=== PATIENT | male | born 1950 | race Caucasian/White ===

== ENCOUNTER 2017-08-21 00:31 | Inpatient (IN) | payer MEDICAID, SELFPAY ==
[2017-08-21] VITALS (53 sets, daily range): BP systolic 68–112; BP diastolic 44–76; PULSE 62–94; RESP 14–26; TEMP 36.6–37.5; O2SAT 93–100; BMI 31.8; BMI 29.5
--- NOTE | 2017-08-21 00:58 | EKG12_ITS ---
Test Reason : Blood Pressure : / mmHG Vent. Rate : 091 BPM Atrial Rate : 091 BPM P-R Int : 162 ms QRS Dur : 100 ms QT Int : 362 ms P-R-T Axes : 046 024 045 degrees QTc Int : 445 ms Normal sinus rhythm Normal ECG Confirmed by TRACIE LOGAN MD ([id number]), state editor GUERLINE CHAPARRO ([id number] on 08/22/2017 3:04:34 PM Referred By: MACK Confirmed By:TRACIE LOGAN MD
--- NOTE | 2017-08-21 00:58 | RAD_ITS ---
STUDY: X-RAY CHEST REASON FOR EXAM: Male, 67 years old. Chest pain TECHNIQUE: Single AP portable view of the chest. COMPARISON: None. FINDINGS: The lungs are clear and expanded. There is no demonstrated pleural abnormality. Normal size heart. Normal mediastinum and yvonne. Normal visualized pulmonary arteries. There is atherosclerotic calcification of the aortic arch with tortuosity. Normal visualized thoracic spine. There is degenerative osteoarthritis of the bilateral shoulders. There is no demonstrated abnormality of the visualized soft tissue structures of the upper abdomen. RAD/Chest 1 View (Portable) IMPRESSION: Degenerative changes, as described above. No demonstrated acute cardiopulmonary process. Electronically Signed: Marleny Schaffer MD at 2:10 EDT Tel , Service support ,
--- NOTE | 2017-08-21 00:59 | CT_ITS ---
STUDY: CT BRAIN WITHOUT CONTRAST REASON FOR EXAM: Male, 67 years old. CONFUSION RADIATION DOSAGE (If Supplied By Facility): CTDIvol = ( 44.99 ) mGy, DLP = ( 914.22 ) mGycm TECHNIQUE: Transaxial CT imaging of the brain was performed without administration of intravenous contrast material. Individualized dose optimization techniques were used for this CT. COMPARISON: None. FINDINGS: Normal soft tissue structures. Normal calvarium. There is moderate cerebral atrophy with widening of the extra-axial spaces and ventricular dilatation. There are areas of decreased attenuation within the white matter tracts of the supratentorial brain, consistent with microvascular disease changes. 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 Normal basal ganglia and thalami. Normal brainstem. Normal cerebellum. There is no intracranial hemorrhage. There are no findings of an acute ischemic infarction. Normal visualized paranasal sinuses. CT/Brain/Head without Contrast IMPRESSION: Chronic involutional changes of the brain. 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 Electronically Signed: Marleny Schaffer MD at 2:19 EDT Tel , Service support ,
[2017-08-21] MEDS: 0.9% Normal Saline 1,000 ML 1000 ML IV (01:09)
[2017-08-21 01:11] LABS: Mucous, Urine 0 SEEN /hpf (<or=2+)
[2017-08-21 01:16] LABS: Absolute Lymphocyte Count 1.64 X10^3/ul (0.83-4.51); Absolute Neutrophil Count 10.3 X10^3/uL (2.0-7.7); Basophil# 0.03 X10^3/uL; Basophil% 0.2 % (0-1); Eosinophil# 0.46 X10^3/uL; Eosinophils% 3.4 % (0-5); Hemoglobin 11.3 g/dl (13.0-16.5); Lymphocyte # 1.64 X10^3/ul (4.0); Lymphocyte % 12.2 % (19-41); Mean Corp Hgb Conc 34.2 g/gl (32-36); Mean Corpuscular Volume 90.4 fL (80-94); Mean Platelet Vol. 9.2 fl (6.2-12.0); Monocyte% 7.4 % (0-10); Neutrophil % 76.5 % (47-70); Platelet Count 305 K/mm3 (150-450); RBC Distribution Width CV 13.1 % (11.6-14.6); RBC Distribution Width SD 43.5 fl (35.1-43.9); Red Blood Count 3.65 M/mm3 (4.6-6.2); White Blood Count 13.5 K/mm3 (4.4-11.0)
[2017-08-21 01:17] LABS: Differential Indicated SCAN CRITERIA MET; International Normalized Ratio 1.3; POSITIVE COUNT NO; POSITIVE DIFFERENTIAL NO; POSITIVE MORPHOLOGY YES; Prothrombin Time (Protime)PT. 16.6 SECONDS (11.7-14.9)
[2017-08-21 01:20] LABS: Lactic Acid 0.8 mmol/L (0.4-2.0)
[2017-08-21 01:21] LABS: Color, Urine Amber (Yellow); Glucose, Dipstick Normal (Normal); Ketone-Dipstick 5 mg/dl (Negative); Leukocyte Esterase-Dipstick 500 /ul (Negative); Nitrite-Dipstick Negative (Negative); Occult Blood-Urine 250 /ul (Negative); Protein-Dipstick 100 mg/dl (Negative); Specific Gravity, Urine 1.015 (1.002-1.030); Urine Bilirubin Dipstick Negative (Negative); Urine Clarity Turbid (Clear); Urine Urobilinogen Normal (Normal)
[2017-08-21 01:24] LABS: Anion Gap 20 (5-15); BUN 175 mg/dL (7-18); BUN/Creat Ratio 16.4 RATIO (10-20); Calcium,Total 8.3 mg/dL (8.5-10.1); Chloride 88 mmol/L (98-107); EST Glomerular Filtration Rate 5 mL/min (>60); Est Glom Filt Rate - Afr Amer 6 mL/min (>60); Estimated Creatinine Clearance 7.35 ml/min; Glucose 88 mg/dL (74-106); Potassium 4.8 mmol/L (3.5-5.1); Sodium Level 127 mmol/L (136-145)
--- NOTE | 2017-08-21 01:24 | ED.RN ---
AWARE OF [id number].
[2017-08-21 01:36] LABS: Amorphous Sediment 1+ PHOS; Bacteria RARE /hpf (None Seen); Red Blood Cells-Urine > 100 SEEN /hpf (0-5); Squamous Epithelial Cells - UA 5-10 SEEN /hpf (0-5); White Blood Cells >100 SEEN /hpf (0-5)
[2017-08-21 01:47] LABS: Anisocytosis RARE; Macrocytosis RARE; Platelet Estimate ADEQUATE (ADEQ)
[2017-08-21] MEDS: 0.9% Normal Saline 1,000 ML 999 ML IV ×2 (01:58→02:26)
[2017-08-21] MEDS: Ceftriaxone 1 GM/50 ML BAG IV (03:01)
[2017-08-21] MEDS: Acetaminophen 500 MG Tablet 1000 MG PO (03:08)
--- NOTE | 2017-08-21 04:13 | ED.VISSUMM ---
- ER Visit Summary Date of Service: 08/21/17 Chief Complaint: Hypotension History of Present Illness: The patient is a 67 M presenting with hypotension per retirement. Per retirement staff, he is more confused than usual. He is typically alert and oriented ?1 according to notes. His blood pressure was noted to be 76/52, pulse ox 86% on room air. He was given IV fluids and oxygen in route to the hospital. Patient complains of pain over his bladder. No fever. Patient has a history of schizoaffective disorder, hypertension, hypercholesterolemia. Physical Examination: Blood pressure 83/54, temperature 99.5, heart rate 89, respiratory rate 18, pulse ox 94% on room air. Alert no acute distress. HEENT exam is unremarkable. Dry mucous membranes Neck is supple. Lungs are clear and equal bilaterally. Heart is regular rate and rhythm. Abdomen is soft nontender nondistended. No guarding or rebound Extremities are unremarkable. Skin is warm and dry. No focal neurologic deficit. Alert and oriented to person only Remainder of exam is unremarkable. Emergency Department Course and Treatment: Patient was given IV fluids. Chest x-ray shows no acute process. EKG is sinus rate of 91. CT head was obtained and shows chronic changes, old infarct. CBC shows a white count of 13.5, hemoglobin 11.3. Chemistries show sodium 127, BUN 175, creatinine 10.7. INR is 1.3. Urinalysis shows over 100 white blood cells, over 100 red blood cells. Alex catheter was placed. Troponin is negative. Lactic acid is normal. Blood and urine cultures were sent. He was given Rocephin IV. He was given 30 cc/kg bolus of IV fluids. He was responsive to this with repeat blood pressure 97/60. Discussed with Dr. Harrison for admission. Disposition: Admission Impression: Severe sepsis, UTI, acute kidney injury This note was generated with [employer] dictation software. It may contain incorrect words, spelling, and punctuation that were not noted in review of the chart prior to signing ED Disposition - Plan for ED Patient: Disposition: Acute Care [facility] Chief Complaint: Hypotension
--- NOTE | 2017-08-21 04:18 | ED.DCSUM_ITS ---
- ER Visit Summary Date of Service: 08/21/17 Chief Complaint: Hypotension History of Present Illness: The patient is a 67 M presenting with hypotension per senior living. Per senior living staff, he is more confused than usual. He is typically alert and oriented ?1 according to notes. His blood pressure was noted to be 76/52, pulse ox 86% on room air. He was given IV fluids and oxygen in route to the hospital. Patient complains of pain over his bladder. No fever. Patient has a history of schizoaffective disorder, hypertension, hypercholesterolemia. Physical Examination: Blood pressure 83/54, temperature 99.5, heart rate 89, respiratory rate 18, pulse ox 94% on room air. Alert no acute distress. HEENT exam is unremarkable. Dry mucous membranes Neck is supple. Lungs are clear and equal bilaterally. Heart is regular rate and rhythm. Abdomen is soft nontender nondistended. No guarding or rebound Extremities are unremarkable. Skin is warm and dry. No focal neurologic deficit. Alert and oriented to person only Remainder of exam is unremarkable. Emergency Department Course and Treatment: Patient was given IV fluids. Chest x -ray shows no acute process. EKG is sinus rate of 91. CT head was obtained and shows chronic changes, old infarct. CBC shows a white count of 13.5, hemoglobin 11.3. Chemistries show sodium 127, BUN 175, creatinine 10.7. INR is 1.3. Urinalysis shows over 100 white blood cells, over 100 red blood cells. Alex catheter was placed. Troponin is negative. Lactic acid is normal. Blood and urine cultures were sent. He was given Rocephin IV. He was given 30 cc/kg bolus of IV fluids. He was responsive to this with repeat blood pressure 97/60. Discussed with Dr. Harrison for admission. Disposition: Admission Impression: Severe sepsis, UTI, acute kidney injury This note was generated with [employer] dictation software. It may contain incorrect words, spelling, and punctuation that were not noted in review of the chart prior to signing ED Disposition - Plan for ED Patient: Disposition: Acute Care [facility] Chief Complaint: Hypotension
--- NOTE | 2017-08-21 04:53 | NURSING ---
Called [facility] inquiring if pt. has any family or a lithography contact worker. Spoke with MILI Duncan and she stated that the pt. has no family and is his own POA.
[2017-08-21] MEDS: 0.9% Normal Saline 1,000 ML 150 ML IV (05:53)
--- NOTE | 2017-08-21 05:55 | US_ITS ---
STUDY: RENAL ULTRASOUND - COMPLETE REASON FOR EXAM: Male, 67 years old. Acute renal failure. TECHNIQUE: Ultrasound evaluation of the kidneys was performed with real-time and static lomas-scale imaging. COMPARISON: None. FINDINGS: RIGHT KIDNEY: Normal location of the right kidney, which is normal in size. The right kidney measures 12.7 cm x 6.1 cm x 5.0 cm. There is a normal cortex of the right kidney. The renal cortex measures 1.3 cm. There is no right renal mass or cyst. There are no right renal calculi. There is an extra-renal pelvis of the right kidney. There is no distention of the renal calyces. DISTAL RIGHT URETER: There is non-visualization of the distal right ureter. There is no demonstrated right ureterovesical junction calculus. There is no demonstrated right ureteral jet. LEFT KIDNEY: Normal location of the left kidney, which is normal in size. The left kidney measures 10.1 cm x 5.6 cm x 6.0 cm. There is a normal cortex of the left kidney. The renal cortex measures 1.2 cm. There is no left renal mass or cyst. There are no left renal calculi. There is no left hydronephrosis. DISTAL LEFT URETER: There is non-visualization of the distal left ureter. There is no demonstrated left ureterovesical junction calculus. There is no demonstrated left ureteral jet. BLADDER: A Alex catheter is seen within the urinary bladder. The bladder is empty. US/Kidney and Bladder IMPRESSION: Normal ultrasound of the kidneys. A right-sided extrarenal pelvis is seen. Electronically Signed: Elbert Kaur MD at 13:02 EDT Tel [phone], Service support ,
--- NOTE | 2017-08-21 06:13 | PCM.HP.STD ---
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 Pt unable to provide useful history. He was sent from the [place] [facility]. He was also been confused today when he is usually orientated x 1. His blood pressure was 70s and saturating in the 80s. He was given fluid and oxygen en route to the hospital. Past Medical History Past Medical History (Chronic Problems): Chronic Problems Speech abnormality (Chronic) Benign essential hypertension (Chronic) History of hyperlipidemia (Chronic) Schizoaffective disorder (Chronic) Tobacco user (Chronic) GERD (gastroesophageal reflux disease) (Chronic) Allergies No Known Allergies Allergy (Verified 08/21/17 00:41) Home Medications: Ambulatory Orders Medication Instructions Recorded Cyanocobalamin (Vitamin B-12) 1,000 mcg PO DAILY 12/08/16 [B-12] Ergocalciferol [Vitamin D] 50,000 unit PO TH 12/08/16 Meloxicam [Mobic] 7.5 mg PO DAILY 12/08/16 Aspirin E.C. [Ecotrin] 81 mg PO DAILY@0800 tablet 12/10/16 Losartan Potassium [Cozaar] 100 mg PO DAILY tablet 12/10/16 Metoprolol Tartrate [Lopressor 12.5 mg PO BID tablet 12/10/16 (beta gayatri)] Oxycodone [Oxyir] 5 mg PO Q4H PRN PRN #10 tablet 12/10/16 Atorvastatin Calcium [Lipitor] 80 mg PO QHS 12/11/16 Furosemide [Lasix] 20 mg PO DAILY 08/21/17 Lactobacillus Rhamnosus GG 1 each PO DAILY 08/21/17 [Culturelle] Lasix 40 mg PO BREAKFAST 08/21/17 Loratadine 10 mg PO BREAKFAST 08/21/17 Omeprazole [Prilosec] 20 mg PO DAILY 08/21/17 Tamsulosin HCl [Flomax] 0.8 mg PO DAILY 08/21/17 Surgical History: no surgical history Smoking Status: Current every day smoker - *Family History Sibling History Items: Heart Disease Maternal History Items: Heart Disease Review of Systems Constitutional: Denies: Chills, Fever, Weight Change HEENT: Denies: Head Aches, Sinus Congestion, Sinus Drainage Cardiovascular: Denies: Chest Pain, Palpitations Respiratory: Denies: Cough, Shortness of breath at rest, Sputum production Gastrointestinal: Denies: Abdominal Pain, Nausea, Vomiting Genitourinary: Reports: - - Abdominal pain Musculoskeletal: Denies: Joint Pain, Joint Tenderness Skin: Denies: Rash, Wounds Neurological: Denies: Numbness, Tingling, Focal weakness Psychiatric: Denies: Anxiety, Depression, Homicidal Ideations, Suicidal Ideations Hematologic/ Lymphatic: Denies: Easy Bruising, Easy Bleeding VTE Information - Inpt Only VTE Present on Admission: No VTE Mechan Device Prophylaxis: SCD's VTE Pharm Prophylaxis ordered?: Yes Patient Problems: Active and Suspected Problems Septic shock (Acute) UTI (urinary tract infection) (Acute) - Physical Exam General: Alert, Oriented x3, Cooperative HEENT: Atraumatic, PERRLA, EOMI, Normocephalic Neck: Supple, No JVD, Negative Carotid Bruits Lungs: Clear to auscultation, Normal air movement Cardiovascular: Regular rate, No murmurs Abdomen: Bowel Sounds Present, Soft, Non Tender Extremities: No edema, Capillary Refill Less than 3 Seconds Skin: No rashes, No breakdown Musculoskeletal: No Tenderness to Palpation of Joints or Extremities Neurological: Cranial nerves II-XII grossly intact Psych/Mental Status: Normal Affect, Appropriate Vital Signs Temp Pulse Resp BP Pulse Ox 98.4 F 78 26 H 80/61 L 95 08/21/17 04:25 08/21/17 06:00 08/21/17 06:00 08/21/17 06:00 08/21/17 06:00 Oxygen Flow Rate (L/min) 3 Oxygen Delivery Method Nasal Cannula Weight: 104.1 kg Body Mass Index (BMI) 29.5 Intake and Output for Last 24 Hours 08/19/17 08/20/17 08/21/17 23:59 23:59 23:59 Intake Total 629 / 629 Output Total 225 / 225 Balance 404 / 404 Laboratory Tests Past 24 Hrs 08/21/17 04:30 MRSA (PCR) Pending Assessment/Plan All Active Problems Septic shock (Acute) UTI (urinary tract infection) (Acute) Atypical chest pain (Acute) Hypertensive urgency (Acute) 67 year old male w/ 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 1) Septic shock: secondary to UTI. Will start pressors per critical care. Will place central line when pt is a little more sedated as pt cannot follow directions and would not cooperate with line placement. Ordered haldol. Cultures pending. 2) ARF: Most likely secondary to perfusion mediated. Hydration. C/w zosyn and vancomycin. Pharmacy to dose vancomycin. 3) UTI: C/w zosyn given septic shock. Awaiting cultures. 4) Prophylaxis: SCD / Heparin.
--- NOTE | 2017-08-21 06:15 | CON.PCM_ITS ---
Reason for Consult Date of Consultation: 08/21/17 Reason for Consultation: Septic shock/acute kidney injury History of Present Illness: The patient is a 67-year-old male, with a history as outlined below, who presented to the emergency department on August 21 from a correction facility with increased confusion, hypotension and hypoxia. Per documentation provided by [facility], the patient has a history of schizoaffective disorder, GERD, chronic urinary retention, and BPH. The patient has a chronic indwelling Alex catheter. It is not known when it was last changed. It does appear that the patient is also on losartan and Lasix at the [facility]. The chronicity of the use of those medications is unknown. On presentation to the emergency department, the patient was noted to be febrile with a temperature of 99.5?F, hypotensive and hypoxic requiring 4 L/min of supplemental oxygen. Laboratory evaluation revealed a mildly elevated white blood cell count to 13,000. INR was within normal limits. Chemistry profile revealed a sodium of 127, chloride of 88, serum bicarbonate of 19, anion gap of 20 and a BUN and creatinine of 175 and 10.7, respectively. The patient was previously noted to have a normal creatinine in November 2016, per our records. Serum lactate was within normal limits. Troponin was negative. Plain film chest x-ray revealed no acute cardiopulmonary process. 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 The patient initially received IV ceftriaxone along with adequate volume resuscitation. He was subsequently transferred to the medical intensive care unit for ongoing management. On arrival to the ICU, the patient was noted to have ongoing hypotension, despite adequate volume expansion. Levophed was subsequently initiated to restore hemodynamic stability. Past Medical History Past Medical History (Chronic Problems): Chronic Problems Speech abnormality (Chronic) Benign essential hypertension (Chronic) History of hyperlipidemia (Chronic) Schizoaffective disorder (Chronic) Tobacco user (Chronic) GERD (gastroesophageal reflux disease) (Chronic) Allergies No Known Allergies Allergy (Verified 08/21/17 00:41) Home Medications: Ambulatory Orders Medication Instructions Recorded Cyanocobalamin (Vitamin B-12) 1,000 mcg PO DAILY 12/08/16 [B-12] Ergocalciferol [Vitamin D] 50,000 unit PO TH 12/08/16 Meloxicam [Mobic] 7.5 mg PO DAILY 12/08/16 Aspirin E.C. [Ecotrin] 81 mg PO DAILY@0800 tablet 12/10/16 Losartan Potassium [Cozaar] 100 mg PO DAILY tablet 12/10/16 Metoprolol Tartrate [Lopressor 12.5 mg PO BID tablet 12/10/16 (beta gayatri)] Oxycodone [Oxyir] 5 mg PO Q4H PRN PRN #10 tablet 12/10/16 Atorvastatin Calcium [Lipitor] 80 mg PO QHS 12/11/16 Furosemide [Lasix] 20 mg PO DAILY 08/21/17 Lactobacillus Rhamnosus GG 1 each PO DAILY 08/21/17 [Culturelle] Lasix 40 mg PO BREAKFAST 08/21/17 Loratadine 10 mg PO BREAKFAST 08/21/17 Omeprazole [Prilosec] 20 mg PO DAILY 08/21/17 Tamsulosin HCl [Flomax] 0.8 mg PO DAILY 08/21/17 Surgical History: no surgical history Smoking Status: Current every day smoker - *Family History Sibling History Items: Heart Disease Maternal History Items: Heart Disease Review of Systems Constitutional: Denies: Chills, Fever Eyes: Denies: Blurred vision, Double vision HEENT: Denies: Head Aches, Sinus Congestion, Sinus Drainage Cardiovascular: Denies: Chest Pain, Palpitations Respiratory: Denies: Cough, Shortness of breath at rest, Sputum production Gastrointestinal: Denies: Abdominal Pain, Nausea, Vomiting Genitourinary: Reports: - - Chronic indwelling Alex catheter Musculoskeletal: Reports: Back Pain Skin: Denies: Rash, Wounds Neurological: Denies: Numbness, Tingling, Focal weakness Psychiatric: Reports: - - Baseline schizoaffective disorder Hematologic/ Lymphatic: Reports: Anemia Patient Problems: Active and Suspected Problems Septic shock (Acute) UTI (urinary tract infection) (Acute) Objective: The patient's most recent lab work, culture data and imaging studies have all been personally reviewed. Blood and urine cultures are currently pending. - Physical Exam General: Alert, Cooperative, No apparent distress, Confused HEENT: Atraumatic, PERRLA, Normocephalic Oral: Dry Mucosa, - - Poor dentition Neck: Supple, No Nodes, Trachea Midline Lungs: No rhonchi, No wheeze, No rales, Diminished, - - Poor patient dependent inspiratory effort. Cardiovascular: Regular rate, Regular Rhythm, Normal S1, Normal S2, No murmurs Abdomen: Bowel Sounds Present, Soft, Non Tender Extremities: No clubbing, No cyanosis, Edema Skin: No breakdown Musculoskeletal: No Muscle Wasting Lymphatic: No Cervical, Supraclavicular, or Inguinal Adenopathy Neurological: Cranial nerves II-XII grossly intact, - - No focal neurological deficits. Psych/Mental Status: Flat Affect Vital Signs Temp Pulse Resp BP Pulse Ox 98.4 F 78 26 H 80/61 L 95 08/21/17 04:25 08/21/17 06:00 08/21/17 06:00 08/21/17 06:00 08/21/17 06:00 Oxygen Flow Rate (L/min) 3 Oxygen Delivery Method Nasal Cannula Weight: 229 lb 8.019 oz Body Mass Index (BMI) 29.5 Intake and Output for Last 24 Hours 08/19/17 08/20/17 08/21/17 23:59 23:59 23:59 Intake Total 629 / 629 Output Total 225 / 225 Balance 404 / 404 Laboratory Tests Past 24 Hrs 08/21/17 04:30 MRSA (PCR) Pending Labs (Last 48 Hours) 08/21/17 08/21/17 08/21/17 00:37 00:37 00:37 WBC 13.5 H RBC 3.65 L Hgb 11.3 L Hct 33.0 L MCV 90.4 MCH 31.0 MCHC 34.2 RDW 13.1 RDW Differential 43.5 Plt Count 305 MPV 9.2 Immature Gran % (Auto) 0.300 Neut % (Auto) 76.5 H Lymph % (Auto) 12.2 L [place] % (Auto) 7.4 Eos % (Auto) 3.4 Baso % (Auto) 0.2 Absolute Neuts (auto) 10.3 H Absolute Lymphs (auto) 1.64 Total Counted Not Reportable Platelet Estimate ADEQUATE Anisocytosis RARE Macrocytosis RARE PT 16.6 H INR 1.3 Sodium 127 L Potassium 4.8 Chloride 88 L Carbon Dioxide 19.0 L Anion Gap 20 H BUN 175 H* Creatinine 10.70 H* Estim Creat Clear Calc 7.35 Est GFR (MDRD) Af Amer 6 L Est GFR (MDRD) Non-Af 5 L BUN/Creatinine Ratio 16.4 Glucose 88 Lactic Acid Calcium 8.3 L Troponin I < 0.015 Urine Color Urine Clarity Urine pH Ur Specific [place] Urine Protein Urine Glucose (UA) Urine Ketones Urine Occult Blood Urine Nitrite Urine Bilirubin Urine Urobilinogen Ur Leukocyte Esterase Urine RBC Urine WBC Ur Squamous Epith Cells Amorphous Sediment Urine Bacteria Urine Mucus MRSA (PCR) 08/21/17 08/21/17 08/21/17 00:37 00:53 04:30 WBC RBC Hgb Hct MCV MCH MCHC RDW RDW Differential Plt Count MPV Immature Gran % (Auto) Neut % (Auto) Lymph % (Auto) [place] % (Auto) Eos % (Auto) Baso % (Auto) Absolute Neuts (auto) Absolute Lymphs (auto) Total Counted Platelet Estimate Anisocytosis Macrocytosis PT INR Sodium Potassium Chloride Carbon Dioxide Anion Gap BUN Creatinine Estim Creat Clear Calc Est GFR (MDRD) Af Amer Est GFR (MDRD) Non-Af BUN/Creatinine Ratio Glucose Lactic Acid 0.8 Calcium Troponin I Urine Color [place] Urine Clarity Turbid Urine pH 8.0 Ur Specific [place] 1.015 Urine Protein 100 H Urine Glucose (UA) Normal Urine Ketones 5 H Urine Occult Blood 250 H Urine Nitrite Negative Urine Bilirubin Negative Urine Urobilinogen Normal Ur Leukocyte Esterase 500 H Urine RBC > 100 SEEN Urine WBC >100 SEEN Ur Squamous Epith Cells 5-10 SEEN Amorphous Sediment 1+ PHOS Urine Bacteria RARE Urine Mucus 0 SEEN MRSA (PCR) Negative 08/21/17 08/21/17 06:55 06:55 WBC 13.4 H RBC 3.28 L Hgb 10.1 L Hct 29.8 L MCV 90.9 MCH 30.8 MCHC 33.9 RDW 13.3 RDW Differential 44.1 H Plt Count 273 MPV 8.9 Immature Gran % (Auto) 0.300 Neut % (Auto) 79.0 H Lymph % (Auto) 10.5 L [place] % (Auto) 7.6 Eos % (Auto) 2.4 Baso % (Auto) 0.2 Absolute Neuts (auto) 10.6 H Absolute Lymphs (auto) 1.40 Total Counted Pending Platelet Estimate Anisocytosis Macrocytosis PT INR Sodium Pending Potassium Pending Chloride Pending Carbon Dioxide Pending Anion Gap Pending BUN Pending Creatinine Pending Estim Creat Clear Calc Est GFR (MDRD) Af Amer Pending Est GFR (MDRD) Non-Af Pending BUN/Creatinine Ratio Pending Glucose Pending Lactic Acid Calcium Pending Troponin I Urine Color Urine Clarity Urine pH Ur Specific [place] Urine Protein Urine Glucose (UA) Urine Ketones Urine Occult Blood Urine Nitrite Urine Bilirubin Urine Urobilinogen Ur Leukocyte Esterase Urine RBC Urine WBC Ur Squamous Epith Cells Amorphous Sediment Urine Bacteria Urine Mucus MRSA (PCR) Clinical Impression(s) from Imaging Studies Chest X-Ray 08/21/17 00:58 IMPRESSION: Degenerative changes, as described above. No demonstrated acute cardiopulmonary process. Electronically Signed: Marleny Schaffer MD at 2:10 EDT Tel , Service support , Brain CT 08/21/17 00:59 IMPRESSION: Chronic involutional changes of the brain. 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 Electronically Signed: Marleny Schaffer MD at 2:19 EDT Tel , Service support , Assessment/Plan Active and Suspected Problems Septic shock (Acute) UTI (urinary tract infection) (Acute) RECOMMENDATIONS: 1. Continue Levophed to maintain a mean arterial pressure at or above 65 mmHg. No additional supplemental IV fluid hydration is required at this time. 2. Plan to replace Alex catheter 3. Continue broad-spectrum antibiotics, pending infectious workup. 4. Await nephrology consultation 5. Continue subcutaneous heparin and baseline PPI therapy for prophylaxis. 6. Encourage incentive spirometer use. Physical therapy evaluation, once medically stabilized. IMPRESSIONS: 1. Septic shock of presumptive urinary source The patient presented with hemodynamic instability, despite adequate volume resuscitation. He has a history of a chronic indwelling Alex catheter, which upon arrival to the ICU, was malpositioned and not effectively draining his bladder. He additionally had significant urine sediment noted. The patient was started on levophed to maintain a mean arterial pressure at or above 65 mmHg. No additional continuous supplemental IV fluid hydration is required. We will plan to continue broad-spectrum antibiotics, pending finalized infectious workup. Alex catheter to be replaced by ICU staff. 2. Acute kidney injury Likely a combination of prerenal azotemia and obstructive uropathy, given the patient's malpositioned Alex catheter noted on arrival. In addition, the patient was also noted to be on Lasix in his correction facility. The patient has been adequately volume resuscitated at this time and will be continued on vasopressor support to maintain hemodynamic stability. Nephrology consultation is currently pending. Alex catheter will be replaced by ICU staff. 3. Anion gap metabolic acidosis/hyponatremia/hypochloremia Likely secondary to numbers 1 and 2. Anticipate improvement with volume expansion and stabilization of hemodynamics. 4. Baseline schizoaffective disorder/chronic back pain/hypertension/ hyperlipidemia/GERD Complicates care, management, recovery and prognosis. Continue to hold losartan and Lasix. Continue baseline PPI therapy. The patient will require physical therapy evaluation once medically stabilized. TIME: 50 minutes of critical care time, independent of procedures, was spent addressing the patient's septic shock, acute kidney injury, anion gap metabolic acidosis, review of all data and collaboration with the care team. ([id number]) Code Visit 9xxxx: [id number] Critical care first hour
[2017-08-21 06:23] LABS: M R Staph aureus DNA By PCR Negative (Negative); Probe Check PASS; Specimen Processing Control PASS
[2017-08-21 07:12] LABS: Absolute Neutrophil Count 10.6 X10^3/uL (2.0-7.7); Basophil# 0.03 X10^3/uL; Basophil% 0.2 % (0-1); Eosinophil# 0.32 X10^3/uL; Eosinophils% 2.4 % (0-5); Hematocrit 29.8 % (40-54); Hemoglobin 10.1 g/dl (13.0-16.5); Lymphocyte % 10.5 % (19-41); Mean Corp Hgb Conc 33.9 g/gl (32-36); Mean Corpuscular Hgb 30.8 pg (27.0-32.0); Mean Corpuscular Volume 90.9 fL (80-94); Mean Platelet Vol. 8.9 fl (6.2-12.0); Monocyte# 1.02 X10^3/uL; Monocyte% 7.6 % (0-10); Neutrophil # 10.55 X10^3/uL (2.7-7.7); Platelet Count 273 K/mm3 (150-450); RBC Distribution Width CV 13.3 % (11.6-14.6); RBC Distribution Width SD 44.1 fl (35.1-43.9); Red Blood Count 3.28 M/mm3 (4.6-6.2); White Blood Count 13.4 K/mm3 (4.4-11.0)
[2017-08-21 07:15] LABS: Differential Indicated SCAN CRITERIA MET; POSITIVE COUNT NO; POSITIVE DIFFERENTIAL NO; POSITIVE MORPHOLOGY YES
[2017-08-21] MEDS: Heparin Injection (Vial) 5,000 UNIT/ML VIAL 5000 UNIT SC ×3 (07:15→22:29)
[2017-08-21] MEDS: Piperacil/Tazobactam 3.375 GM/50 ML ML IV ×2 (07:16→22:29)
[2017-08-21 07:32] LABS: Anion Gap 18 (5-15); BUN 165 mg/dL (7-18); BUN/Creat Ratio 17.1 RATIO (10-20); Calcium,Total 7.4 mg/dL (8.5-10.1); Chloride 96 mmol/L (98-107); Creatinine, Serum 9.67 mg/dL (0.70-1.30); EST Glomerular Filtration Rate 6 mL/min (>60); Est Glom Filt Rate - Afr Amer 7 mL/min (>60); Estimated Creatinine Clearance 8.62 ml/min; Glucose 101 mg/dL (74-106); Potassium 4.8 mmol/L (3.5-5.1); Sodium Level 130 mmol/L (136-145)
[2017-08-21] MEDS: fentaNYL 100 MCG/2 ML Ampul 25 MCG IV ×2 (08:15→22:04)
[2017-08-21 09:10] LABS: Osmolality, Serum 333 mOsm/KG (280-301)
[2017-08-21] MEDS: Aspirin E.C. 81 MG Tablet PO (10:05)
[2017-08-21] MEDS: Tamsulosin HCl 0.4 MG Capsule 0.8 MG PO (10:06)
[2017-08-21] MEDS: Pantoprazole Sodium 20 MG Tablet PO (10:06)
[2017-08-21] MEDS: Cyanocobalamin 500 MCG Tablet 1000 MCG PO (10:07)
--- NOTE | 2017-08-21 10:10 | CM.UR ---
Participated in interdisciplinary rounds. Patient is alert by only oriented to self. Is a resident at [facility]. Has tank terminal gauger indwelling love. + urosepsis. Plan is for picc placement for IVAB. Patient currently on oxygen however no normally on o2 at home. Will consult for return to [facility] at skilled level of care. Isaak Arthur RN, [facility].
[2017-08-21 10:39] LABS: M R Staph aureus DNA By PCR Negative (Negative); Probe Check PASS; Specimen Processing Control PASS
--- NOTE | 2017-08-21 13:59 | PCM.PN.BLA ---
Progress Note Patient is a 67 year old gentleman admitted with septic shock secondary to urinary tract infection. Patient was also found to be in acute kidney injury. Patient has been admitted to the intensive care unit where patient is currently being managed per protocol. Consultation was also placed to drafter Dr. Carbajal his notes and recommendations reviewed Patient is being seen and examined. His initial assessment including history and physical, diagnostic database administrator orders reviewed will follow Active Medications Aspirin (Ecotrin) 81 mg PO DAILY@0800 [facility] Last Admin: 08/21/17 10:05 Dose: 81 mg Atorvastatin Calcium (Lipitor) 80 mg PO QHS [facility] Cyanocobalamin (Vitamin B12) 1,000 mcg PO DAILY [facility] Last Admin: 08/21/17 10:07 Dose: 1,000 mcg Heparin Sodium (Porcine) (Heparin Na) 5,000 unit SC Q8 [facility] Last Admin: 08/21/17 12:50 Dose: 5,000 u Norepinephrine Bitartrate 8 mg (/ Dextrose) 258 mls @ 9.67 mls/hr IV .[id number] [facility] PRN Reason: 5 MCG/MIN Last Admin: 08/21/17 05:35 Dose: 9.67 mls/hr Sodium Chloride () 250 mls @ 15 mls/hr IV .[id number] PRN PRN Reason: SALINE FLUSH Piperacillin Sod/Tazobactam Sod (Zosyn) 3.375 gm in 50 mls @ 12.5 mls/hr IV Q12 [facility] Last Admin: 08/21/17 07:16 Dose: 12.5 mls/hr Vancomycin HCl 2,000 mg/ (Sodium Chloride) 540 mls @ 260 mls/hr IV X1 ONE Stop: 08/21/17 14:04 Last Admin: 08/21/17 12:10 Dose: 260 mls/hr Vancomycin IV Pharmacy to Dose (1 ea/ Sodium Chloride) 500 mls @ 250 mls/hr IV X1 PRN PRN Reason: Protocol Lactobacillus Acidophilus (Acidophilus) 1 tablet PO DAILY [facility] Last Admin: 08/21/17 10:07 Dose: 1 tablet Pantoprazole Sodium (Protonix) 20 mg PO DAILY [facility] Last Admin: 08/21/17 10:06 Dose: 20 mg Sodium Chloride () 5 - 30 ml IV UD PRN PRN Reason: SALINE FLUSH Tamsulosin HCl (Flomax) 0.8 mg PO DAILY [facility] Last Admin: 08/21/17 10:06 Dose: 0.8 mg Impressions Chest X-Ray 08/21/17 00:58 IMPRESSION: Degenerative changes, as described above. No demonstrated acute cardiopulmonary process. Electronically Signed: Marleny Schaffer MD at 2:10 EDT Tel , Service support , Brain CT 08/21/17 00:59 IMPRESSION: Chronic involutional changes of the brain. 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 Electronically Signed: Marleny Schaffer MD at 2:19 EDT Tel , Service support , 08/21/17 00:58 Chest 1 View (Portable) [RAD] Stat 08/21/17 00:59 CT Head [Brain/Head without Contrast] [CT] Stat 08/21/17 05:55 Kidney and Bladder [US] AM (NON MEDS)
--- NOTE | 2017-08-21 14:00 | PN_ITS ---
Progress Note Patient is a 67 year old gentleman admitted with septic shock secondary to urinary tract infection. Patient was also found to be in acute kidney injury. Patient has been admitted to the intensive care unit where patient is currently being managed per protocol. Consultation was also placed to hard rock miner blasting Dr. Carbajal his notes and recommendations reviewed Patient is being seen and examined. His initial assessment including history and physical, diagnostic data management specialist orders reviewed will follow Active Medications Aspirin (Ecotrin) 81 mg PO DAILY@0800 [facility] Last Admin: 08/21/17 10:05 Dose: 81 mg Atorvastatin Calcium (Lipitor) 80 mg PO QHS [facility] Cyanocobalamin (Vitamin B12) 1,000 mcg PO DAILY [facility] Last Admin: 08/21/17 10:07 Dose: 1,000 mcg Heparin Sodium (Porcine) (Heparin Na) 5,000 unit SC Q8 [facility] Last Admin: 08/21/17 12:50 Dose: 5,000 u Norepinephrine Bitartrate 8 mg (/ Dextrose) 258 mls @ 9.67 mls/hr IV .[id number] [facility] PRN Reason: 5 MCG/MIN Last Admin: 08/21/17 05:35 Dose: 9.67 mls/hr Sodium Chloride () 250 mls @ 15 mls/hr IV .[id number] PRN PRN Reason: SALINE FLUSH Piperacillin Sod/Tazobactam Sod (Zosyn) 3.375 gm in 50 mls @ 12.5 mls/hr IV Q12 [facility] Last Admin: 08/21/17 07:16 Dose: 12.5 mls/hr Vancomycin HCl 2,000 mg/ (Sodium Chloride) 540 mls @ 260 mls/hr IV X1 ONE Stop: 08/21/17 14:04 Last Admin: 08/21/17 12:10 Dose: 260 mls/hr Vancomycin IV Pharmacy to Dose (1 ea/ Sodium Chloride) 500 mls @ 250 mls/hr IV X1 PRN PRN Reason: Protocol Lactobacillus Acidophilus (Acidophilus) 1 tablet PO DAILY [facility] Last Admin: 08/21/17 10:07 Dose: 1 tablet Pantoprazole Sodium (Protonix) 20 mg PO DAILY [facility] Last Admin: 08/21/17 10:06 Dose: 20 mg Sodium Chloride () 5 - 30 ml IV UD PRN PRN Reason: SALINE FLUSH Tamsulosin HCl (Flomax) 0.8 mg PO DAILY [facility] Last Admin: 08/21/17 10:06 Dose: 0.8 mg Impressions Chest X-Ray 08/21/17 00:58 IMPRESSION: Degenerative changes, as described above. No demonstrated acute cardiopulmonary process. Electronically Signed: Marleny Schaffer MD at 2:10 EDT Tel , Service support , Brain CT 08/21/17 00:59 IMPRESSION: Chronic involutional changes of the brain. 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 Electronically Signed: Marleny Schaffer MD at 2:19 EDT Tel , Service support , 08/21/17 00:58 Chest 1 View (Portable) [RAD] Stat 08/21/17 00:59 CT Head [Brain/Head without Contrast] [CT] Stat 08/21/17 05:55 Kidney and Bladder [US] AM (NON MEDS)
--- NOTE | 2017-08-21 15:05 | PCM.RX.CS ---
Consult Pharmacy has been consulted to manage selected antiobiotic: Vancomycin Type of Consult: Follow-up Suspected Infection: Sepsis Prior Doses of Antibiotics Received/Current Regimen: VANCOMYCIN 2000MG IV X1 08/21 @1250 Labs: Sodium 130 mmol/L (136-145) L 08/21/17 06:55 Potassium 4.8 mmol/L (3.5-5.1) 08/21/17 06:55 Chloride 96 mmol/L (98-107) L 08/21/17 06:55 Carbon Dioxide 16.0 mmol/L (21.0-32.0) L 08/21/17 06:55 Anion Gap 18 (5-15) H 08/21/17 06:55 BUN 165 mg/dL (7-18) H* 08/21/17 06:55 Creatinine 9.67 mg/dL (0.70-1.30) H* 08/21/17 06:55 Est GFR (MDRD) Af Amer 7 mL/min (>60) L 08/21/17 06:55 Est GFR (MDRD) Non-Af 6 mL/min (>60) L 08/21/17 06:55 BUN/Creatinine Ratio 17.1 RATIO (10-20) 08/21/17 06:55 Glucose 101 mg/dL (74-106) 08/21/17 06:55 Weight used for dosin kg Goal Trough: 15-20 mcg/mL Pharmacy Plan for Drug Dosing: Pharmacy to manage vancomycin per consult for the treatment of suspected sepsis per press brake operator consult. The patient did receive a 1x dose of vancomycin, as stated above. Upon admission to the hospital, the patient had significant renal impairment, with a SCr of 10.7. At that time, pharmacy ordered a 1x dose. Repeat labs today show a slightly improved SCr of 9.67, and an est CrCl ~8mL/min. Upon notes from today, the patient is not on dialysis at this time. Since the patient has unstable renal function, will order a random vancomycin level ~24hrs from last dose administered and will re-dose vancomycin based off of that value. PLAN/RECOMMENDATIONS 1. Random trough scheduled for 08/22/17 @1300 2. No vancomycin scheduled at this time 3. Pharmacy Service will continue to monitor and adjust dosing as required.
--- NOTE | 2017-08-21 15:10 | PHA.PHARE_ITS ---
Consult Pharmacy has been consulted to manage selected antiobiotic: Vancomycin Type of Consult: Follow-up Suspected Infection: Sepsis Prior Doses of Antibiotics Received/Current Regimen: VANCOMYCIN 2000MG IV X1 08/21 @1250 Labs: Sodium 130 mmol/L (136-145) L 08/21/17 06:55 Potassium 4.8 mmol/L (3.5-5.1) 08/21/17 06:55 Chloride 96 mmol/L (98-107) L 08/21/17 06:55 Carbon Dioxide 16.0 mmol/L (21.0-32.0) L 08/21/17 06:55 Anion Gap 18 (5-15) H 08/21/17 06:55 BUN 165 mg/dL (7-18) H* 08/21/17 06:55 Creatinine 9.67 mg/dL (0.70-1.30) H* 08/21/17 06:55 Est GFR (MDRD) Af Amer 7 mL/min (>60) L 08/21/17 06:55 Est GFR (MDRD) Non-Af 6 mL/min (>60) L 08/21/17 06:55 BUN/Creatinine Ratio 17.1 RATIO (10-20) 08/21/17 06:55 Glucose 101 mg/dL (74-106) 08/21/17 06:55 Weight used for dosin kg Goal Trough: 15-20 mcg/mL Pharmacy Plan for Drug Dosing: Pharmacy to manage vancomycin per consult for the treatment of suspected sepsis per vegetable worker consult. The patient did receive a 1x dose of vancomycin, as stated above. Upon admission to the hospital, the patient had significant renal impairment, with a SCr of 10.7. At that time, pharmacy ordered a 1x dose. Repeat labs today show a slightly improved SCr of 9.67, and an est CrCl ~8mL/ min. Upon notes from today, the patient is not on dialysis at this time. Since the patient has unstable renal function, will order a random vancomycin level ~ 24hrs from last dose administered and will re-dose vancomycin based off of that value. PLAN/RECOMMENDATIONS 1. Random trough scheduled for 08/22/17 @1300 2. No vancomycin scheduled at this time 3. Pharmacy Service will continue to monitor and adjust dosing as required.
--- NOTE | 2017-08-21 17:21 | PCM.CONS.R ---
Consultation - Renal 08/21/17 PCP/ Referring MD: Requesting physician: [] Primary care physician: Nicho Sanderson Reason for Consultation:: ELO - History of Present Illness History of Present Illness: The patient is a 67-year-old male, lives in SNF with PMHX ( reviewed via chart) schizoaffective disorder, GERD, chronic urinary retention, and BPH. The patient has a chronic indwelling Alex catheter. admitted with confusion delirium ?UTI ELO Risk on losartan and Lasix at the correction facility. Low BP LUTS BPH Chemistry profile revealed a sodium of 127, chloride of 88, serum bicarbonate of 19, anion gap of 20 and a BUN and creatinine of 175 and 10.7, respectively. The patient was previously noted to have a normal creatinine ~0.9 in November 2016, per our records. The patient initially received IV ceftriaxone along with adequate volume resuscitation we were consulted ELO - Allergies Allergies: Allergies No Known Allergies Allergy (Verified 08/21/17 00:41) - Current Medications Current Medications: Current Medications Aspirin (Ecotrin) 81 mg PO DAILY@0800 [facility] Last Admin: 08/21/17 10:05 Dose: 81 mg Atorvastatin Calcium (Lipitor) 80 mg PO QHS [facility] Cyanocobalamin (Vitamin B12) 1,000 mcg PO DAILY [facility] Last Admin: 08/21/17 10:07 Dose: 1,000 mcg Heparin Sodium (Porcine) (Heparin Na) 5,000 unit SC Q8 [facility] Last Admin: 08/21/17 12:50 Dose: 5,000 u Norepinephrine Bitartrate 8 mg (/ Dextrose) 258 mls @ 9.67 mls/hr IV .[id number] [facility] PRN Reason: 5 MCG/MIN Last Admin: 08/21/17 05:35 Dose: 9.67 mls/hr Sodium Chloride () 250 mls @ 15 mls/hr IV .[id number] PRN PRN Reason: SALINE FLUSH Piperacillin Sod/Tazobactam Sod (Zosyn) 3.375 gm in 50 mls @ 12.5 mls/hr IV Q12 [facility] Last Admin: 08/21/17 07:16 Dose: 12.5 mls/hr Vancomycin IV Pharmacy to Dose (1 ea/ Sodium Chloride) 500 mls @ 250 mls/hr IV X1 PRN PRN Reason: Protocol Lactobacillus Acidophilus (Acidophilus) 1 tablet PO DAILY [facility] Last Admin: 08/21/17 10:07 Dose: 1 tablet Pantoprazole Sodium (Protonix) 20 mg PO DAILY [facility] Last Admin: 08/21/17 10:06 Dose: 20 mg Sodium Chloride () 5 - 30 ml IV UD PRN PRN Reason: SALINE FLUSH Tamsulosin HCl (Flomax) 0.8 mg PO DAILY [facility] Last Admin: 08/21/17 10:06 Dose: 0.8 mg - Past Medical History Past Medical History (Chronic Problems): Chronic Problems Speech abnormality (Chronic) Benign essential hypertension (Chronic) History of hyperlipidemia (Chronic) Schizoaffective disorder (Chronic) Tobacco user (Chronic) GERD (gastroesophageal reflux disease) (Chronic) - Past Surgical History Surgical History: no surgical history - Social History Smoking Status: Current every day smoker - Family History Sibling History Items: Heart Disease Maternal History Items: Heart Disease Review of Systems Constitutional: Reports: Fever, Malaise, Weakness Eyes: Reports: Pain HEENT: Reports: Difficulty Hearing Cardiovascular: Reports: Chest Pain Respiratory: Reports: Shortness of Breath Gastrointestinal: Reports: Abdominal Pain Genitourinary: Reports: Dysuria, Frequency, Hematuria, Hesitancy Musculoskeletal: Denies: Joint Pain, Joint Tenderness Skin: Reports: Dryness Neurological: Denies: Numbness, Tingling, Focal weakness Psychiatric: Reports: Anxiety Hematologic/ Lymphatic: Reports: Adenopathy Patient Problems: Active and Suspected Problems Septic shock (Acute) UTI (urinary tract infection) (Acute) - Physical Exam General: Alert, Oriented x3, Cooperative HEENT: Atraumatic, PERRLA, EOMI, Normocephalic Neck: Supple, No JVD, Negative Carotid Bruits Lungs: Clear to auscultation, Normal air movement Cardiovascular: Regular rate, No murmurs Abdomen: Bowel Sounds Present, Soft, Non Tender Extremities: No edema, Capillary Refill Less than 3 Seconds Skin: No rashes, No breakdown Musculoskeletal: No Tenderness to Palpation of Joints or Extremities Neurological: Cranial nerves II-XII grossly intact Psych/Mental Status: Normal Affect, Appropriate Vital Signs Temp Pulse Resp BP Pulse Ox 98 F 78 16 86/65 L 97 08/21/17 12:00 08/21/17 16:00 08/21/17 16:00 08/21/17 16:00 08/21/17 16:00 Oxygen Flow Rate (L/min) 3 Oxygen Delivery Method Nasal Cannula Weight: 104.1 kg Body Mass Index (BMI) 29.5 Intake and Output for Last 24 Hours 08/19/17 08/20/17 08/21/17 23:59 23:59 23:59 Intake Total 1229 / 1229 Output Total 1725 / 1725 Balance -496 / -496 Laboratory Tests Past 24 Hrs 08/21/17 08/21/17 08/21/17 04:30 06:55 06:55 WBC 13.4 H RBC 3.28 L Hgb 10.1 L Hct 29.8 L MCV 90.9 MCH 30.8 MCHC 33.9 RDW 13.3 RDW Differential 44.1 H Plt Count 273 MPV 8.9 Immature Gran % (Auto) 0.300 Neut % (Auto) 79.0 H Lymph % (Auto) 10.5 L [place] % (Auto) 7.6 Eos % (Auto) 2.4 Baso % (Auto) 0.2 Absolute Neuts (auto) 10.6 H Absolute Lymphs (auto) 1.40 Total Counted Not Reportable Sodium 130 L Potassium 4.8 Chloride 96 L Carbon Dioxide 16.0 L Anion Gap 18 H BUN 165 H* Creatinine 9.67 H* Estim Creat Clear Calc 8.62 Est GFR (MDRD) Af Amer 7 L Est GFR (MDRD) Non-Af 6 L BUN/Creatinine Ratio 17.1 Glucose 101 Serum Osmolality Calcium 7.4 L Urine Osmolality MRSA (PCR) Negative 08/21/17 08/21/17 08/21/17 08:30 08:35 08:35 WBC RBC Hgb Hct MCV MCH MCHC RDW RDW Differential Plt Count MPV Immature Gran % (Auto) Neut % (Auto) Lymph % (Auto) [place] % (Auto) Eos % (Auto) Baso % (Auto) Absolute Neuts (auto) Absolute Lymphs (auto) Total Counted Sodium Potassium Chloride Carbon Dioxide Anion Gap BUN Creatinine Estim Creat Clear Calc Est GFR (MDRD) Af Amer Est GFR (MDRD) Non-Af BUN/Creatinine Ratio Glucose Serum Osmolality 333 H Calcium Urine Osmolality Pending MRSA (PCR) Negative Assessment/Plan All Active Problems Septic shock (Acute) UTI (urinary tract infection) (Acute) Atypical chest pain (Acute) Hypertensive urgency (Acute) ELO ATN - ichamic ATN with low SBP (BSCR 0.8 now in ~9) with LUTS and Obstructive uropathy- chronic indwelling catheter changes- 1500 blooddy urine drained- tx for UTI- CD via floey IVF resuscitation Dalton creatinine will improve no need of SOCIALLY RESPONSIBLE INVESTMENT ADVISER HOld Losartan Lasix 40 mg IV BID
--- NOTE | 2017-08-21 17:27 | CON.PCM_ITS ---
Consultation - Renal 08/21/17 PCP/ Referring MD: Requesting physician: [] Primary care physician: Nicho Sanderson Reason for Consultation:: ELO - History of Present Illness History of Present Illness: The patient is a 67-year-old male, lives in SNF with PMHX ( reviewed via chart ) schizoaffective disorder, GERD, chronic urinary retention, and BPH. The patient has a chronic indwelling Alex catheter. admitted with confusion delirium ?UTI ELO Risk on losartan and Lasix at the long-term facility. Low BP LUTS BPH Chemistry profile revealed a sodium of 127, chloride of 88, serum bicarbonate of 19, anion gap of 20 and a BUN and creatinine of 175 and 10.7, respectively. The patient was previously noted to have a normal creatinine ~0.9 in November 2016, per our records. The patient initially received IV ceftriaxone along with adequate volume resuscitation we were consulted ELO - Allergies Allergies: Allergies No Known Allergies Allergy (Verified 08/21/17 00:41) - Current Medications Current Medications: Current Medications Aspirin (Ecotrin) 81 mg PO DAILY@0800 [facility] Last Admin: 08/21/17 10:05 Dose: 81 mg Atorvastatin Calcium (Lipitor) 80 mg PO QHS [facility] Cyanocobalamin (Vitamin B12) 1,000 mcg PO DAILY [facility] Last Admin: 08/21/17 10:07 Dose: 1,000 mcg Heparin Sodium (Porcine) (Heparin Na) 5,000 unit SC Q8 [facility] Last Admin: 08/21/17 12:50 Dose: 5,000 u Norepinephrine Bitartrate 8 mg (/ Dextrose) 258 mls @ 9.67 mls/hr IV .[id number] [facility] PRN Reason: 5 MCG/MIN Last Admin: 08/21/17 05:35 Dose: 9.67 mls/hr Sodium Chloride () 250 mls @ 15 mls/hr IV .[id number] PRN PRN Reason: SALINE FLUSH Piperacillin Sod/Tazobactam Sod (Zosyn) 3.375 gm in 50 mls @ 12.5 mls/hr IV Q12 [facility] Last Admin: 08/21/17 07:16 Dose: 12.5 mls/hr Vancomycin IV Pharmacy to Dose (1 ea/ Sodium Chloride) 500 mls @ 250 mls/hr IV X1 PRN PRN Reason: Protocol Lactobacillus Acidophilus (Acidophilus) 1 tablet PO DAILY [facility] Last Admin: 08/21/17 10:07 Dose: 1 tablet Pantoprazole Sodium (Protonix) 20 mg PO DAILY [facility] Last Admin: 08/21/17 10:06 Dose: 20 mg Sodium Chloride () 5 - 30 ml IV UD PRN PRN Reason: SALINE FLUSH Tamsulosin HCl (Flomax) 0.8 mg PO DAILY [facility] Last Admin: 08/21/17 10:06 Dose: 0.8 mg - Past Medical History Past Medical History (Chronic Problems): Chronic Problems Speech abnormality (Chronic) Benign essential hypertension (Chronic) History of hyperlipidemia (Chronic) Schizoaffective disorder (Chronic) Tobacco user (Chronic) GERD (gastroesophageal reflux disease) (Chronic) - Past Surgical History Surgical History: no surgical history - Social History Smoking Status: Current every day smoker - Family History Sibling History Items: Heart Disease Maternal History Items: Heart Disease Review of Systems Constitutional: Reports: Fever, Malaise, Weakness Eyes: Reports: Pain HEENT: Reports: Difficulty Hearing Cardiovascular: Reports: Chest Pain Respiratory: Reports: Shortness of Breath Gastrointestinal: Reports: Abdominal Pain Genitourinary: Reports: Dysuria, Frequency, Hematuria, Hesitancy Musculoskeletal: Denies: Joint Pain, Joint Tenderness Skin: Reports: Dryness Neurological: Denies: Numbness, Tingling, Focal weakness Psychiatric: Reports: Anxiety Hematologic/ Lymphatic: Reports: Adenopathy Patient Problems: Active and Suspected Problems Septic shock (Acute) UTI (urinary tract infection) (Acute) - Physical Exam General: Alert, Oriented x3, Cooperative HEENT: Atraumatic, PERRLA, EOMI, Normocephalic Neck: Supple, No JVD, Negative Carotid Bruits Lungs: Clear to auscultation, Normal air movement Cardiovascular: Regular rate, No murmurs Abdomen: Bowel Sounds Present, Soft, Non Tender Extremities: No edema, Capillary Refill Less than 3 Seconds Skin: No rashes, No breakdown Musculoskeletal: No Tenderness to Palpation of Joints or Extremities Neurological: Cranial nerves II-XII grossly intact Psych/Mental Status: Normal Affect, Appropriate Vital Signs Temp Pulse Resp BP Pulse Ox 98 F 78 16 86/65 L 97 08/21/17 12:00 08/21/17 16:00 08/21/17 16:00 08/21/17 16:00 08/21/17 16:00 Oxygen Flow Rate (L/min) 3 Oxygen Delivery Method Nasal Cannula Weight: 104.1 kg Body Mass Index (BMI) 29.5 Intake and Output for Last 24 Hours 08/19/17 08/20/17 08/21/17 23:59 23:59 23:59 Intake Total 1229 / 1229 Output Total 1725 / 1725 Balance -496 / -496 Laboratory Tests Past 24 Hrs 08/21/17 08/21/17 08/21/17 04:30 06:55 06:55 WBC 13.4 H RBC 3.28 L Hgb 10.1 L Hct 29.8 L MCV 90.9 MCH 30.8 MCHC 33.9 RDW 13.3 RDW Differential 44.1 H Plt Count 273 MPV 8.9 Immature Gran % (Auto) 0.300 Neut % (Auto) 79.0 H Lymph % (Auto) 10.5 L [place] % (Auto) 7.6 Eos % (Auto) 2.4 Baso % (Auto) 0.2 Absolute Neuts (auto) 10.6 H Absolute Lymphs (auto) 1.40 Total Counted Not Reportable Sodium 130 L Potassium 4.8 Chloride 96 L Carbon Dioxide 16.0 L Anion Gap 18 H BUN 165 H* Creatinine 9.67 H* Estim Creat Clear Calc 8.62 Est GFR (MDRD) Af Amer 7 L Est GFR (MDRD) Non-Af 6 L BUN/Creatinine Ratio 17.1 Glucose 101 Serum Osmolality Calcium 7.4 L Urine Osmolality MRSA (PCR) Negative 08/21/17 08/21/17 08/21/17 08:30 08:35 08:35 WBC RBC Hgb Hct MCV MCH MCHC RDW RDW Differential Plt Count MPV Immature Gran % (Auto) Neut % (Auto) Lymph % (Auto) [place] % (Auto) Eos % (Auto) Baso % (Auto) Absolute Neuts (auto) Absolute Lymphs (auto) Total Counted Sodium Potassium Chloride Carbon Dioxide Anion Gap BUN Creatinine Estim Creat Clear Calc Est GFR (MDRD) Af Amer Est GFR (MDRD) Non-Af BUN/Creatinine Ratio Glucose Serum Osmolality 333 H Calcium Urine Osmolality Pending MRSA (PCR) Negative Assessment/Plan All Active Problems Septic shock (Acute) UTI (urinary tract infection) (Acute) Atypical chest pain (Acute) Hypertensive urgency (Acute) ELO ATN - ichamic ATN with low SBP (BSCR 0.8 now in ~9) with LUTS and Obstructive uropathy- chronic indwelling catheter changes- 1500 blooddy urine drained- tx for UTI- CD via floey IVF resuscitation Dalton creatinine will improve no need of LEAD SYSTEMS ENGINEER HOld Losartan Lasix 40 mg IV BID
[2017-08-21] MEDS: 0.9% NaCl Peripheral Flush Adult/Peds IV (22:04)
[2017-08-21] MEDS: Atorvastatin Calcium 80 MG Tablet PO (22:29)
[2017-08-22] VITALS (46 sets, daily range): BP systolic 69–117; BP diastolic 45–77; PULSE 57–97; RESP 16–26; TEMP 36.3–37.1; O2SAT 89–100
[2017-08-22 05:22] LABS: Absolute Lymphocyte Count 1.29 X10^3/ul (0.83-4.51); Absolute Neutrophil Count 6.1 X10^3/uL (2.0-7.7); Basophil# 0.02 X10^3/uL; Basophil% 0.2 % (0-1); Eosinophil# 0.49 X10^3/uL; Eosinophils% 5.3 % (0-5); Hematocrit 30.2 % (40-54); Hemoglobin 10.2 g/dl (13.0-16.5); Lymphocyte # 1.29 X10^3/ul (4.0); Lymphocyte % 13.9 % (19-41); Mean Corp Hgb Conc 33.8 g/gl (32-36); Mean Corpuscular Hgb 30.6 pg (27.0-32.0); Mean Corpuscular Volume 90.7 fL (80-94); Mean Platelet Vol. 8.7 fl (6.2-12.0); Monocyte# 1.35 X10^3/uL; Monocyte% 14.6 % (0-10); Neutrophil # 6.05 X10^3/uL (2.7-7.7); Neutrophil % 65.5 % (47-70); Platelet Count 285 K/mm3 (150-450); RBC Distribution Width CV 13.3 % (11.6-14.6); RBC Distribution Width SD 43.9 fl (35.1-43.9); Red Blood Count 3.33 M/mm3 (4.6-6.2); White Blood Count 9.3 K/mm3 (4.4-11.0)
[2017-08-22] MEDS: Heparin Injection (Vial) 5,000 UNIT/ML VIAL 5000 UNIT SC ×3 (05:49→22:38)
[2017-08-22] MEDS: CHLORHEXIDINE GLUC 2% CLOTH 1 EACH TOWELETTE TOPICAL (05:49)
[2017-08-22 05:50] LABS: Anion Gap 15 (5-15); BUN 139 mg/dL (7-18); BUN/Creat Ratio 23.8 RATIO (10-20); Calcium,Total 8.3 mg/dL (8.5-10.1); Chloride 103 mmol/L (98-107); Creatinine, Serum 5.85 mg/dL (0.70-1.30); EST Glomerular Filtration Rate 10 mL/min (>60); Est Glom Filt Rate - Afr Amer 13 mL/min (>60); Estimated Creatinine Clearance 14.25 ml/min; Glucose 165 mg/dL (74-106); Potassium 4.2 mmol/L (3.5-5.1); Sodium Level 138 mmol/L (136-145)
[2017-08-22 06:33] LABS: POSITIVE COUNT NO; POSITIVE DIFFERENTIAL NO; POSITIVE MORPHOLOGY NO
--- NOTE | 2017-08-22 09:50 | CASEMGMT ---
Social Work: Participated in ICU rounds. Patient is from [facility] and will return there when medically ready. PLAN: Patient to be discharged back to [facility] when medically ready. TRACY Carter
--- NOTE | 2017-08-22 10:16 | PN.RENAL_ITS ---
Patient Problems: Active and Suspected Problems Septic shock (Acute) UTI (urinary tract infection) (Acute) Subjective: Patient is doing okay. Patient is asking for ice Remains in low dose of levophed. NAD - Physical Exam General: Alert, Cooperative HEENT: Atraumatic Oral: Moist Mucosa Neck: Supple Lungs: Clear to auscultation, No rhonchi, No wheeze, No rales Cardiovascular: Normal S1, Normal S2, No murmurs Abdomen: Bowel Sounds Present, Soft, Non Tender Extremities: No cyanosis, Edema - trace edema Skin: No rashes Musculoskeletal: No Tenderness to Palpation of Joints or Extremities Lymphatic: No Cervical, Supraclavicular, or Inguinal Adenopathy Psych/Mental Status: Appropriate Comment: love cath in place draining bloody urine Vital Signs Temp Pulse Resp BP Pulse Ox 98.8 F 95 20 H 105/70 95 08/22/17 06:00 08/22/17 09:00 08/22/17 09:00 08/22/17 09:00 08/22/17 09:00 Oxygen Flow Rate (L/min) 3 Oxygen Delivery Method Room Air Weight: 99 kg Body Mass Index (BMI) 29.5 Intake and Output for Last 24 Hours 08/20/17 08/21/17 08/22/17 23:59 23:59 23:59 Intake Total 2317 / 2317 642 / 642 Output Total 2925 / 2925 3300 / 3300 Balance -608 / -608 -2658 / -2658 Laboratory Tests Past 24 Hrs 08/21/17 08/22/17 08/22/17 08:30 05:05 05:05 WBC 9.3 RBC 3.33 L Hgb 10.2 L Hct 30.2 L MCV 90.7 MCH 30.6 MCHC 33.8 RDW 13.3 RDW Differential 43.9 Plt Count 285 MPV 8.7 Immature Gran % (Auto) 0.500 Neut % (Auto) 65.5 Lymph % (Auto) 13.9 L [place] % (Auto) 14.6 H Eos % (Auto) 5.3 H Baso % (Auto) 0.2 Absolute Neuts (auto) 6.1 Absolute Lymphs (auto) 1.29 Total Counted Not Reportable Sodium 138 Potassium 4.2 Chloride 103 Carbon Dioxide 20.0 L Anion Gap 15 BUN 139 H* Creatinine 5.85 H Estim Creat Clear Calc 14.25 Est GFR (MDRD) Af Amer 13 L Est GFR (MDRD) Non-Af 10 L BUN/Creatinine Ratio 23.8 H Glucose 165 H Calcium 8.3 L MRSA (PCR) Negative Medical Necessity - Tobacco Use Smoking Status: Current every day smoker Assessment/Plan All Active Problems Septic shock (Acute) UTI (urinary tract infection) (Acute) Atypical chest pain (Acute) Hypertensive urgency (Acute) 1- ELO from most probably bladder outlet obstruction due to love cath malposition. Another contributing etiology would be prerenal from septic shock Cr peaked at 10. and BUN at 175. Both Cr and BUN are trending down after changing the love cath. UOP > 3l. Electrolytes are okay No need of SALES TRAINING REPRESENTATIVE Please keep MAP > 65. continue UTI treatment. Avoid IV contrast 2- UTI . on Zosyn as per ID service 3- Septic shock due to # 2. remains on low dose of levophed to keep MAP > 65 4- Hematuria. most probably traumatic from love cath. it is improving. Renal team will continue to follow Kimani Disla MD [phone]
--- NOTE | 2017-08-22 10:25 | PN_ITS ---
Subjective: Patient did okay overnight. No acute issues were reported. Patient does remain on Levophed therapy, but requirements are improving. Patient denies any pain for me at this time. Patient continues to be dysarthric, but this is his reported baseline. General: Alert, Cooperative, No apparent distress, - - Appears older than stated age. HEENT: Atraumatic, PERRLA, EOMI, Normocephalic, - - No scleral icterus or injection noted. Oral: Moist Mucosa, No Gingival or Mucosal Lesions/ Ulcerations Neck: Supple, No JVD, No Nodes, Trachea Midline Lungs: No rhonchi, No wheeze, No rales, Diminished, - - Symmetric expansion. No dullness to percussion. Cardiovascular: Regular rate, Regular Rhythm, Normal S1, Normal S2, Murmur - Grade 3 out of 6 systolic ejection murmur at the left lower sternal border, No rub noted, No Gallop Abdomen: Bowel Sounds Present, Soft, Non Tender, Distended - Slightly, Obese Extremities: No cyanosis, Capillary Refill Less than 3 Seconds, Edema Skin: No rashes, No breakdown Musculoskeletal: No Tenderness to Palpation of Joints or Extremities Lymphatic: No Cervical, Supraclavicular, or Inguinal Adenopathy Neurological: - - Slightly increased tone noted. Patient does have dysarthria. No focal motor neuro deficits Psych/Mental Status: Normal Affect, Appropriate Vital Signs Temp Pulse Resp BP Pulse Ox 37.1 C 95 20 H 105/70 95 08/22/17 06:00 08/22/17 09:00 08/22/17 09:00 08/22/17 09:00 08/22/17 09:00 Oxygen Flow Rate (L/min) 3 Oxygen Delivery Method Room Air Weight: 99 kg Body Mass Index (BMI) 29.5 Intake and Output for Last 24 Hours 08/20/17 08/21/17 08/22/17 23:59 23:59 23:59 Intake Total 2317 / 2317 642 / 642 Output Total 2925 / 2925 3300 / 3300 Balance -608 / -608 -2658 / -2658 Labs (Last 48 Hours) 08/21/17 08/21/17 08/21/17 04:30 06:55 06:55 WBC 13.4 H RBC 3.28 L Hgb 10.1 L Hct 29.8 L MCV 90.9 MCH 30.8 MCHC 33.9 RDW 13.3 RDW Differential 44.1 H Plt Count 273 MPV 8.9 Immature Gran % (Auto) 0.300 Neut % (Auto) 79.0 H Lymph % (Auto) 10.5 L [place] % (Auto) 7.6 Eos % (Auto) 2.4 Baso % (Auto) 0.2 Absolute Neuts (auto) 10.6 H Absolute Lymphs (auto) 1.40 Total Counted Not Reportable Sodium 130 L Potassium 4.8 Chloride 96 L Carbon Dioxide 16.0 L Anion Gap 18 H BUN 165 H* Creatinine 9.67 H* Estim Creat Clear Calc 8.62 Est GFR (MDRD) Af Amer 7 L Est GFR (MDRD) Non-Af 6 L BUN/Creatinine Ratio 17.1 Glucose 101 Serum Osmolality Calcium 7.4 L Urine Osmolality MRSA (PCR) Negative 08/21/17 08/21/17 08/21/17 08:30 08:35 08:35 WBC RBC Hgb Hct MCV MCH MCHC RDW RDW Differential Plt Count MPV Immature Gran % (Auto) Neut % (Auto) Lymph % (Auto) [place] % (Auto) Eos % (Auto) Baso % (Auto) Absolute Neuts (auto) Absolute Lymphs (auto) Total Counted Sodium Potassium Chloride Carbon Dioxide Anion Gap BUN Creatinine Estim Creat Clear Calc Est GFR (MDRD) Af Amer Est GFR (MDRD) Non-Af BUN/Creatinine Ratio Glucose Serum Osmolality 333 H Calcium Urine Osmolality Pending MRSA (PCR) Negative 08/22/17 08/22/17 05:05 05:05 WBC 9.3 RBC 3.33 L Hgb 10.2 L Hct 30.2 L MCV 90.7 MCH 30.6 MCHC 33.8 RDW 13.3 RDW Differential 43.9 Plt Count 285 MPV 8.7 Immature Gran % (Auto) 0.500 Neut % (Auto) 65.5 Lymph % (Auto) 13.9 L [place] % (Auto) 14.6 H Eos % (Auto) 5.3 H Baso % (Auto) 0.2 Absolute Neuts (auto) 6.1 Absolute Lymphs (auto) 1.29 Total Counted Not Reportable Sodium 138 Potassium 4.2 Chloride 103 Carbon Dioxide 20.0 L Anion Gap 15 BUN 139 H* Creatinine 5.85 H Estim Creat Clear Calc 14.25 Est GFR (MDRD) Af Amer 13 L Est GFR (MDRD) Non-Af 10 L BUN/Creatinine Ratio 23.8 H Glucose 165 H Serum Osmolality Calcium 8.3 L Urine Osmolality MRSA (PCR) Medical Necessity - Tobacco Use Smoking Status: Current every day smoker Assessment/Plan All Active Problems Septic shock (Acute) UTI (urinary tract infection) (Acute) Atypical chest pain (Acute) Hypertensive urgency (Acute) RECOMMENDATIONS: 1. Continue Levophed to maintain a mean arterial pressure at or above 65 mmHg. No additional supplemental IV fluid hydration is required at this time. 2. Continue Alex catheter 3. Continue broad-spectrum antibiotics, pending infectious workup. 4. No CONSTRUCTION SUPERINTENDENT planned 5. Continue subcutaneous heparin and baseline PPI therapy for prophylaxis. 6. Encourage incentive spirometer use. Physical therapy evaluation, once medically stabilized. IMPRESSIONS: 1. Septic shock of presumptive urinary source Patient appears to be doing well on current therapy. Patient does have a chronic indwelling Alex that was found to be in poor position. Patient is now growing a gram-negative abimael from the urine. This likely represents the source of his septic shock. Levophed requirements are improving. Continue with broad- spectrum antibiotics until further information is available. Okay to discontinue vancomycin. 2. Acute kidney injury Likely a combination of prerenal azotemia and obstructive uropathy, given the patient's malpositioned Alex catheter noted on arrival. Patient is having significant improvement in overall condition after replacement of the Alex catheter. Patient is not showing any complications of uremia at this time. 3. Anion gap metabolic acidosis/hyponatremia/hypochloremia Likely secondary to numbers 1 and 2. Anticipate improvement with volume expansion and stabilization of hemodynamics. 4. Baseline schizoaffective disorder/chronic back pain/hypertension/ hyperlipidemia/GERD Complicates care, management, recovery and prognosis. Continue to hold losartan and Lasix. Continue baseline PPI therapy. The patient will require physical therapy evaluation once medically stabilized. TIME: 40 minutes of critical care time, independent of procedures, was spent addressing the patient's septic shock, acute kidney injury, anion gap metabolic acidosis, review of all data and collaboration with the care team. (5 AM to 8 AM ) Code Visit 9xxxx: [id number] Critical care first hour
[2017-08-22] MEDS: Aspirin E.C. 81 MG Tablet PO (11:04)
[2017-08-22] MEDS: Pantoprazole Sodium 20 MG Tablet PO (11:04)
[2017-08-22] MEDS: Piperacil/Tazobactam 3.375 GM/50 ML ML IV ×2 (11:06→22:37)
[2017-08-22] MEDS: Cyanocobalamin 500 MCG Tablet 1000 MCG PO (11:06)
[2017-08-22] MEDS: Tamsulosin HCl 0.4 MG Capsule 0.8 MG PO (11:08)
--- NOTE | 2017-08-22 11:24 | PCM.PN.HOSP ---
Patient Problems: Active and Suspected Problems Septic shock (Acute) UTI (urinary tract infection) (Acute) ELO (acute kidney injury) (Acute) Subjective: Denies any complaints. Vitals/I&O's: Vital Signs Temp Pulse Resp BP Pulse Ox 37.1 C 80 19 H 92/58 L 100 08/22/17 10:00 08/22/17 10:00 08/22/17 10:00 08/22/17 10:00 08/22/17 10:00 Oxygen Flow Rate (L/min) 3 Oxygen Delivery Method Room Air Weight: 99 kg Body Mass Index (BMI) 29.5 Intake and Output for Last 24 Hours 08/20/17 08/21/17 08/22/17 23:59 23:59 23:59 Intake Total 2317 / 2317 642 / 642 Output Total 2925 / 2925 3300 / 3300 Balance -608 / -608 -2658 / -2658 General: Alert, No apparent distress, - - dysarthria. afebrile . HEENT: Atraumatic, Normocephalic Oral: Moist Mucosa, No Gingival or Mucosal Lesions/ Ulcerations Neck: No Nodes, Thyroid Normal Size and Texture Lungs: Clear to auscultation, Normal air movement, No rhonchi, No wheeze Cardiovascular: Regular rate, Regular Rhythm, Normal S1, Normal S2, No murmurs Abdomen: Bowel Sounds Present, Soft, Non Tender, Non-Distended, No Hepato-splenomegaly Extremities: No edema, No Calf Tenderness Skin: No rashes, No breakdown Musculoskeletal: No Tenderness to Palpation of Joints or Extremities, No Muscle Wasting Neurological: Sensory exam intact to light touch and pain, - - no clonus. Psych/Mental Status: Normal Affect, Appropriate Laboratory Results 08/22/17 05:05: Sodium 138, Potassium 4.2, Chloride 103, Carbon Dioxide 20.0 L, Anion Gap 15, BUN 139 H*, Creatinine 5.85 H, Estim Creat Clear Calc 14.25, Est GFR (MDRD) Af Amer 13 L, Est GFR (MDRD) Non-Af 10 L, BUN/Creatinine Ratio 23.8 H, Glucose 165 H, Calcium 8.3 L 08/22/17 05:05: WBC 9.3, RBC 3.33 L, Hgb 10.2 L, Hct 30.2 L, MCV 90.7, MCH 30.6, MCHC 33.8, RDW 13.3, RDW Differential 43.9, Plt Count 285, MPV 8.7, Immature Gran % (Auto) 0.500, Neut % (Auto) 65.5, Lymph % (Auto) 13.9 L, [place] % (Auto) 14.6 H, Eos % (Auto) 5.3 H, Baso % (Auto) 0.2, Absolute Neuts (auto) 6.1, Absolute Lymphs (auto) 1.29, Total Counted Not Reportable Current Medications Aspirin (Ecotrin) 81 mg PO DAILY@0800 [facility] Last Admin: 08/22/17 11:04 Dose: 81 mg Atorvastatin Calcium (Lipitor) 80 mg PO QHS [facility] Last Admin: 08/21/17 22:29 Dose: 80 mg Chlorhexidine Gluconate () 1 each TOPICAL DAILY [facility] Last Admin: 08/22/17 05:49 Dose: 1 each Cyanocobalamin (Vitamin B12) 1,000 mcg PO DAILY [facility] Last Admin: 08/22/17 11:06 Dose: 1,000 mcg Heparin Sodium (Porcine) (Heparin Na) 5,000 unit SC Q8 [facility] Last Admin: 08/22/17 05:49 Dose: 5,000 u Norepinephrine Bitartrate 8 mg (/ Dextrose) 258 mls @ 9.67 mls/hr IV .[id number] [facility] PRN Reason: 5 MCG/MIN Last Admin: 08/22/17 11:08 Dose: 9.67 mls/hr Sodium Chloride () 250 mls @ 15 mls/hr IV .[id number] PRN PRN Reason: SALINE FLUSH Piperacillin Sod/Tazobactam Sod (Zosyn) 3.375 gm in 50 mls @ 12.5 mls/hr IV Q12 [facility] Last Admin: 08/22/17 11:06 Dose: 12.5 mls/hr Lactobacillus Acidophilus (Acidophilus) 1 tablet PO DAILY [facility] Last Admin: 08/22/17 11:04 Dose: 1 tablet Pantoprazole Sodium (Protonix) 20 mg PO DAILY [facility] Last Admin: 08/22/17 11:04 Dose: 20 mg Sodium Chloride () 5 - 30 ml IV UD PRN PRN Reason: SALINE FLUSH Last Admin: 08/21/17 22:04 Dose: 10 ml Tamsulosin HCl (Flomax) 0.8 mg PO DAILY [facility] Last Admin: 08/22/17 11:08 Dose: 0.8 mg Medical Necessity - Tobacco Use Smoking Status: Current every day smoker Assessment/Plan All Active Problems Septic shock (Acute) UTI (urinary tract infection) (Acute) ELO (acute kidney injury) (Acute) Atypical chest pain (Acute) Hypertensive urgency (Acute) 1. Septic shock on Levophed secondary to UTI 2. ELO greatly improved likely post-renal nephrology following, no need for CASE REPAIRER continue to monitor love changed in ICU 3. UTI +GNR on zosyn follow up culture results. BCx negative. 4. DVT proph: SQ heparin. Code Visit Inpatient E&M: 16572 Subs Hosp L3
--- NOTE | 2017-08-22 11:29 | PN_ITS ---
Patient Problems: Active and Suspected Problems Septic shock (Acute) UTI (urinary tract infection) (Acute) ELO (acute kidney injury) (Acute) Subjective: Denies any complaints. Vitals/I&O's: Vital Signs Temp Pulse Resp BP Pulse Ox 37.1 C 80 19 H 92/58 L 100 08/22/17 10:00 08/22/17 10:00 08/22/17 10:00 08/22/17 10:00 08/22/17 10:00 Oxygen Flow Rate (L/min) 3 Oxygen Delivery Method Room Air Weight: 99 kg Body Mass Index (BMI) 29.5 Intake and Output for Last 24 Hours 08/20/17 08/21/17 08/22/17 23:59 23:59 23:59 Intake Total 2317 / 2317 642 / 642 Output Total 2925 / 2925 3300 / 3300 Balance -608 / -608 -2658 / -2658 General: Alert, No apparent distress, - - dysarthria. afebrile . HEENT: Atraumatic, Normocephalic Oral: Moist Mucosa, No Gingival or Mucosal Lesions/ Ulcerations Neck: No Nodes, Thyroid Normal Size and Texture Lungs: Clear to auscultation, Normal air movement, No rhonchi, No wheeze Cardiovascular: Regular rate, Regular Rhythm, Normal S1, Normal S2, No murmurs Abdomen: Bowel Sounds Present, Soft, Non Tender, Non-Distended, No Hepato- splenomegaly Extremities: No edema, No Calf Tenderness Skin: No rashes, No breakdown Musculoskeletal: No Tenderness to Palpation of Joints or Extremities, No Muscle Wasting Neurological: Sensory exam intact to light touch and pain, - - no clonus. Psych/Mental Status: Normal Affect, Appropriate Laboratory Results 08/22/17 05:05: Sodium 138, Potassium 4.2, Chloride 103, Carbon Dioxide 20.0 L, Anion Gap 15, BUN 139 H*, Creatinine 5.85 H, Estim Creat Clear Calc 14.25, Est GFR (MDRD) Af Amer 13 L, Est GFR (MDRD) Non-Af 10 L, BUN/Creatinine Ratio 23.8 H , Glucose 165 H, Calcium 8.3 L 08/22/17 05:05: WBC 9.3, RBC 3.33 L, Hgb 10.2 L, Hct 30.2 L, MCV 90.7, MCH 30.6 , MCHC 33.8, RDW 13.3, RDW Differential 43.9, Plt Count 285, MPV 8.7, Immature Gran % (Auto) 0.500, Neut % (Auto) 65.5, Lymph % (Auto) 13.9 L, [place] % (Auto) 14.6 H, Eos % (Auto) 5.3 H, Baso % (Auto) 0.2, Absolute Neuts (auto) 6.1, Absolute Lymphs (auto) 1.29, Total Counted Not Reportable Current Medications Aspirin (Ecotrin) 81 mg PO DAILY@0800 [facility] Last Admin: 08/22/17 11:04 Dose: 81 mg Atorvastatin Calcium (Lipitor) 80 mg PO QHS [facility] Last Admin: 08/21/17 22:29 Dose: 80 mg Chlorhexidine Gluconate () 1 each TOPICAL DAILY [facility] Last Admin: 08/22/17 05:49 Dose: 1 each Cyanocobalamin (Vitamin B12) 1,000 mcg PO DAILY [facility] Last Admin: 08/22/17 11:06 Dose: 1,000 mcg Heparin Sodium (Porcine) (Heparin Na) 5,000 unit SC Q8 [facility] Last Admin: 08/22/17 05:49 Dose: 5,000 u Norepinephrine Bitartrate 8 mg (/ Dextrose) 258 mls @ 9.67 mls/hr IV .[id number] [facility] PRN Reason: 5 MCG/MIN Last Admin: 08/22/17 11:08 Dose: 9.67 mls/hr Sodium Chloride () 250 mls @ 15 mls/hr IV .[id number] PRN PRN Reason: SALINE FLUSH Piperacillin Sod/Tazobactam Sod (Zosyn) 3.375 gm in 50 mls @ 12.5 mls/hr IV Q12 [facility] Last Admin: 08/22/17 11:06 Dose: 12.5 mls/hr Lactobacillus Acidophilus (Acidophilus) 1 tablet PO DAILY [facility] Last Admin: 08/22/17 11:04 Dose: 1 tablet Pantoprazole Sodium (Protonix) 20 mg PO DAILY [facility] Last Admin: 08/22/17 11:04 Dose: 20 mg Sodium Chloride () 5 - 30 ml IV UD PRN PRN Reason: SALINE FLUSH Last Admin: 08/21/17 22:04 Dose: 10 ml Tamsulosin HCl (Flomax) 0.8 mg PO DAILY [facility] Last Admin: 08/22/17 11:08 Dose: 0.8 mg Medical Necessity - Tobacco Use Smoking Status: Current every day smoker Assessment/Plan All Active Problems Septic shock (Acute) UTI (urinary tract infection) (Acute) ELO (acute kidney injury) (Acute) Atypical chest pain (Acute) Hypertensive urgency (Acute) 1. Septic shock * on Levophed * secondary to UTI 2. ELO * greatly improved * likely post-renal * nephrology following, no need for NUCLEAR DESIGN ENGINEER * continue to monitor * love changed in ICU 3. UTI * +GNR * on zosyn * follow up culture results. * BCx negative. 4. DVT proph: SQ heparin. Code Visit Inpatient E&M: 82177 Subs Hosp L3
--- NOTE | 2017-08-22 11:32 | CASEMGMT ---
Social Work: [facility]. Spoke with Deidra. Deidra aware that patient is still in ICU. Will update [facility] as needed. TRACY Carter
[2017-08-22] MEDS: 0.9% NaCl Peripheral Flush Adult/Peds IV ×2 (17:10→22:38)
--- NOTE | 2017-08-22 18:38 | NURSING ---
reviewed D aubrey RN charting and agree with assessment findings
[2017-08-22] MEDS: fentaNYL 100 MCG/2 ML Ampul 50 MCG IV (22:37)
[2017-08-22] MEDS: Atorvastatin Calcium 80 MG Tablet PO (22:38)
[2017-08-22] MEDS: 0.9% NaCl IVPB Med Flush (250 mL) 15 ML IV (22:41)
[2017-08-23] VITALS (28 sets, daily range): BP systolic 84–131; BP diastolic 54–82; PULSE 59–94; RESP 16–23; TEMP 36.5–37.2; O2SAT 93–99
[2017-08-23 04:44] LABS: Absolute Lymphocyte Count 1.42 X10^3/ul (0.83-4.51); Absolute Neutrophil Count 5.1 X10^3/uL (2.0-7.7); Basophil# 0.03 X10^3/uL; Basophil% 0.4 % (0-1); Eosinophil# 0.49 X10^3/uL; Hematocrit 29.8 % (40-54); Hemoglobin 9.9 g/dl (13.0-16.5); Lymphocyte # 1.42 X10^3/ul (4.0); Lymphocyte % 17.3 % (19-41); Mean Corp Hgb Conc 33.2 g/gl (32-36); Mean Corpuscular Hgb 30.6 pg (27.0-32.0); Mean Platelet Vol. 8.5 fl (6.2-12.0); Monocyte# 1.14 X10^3/uL; Monocyte% 13.9 % (0-10); Neutrophil # 5.11 X10^3/uL (2.7-7.7); Neutrophil % 61.9 % (47-70); Platelet Count 285 K/mm3 (150-450); RBC Distribution Width CV 13.3 % (11.6-14.6); Red Blood Count 3.24 M/mm3 (4.6-6.2); White Blood Count 8.2 K/mm3 (4.4-11.0)
[2017-08-23 04:45] LABS: POSITIVE COUNT NO; POSITIVE DIFFERENTIAL NO; POSITIVE MORPHOLOGY NO
[2017-08-23 05:08] LABS: Anion Gap 10 (5-15); BUN 84 mg/dL (7-18); BUN/Creat Ratio 31.5 RATIO (10-20); Calcium,Total 8.4 mg/dL (8.5-10.1); Chloride 108 mmol/L (98-107); Creatinine, Serum 2.67 mg/dL (0.70-1.30); EST Glomerular Filtration Rate 26 mL/min (>60); Est Glom Filt Rate - Afr Amer 31 mL/min (>60); Estimated Creatinine Clearance 31.21 ml/min; Glucose 121 mg/dL (74-106); Potassium 4.3 mmol/L (3.5-5.1); Sodium Level 143 mmol/L (136-145)
[2017-08-23] MEDS: Heparin Injection (Vial) 5,000 UNIT/ML VIAL 5000 UNIT SC ×3 (05:58→21:07)
--- NOTE | 2017-08-23 07:24 | PN_ITS ---
Subjective: Patient did well overnight. No acute issues were reported. Patient has been off of Levophed since approximately 3:30 AM, but blood pressures remained tenuous. Patient is on room air and tolerating well. Patient has continued to have hematuria overnight, but no obstruction has been reported. Patient is not currently on bladder irrigations. No significant malignant ectopy was noted on telemetry. General: Alert, Cooperative, No apparent distress, - - Appears older than stated age. Still with dysarthria. HEENT: Atraumatic, PERRLA, EOMI, - - No scleral icterus or injection noted. Oral: Moist Mucosa, No Gingival or Mucosal Lesions/ Ulcerations Neck: Supple, No JVD, No Nodes, Trachea Midline Lungs: No rhonchi, No wheeze, No rales, Diminished, - - Symmetric expansion. No dullness to percussion Cardiovascular: Regular rate, Regular Rhythm, Normal S1, Normal S2, Murmur, No rub noted, No Gallop Abdomen: Bowel Sounds Present, Soft, Non Tender, Non-Distended, Obese Extremities: No cyanosis, Capillary Refill Less than 3 Seconds, Edema Skin: No rashes, No breakdown Musculoskeletal: No Tenderness to Palpation of Joints or Extremities Lymphatic: No Cervical, Supraclavicular, or Inguinal Adenopathy Neurological: - - Grossly unchanged compared to yesterday's exam Psych/Mental Status: Appropriate, Flat Affect Vital Signs Temp Pulse Resp BP Pulse Ox 36.6 C 69 18 84/75 L 94 08/23/17 06:00 08/23/17 07:00 08/23/17 07:00 08/23/17 07:00 08/23/17 07:06 Oxygen Flow Rate (L/min) 3 Oxygen Delivery Method Room Air Weight: 101.1 kg Body Mass Index (BMI) 29.5 Intake and Output for Last 24 Hours 08/21/17 08/22/17 08/23/17 23:59 23:59 23:59 Intake Total 2317 / 2317 1883 / 1883 533 / 533 Output Total 2925 / 2925 5025 / 5025 3150 / 3150 Balance -608 / -608 -3142 / -3142 -2617 / -2617 Labs (Last 48 Hours) 08/21/17 08/21/17 08/21/17 06:55 06:55 08:30 WBC RBC Hgb Hct MCV MCH MCHC RDW RDW Differential Plt Count MPV Immature Gran % (Auto) Neut % (Auto) Lymph % (Auto) [place] % (Auto) Eos % (Auto) Baso % (Auto) Absolute Neuts (auto) Absolute Lymphs (auto) Total Counted Not Reportable Sodium 130 L Potassium 4.8 Chloride 96 L Carbon Dioxide 16.0 L Anion Gap 18 H BUN 165 H* Creatinine 9.67 H* Estim Creat Clear Calc 8.62 Est GFR (MDRD) Af Amer 7 L Est GFR (MDRD) Non-Af 6 L BUN/Creatinine Ratio 17.1 Glucose 101 Serum Osmolality Calcium 7.4 L Urine Osmolality MRSA (PCR) Negative 08/21/17 08/21/17 08/22/17 08:35 08:35 05:05 WBC RBC Hgb Hct MCV MCH MCHC RDW RDW Differential Plt Count MPV Immature Gran % (Auto) Neut % (Auto) Lymph % (Auto) [place] % (Auto) Eos % (Auto) Baso % (Auto) Absolute Neuts (auto) Absolute Lymphs (auto) Total Counted Sodium 138 Potassium 4.2 Chloride 103 Carbon Dioxide 20.0 L Anion Gap 15 BUN 139 H* Creatinine 5.85 H Estim Creat Clear Calc 14.25 Est GFR (MDRD) Af Amer 13 L Est GFR (MDRD) Non-Af 10 L BUN/Creatinine Ratio 23.8 H Glucose 165 H Serum Osmolality 333 H Calcium 8.3 L Urine Osmolality Pending MRSA (PCR) 08/22/17 08/23/17 08/23/17 05:05 04:30 04:30 WBC 9.3 8.2 RBC 3.33 L 3.24 L Hgb 10.2 L 9.9 L Hct 30.2 L 29.8 L MCV 90.7 92.0 MCH 30.6 30.6 MCHC 33.8 33.2 RDW 13.3 13.3 RDW Differential 43.9 45.0 H Plt Count 285 285 MPV 8.7 8.5 Immature Gran % (Auto) 0.500 0.500 Neut % (Auto) 65.5 61.9 Lymph % (Auto) 13.9 L 17.3 L [place] % (Auto) 14.6 H 13.9 H Eos % (Auto) 5.3 H 6.0 H Baso % (Auto) 0.2 0.4 Absolute Neuts (auto) 6.1 5.1 Absolute Lymphs (auto) 1.29 1.42 Total Counted Not Reportable Not Reportable Sodium 143 Potassium 4.3 Chloride 108 H Carbon Dioxide 25.0 Anion Gap 10 BUN 84 H Creatinine 2.67 H Estim Creat Clear Calc 31.21 Est GFR (MDRD) Af Amer 31 L Est GFR (MDRD) Non-Af 26 L BUN/Creatinine Ratio 31.5 H Glucose 121 H Serum Osmolality Calcium 8.4 L Urine Osmolality MRSA (PCR) Clinical Impression(s) from Imaging Studies Renal Ultrasound 08/21/17 05:55 IMPRESSION: Normal ultrasound of the kidneys. A right-sided extrarenal pelvis is seen. Electronically Signed: Elbert Kaur MD at 13:02 EDT Tel [phone], Service support , Medical Necessity - Tobacco Use Smoking Status: Current every day smoker Assessment/Plan All Active Problems ELO (acute kidney injury) (Acute) Septic shock (Acute) UTI (urinary tract infection) (Acute) Atypical chest pain (Acute) Hypertensive urgency (Acute) RECOMMENDATIONS: 1. Monitor in the intensive care through the morning 2. Continue Alex catheter, initiate bladder irrigation if obstruction 3. Continue broad-spectrum antibiotics, pending species and sensitivities. 4. No INVESTOR RELATIONS ANALYST planned 5. Continue subcutaneous heparin and baseline PPI therapy for prophylaxis. 6. Encourage incentive spirometer use. Physical therapy evaluation, once medically stabilized. IMPRESSIONS: 1. Septic shock of presumptive urinary source Patient appears to be doing well on current therapy. Patient does have a chronic indwelling Alex that was found to be in poor position on presentation. Patient is now growing a gram-negative abimael from the urine. This likely represents the source of his septic shock. Levophed requirements are resolved, but patient remains relatively marginal. Continue with broad-spectrum antibiotics until further information is available. 2. Acute kidney injury Likely a combination of prerenal azotemia and obstructive uropathy, given the patient's malpositioned Alex catheter noted on arrival. Patient is having significant improvement in overall condition after replacement of the Alex catheter. Patient is not showing any complications of uremia at this time. Hematuria would be expected. Would not recommend bladder irrigation and less obstruction results. 3. Anion gap metabolic acidosis/hyponatremia/hypochloremia Likely secondary to numbers 1 and 2. Anticipate improvement with volume expansion and stabilization of hemodynamics. 4. Baseline schizoaffective disorder/chronic back pain/hypertension/ hyperlipidemia/GERD Complicates care, management, recovery and prognosis. Continue to hold losartan and Lasix. Continue baseline PPI therapy. The patient will require physical therapy evaluation once medically stabilized. Code Visit Inpatient E&M: 23673 Subs Hosp L3
[2017-08-23] MEDS: Aspirin E.C. 81 MG Tablet PO (07:46)
[2017-08-23] MEDS: 0.9% NaCl Peripheral Flush Adult/Peds IV (07:46)
[2017-08-23] MEDS: fentaNYL 100 MCG/2 ML Ampul 50 MCG IV (07:46)
--- NOTE | 2017-08-23 08:49 | PCM.PN.HOSP ---
Patient Problems: Active and Suspected Problems ELO (acute kidney injury) (Acute) Septic shock (Acute) UTI (urinary tract infection) (Acute) Subjective: Denies any complaints. Inquires when he might be discharged. Vitals/I&O's: Vital Signs Temp Pulse Resp BP Pulse Ox 36.6 C 69 18 84/75 L 94 08/23/17 06:00 08/23/17 07:00 08/23/17 07:00 08/23/17 07:00 08/23/17 07:06 Oxygen Flow Rate (L/min) 3 Oxygen Delivery Method Room Air Weight: 101.1 kg Body Mass Index (BMI) 29.5 Intake and Output for Last 24 Hours 08/21/17 08/22/17 08/23/17 23:59 23:59 23:59 Intake Total 2317 / 2317 1883 / 1883 533 / 533 Output Total 2925 / 2925 5025 / 5025 3150 / 3150 Balance -608 / -608 -3142 / -3142 -2617 / -2617 General: Alert, No apparent distress, - - dysarthric HEENT: Atraumatic, Normocephalic Oral: Moist Mucosa, No Gingival or Mucosal Lesions/ Ulcerations Neck: No Nodes, Thyroid Normal Size and Texture Lungs: Clear to auscultation, Normal air movement, No rhonchi, No wheeze Cardiovascular: Regular rate, Regular Rhythm, Normal S1, Normal S2 Abdomen: Bowel Sounds Present, Soft, Non Tender, Non-Distended, No Hepato-splenomegaly, - - blood in love tubing. Extremities: No edema, No Calf Tenderness Skin: No rashes, No breakdown Psych/Mental Status: Normal Affect, Appropriate Laboratory Results 08/23/17 04:30: WBC 8.2, RBC 3.24 L, Hgb 9.9 L, Hct 29.8 L, MCV 92.0, MCH 30.6, MCHC 33.2, RDW 13.3, RDW Differential 45.0 H, Plt Count 285, MPV 8.5, Immature Gran % (Auto) 0.500, Neut % (Auto) 61.9, Lymph % (Auto) 17.3 L, [place] % (Auto) 13.9 H, Eos % (Auto) 6.0 H, Baso % (Auto) 0.4, Absolute Neuts (auto) 5.1, Absolute Lymphs (auto) 1.42, Total Counted Not Reportable 08/23/17 04:30: Sodium 143, Potassium 4.3, Chloride 108 H, Carbon Dioxide 25.0, Anion Gap 10, BUN 84 H, Creatinine 2.67 H, Estim Creat Clear Calc 31.21, Est GFR (MDRD) Af Amer 31 L, Est GFR (MDRD) Non-Af 26 L, BUN/Creatinine Ratio 31.5 H, Glucose 121 H, Calcium 8.4 L Current Medications Aspirin (Ecotrin) 81 mg PO DAILY@0800 [facility] Last Admin: 08/23/17 07:46 Dose: 81 mg Atorvastatin Calcium (Lipitor) 80 mg PO QHS [facility] Last Admin: 08/22/17 22:38 Dose: 80 mg Chlorhexidine Gluconate () 1 each TOPICAL DAILY [facility] Last Admin: 08/22/17 05:49 Dose: 1 each Cyanocobalamin (Vitamin B12) 1,000 mcg PO DAILY [facility] Last Admin: 08/22/17 11:06 Dose: 1,000 mcg Fentanyl Citrate (Sublimaze (100mcg Ampule)) 50 mcg IV Q2H PRN PRN PRN Reason: PAIN Last Admin: 08/23/17 07:46 Dose: 50 mcg Heparin Sodium (Porcine) (Heparin Na) 5,000 unit SC Q8 [facility] Last Admin: 08/23/17 05:58 Dose: 5,000 u Norepinephrine Bitartrate 8 mg (/ Dextrose) 258 mls @ 9.67 mls/hr IV .[id number] [facility] PRN Reason: 5 MCG/MIN Last Admin: 08/22/17 11:08 Dose: 9.67 mls/hr Sodium Chloride () 250 mls @ 15 mls/hr IV .[id number] PRN PRN Reason: SALINE FLUSH Last Admin: 08/22/17 22:41 Dose: 15 mls/hr Piperacillin Sod/Tazobactam Sod (Zosyn) 3.375 gm in 50 mls @ 12.5 mls/hr IV Q12 [facility] Last Admin: 08/22/17 22:37 Dose: 12.5 mls/hr Lactobacillus Acidophilus (Acidophilus) 1 tablet PO DAILY [facility] Last Admin: 08/22/17 11:04 Dose: 1 tablet Pantoprazole Sodium (Protonix) 20 mg PO DAILY [facility] Last Admin: 08/22/17 11:04 Dose: 20 mg Sodium Chloride () 5 - 30 ml IV UD PRN PRN Reason: SALINE FLUSH Last Admin: 08/23/17 07:46 Dose: 10 ml Tamsulosin HCl (Flomax) 0.8 mg PO DAILY [facility] Last Admin: 08/22/17 11:08 Dose: 0.8 mg Medical Necessity - Tobacco Use Smoking Status: Current every day smoker Assessment/Plan All Active Problems ELO (acute kidney injury) (Acute) Septic shock (Acute) UTI (urinary tract infection) (Acute) Atypical chest pain (Acute) Hypertensive urgency (Acute) 1. Septic shock Levophed off since 0330 BPs marginal at this time. secondary to UTI 2. ELO greatly improved likely post-renal nephrology following, no need for COPIER AND PRINTER FIELD TECHNICIAN continue to monitor love changed in ICU 3. UTI +GNR on zosyn follow up culture results. BCx negative. 4. DVT proph: SQ heparin. 5. Chronic pain DC Fentanyl resume oxycodone as he takes at home. Code Visit Inpatient E&M: 15365 Subs Hosp L2
--- NOTE | 2017-08-23 08:55 | PN_ITS ---
Patient Problems: Active and Suspected Problems ELO (acute kidney injury) (Acute) Septic shock (Acute) UTI (urinary tract infection) (Acute) Subjective: Denies any complaints. Inquires when he might be discharged. Vitals/I&O's: Vital Signs Temp Pulse Resp BP Pulse Ox 36.6 C 69 18 84/75 L 94 08/23/17 06:00 08/23/17 07:00 08/23/17 07:00 08/23/17 07:00 08/23/17 07:06 Oxygen Flow Rate (L/min) 3 Oxygen Delivery Method Room Air Weight: 101.1 kg Body Mass Index (BMI) 29.5 Intake and Output for Last 24 Hours 08/21/17 08/22/17 08/23/17 23:59 23:59 23:59 Intake Total 2317 / 2317 1883 / 1883 533 / 533 Output Total 2925 / 2925 5025 / 5025 3150 / 3150 Balance -608 / -608 -3142 / -3142 -2617 / -2617 General: Alert, No apparent distress, - - dysarthric HEENT: Atraumatic, Normocephalic Oral: Moist Mucosa, No Gingival or Mucosal Lesions/ Ulcerations Neck: No Nodes, Thyroid Normal Size and Texture Lungs: Clear to auscultation, Normal air movement, No rhonchi, No wheeze Cardiovascular: Regular rate, Regular Rhythm, Normal S1, Normal S2 Abdomen: Bowel Sounds Present, Soft, Non Tender, Non-Distended, No Hepato- splenomegaly, - - blood in love tubing. Extremities: No edema, No Calf Tenderness Skin: No rashes, No breakdown Psych/Mental Status: Normal Affect, Appropriate Laboratory Results 08/23/17 04:30: WBC 8.2, RBC 3.24 L, Hgb 9.9 L, Hct 29.8 L, MCV 92.0, MCH 30.6, MCHC 33.2, RDW 13.3, RDW Differential 45.0 H, Plt Count 285, MPV 8.5, Immature Gran % (Auto) 0.500, Neut % (Auto) 61.9, Lymph % (Auto) 17.3 L, [place] % (Auto) 13.9 H, Eos % (Auto) 6.0 H, Baso % (Auto) 0.4, Absolute Neuts (auto) 5.1, Absolute Lymphs (auto) 1.42, Total Counted Not Reportable 08/23/17 04:30: Sodium 143, Potassium 4.3, Chloride 108 H, Carbon Dioxide 25.0, Anion Gap 10, BUN 84 H, Creatinine 2.67 H, Estim Creat Clear Calc 31.21, Est GFR (MDRD) Af Amer 31 L, Est GFR (MDRD) Non-Af 26 L, BUN/Creatinine Ratio 31.5 H , Glucose 121 H, Calcium 8.4 L Current Medications Aspirin (Ecotrin) 81 mg PO DAILY@0800 [facility] Last Admin: 08/23/17 07:46 Dose: 81 mg Atorvastatin Calcium (Lipitor) 80 mg PO QHS [facility] Last Admin: 08/22/17 22:38 Dose: 80 mg Chlorhexidine Gluconate () 1 each TOPICAL DAILY [facility] Last Admin: 08/22/17 05:49 Dose: 1 each Cyanocobalamin (Vitamin B12) 1,000 mcg PO DAILY [facility] Last Admin: 08/22/17 11:06 Dose: 1,000 mcg Fentanyl Citrate (Sublimaze (100mcg Ampule)) 50 mcg IV Q2H PRN PRN PRN Reason: PAIN Last Admin: 08/23/17 07:46 Dose: 50 mcg Heparin Sodium (Porcine) (Heparin Na) 5,000 unit SC Q8 [facility] Last Admin: 08/23/17 05:58 Dose: 5,000 u Norepinephrine Bitartrate 8 mg (/ Dextrose) 258 mls @ 9.67 mls/hr IV .[id number] [facility] PRN Reason: 5 MCG/MIN Last Admin: 08/22/17 11:08 Dose: 9.67 mls/hr Sodium Chloride () 250 mls @ 15 mls/hr IV .[id number] PRN PRN Reason: SALINE FLUSH Last Admin: 08/22/17 22:41 Dose: 15 mls/hr Piperacillin Sod/Tazobactam Sod (Zosyn) 3.375 gm in 50 mls @ 12.5 mls/hr IV Q12 [facility] Last Admin: 08/22/17 22:37 Dose: 12.5 mls/hr Lactobacillus Acidophilus (Acidophilus) 1 tablet PO DAILY [facility] Last Admin: 08/22/17 11:04 Dose: 1 tablet Pantoprazole Sodium (Protonix) 20 mg PO DAILY [facility] Last Admin: 08/22/17 11:04 Dose: 20 mg Sodium Chloride () 5 - 30 ml IV UD PRN PRN Reason: SALINE FLUSH Last Admin: 08/23/17 07:46 Dose: 10 ml Tamsulosin HCl (Flomax) 0.8 mg PO DAILY [facility] Last Admin: 08/22/17 11:08 Dose: 0.8 mg Medical Necessity - Tobacco Use Smoking Status: Current every day smoker Assessment/Plan All Active Problems ELO (acute kidney injury) (Acute) Septic shock (Acute) UTI (urinary tract infection) (Acute) Atypical chest pain (Acute) Hypertensive urgency (Acute) 1. Septic shock * Levophed off since 329 * BPs marginal at this time. * secondary to UTI 2. ELO * greatly improved * likely post-renal * nephrology following, no need for HOOKER MACHINE TENDER * continue to monitor * love changed in ICU 3. UTI * +GNR * on zosyn * follow up culture results. * BCx negative. 4. DVT proph: SQ heparin. 5. Chronic pain * DC Fentanyl * resume oxycodone as he takes at home. Code Visit Inpatient E&M: 65227 Subs Hosp L2
[2017-08-23] MEDS: Senna/Docusate Sodium 1 Tablet 2 TABLET PO ×2 (09:51→21:10)
[2017-08-23] MEDS: Tamsulosin HCl 0.4 MG Capsule 0.8 MG PO (09:51)
[2017-08-23] MEDS: Pantoprazole Sodium 20 MG Tablet PO (09:51)
[2017-08-23] MEDS: Piperacil/Tazobactam 3.375 GM/50 ML ML IV ×3 (09:51→22:55)
[2017-08-23] MEDS: Loratadine 10 MG Tablet PO (09:51)
[2017-08-23] MEDS: Metoprolol Tartrate 25 MG Tablet 12.5 MG PO ×2 (09:52→21:08)
[2017-08-23] MEDS: Cyanocobalamin 500 MCG Tablet 1000 MCG PO (09:52)
--- NOTE | 2017-08-23 11:36 | PCM.PN.REN ---
Patient Problems: Active and Suspected Problems ELO (acute kidney injury) (Acute) Septic shock (Acute) UTI (urinary tract infection) (Acute) Subjective: No acute complaints. No nausea No vomiting - Physical Exam General: Alert, Oriented x3 HEENT: Atraumatic Oral: Moist Mucosa Neck: Supple, No JVD Lungs: Clear to auscultation, Normal air movement, No rhonchi, No wheeze Cardiovascular: Regular rate, Regular Rhythm, Normal S1, Normal S2 Abdomen: Bowel Sounds Present, Soft, Non Tender Extremities: No clubbing, No cyanosis, No edema Skin: No rashes Musculoskeletal: No Tenderness to Palpation of Joints or Extremities Lymphatic: No Cervical, Supraclavicular, or Inguinal Adenopathy Psych/Mental Status: Appropriate Vital Signs Temp Pulse Resp BP Pulse Ox 98.1 F 76 19 H 117/82 H 94 08/23/17 10:00 08/23/17 11:04 08/23/17 11:00 08/23/17 11:00 08/23/17 11:00 Oxygen Flow Rate (L/min) 3 Oxygen Delivery Method Room Air Weight: 101.1 kg Body Mass Index (BMI) 29.5 Intake and Output for Last 24 Hours 08/21/17 08/22/17 08/23/17 23:59 23:59 23:59 Intake Total 2317 / 2317 1883 / 1883 533 / 533 Output Total 2925 / 2925 5025 / 5025 3150 / 3150 Balance -608 / -608 -3142 / -3142 -2617 / -2617 Laboratory Tests Past 24 Hrs 08/23/17 08/23/17 04:30 04:30 WBC 8.2 RBC 3.24 L Hgb 9.9 L Hct 29.8 L MCV 92.0 MCH 30.6 MCHC 33.2 RDW 13.3 RDW Differential 45.0 H Plt Count 285 MPV 8.5 Immature Gran % (Auto) 0.500 Neut % (Auto) 61.9 Lymph % (Auto) 17.3 L [place] % (Auto) 13.9 H Eos % (Auto) 6.0 H Baso % (Auto) 0.4 Absolute Neuts (auto) 5.1 Absolute Lymphs (auto) 1.42 Total Counted Not Reportable Sodium 143 Potassium 4.3 Chloride 108 H Carbon Dioxide 25.0 Anion Gap 10 BUN 84 H Creatinine 2.67 H Estim Creat Clear Calc 31.21 Est GFR (MDRD) Af Amer 31 L Est GFR (MDRD) Non-Af 26 L BUN/Creatinine Ratio 31.5 H Glucose 121 H Calcium 8.4 L Medical Necessity - Tobacco Use Smoking Status: Current every day smoker Assessment/Plan All Active Problems ELO (acute kidney injury) (Acute) Septic shock (Acute) UTI (urinary tract infection) (Acute) Atypical chest pain (Acute) Hypertensive urgency (Acute) 1- ELO from most probably bladder outlet obstruction due to love cath malposition. Another contributing etiology would be prerenal from septic shock Cr peaked at 10. and BUN at 175. Both Cr and BUN are trending down after changing the love cath. Cr today 2.6 and GFR 89.UOP > 3l. Electrolytes are okay No need of [employer] Please keep MAP > 65. continue UTI treatment. Avoid IV contrast 2- UTI . on Zosyn as per ID service 3- Septic shock due to # 2. remains on low dose of levophed to keep MAP > 65 4- Hematuria. most probably traumatic from love cath. it is improving. Renal team will continue to follow Kimani Disla MD [phone]
[2017-08-23] MEDS: CHLORHEXIDINE GLUC 2% CLOTH 1 EACH TOWELETTE TOPICAL (11:37)
[2017-08-23] MEDS: oxyCODONE 5 MG Tablet PO ×2 (11:38→21:06)
--- NOTE | 2017-08-23 11:42 | NURSING ---
noted only 150ml urine out of love in 6 hrs. Irrigated love with 30cc sodium chloride. immediate return of 850ml dark red drainage
[2017-08-23 15:00] LABS: Osmolality, Urine 468 mOsm/KG
[2017-08-23] MEDS: Atorvastatin Calcium 80 MG Tablet PO (21:10)
[2017-08-24] VITALS (7 sets, daily range): BP systolic 102–112; BP diastolic 60–66; PULSE 63–86; RESP 18–20; TEMP 36.8–37; O2SAT 94–96
[2017-08-24] MEDS: oxyCODONE 5 MG Tablet PO (02:54)
[2017-08-24] MEDS: 0.9% NaCl Peripheral Flush Adult/Peds IV (05:01)
[2017-08-24 05:31] LABS: Anion Gap 8 (5-15); BUN 51 mg/dL (7-18); BUN/Creat Ratio 33.1 RATIO (10-20); Calcium,Total 8.6 mg/dL (8.5-10.1); Chloride 106 mmol/L (98-107); Creatinine, Serum 1.54 mg/dL (0.70-1.30); EST Glomerular Filtration Rate 48 mL/min (>60); Est Glom Filt Rate - Afr Amer 58 mL/min (>60); Estimated Creatinine Clearance 54.12 ml/min; Glucose 105 mg/dL (74-106); Potassium 4.2 mmol/L (3.5-5.1); Sodium Level 142 mmol/L (136-145)
[2017-08-24] MEDS: Piperacil/Tazobactam 3.375 GM/50 ML ML IV (06:15)
--- NOTE | 2017-08-24 09:48 | PCM.PN.REN ---
Patient Problems: Active and Suspected Problems Septic shock (Acute) UTI (urinary tract infection) (Acute) Subjective: Patient is doing okay. Has had no acute events no nausea No vomiting Hematuria has resolved - Physical Exam General: Alert, Oriented x3 HEENT: Atraumatic Oral: Moist Mucosa Neck: Supple, No JVD Lungs: Clear to auscultation, Normal air movement, No rhonchi, No wheeze Cardiovascular: Regular rate, Regular Rhythm, Normal S1, Normal S2 Abdomen: Bowel Sounds Present, Soft, Non Tender Extremities: No clubbing, No cyanosis, No edema Skin: No rashes Musculoskeletal: No Tenderness to Palpation of Joints or Extremities Lymphatic: No Cervical, Supraclavicular, or Inguinal Adenopathy Psych/Mental Status: Normal Affect Vital Signs Temp Pulse Resp BP Pulse Ox 98.2 F 63 20 H 112/65 94 08/24/17 06:00 08/24/17 07:13 08/24/17 06:00 08/24/17 06:00 08/24/17 06:00 Oxygen Flow Rate (L/min) 3 Oxygen Delivery Method Room Air Weight: 102.3 kg Body Mass Index (BMI) 29.5 Intake and Output for Last 24 Hours 08/22/17 08/23/17 08/24/17 23:59 23:59 23:59 Intake Total 1883 / 1883 1408.7 / 1408.7 223 / 223 Output Total 5025 / 5025 4500 / 4500 1300 / 1300 Balance -3142 / -3142 -3091.3 / -3091.3 -1077 / -1077 Laboratory Tests Past 24 Hrs 08/23/17 08/24/17 14:25 05:05 Sodium 142 Potassium 4.2 Chloride 106 Carbon Dioxide 28.0 Anion Gap 8 BUN 51 H Creatinine 1.54 H Estim Creat Clear Calc 54.12 Est GFR (MDRD) Af Amer 58 L Est GFR (MDRD) Non-Af 48 L BUN/Creatinine Ratio 33.1 H Glucose 105 Calcium 8.6 Urine Osmolality 468 Medical Necessity - Tobacco Use Smoking Status: Current every day smoker Assessment/Plan All Active Problems ELO (acute kidney injury) (Acute) Septic shock (Acute) UTI (urinary tract infection) (Acute) Atypical chest pain (Acute) Hypertensive urgency (Acute) 1- ELO from most probably bladder outlet obstruction due to love cath malposition. Another contributing etiology would be prerenal from septic shock Cr peaked at 10. and BUN at 175. Both Cr and BUN are trending down after changing the love cath. Last Cr trend 2.6.1.5 mg/dL. UOP > 4L. Electrolytes are okay . No hypernatremia with polyuria. Please keep MAP > 65. continue UTI treatment. Avoid IV contrast 2- UTI . on Zosyn as per ID service 3- Septic shock due to # 2. resolved. Off pressors 4- Hematuria. most probably traumatic from love cath. resolved Renal team will continue to follow Kimani Disla MD [phone]
[2017-08-24] MEDS: Tamsulosin HCl 0.4 MG Capsule 0.8 MG PO (10:56)
[2017-08-24] MEDS: Loratadine 10 MG Tablet PO (10:56)
[2017-08-24] MEDS: Cyanocobalamin 500 MCG Tablet 1000 MCG PO (10:56)
[2017-08-24] MEDS: Metoprolol Tartrate 25 MG Tablet 12.5 MG PO (10:56)
[2017-08-24] MEDS: Aspirin E.C. 81 MG Tablet PO (10:56)
[2017-08-24] MEDS: Pantoprazole Sodium 20 MG Tablet PO (10:56)
--- NOTE | 2017-08-24 11:32 | PCM.EXTCARCO ---
<Татьяна Gibson - Last Filed: 08/24/17 11:50> - Diet 08/21/17 09:50 Diet: Cardiac/Low Cholesterol Is pt able to select menu?: Yes - Routine Orders/Code Status Enema Type: Fleetz Enema Frequency: Daily PRN Suppository Type: Dulcolax 10mg Suppository Frequency: Daily PRN Routine Lab Work: CBC, BMP, - - CBC, BMP Daily X3 days then Weekly. Code Status: Full Code - Wound(s) left foot Wound Type: scabbed area - Suggestions for Active Care Change Position every (hours): 2 Times a day to sit in chair: 3 - Therapies Physical Therapy: Eval and Treat Occupational Therapy: Eval and Treat - Problem/Diagnosis (1) ELO (acute kidney injury) Status: Acute Current Visit: Yes (2) Septic shock Status: Acute Current Visit: Yes (3) UTI (urinary tract infection) Status: Acute Current Visit: Yes (4) Speech abnormality Status: Chronic Current Visit: No (5) Benign essential hypertension Status: Chronic Current Visit: No (6) History of hyperlipidemia Status: Chronic Current Visit: No (7) Schizoaffective disorder Status: Chronic Current Visit: No (8) Tobacco user Status: Chronic Current Visit: No (9) GERD (gastroesophageal reflux disease) Status: Chronic Current Visit: No - Allergies/Procedures Done in Hospital Allergies/Adverse Reactions: Allergies No Known Allergies Allergy (Verified 08/21/17 00:41) Procedures: None - Type of Care/Length of Stay Estimated LOS: More Than 30 Days Type of Care Needed: Skilled Rehab Potential: Fair Prognosis: Fair - Additional Orders/Day of Discharge Additional Orders: Patient will need to follow up with urology and have catheter routinely changed. Repeat BMP and CBC daily X3 days. If creatinine and blood pressure remains stable during that time, can resume home lasix and losartan regimen. H&P will serve as current which was dated: 08/21/17 Day of Discharge: 08/24/17 - Dietary and Speech Recommendations Dietitian Recommendations/Changes: Continue cardiac/low cholesterol diet. If intake continues to be poor at meals, rec Ensure Enlive 120 mL 4x/day w/ medpass. - Follow Up Care Primary Care Physician: Nicho Sanderson MD [Primary Care Provider] - Please follow up with your Primary Care Physician in: 1 Week Please Follow Up With: Primary Urologist When: 1 Week <Anuj Moyer - Last Filed: 08/24/17 12:16> - Diet 08/21/17 09:50 Diet: Cardiac/Low Cholesterol Is pt able to select menu?: Yes - Routine Orders/Code Status Enema Type: Fleetz Enema Frequency: Daily PRN Suppository Type: Dulcolax 10mg Suppository Frequency: Daily PRN Routine Lab Work: CBC, BMP, - - Wound(s) left foot Wound Type: scabbed area - Therapies Physical Therapy: Eval and Treat Occupational Therapy: Eval and Treat - Allergies/Procedures Done in Hospital Procedures: None - Type of Care/Length of Stay Estimated LOS: More Than 30 Days Type of Care Needed: Skilled Rehab Potential: Fair Prognosis: Fair
--- NOTE | 2017-08-24 11:51 | PCM.PN.INT ---
Subjective: Patient transferred from the intensive care unit yesterday. Patient appears to be tolerating well with no complaints this morning. Blood pressure has remained stable and patient is on room air. Patient continues to have intermittent hematuria. General: Alert, Cooperative, No apparent distress, - - Still with dysarthria, but readily interactive HEENT: Atraumatic, PERRLA, EOMI, Normocephalic, - - No scleral icterus or injection noted. Oral: Moist Mucosa, No Gingival or Mucosal Lesions/ Ulcerations Neck: Supple, No JVD, No Nodes, Trachea Midline Lungs: No rhonchi, No wheeze, No rales, Diminished Cardiovascular: Regular rate, Regular Rhythm, Normal S1, Normal S2, No rub noted, No Gallop Abdomen: Bowel Sounds Present, Soft, Non Tender, Non-Distended Extremities: No cyanosis, Capillary Refill Less than 3 Seconds, Edema Skin: - - No significant change compared to previous Musculoskeletal: No Tenderness to Palpation of Joints or Extremities Lymphatic: No Cervical, Supraclavicular, or Inguinal Adenopathy Neurological: - - No significant change compared to previous Psych/Mental Status: Normal Affect, Appropriate Vital Signs Temp Pulse Resp BP Pulse Ox 36.9 C 74 20 H 102/66 94 08/24/17 10:53 08/24/17 11:00 08/24/17 10:53 08/24/17 10:53 08/24/17 10:53 Oxygen Flow Rate (L/min) 3 Oxygen Delivery Method Room Air Weight: 102.3 kg Body Mass Index (BMI) 29.5 Intake and Output for Last 24 Hours 08/22/17 08/23/17 08/24/17 23:59 23:59 23:59 Intake Total 1883 / 1883 1408.7 / 1408.7 223 / 223 Output Total 5025 / 5025 4500 / 4500 1300 / 1300 Balance -3142 / -3142 -3091.3 / -3091.3 -1077 / -1077 Labs (Last 48 Hours) 08/23/17 08/23/17 08/23/17 04:30 04:30 14:25 WBC 8.2 RBC 3.24 L Hgb 9.9 L Hct 29.8 L MCV 92.0 MCH 30.6 MCHC 33.2 RDW 13.3 RDW Differential 45.0 H Plt Count 285 MPV 8.5 Immature Gran % (Auto) 0.500 Neut % (Auto) 61.9 Lymph % (Auto) 17.3 L [place] % (Auto) 13.9 H Eos % (Auto) 6.0 H Baso % (Auto) 0.4 Absolute Neuts (auto) 5.1 Absolute Lymphs (auto) 1.42 Total Counted Not Reportable Sodium 143 Potassium 4.3 Chloride 108 H Carbon Dioxide 25.0 Anion Gap 10 BUN 84 H Creatinine 2.67 H Estim Creat Clear Calc 31.21 Est GFR (MDRD) Af Amer 31 L Est GFR (MDRD) Non-Af 26 L BUN/Creatinine Ratio 31.5 H Glucose 121 H Calcium 8.4 L Urine Osmolality 468 08/24/17 05:05 WBC RBC Hgb Hct MCV MCH MCHC RDW RDW Differential Plt Count MPV Immature Gran % (Auto) Neut % (Auto) Lymph % (Auto) [place] % (Auto) Eos % (Auto) Baso % (Auto) Absolute Neuts (auto) Absolute Lymphs (auto) Total Counted Sodium 142 Potassium 4.2 Chloride 106 Carbon Dioxide 28.0 Anion Gap 8 BUN 51 H Creatinine 1.54 H Estim Creat Clear Calc 54.12 Est GFR (MDRD) Af Amer 58 L Est GFR (MDRD) Non-Af 48 L BUN/Creatinine Ratio 33.1 H Glucose 105 Calcium 8.6 Urine Osmolality Medical Necessity - Tobacco Use Smoking Status: Current every day smoker Assessment/Plan All Active Problems ELO (acute kidney injury) (Acute) Septic shock (Acute) UTI (urinary tract infection) (Acute) RECOMMENDATIONS: 1. Initiate bladder irrigation if obstructed by clots 2. Transition antibiotics to cefepime 3. No CUFF TURNER planned 4. Okay to transfer from my perspective IMPRESSIONS: 1. Septic shock of presumptive urinary source Patient appears to be doing well on current therapy. Patient does have a chronic indwelling Alex that was found to be in poor position on presentation. Using sensitivities, patient has been transitioned to cefepime therapy. This will likely need to be continued for a total of 12 days of antibiotic therapy. This likely represents the source of his septic shock. Blood pressure appears to be back to baseline. 2. Acute kidney injury Likely a combination of prerenal azotemia and obstructive uropathy, given the patient's malpositioned Alex catheter noted on arrival. Patient is having significant improvement in overall condition after replacement of the Alex catheter. Patient is not showing any complications of uremia at this time. Hematuria would be expected. Would not recommend bladder irrigation unless obstruction results. 3. Anion gap metabolic acidosis/hyponatremia/hypochloremia Likely secondary to numbers 1 and 2. Anticipate improvement with volume expansion and stabilization of hemodynamics. 4. Baseline schizoaffective disorder/chronic back pain/hypertension/hyperlipidemia/GERD Complicates care, management, recovery and prognosis. Likely okay to reinitiate losartan and Lasix therapy once renal function is made at back to baseline. Continue baseline PPI therapy. The patient will require physical therapy evaluation once medically stabilized. Code Visit Inpatient E&M: 29057 Subs Hosp L2
--- NOTE | 2017-08-24 11:52 | PCM.DC.SUM ---
<Татьяна Gibson - Last Filed: 08/24/17 12:11> Discharge Date and Diagnosis Date of Admission: 08/21/17 Date of Discharge: 08/24/17 - Primary Discharge Diagnosis Active and Suspected Problems 1. Septic shock secondary to multi-organism gram-positive UTI (Providencia rettgeri, Proteus mirabilis, Kocuria kristinae) 2. Acute kidney injury secondary to bladder outlet obstruction due to Alex catheter malposition 3. Hematuria secondary to Alex catheter malposition 4. Hypotension-secondary to #1. - Secondary Discharge Diagnosis Chronic Problems Speech abnormality (Chronic) Benign essential hypertension (Chronic) History of hyperlipidemia (Chronic) Schizoaffective disorder (Chronic) Tobacco user (Chronic) GERD (gastroesophageal reflux disease) (Chronic) Hospital Course and Treatment Imaging Results: Diagnostic Data Chest X-Ray 08/21/17 00:58 IMPRESSION: Degenerative changes, as described above. No demonstrated acute cardiopulmonary process. Electronically Signed: Marleny Schaffer MD at 2:10 EDT Tel , Service support , Brain CT 08/21/17 00:59 IMPRESSION: Chronic involutional changes of the brain. 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 Electronically Signed: Marleny Schaffer MD at 2:19 EDT Tel , Service support , Renal Ultrasound 08/21/17 05:55 IMPRESSION: Normal ultrasound of the kidneys. A right-sided extrarenal pelvis is seen. Electronically Signed: Elbert Kaur MD at 13:02 EDT Tel [phone], Service support , Dr. Disla- Nephrology Dr. Choi/Dr. Carbajal-info analyst Operations: None Procedures: None Summary of Care Provided: Patient is a 67-year-old male admitted 08/21/2017 due to septic shock secondary to multi-organism gram-positive UTI (Providencia rettgeri, Proteus mirabilis, Kocuria kristinae), acute kidney injury secondary to bladder outlet obstruction due to Alex catheter malposition, hematuria secondary to Alex catheter malposition and hypotension secondary to septic shock. Patient was initially admitted to ICU on levophed. Nephrology consulted. Creatinine admission 10.7. Improved to 1.5 at discharge. Hematuria greatly improved. Patient has chronic Alex which was changed in ICU. Patient found to be malpositioned on admission resulting in bladder outlet obstruction. Patient was treated with IV Zosyn. Discharge on Bactrim twice daily for 5 days. Patient will need follow-up with urology at discharge with routine catheter replacement. Repeat BMP and CBC daily for 3 days. Hold home Lasix and losartan regimen at discharge. If blood pressure and creatinine remains stable, resume home Lasix and losartan. Follow-up with primary care physician in 1 week. Patient has a past medical history of schizoaffective disorder, hypertension, GERD, tobacco dependence, history of CVA with residual speech deficit, hyperlipidemia. Chronic medical conditions stable at this time. Patient is stable for discharge, return to SNF. General: Alert, oriented, no apparent distress HEENT: Atraumatic, Normocephalic Oral: Moist Mucosa, No Gingival or Mucosal Lesions/ Ulcerations Neck: No Nodes, Thyroid Normal Size and Texture Lungs: Clear to auscultation, Normal air movement Cardiovascular: Regular rate, Regular Rhythm, Normal S1, Normal S2 Abdomen: Bowel Sounds Present, Soft, Non Tender, Non-Distended, No Hepato-splenomegaly, Alex in place, draining. Small amount of blood noted, significantly improved. Extremities: No edema, No Calf Tenderness Neurological: Neuro grossly intact. Chronic dysarthria. Skin: No rashes, No breakdown Psych/Mental Status: Normal Affect, Appropriate Patient seen exam prior to discharge. Physical assessment as noted above. Patient stable for discharge to SNF with the follow-up recommendations as noted above. This patient was seen by JENNIFER Gutiérrez under the supervision of Dr. Moyer. Home Medications: Medications to take at Discharge Cyanocobalamin (Vitamin B-12) [B-12] 1,000 mcg PO DAILY 12/08/16 Ergocalciferol [Vitamin D] 50,000 unit PO TH 12/08/16 Meloxicam [Mobic] 7.5 mg PO DAILY 12/08/16 Aspirin E.C. [Ecotrin] 81 mg PO DAILY@0800 tablet 12/10/16 Losartan Potassium [Cozaar] 100 mg PO DAILY tablet 12/10/16 Metoprolol Tartrate [Lopressor (beta gayatri)] 12.5 mg PO BID tablet 12/10/16 Oxycodone [Oxyir] 5 mg PO Q4H PRN PRN #10 tablet 12/10/16 Atorvastatin Calcium [Lipitor] 80 mg PO QHS 12/11/16 Furosemide [Lasix] 20 mg PO DAILY 08/21/17 Lactobacillus Rhamnosus GG [Culturelle] 1 each PO DAILY 08/21/17 Lasix 40 mg PO BREAKFAST 08/21/17 Loratadine 10 mg PO BREAKFAST 08/21/17 Omeprazole [Prilosec] 20 mg PO DAILY 08/21/17 Tamsulosin HCl [Flomax] 0.8 mg PO DAILY 08/21/17 Smz/Tmp Ds [Bactrim Ds] 1 tablet PO BID 5 Days #10 tablet 08/24/17 Following Prescrptions Were Given to Patient: Smz/Tmp Ds [Bactrim Ds] 1 tablet PO BID 5 Days #10 tablet Primary Care Physician: Nicho Sanderson MD [Primary Care Provider] - Please follow up with your Primary Care Physician in: 1 Week Please Follow Up With: Primary Urologist When: 1 Week Disposition: Long Term facility Minutes spent on discharge:: 35 Patient Condition:: Stable Medical Necessity - Tobacco Use Smoking Status: Current every day smoker Meaningful Use Info Meaningful Use Diagnoses (Choose all that apply): None applicable <Anuj Moyer - Last Filed: 08/24/17 12:52> Discharge Date and Diagnosis - Secondary Discharge Diagnosis Chronic Problems Speech abnormality (Chronic) Benign essential hypertension (Chronic) History of hyperlipidemia (Chronic) Schizoaffective disorder (Chronic) Tobacco user (Chronic) GERD (gastroesophageal reflux disease) (Chronic) Hospital Course and Treatment Operations: None Procedures: None Summary of Care Provided: Patient seen and examined independently. Data reviewed. I agree with the above note by the nurse practitioner. The patient is a 67 year old M presents with picture of septic shock, acute kidney injury and urinary tract infection. Apparently patient has had a chronic catheter and was in urethra. Patient presented with a creatinine of over 10 as well as hypertension and urinary tract infection. Patient is did not require any renal replacement therapy but was seen in consultation by nephrology. Creatinine today is down to 1.5. Septic shock did require pressor agents with levo fed. That has been discontinued and blood pressure has remained stable. Urine culture grew out several organisms, including procidentia, and Proteus. It also did show an organism called Kocuria. Sensitivities were noted for permanency and Proteus both are sensitive to ciprofloxacin and Bactrim. Patient will be discharged with Bactrim for 5 more days. Patient's Alex catheter was replaced in the emergency room and has been working properly. Patient will follow up with urology on his regular scheduled basis. [] Discharge Diet: No Restrictions Disposition: Long Term facility Minutes spent on discharge:: 35 Patient Condition:: Stable Meaningful Use Info Meaningful Use Diagnoses (Choose all that apply): None applicable Code Visit Inpatient E&M: 82746 Disch Hosp
--- NOTE | 2017-08-24 11:54 | PN_ITS ---
Subjective: Patient transferred from the intensive care unit yesterday. Patient appears to be tolerating well with no complaints this morning. Blood pressure has remained stable and patient is on room air. Patient continues to have intermittent hematuria. General: Alert, Cooperative, No apparent distress, - - Still with dysarthria, but readily interactive HEENT: Atraumatic, PERRLA, EOMI, Normocephalic, - - No scleral icterus or injection noted. Oral: Moist Mucosa, No Gingival or Mucosal Lesions/ Ulcerations Neck: Supple, No JVD, No Nodes, Trachea Midline Lungs: No rhonchi, No wheeze, No rales, Diminished Cardiovascular: Regular rate, Regular Rhythm, Normal S1, Normal S2, No rub noted , No Gallop Abdomen: Bowel Sounds Present, Soft, Non Tender, Non-Distended Extremities: No cyanosis, Capillary Refill Less than 3 Seconds, Edema Skin: - - No significant change compared to previous Musculoskeletal: No Tenderness to Palpation of Joints or Extremities Lymphatic: No Cervical, Supraclavicular, or Inguinal Adenopathy Neurological: - - No significant change compared to previous Psych/Mental Status: Normal Affect, Appropriate Vital Signs Temp Pulse Resp BP Pulse Ox 36.9 C 74 20 H 102/66 94 08/24/17 10:53 08/24/17 11:00 08/24/17 10:53 08/24/17 10:53 08/24/17 10:53 Oxygen Flow Rate (L/min) 3 Oxygen Delivery Method Room Air Weight: 102.3 kg Body Mass Index (BMI) 29.5 Intake and Output for Last 24 Hours 08/22/17 08/23/17 08/24/17 23:59 23:59 23:59 Intake Total 1883 / 1883 1408.7 / 1408.7 223 / 223 Output Total 5025 / 5025 4500 / 4500 1300 / 1300 Balance -3142 / -3142 -3091.3 / -3091.3 -1077 / -1077 Labs (Last 48 Hours) 08/23/17 08/23/17 08/23/17 04:30 04:30 14:25 WBC 8.2 RBC 3.24 L Hgb 9.9 L Hct 29.8 L MCV 92.0 MCH 30.6 MCHC 33.2 RDW 13.3 RDW Differential 45.0 H Plt Count 285 MPV 8.5 Immature Gran % (Auto) 0.500 Neut % (Auto) 61.9 Lymph % (Auto) 17.3 L Pierce % (Auto) 13.9 H Eos % (Auto) 6.0 H Baso % (Auto) 0.4 Absolute Neuts (auto) 5.1 Absolute Lymphs (auto) 1.42 Total Counted Not Reportable Sodium 143 Potassium 4.3 Chloride 108 H Carbon Dioxide 25.0 Anion Gap 10 BUN 84 H Creatinine 2.67 H Estim Creat Clear Calc 31.21 Est GFR (MDRD) Af Amer 31 L Est GFR (MDRD) Non-Af 26 L BUN/Creatinine Ratio 31.5 H Glucose 121 H Calcium 8.4 L Urine Osmolality 468 08/24/17 05:05 WBC RBC Hgb Hct MCV MCH MCHC RDW RDW Differential Plt Count MPV Immature Gran % (Auto) Neut % (Auto) Lymph % (Auto) Pierce % (Auto) Eos % (Auto) Baso % (Auto) Absolute Neuts (auto) Absolute Lymphs (auto) Total Counted Sodium 142 Potassium 4.2 Chloride 106 Carbon Dioxide 28.0 Anion Gap 8 BUN 51 H Creatinine 1.54 H Estim Creat Clear Calc 54.12 Est GFR (MDRD) Af Amer 58 L Est GFR (MDRD) Non-Af 48 L BUN/Creatinine Ratio 33.1 H Glucose 105 Calcium 8.6 Urine Osmolality Medical Necessity - Tobacco Use Smoking Status: Current every day smoker Assessment/Plan All Active Problems ELO (acute kidney injury) (Acute) Septic shock (Acute) UTI (urinary tract infection) (Acute) RECOMMENDATIONS: 1. Initiate bladder irrigation if obstructed by clots 2. Transition antibiotics to cefepime 3. No PRECISION JIG GRINDER planned 4. Okay to transfer from my perspective IMPRESSIONS: 1. Septic shock of presumptive urinary source Patient appears to be doing well on current therapy. Patient does have a chronic indwelling Alex that was found to be in poor position on presentation. Using sensitivities, patient has been transitioned to cefepime therapy. This will likely need to be continued for a total of 12 days of antibiotic therapy. This likely represents the source of his septic shock. Blood pressure appears to be back to baseline. 2. Acute kidney injury Likely a combination of prerenal azotemia and obstructive uropathy, given the patient's malpositioned Alex catheter noted on arrival. Patient is having significant improvement in overall condition after replacement of the Alex catheter. Patient is not showing any complications of uremia at this time. Hematuria would be expected. Would not recommend bladder irrigation unless obstruction results. 3. Anion gap metabolic acidosis/hyponatremia/hypochloremia Likely secondary to numbers 1 and 2. Anticipate improvement with volume expansion and stabilization of hemodynamics. 4. Baseline schizoaffective disorder/chronic back pain/hypertension/ hyperlipidemia/GERD Complicates care, management, recovery and prognosis. Likely okay to reinitiate losartan and Lasix therapy once renal function is made at back to baseline. Continue baseline PPI therapy. The patient will require physical therapy evaluation once medically stabilized. Code Visit Inpatient E&M: 74722 Subs Hosp L2
--- NOTE | 2017-08-24 12:11 | DS.PCM_ITS ---
<Татьяна Gibson - Last Filed: 08/24/17 12:11> Discharge Date and Diagnosis Date of Admission: 08/21/17 Date of Discharge: 08/24/17 - Primary Discharge Diagnosis Active and Suspected Problems 1. Septic shock secondary to multi-organism gram-positive UTI (Providencia rettgeri, Proteus mirabilis, Kocuria kristinae) 2. Acute kidney injury secondary to bladder outlet obstruction due to Alex catheter malposition 3. Hematuria secondary to Alex catheter malposition 4. Hypotension-secondary to #1. - Secondary Discharge Diagnosis Chronic Problems Speech abnormality (Chronic) Benign essential hypertension (Chronic) History of hyperlipidemia (Chronic) Schizoaffective disorder (Chronic) Tobacco user (Chronic) GERD (gastroesophageal reflux disease) (Chronic) Hospital Course and Treatment Imaging Results: Diagnostic Data Chest X-Ray 08/21/17 00:58 IMPRESSION: Degenerative changes, as described above. No demonstrated acute cardiopulmonary process. Electronically Signed: Marleny Schaffer MD at 2:10 EDT Tel , Service support , Brain CT 08/21/17 00:59 IMPRESSION: Chronic involutional changes of the brain. 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 Electronically Signed: Marleny Schaffer MD at 2:19 EDT Tel , Service support , Renal Ultrasound 08/21/17 05:55 IMPRESSION: Normal ultrasound of the kidneys. A right-sided extrarenal pelvis is seen. Electronically Signed: Elbert Kaur MD at 13:02 EDT Tel [phone], Service support , Dr. Disla- Nephrology Dr. Choi/Dr. Carbajal-city designer Operations: None Procedures: None Summary of Care Provided: Patient is a 67-year-old male admitted 08/21/2017 due to septic shock secondary to multi-organism gram-positive UTI (Providencia rettgeri, Proteus mirabilis, Kocuria kristinae), acute kidney injury secondary to bladder outlet obstruction due to Alex catheter malposition, hematuria secondary to Alex catheter malposition and hypotension secondary to septic shock. Patient was initially admitted to ICU on levophed. Nephrology consulted. Creatinine admission 10.7. Improved to 1.5 at discharge. Hematuria greatly improved. Patient has chronic Alex which was changed in ICU. Patient found to be malpositioned on admission resulting in bladder outlet obstruction. Patient was treated with IV Zosyn. Discharge on Bactrim twice daily for 5 days. Patient will need follow- up with urology at discharge with routine catheter replacement. Repeat BMP and CBC daily for 3 days. Hold home Lasix and losartan regimen at discharge. If blood pressure and creatinine remains stable, resume home Lasix and losartan. Follow-up with primary care physician in 1 week. Patient has a past medical history of schizoaffective disorder, hypertension, GERD, tobacco dependence, history of CVA with residual speech deficit, hyperlipidemia. Chronic medical conditions stable at this time. Patient is stable for discharge, return to SNF. General: Alert, oriented, no apparent distress HEENT: Atraumatic, Normocephalic Oral: Moist Mucosa, No Gingival or Mucosal Lesions/ Ulcerations Neck: No Nodes, Thyroid Normal Size and Texture Lungs: Clear to auscultation, Normal air movement Cardiovascular: Regular rate, Regular Rhythm, Normal S1, Normal S2 Abdomen: Bowel Sounds Present, Soft, Non Tender, Non-Distended, No Hepato- splenomegaly, Alex in place, draining. Small amount of blood noted, significantly improved. Extremities: No edema, No Calf Tenderness Neurological: Neuro grossly intact. Chronic dysarthria. Skin: No rashes, No breakdown Psych/Mental Status: Normal Affect, Appropriate Patient seen exam prior to discharge. Physical assessment as noted above. Patient stable for discharge to SNF with the follow-up recommendations as noted above. This patient was seen by JENNIFER Gutiérrez under the supervision of Dr. Moyer. Home Medications: Medications to take at Discharge Cyanocobalamin (Vitamin B-12) [B-12] 1,000 mcg PO DAILY 12/08/16 Ergocalciferol [Vitamin D] 50,000 unit PO TH 12/08/16 Meloxicam [Mobic] 7.5 mg PO DAILY 12/08/16 Aspirin E.C. [Ecotrin] 81 mg PO DAILY@0800 tablet 12/10/16 Losartan Potassium [Cozaar] 100 mg PO DAILY tablet 12/10/16 Metoprolol Tartrate [Lopressor (beta gayatri)] 12.5 mg PO BID tablet 12/10/16 Oxycodone [Oxyir] 5 mg PO Q4H PRN PRN #10 tablet 12/10/16 Atorvastatin Calcium [Lipitor] 80 mg PO QHS 12/11/16 Furosemide [Lasix] 20 mg PO DAILY 08/21/17 Lactobacillus Rhamnosus GG [Culturelle] 1 each PO DAILY 08/21/17 Lasix 40 mg PO BREAKFAST 08/21/17 Loratadine 10 mg PO BREAKFAST 08/21/17 Omeprazole [Prilosec] 20 mg PO DAILY 08/21/17 Tamsulosin HCl [Flomax] 0.8 mg PO DAILY 08/21/17 Smz/Tmp Ds [Bactrim Ds] 1 tablet PO BID 5 Days #10 tablet 08/24/17 Following Prescrptions Were Given to Patient: Smz/Tmp Ds [Bactrim Ds] 1 tablet PO BID 5 Days #10 tablet Primary Care Physician: Nicho Sanderson MD [Primary Care Provider] - Please follow up with your Primary Care Physician in: 1 Week Please Follow Up With: Primary Urologist When: 1 Week Disposition: Halfway facility Minutes spent on discharge:: 35 Patient Condition:: Stable Medical Necessity - Tobacco Use Smoking Status: Current every day smoker Meaningful Use Info Meaningful Use Diagnoses (Choose all that apply): None applicable <Anuj Moyer - Last Filed: 08/24/17 12:52> Discharge Date and Diagnosis - Secondary Discharge Diagnosis Chronic Problems Speech abnormality (Chronic) Benign essential hypertension (Chronic) History of hyperlipidemia (Chronic) Schizoaffective disorder (Chronic) Tobacco user (Chronic) GERD (gastroesophageal reflux disease) (Chronic) Hospital Course and Treatment Operations: None Procedures: None Summary of Care Provided: Patient seen and examined independently. Data reviewed. I agree with the above note by the nurse practitioner. The patient is a 67 year old M presents with picture of septic shock, acute kidney injury and urinary tract infection. Apparently patient has had a chronic catheter and was in urethra. Patient presented with a creatinine of over 10 as well as hypertension and urinary tract infection. Patient is did not require any renal replacement therapy but was seen in consultation by nephrology. Creatinine today is down to 1.5. Septic shock did require pressor agents with levo fed. That has been discontinued and blood pressure has remained stable. Urine culture grew out several organisms, including procidentia, and Proteus. It also did show an organism called Kocuria. Sensitivities were noted for permanency and Proteus both are sensitive to ciprofloxacin and Bactrim. Patient will be discharged with Bactrim for 5 more days. Patient's Alex catheter was replaced in the emergency room and has been working properly. Patient will follow up with urology on his regular scheduled basis. [] Discharge Diet: No Restrictions Disposition: Halfway facility Minutes spent on discharge:: 35 Patient Condition:: Stable Meaningful Use Info Meaningful Use Diagnoses (Choose all that apply): None applicable Code Visit Inpatient E&M: 98464 Disch Hosp
--- NOTE | 2017-08-24 12:41 | NURSING ---
Called report to Gifty MALLORY at [facility]
--- NOTE | 2017-08-24 12:43 | CASEMGMT ---
Patient is ready for d/c back to [facility]. DUY faxed orders to [facility]. Called [facility] and arranged for patient to get picked up at via cot. DUY notified RN and Linnette at [facility]. Plan: d/c back to [facility] under intermediate level of care. [facility] transported him via cot. Shani ALONZO MSW
== END 2017-08-24 14:25 | disposition intermediate care facility (04) | DRG 416 ==
LOC: ED 00:57 → ICU 03:35 → PCU 08-25 07:30
PROVIDERS: Internal Medicine Critical Care Medicine; Admitting Provider Internal Medicine; Emergency Provider Emergency Medicine; Family Provider Family Medicine; PCP Family Medicine
DX: A41.9 Sepsis, unspecified organism (principal); R65.21 Severe sepsis with septic shock; N39.0 Urinary tract infection, site not specified; N17.9 Acute kidney failure, unspecified; F25.9 Schizoaffective disorder, unspecified; N32.0 Bladder-neck obstruction; R31.0 Gross hematuria; E87.1 Hypo-osmolality and hyponatremia; I10 Essential (primary) hypertension; F17.200 Nicotine dependence, unspecified, uncomplicated; B96.4 Proteus (mirabilis) (morganii) as the cause of diseases classified elsewhere; I69.322 Dysarthria following cerebral infarction; B96.89 Other specified bacterial agents as the cause of diseases classified elsewhere; K21.9 Gastro-esophageal reflux disease without esophagitis; T83.021A Displacement of indwelling urethral catheter, initial encounter; E78.5 Hyperlipidemia, unspecified
CPT/HCPCS: 36569; 70450; 71045; 76770; 80048; 81001; 83605; 83930; 83935; 84484; 85025; 85610; 87040; 87077; 87086; 87088; 87186; 87641; 93005; 97162; 97165; 97530; 99285; 99406; J7030; J7040; J7050; A4216

== ENCOUNTER 2018-02-21 12:51 | Inpatient (IN) | payer MEDICAID, SELFPAY ==
[2018-02-21] VITALS (12 sets, daily range): BP systolic 86–152; BP diastolic 38–103; PULSE 96–120; RESP 20–27; TEMP 36.5–37.9; O2SAT 93–97; BMI 31.6; BMI 30.7
--- NOTE | 2018-02-21 13:16 | CT_ITS ---
STUDY: CT ABDOMEN AND PELVIS WITH CONTRAST REASON FOR EXAM: Male, 67 years old. Lower abdominal pain. Hematuria. RADIATION DOSAGE (If Supplied By Facility): CTDIvol = ( 15.41 ) mGy, DLP = ( 1350.42 ) mGycm TECHNIQUE: Transaxial images were obtained from the dome of the diaphragm to the symphysis pubis without oral contrast. 100 ml of Isovue 300 contrast was administered. Sagittal and coronal images were reconstructed. Individualized dose optimization techniques were used for this CT. COMPARISON: None. FINDINGS: The visualized lung bases are unremarkable. Coronary artery calcification. Normal liver. The patient is status post cholecystectomy. Normal spleen. Normal pancreas. Normal bilateral adrenal glands. Mild degree of right hydronephrosis and right hydroureter. This most likely is related to the distended urinary bladder. No obstructive uropathy is seen. There is a 1.5 cm cyst in the posterior aspect of the left kidney. Normal visualized stomach. Normal small intestine. Normal colon. The appendix is visualized and appears normal. There is diffuse atherosclerotic calcification of the abdominal aorta and its major visceral branches. There is evidence of a fusiform infrarenal abdominal aortic aneurysm with a transverse dimension of 4.2 cm. Mural thrombus is seen. Normal inferior vena cava. Normal retroperitoneum. There is a distended urinary bladder. Mild degree of diffuse bladder wall thickening. There is evidence of a 5.6 cm x 4.1 cm prostate with indentation at the bladder base. Normal abdominal wall. Disc space narrowing and disc degeneration at the L5-S1 level. Approximately 30% loss of height of the superior endplate of the L2 vertebrae. CT/Abdomen/Pelvis W IV Cont ONLY IMPRESSION: Distended urinary bladder. Prostatic enlargement with indentation at the bladder base. Electronically Signed: Elbert Kaur MD at 15:00 EST Tel [phone], Service support ,
--- NOTE | 2018-02-21 13:16 | EKG12_ITS ---
Test Reason : GEN ILLNESS Blood Pressure : / mmHG Vent. Rate : 102 BPM Atrial Rate : 102 BPM P-R Int : 146 ms QRS Dur : 094 ms QT Int : 340 ms P-R-T Axes : 045 010 046 degrees QTc Int : 443 ms Sinus tachycardia Possible Inferior infarct , age undetermined Anterolateral infarct , age undetermined Abnormal ECG Confirmed by DESMOND NORTH, TRACIE ([id number]), business editor GUERLINE CHAPARRO ([id number]) on 02/27/2018 9:47:57 AM Referred By: NIKKI Confirmed By:TRACIE LOGAN MD
--- NOTE | 2018-02-21 13:25 | ED.DCSUM_ITS ---
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 Patient was hospitalized around November 2017 for sepsis. States the last 3 days he had lower abdominal pain that is somewhat relieved by bowel movements but then returns. He has had decreased oral intake and is just going downhill over the last several days per the ECF. Patient states he has had nausea and constipation. He has a chronic indwelling Alex catheter. He denies any fever. Physical Examination: Older male. Vital signs are stable. Currently afebrile. Clinically looks dehydrated. HEENT exam dry mucous membranes. Audible but difficult speech due to his ALS. Neck nontender. Lungs clear to auscultation bilaterally. Heart tachycardic rate about 100-105 no murmur. Chest wall nontender. Abdomen soft. Nondistended normal bowel sounds. Tender in both lower quadrants. No obvious hernia or masses. No obvious obstruction. Extremities moves all 4 generally weak from his ALS. No deformities. Neurologically is awake and alert. Has generalized weakness. Patient is able to answer questions and follow commands. Test Results: EKG sinus rhythm rate of 102 no acute signs of ischemia. CBC shows a white count of 15,300. Hemoglobin 13. Electrolytes unremarkable gap of 8. Creatinine 1.3. Liver enzymes normal. Lipase 88. UA is pending. CT abdomen pelvis with IV contrast shows increased stool in the rectum consistent with constipation. I distended bladder consistent with urinary retention AAA with thrombus and a large prostate. Nursing staff wanted to change the Alex catheter due to the amount of sediment and a little bit of urine that was in it when they pulled it after the balloon was taken down there was a large amount of gross blood. I suspect this is either from his prostate or blood is accumulated in his bladder that may be obstructing the catheter or move the catheter was never fully in his his urinary bladder. The nurse tried a coud? and has been unable to replace the Alex catheter. I spoke to Dr. Restrepo and he will be down to evaluate the patient for Alex catheter placement. I think at this time most likely patient does have a urinary tract infection will wait for urinalysis. And will need to be admitted for IV antibiotics. I will speak to the hospitalist about this. He will be started on IV Rocephin in the ER. Emergency Department Course and Treatment: Older male with lower abdominal pain. Undergo a CT and labs. Treatment Plan: IV Rocephin. Morphine for pain. Liter normal saline. Alex to be placed by urologist. Admission by the hospitalist Disposition: Admission Impression: Acute bilateral lower quadrant abdominal pain #2 acute urinary retention #3 gross pyuria secondary to UTI #4 unable to replace Alex catheter to be done by urologist # 5 acute constipation This note was generated with [facility] dictation software. It may contain incorrect words, spelling, and punctuation that were not noted in review of the chart prior to signing ED Disposition - Plan for ED Patient: Chief Complaint: General Illness Referrals: Nicho Sanderson MD [Primary Care Provider] -
[2018-02-21] MEDS: 0.9% Normal Saline 1,000 ML 1000 ML IV (13:45)
[2018-02-21] MEDS: Ondansetron 4 MG/2 ML Vial IV (13:45)
[2018-02-21] MEDS: Morphine 4 MG/ML Syringe IV (13:45)
[2018-02-21 13:59] LABS: Hematocrit 40.3 % (40-54); Hemoglobin 13.3 g/dl (13.0-16.5); Mean Corpuscular Volume 93.3 fL (80-94); Red Blood Count 4.32 M/mm3 (4.6-6.2); White Blood Count 15.3 K/mm3 (4.4-11.0)
[2018-02-21 14:00] LABS: Lymphocyte % 9.8 % (19-41); Mean Corpuscular Hgb 30.8 pg (27.0-32.0); Mean Platelet Vol. 9.2 fl (6.2-12.0); Neutrophil % 79.8 % (47-70); Platelet Count 212 K/mm3 (150-450); RBC Distribution Width CV 13.4 % (11.6-14.6)
[2018-02-21 14:01] LABS: Absolute Neutrophil Count 12.2 X10^3/uL (2.0-7.7); Basophil# 0.02 X10^3/uL; Basophil% 0.1 % (0-1); Eosinophil# 0.28 X10^3/uL; Eosinophils% 1.8 % (0-5); Monocyte# 1.28 X10^3/uL; Monocyte% 8.3 % (0-10); Neutrophil # 12.23 X10^3/uL (2.7-7.7); POSITIVE COUNT NO; POSITIVE DIFFERENTIAL NO; POSITIVE MORPHOLOGY NO
[2018-02-21 14:02] LABS: AST(SGOT) 12 U/L (15-37); Alanine Aminotransfer ALT/SGPT 17 U/L (16-61); Albumin, Serum 3.5 g/dL (3.2-5.0); Alkaline Phosphatase 86 U/L (45-117); Anion Gap 8 (5-15); BUN 22 mg/dL (7-18); BUN/Creat Ratio 16.9 RATIO (10-20); Bilirubin, Direct 0.29 mg/dL (0.00-0.30); Calcium,Total 8.9 mg/dL (8.5-10.1); Chloride 100 mmol/L (98-107); EST Glomerular Filtration Rate 58 mL/min (>60); Est Glom Filt Rate - Afr Amer 71 mL/min (>60); Estimated Creatinine Clearance 62.32 ml/min; Globulin 4.7 g/dL (2.2-4.2); Glucose 111 mg/dL (74-106); Lipase 88 U/L (73-393); Potassium 4.1 mmol/L (3.5-5.1); Protein, Total 8.2 g/dL (6.4-8.2); Sodium Level 134 mmol/L (136-145)
[2018-02-21] MEDS: morphine 8 MG/ML Syringe 6 MG IV (15:46)
--- NOTE | 2018-02-21 16:16 | PCM.CONS.U ---
Reason for Consult Date of Consultation: 02/21/18 Reason for Consultation: Urethral stricture Alex trauma History of Present Illness: The patient is a 67 year old male who is in a snf he has a ALS progressively getting worse bladder is managed with a chronic Alex catheter was placed to be changed every so often came into the ER had a lot of sediment catheter was removed new catheter was attempted but was not able to be placed in the bladder CAT scan was done looks that the catheter was never in the bladder on original CAT scan has a lot of debris or pus in the bladder. Came in and placed a wire through the urethra attempted Alex catheter he had a stricture in the mid urethra. I dilated the stricture and placed the catheter and got fairly lenny urine from his bladder bladder was irrigated and now is draining. Past Medical History Past Medical History (Chronic Problems): Chronic Problems Speech abnormality (Chronic) Benign essential hypertension (Chronic) History of hyperlipidemia (Chronic) Schizoaffective disorder (Chronic) Tobacco user (Chronic) GERD (gastroesophageal reflux disease) (Chronic) Allergies No Known Allergies Allergy (Verified 02/21/18 12:58) Home Medications: Ambulatory Orders Medication Instructions Recorded Cyanocobalamin (Vitamin B-12) 1,000 mcg PO DAILY 12/08/16 [B-12] Ergocalciferol [Vitamin D] 50,000 unit PO TH 12/08/16 Meloxicam [Mobic] 7.5 mg PO DAILY 12/08/16 Aspirin E.C. [Ecotrin] 81 mg PO DAILY@0800 tablet 12/10/16 Metoprolol Tartrate [Lopressor 12.5 mg PO BID tablet 12/10/16 (beta gayatri)] Atorvastatin Calcium [Lipitor] 80 mg PO QHS 12/11/16 Loratadine 10 mg PO BREAKFAST 08/21/17 Omeprazole [Prilosec] 20 mg PO DAILY 08/21/17 Tamsulosin HCl [Flomax] 0.8 mg PO DAILY 08/21/17 Acetaminophen 650 mg PO Q4H PRN PRN 02/21/18 Acetaminophen [Tylenol] 650 mg RECTAL Q4H PRN PRN 02/21/18 Amitriptyline HCl 10 mg PO DAILY 02/21/18 Amitriptyline HCl 25 mg PO QHS 02/21/18 Bisacodyl 10 mg RC DAILY PRN PRN 02/21/18 Guaifenesin [Robitussin] 10 ml PO Q4H PRN PRN 02/21/18 Lactobacillus Rhamnosus GG 1 each PO DAILY 02/21/18 [Culturelle] Mag Hydrox/Aluminum Hyd/Simeth 30 ml PO Q4H PRN PRN 02/21/18 [Antacid Liquid] Magnesium Hydroxide [Milk Of 30 ml PO DAILY PRN PRN 02/21/18 Magnesia] Melatonin 3 mg PO QHS 02/21/18 Na Phos,M-B/Na Phos,Di-Ba [Fleet 1 bottle RECTAL PRN PRN 02/21/18 Enema] Oxycodone [Oxyir] 5 mg PO TID PRN PRN 02/21/18 Polyethylene Glycol 3350 [Miralax] 17 gm PO DAILY 02/21/18 Riluzole 50 mg PO BID 02/21/18 Selenium Sulfide/Aloe Vera [Selsun 1 applic TP TID 02/21/18 Blue Moist 1% Shampoo] Surgical History: no surgical history Psychiatric History: No pertinent psych hx Lives: Alone Smoking Status: Former smoker Tobacco Use: Non-smoker Alcohol: None Drugs: None - *Family History Sibling History Items: Heart Disease Maternal History Items: Heart Disease Review of Systems Constitutional: Denies: Chills, Fever, Weight Change HEENT: Denies: Head Aches, Sinus Congestion, Sinus Drainage Cardiovascular: Denies: Chest Pain, Palpitations Respiratory: Denies: Cough, Shortness of breath at rest, Sputum production Gastrointestinal: Denies: Abdominal Pain, Nausea, Vomiting Genitourinary: Denies: Dysuria Musculoskeletal: Denies: Joint Pain, Joint Tenderness Skin: Denies: Rash, Wounds Neurological: Denies: Numbness, Tingling, Focal weakness Psychiatric: Denies: Anxiety, Depression, Homicidal Ideations, Suicidal Ideations Hematologic/ Lymphatic: Denies: Easy Bruising, Easy Bleeding Physical Exam - Physical Exam Vital Signs Temp 99.1 F 02/21/18 15:48 Pulse 108 H 02/21/18 15:48 Resp 27 H 02/21/18 15:48 BP 152/103 H 02/21/18 15:48 Pulse Ox 97 02/21/18 15:48 Intake & Output 02/19/18 02/20/18 02/21/18 23:59 23:59 23:59 Weight: 108.953 kg General: Alert, Oriented x3 HEENT: Atraumatic Oral: Moist Mucosa Neck: Supple Lungs: Normal air movement Abdomen: Soft Laboratory Tests Past 24 Hrs 02/21/18 02/21/18 13:37 13:37 WBC 15.3 H RBC 4.32 L Hgb 13.3 Hct 40.3 MCV 93.3 MCH 30.8 MCHC 33.0 RDW 13.4 RDW Differential 46.0 H Plt Count 212 MPV 9.2 Immature Gran % (Auto) 0.200 Neut % (Auto) 79.8 H Lymph % (Auto) 9.8 L [place] % (Auto) 8.3 Eos % (Auto) 1.8 Baso % (Auto) 0.1 Absolute Neuts (auto) 12.2 H Absolute Lymphs (auto) 1.50 Total Counted Not Reportable Sodium 134 L Potassium 4.1 Chloride 100 Carbon Dioxide 26.0 Anion Gap 8 BUN 22 H Creatinine 1.30 Estim Creat Clear Calc 62.32 Est GFR (MDRD) Af Amer 71 Est GFR (MDRD) Non-Af 58 L BUN/Creatinine Ratio 16.9 Glucose 111 H Calcium 8.9 Total Bilirubin 0.80 Direct Bilirubin 0.29 AST 12 L ALT 17 Alkaline Phosphatase 86 Total Protein 8.2 Albumin 3.5 Globulin 4.7 H Lipase 88 Assessment/Plan All Active Problems ELO (acute kidney injury) (Acute) Septic shock (Acute) UTI (urinary tract infection) (Acute) 67-year-old male status post dilation of urethral stricture placed on Alex catheter will need to leave the catheter in place he is can be admitted because of his urinary tract infection of the medical problems.
[2018-02-21 16:21] LABS: Bacteria 0 SEEN /hpf (None Seen); Mucous, Urine 0 SEEN /hpf (<or=2+); Red Blood Cells-Urine 0 SEEN /hpf (0-5); Squamous Epithelial Cells - UA 0 SEEN /hpf (0-5)
[2018-02-21 16:23] LABS: Color, Urine Yellow (Yellow); Glucose, Dipstick Normal (Normal); Ketone-Dipstick Negative (Negative); Leukocyte Esterase-Dipstick 500 /ul (Negative); Nitrite-Dipstick Negative (Negative); Occult Blood-Urine 150 /ul (Negative); Protein-Dipstick 100 mg/dl (Negative); Specific Gravity, Urine 1.015 (1.002-1.030); Urine Bilirubin Dipstick Negative (Negative); Urine Clarity Turbid (Clear); Urine Urobilinogen Normal (Normal)
[2018-02-21 16:36] LABS: White Blood Cells >100 SEEN /hpf (0-5)
--- NOTE | 2018-02-21 16:43 | ED.RN ---
WHEN PT RETURNED FROM CT SHAWNEE CYR REMOVED CATHETER FROM SKILLED NURSING. BALLOON WITH 5ML OF FLUID PER LABEL WAS DEFLATED. IMMEDIATELY LARGE AMOUNTS OF BRIGHT RED BLOOD CAME OUT OF PENIS. SHAWNEE CYR ATTEMPTED TO INSERT A 16F BALTAZAR, UNSUCCESSFULLY. THEN SHAWNEE CYR ATTEMPTED INSERTING A 16F COUDE CATHETER WHICH WAS ALSO UNSUCCESSFUL. DR. CHAPMAN WAS MADE AWARE AND DR. CASEY WAS PAGED.
[2018-02-21] MEDS: Ceftriaxone 1 GM/50 ML BAG IV (16:46)
[2018-02-21 16:49] LABS: Lactic Acid 1.2 mmol/L (0.4-2.0)
--- NOTE | 2018-02-21 17:00 | PCM.HP.STD ---
Problem List (1) Sepsis Status: Acute (2) UTI (urinary tract infection) Status: Acute History of Present Illness Date of Admission: 02/21/18 Chief Complaint: Abdominal pain The patient is a 67 year old M presents with abdominal pain. Patient was found to have a urinary tract infection and catheter was removed. Unable to be placed so urology was consulted and was placed by Dr. Restrepo. Apparently was lenny pus or debris when the catheter was replaced. Patient has garbled speech so it is very hard to get adequate history from him so much of the history is actually obtained through the documentation as well as discussing with the emergency room physician. In the emergency room, patient received 1 g of Rocephin 10 mg of morphine and IV fluids. [] Past Medical History Past Medical History (Chronic Problems): Chronic Problems Speech abnormality (Chronic) Benign essential hypertension (Chronic) History of hyperlipidemia (Chronic) Schizoaffective disorder (Chronic) Tobacco user (Chronic) GERD (gastroesophageal reflux disease) (Chronic) Medical History: Medical History (Last Updated 02/21/18 @ 17:03 by Anuj Moyer DO) ALS (amyotrophic lateral sclerosis) G12.21 Schizoaffective disorder F25.9 Allergies No Known Allergies Allergy (Verified 02/21/18 12:58) Home Medications: Ambulatory Orders Medication Instructions Recorded Cyanocobalamin (Vitamin B-12) 1,000 mcg PO DAILY 12/08/16 [B-12] Ergocalciferol [Vitamin D] 50,000 unit PO TH 12/08/16 Meloxicam [Mobic] 7.5 mg PO DAILY 12/08/16 Aspirin E.C. [Ecotrin] 81 mg PO DAILY@0800 tablet 12/10/16 Metoprolol Tartrate [Lopressor 12.5 mg PO BID tablet 12/10/16 (beta gayatri)] Atorvastatin Calcium [Lipitor] 80 mg PO QHS 12/11/16 Loratadine 10 mg PO BREAKFAST 08/21/17 Omeprazole [Prilosec] 20 mg PO DAILY 08/21/17 Tamsulosin HCl [Flomax] 0.8 mg PO DAILY 08/21/17 Acetaminophen 650 mg PO Q4H PRN PRN 02/21/18 Acetaminophen [Tylenol] 650 mg RECTAL Q4H PRN PRN 02/21/18 Amitriptyline HCl 10 mg PO DAILY 02/21/18 Amitriptyline HCl 25 mg PO QHS 02/21/18 Bisacodyl 10 mg RC DAILY PRN PRN 02/21/18 Guaifenesin [Robitussin] 10 ml PO Q4H PRN PRN 02/21/18 Lactobacillus Rhamnosus GG 1 each PO DAILY 02/21/18 [Culturelle] Mag Hydrox/Aluminum Hyd/Simeth 30 ml PO Q4H PRN PRN 02/21/18 [Antacid Liquid] Magnesium Hydroxide [Milk Of 30 ml PO DAILY PRN PRN 02/21/18 Magnesia] Melatonin 3 mg PO QHS 02/21/18 Na Phos,M-B/Na Phos,Di-Ba [Fleet 1 bottle RECTAL PRN PRN 02/21/18 Enema] Oxycodone [Oxyir] 5 mg PO TID PRN PRN 02/21/18 Polyethylene Glycol 3350 [Miralax] 17 gm PO DAILY 02/21/18 Riluzole 50 mg PO BID 02/21/18 Selenium Sulfide/Aloe Vera [Selsun 1 applic TP TID 02/21/18 Blue Moist 1% Shampoo] Surgical History: no surgical history Psychiatric History: No pertinent psych hx Lives: Alone Smoking Status: Former smoker Tobacco Use: Non-smoker Alcohol: None Drugs: None - *Family History Sibling History Items: Heart Disease Maternal History Items: Heart Disease Review of Systems Constitutional: Denies: Anorexia, Chills, Fever Eyes: Reports: Double vision. Denies: Blurred vision HEENT: Denies: Head Aches, Sinus Congestion, Sinus Drainage Cardiovascular: Denies: Chest Pain, Palpitations Respiratory: Reports: Cough. Denies: Shortness of Breath Gastrointestinal: Reports: Abdominal Pain. Denies: Nausea, Vomiting Genitourinary: Reports: - - catheter Musculoskeletal: Denies: Joint Pain, Joint Tenderness Skin: Denies: Rash, Wounds Neurological: Denies: Numbness, Tingling, Focal weakness Psychiatric: Denies: Anxiety, Depression Hematologic/ Lymphatic: Denies: Easy Bruising, Easy Bleeding, Hx of blood clot Comment: A 10 point review of systems were negative except as mentioned in the history of present illness and the other review of systems. VTE Information - Inpt Only VTE Present on Admission: No VTE Mechan Device Prophylaxis: None VTE Pharm Prophylaxis ordered?: Yes Patient Problems: Active and Suspected Problems Sepsis (Acute) - Physical Exam General: Alert, Oriented x3, Cooperative, - - When patient speaks beyond this yes/no questions, his speech is very garbled and difficult to understand. HEENT: Atraumatic, PERRLA, EOMI, Normocephalic Oral: Moist Mucosa, No Gingival or Mucosal Lesions/ Ulcerations Neck: No Nodes, Thyroid Normal Size and Texture Lungs: Clear to auscultation, Normal air movement, No rhonchi, No wheeze Cardiovascular: Regular rate, Regular Rhythm, Normal S1, Normal S2, No murmurs Abdomen: Bowel Sounds Present, Soft, Non Tender, Non-Distended Extremities: No edema, No Calf Tenderness Skin: No rashes, No breakdown Musculoskeletal: No Tenderness to Palpation of Joints or Extremities, No Muscle Wasting Neurological: Cranial nerves II-XII grossly intact, Motor Exam 5/5 strength throughout, Slurred Speech, - - hyperreflexia patellar bilaterally. Psych/Mental Status: Normal Affect, Appropriate Vital Signs Temp Pulse Resp BP Pulse Ox 36.5 C L 114 H 21 H 86/38 L 94 02/21/18 16:39 02/21/18 16:39 02/21/18 16:39 02/21/18 16:39 02/21/18 16:39 Oxygen Flow Rate (L/min) 15 Oxygen Delivery Method Non-Rebreather Weight: 108.953 kg Body Mass Index (BMI) 31.6 Laboratory Tests Past 24 Hrs 02/21/18 02/21/18 02/21/18 13:37 13:37 13:37 WBC 15.3 H RBC 4.32 L Hgb 13.3 Hct 40.3 MCV 93.3 MCH 30.8 MCHC 33.0 RDW 13.4 RDW Differential 46.0 H Plt Count 212 MPV 9.2 Immature Gran % (Auto) 0.200 Neut % (Auto) 79.8 H Lymph % (Auto) 9.8 L [place] % (Auto) 8.3 Eos % (Auto) 1.8 Baso % (Auto) 0.1 Absolute Neuts (auto) 12.2 H Absolute Lymphs (auto) 1.50 Total Counted Not Reportable Sodium 134 L Potassium 4.1 Chloride 100 Carbon Dioxide 26.0 Anion Gap 8 BUN 22 H Creatinine 1.30 Estim Creat Clear Calc 62.32 Est GFR (MDRD) Af Amer 71 Est GFR (MDRD) Non-Af 58 L BUN/Creatinine Ratio 16.9 Glucose 111 H Lactic Acid 1.2 Calcium 8.9 Total Bilirubin 0.80 Direct Bilirubin 0.29 AST 12 L ALT 17 Alkaline Phosphatase 86 Total Protein 8.2 Albumin 3.5 Globulin 4.7 H Lipase 88 Urine Color Urine Clarity Urine pH Ur Specific [place] Urine Protein Urine Glucose (UA) Urine Ketones Urine Occult Blood Urine Nitrite Urine Bilirubin Urine Urobilinogen Ur Leukocyte Esterase Urine RBC Urine WBC Ur Squamous Epith Cells Urine Bacteria Urine Mucus 02/21/18 16:20 WBC RBC Hgb Hct MCV MCH MCHC RDW RDW Differential Plt Count MPV Immature Gran % (Auto) Neut % (Auto) Lymph % (Auto) [place] % (Auto) Eos % (Auto) Baso % (Auto) Absolute Neuts (auto) Absolute Lymphs (auto) Total Counted Sodium Potassium Chloride Carbon Dioxide Anion Gap BUN Creatinine Estim Creat Clear Calc Est GFR (MDRD) Af Amer Est GFR (MDRD) Non-Af BUN/Creatinine Ratio Glucose Lactic Acid Calcium Total Bilirubin Direct Bilirubin AST ALT Alkaline Phosphatase Total Protein Albumin Globulin Lipase Urine Color Yellow Urine Clarity Turbid Urine pH 7.0 Ur Specific [place] 1.015 Urine Protein 100 H Urine Glucose (UA) Normal Urine Ketones Negative Urine Occult Blood 150 H Urine Nitrite Negative Urine Bilirubin Negative Urine Urobilinogen Normal Ur Leukocyte Esterase 500 H Urine RBC 0 SEEN Urine WBC >100 SEEN Ur Squamous Epith Cells 0 SEEN Urine Bacteria 0 SEEN Urine Mucus 0 SEEN Clinical Impression(s) from Imaging Studies Abdomen/Pelvis CT 02/21/18 13:16 IMPRESSION: Distended urinary bladder. Prostatic enlargement with indentation at the bladder base. Electronically Signed: Elbert Kaur MD at 15:00 EST Tel [phone], Service support , EKG reviewed and showed sinus tachycardia without any acute changes. Assessment/Plan All Active Problems Sepsis (Acute) ELO (acute kidney injury) (Acute) Septic shock (Acute) UTI (urinary tract infection) (Acute) 1. Sepsis Present on admission Secondary to UTI Patient is hypotensive but I do not feel this is septic shock as his lactic acid was normal but the fact that patient received 10 mg of IV morphine. Patient will receive IV fluids and be monitored. Check blood cultures, unfortunately, there were being ordered after he had received Rocephin 2. Catheter associated UTI Catheter has been changed over. Patient does have a history of Peach and Proteus UTI. Both of which were sensitive to ceftriaxone in the past Would continue with ceftriaxone for now, however, if patient does not show any clinical response, would have a low threshold to change more to more broad-spectrum antibiotic given the potential risk for drug resistant organisms Patient was seen by Dr. Restrepo who changed over the catheter. 3. ALS per history follows with Dr. Gerardo Continue with Riluzole If he indeed does have ALS, prognosis is terminal without eventual chronic respiratory, enteral support. further goals of care need be addressed with PCP and neurologist PT, OT, ST 4. DVT proph: LMWH 5. ACP: patient wishes to be full code. He would want intubated in the event of respiratory arrest and a PEG if he has dysphagia.
[2018-02-21] MEDS: 0.9% Normal Saline 1,000 ML 150 ML IV (20:22)
[2018-02-22] VITALS (16 sets, daily range): BP systolic 103–139; BP diastolic 63–86; PULSE 75–100; RESP 16–20; TEMP 36.8–37.5; O2SAT 93–99
[2018-02-22] MEDS: 0.9% Normal Saline 1,000 ML 150 ML IV (02:17)
[2018-02-22] MEDS: Nystatin Powder 15gm Bottle 1 APPLIC TOPICAL ×2 (09:17→22:21)
[2018-02-22] MEDS: Cyanocobalamin 500 MCG Tablet 1000 MCG PO (09:18)
[2018-02-22] MEDS: Enoxaparin 40 MG/0.4 ML Syringe SC (09:18)
[2018-02-22] MEDS: Aspirin E.C. 81 MG Tablet PO (09:18)
[2018-02-22] MEDS: Ceftriaxone 1 GM/50 ML BAG IV (09:18)
[2018-02-22] MEDS: Pantoprazole Sodium 20 MG Tablet PO (09:18)
[2018-02-22] MEDS: Metoprolol Tartrate 25 MG Tablet 12.5 MG PO ×2 (09:21→22:21)
[2018-02-22] MEDS: 0.9% Saline Lock 10 ML Syringe IV ×2 (09:29→14:22)
--- NOTE | 2018-02-22 09:53 | CASEMGMT ---
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 SW will follow for his return to [facility]. Shani ALONZO MSW
--- NOTE | 2018-02-22 11:00 | SP.MBSS_ITS ---
PRIMARY / SECONDARY DIAGNOSIS: dysphagia (R13.12) REFERRING PHYSICIAN: Dr. Anuj Moyer MD CURRENT DIET: regular textures, thin liquids DENTITION: natural; suboptimal MENTAL STATUS: sufficient for participation RESPIRATORY STATUS: O2 via room air PREVIOUS MODIFIED BARIUM SWALLOW STUDY: none REASON FOR REFERRAL: Patient is a 67year old male referred for a modified barium swallow (MBS) study to objectively assess the Patients oropharyngeal swallow function under fluoroscopy secondary to concerns for aspiration risks associated with the diagnosis of amyotrophic lateral sclerosis. MEDICAL HISTORY: Amyotrophic lateral sclerosis with severe dysarthria, gastroesophageal reflux disease, schizoaffective disorder, benign essential hypertension, hyperlipidemia, tobacco user. STUDY FINDINGS: Patient participated in a Modified Barium Swallow (MBS) study on 02/22/2018. Dr. Kaur was the radiologist present for this evaluation. This study was recorded in the lateral view and images were sent to PACs for storage. The following consistencies were presented to this patient for analysis of oropharyngeal swallow function: thin liquids, pudding, and a regular textured, Lida Doone cookie. Results of the MBS are as follows: PENETRATION / ASPIRATION SCALE (LEWIS): 1 = does not enter airway 2 = enters airway/above vocal folds/ejected 3 = enters airway/above vocal folds/not ejected 4 = enters airway/contacts vocal folds/ejected 5 = enters airway/contacts vocal folds/not ejected 6 = enters airway/below vocal folds/ejected 7 = enters airway/below vocal folds/not ejected despite effort 8 = enters airway/below vocal folds/no effort PENETRATION / ASPIRATION SCALE (SCORE) WITH VIDEOFLOROSCOPIC SCALE SCORE: Thin liquid - 5 mL tsp.: 1 Thin liquids via cup (single sip): 1 Thin liquids via cup (single sip): 2 Thin liquids via cup (single sip): 1 Thin liquids via straw (single sip): 2 Thin liquids via straw (single sip): 2 Pudding via spoon: 1 Regular textured cookie: 1 Thin liquids via straw (chin tuck): 1 Thin liquids via straw (chin tuck): 1 Thin liquids via straw (chin tuck): 1 IMPRESSION: DIAGNOSIS: mild to moderate oral dysphagia (R13.11) ORAL PHASE CHARACTERIZED BY: LABIAL SEAL: escape progressing to mid-chin (chin tuck; observed outside fluoroscopy range) TONGUE CONTROL DURING BOLUS MANIPULATION: posterior escape of less than half of bolus BOLUS PREPARATION / MASTICATION: slow prolonged chewing/mashing with complete recollection BOLUS TRANSPORT / LINGUAL MOTION: disorganized tongue motion ORAL RESIDUE: residue collection on oral structures PHARYNGEAL PHASE CHARACTERIZED BY: INITIATION OF PHARYNGEAL SWALLOW: bolus head in valleculae at first hyoid excursion SOFT PALATE ELEVATION: trace column of contrast/air between soft palate and pharyngeal wall LARYNGEAL ELEVATION: complete superior movement of thyroid cartilage with complete approximation of arytenoids cartilage to epiglottic petiole ANTERIOR HYOID EXCURSION: complete anterior movement EPIGLOTTIC MOVEMENT: complete epiglottic inversion LARYNGEAL VESTIBULE CLOSURE AT HEIGHT OF SWALLOW: complete laryngeal vestibule closure with no air/contrast in laryngeal vestibule PHARYNGEAL STRIPPING WAVE: pharyngeal stripping wave present / complete PHARYNGOESOPHAGEAL SEGMENT OPENING: complete distension and complete duration with no obstruction of flow TONGUE BASE RETRACTION: trace column of contrast between tongue base and posterior pharyngeal wall PHARYNGEAL RESIDUE: trace residue within or on pharyngeal structures ESOPHAGEAL PHASE CHARACTERIZED BY: ESOPHAGEAL BOLUS CLEARANCE IN THE UPRIGHT POSITION: complete clearance; esophageal coating EFFECTS OF TREATMENT STRATEGIES ATTEMPTED: Chin tuck posture = effective Reduced bolus size = effective DIET TEXTURE RECOMMENDATIONS: Will recommend a regular-soft textured, thin liquid diet. COMPENSATORY STRATEGIES RECOMMENDED: Supervision during PO intake, chin tuck with thin liquids (straws ok with chin tuck), reduced intake volume / rate, seated upright at 90 degrees during PO intake, remain upright at 90 degrees for 30-60 min post intake. INTERPRETATION OF RESULTS: Patient presents with mild to moderate oral dysphagia (R13.11) secondary to the diagnosis of amyotrophic lateral sclerosis. Oral preparatory phase marked by prolonged albeit sufficient mastication effort; anterior bolus loss of thin liquids with chin tuck on one occasion. Oral transportation phase marked by generalized slowing of motion with slight disorganized movements during ingestion of thin liquids with chin tuck posture (no effect on airway protection); scattered debris more prominent with regular textures (cleared with liquid wash); premature posterior bolus loss during trials of thin liquids directly associated with penetration events during ingestion of thin liquids (ameliorated with chin tuck posture). Pharyngeal phase overall unremarkable, with penetration during trials of thin liquids associated with premature posterior bolus loss. No aspiration appreciated throughout trials, unable to definitively rule out silent aspiration. RECOMMENDATIONS: Given the etiology of cause, would consider annual assessments of the oropharyngeal swallow function under fluoroscopy, as the swallow function is highly anticipated to continually degrade to eventually include rather significant deterioration of the pharyngeal phase functioning. Patient requires intensive skilled speech-language intervention targeting continued diet texture management; training / implementation of recommended compensatory strategies; and Patient / caregiver education regarding dysphagia associated with amyotrophic lateral sclerosis. ADDITIONAL COMMENTS/RECOMMENDATIONS: Results and recommendations were discussed with the Patient immediately following MBS completion, with the Patient verbalizing understanding and agreement with all recommendations and education provided. IMAGE COUNT: [id number] Danie Jose M.A., CCC-FINANCIAL COORDINATOR [facility] Speech-Language Pathology Department [email or web address]
--- NOTE | 2018-02-22 11:01 | RAD_ITS ---
STUDY: SWALLOWING STUDY REASON FOR EXAM: Male, 67 years old. Dysphagia. ALS. TECHNIQUE: The examination was performed with Speech Pathology in attendance. Under fluoroscopic observation, the patient ingested thin barium, thick barium, barium pudding, and barium coated cracker. FLUOROSCOPY TIME: 3:06 minutes/seconds. [id number] spot images were obtained. RADIOLOGIST INVOLVEMENT: Radiologist was present and providing direct supervision. COMPARISON: None. FINDINGS: The following was observed during swallowing of the various mixtures of barium: Thin Barium: Transient penetration with ingestion of thin liquids. This does not improve with the chin tuck maneuver. Thick Barium: There was no evidence of aspiration or laryngeal penetration. Barium Pudding: There was no evidence of aspiration or laryngeal penetration. Barium Coated Cracker: There was no evidence of aspiration or laryngeal penetration. RAD/Swallowing Function w/Video IMPRESSION: Transient penetration with ingestion of thin liquids. This does not improve with the chin tuck maneuver. The swallow study findings were discussed with the patient by the speech pathologist at the conclusion of the examination. Please see speech pathology report for more information and recommendations. Electronically Signed: Elbert Kaur MD at 13:22 EST Tel [phone], Service support ,
--- NOTE | 2018-02-22 13:41 | PN_ITS ---
<Татьяна Gibson - Last Filed: 02/22/18 14:15> Patient Problems: Active and Suspected Problems (Last Updated 02/21/18 @ 17:03 by Anuj Moyer DO) Sepsis (Acute) Subjective: Patient seen and examined. Complains of not being able to sleep overnight. Denies fever, chills. Denies other current complaints. - Physical Exam General: Alert, Oriented x3, Cooperative HEENT: Atraumatic, PERRLA, EOMI, Normocephalic Oral: Dry Mucosa Neck: Supple, No JVD, Negative Carotid Bruits Lungs: Clear to auscultation, Diminished Cardiovascular: Regular rate, Regular Rhythm, Normal S1, Normal S2, No murmurs Abdomen: Bowel Sounds Present, Soft, Non Tender, Non-Distended, - - Alex in place, small amount of blood noted. Extremities: No clubbing, No cyanosis, No edema, Capillary Refill Less than 3 Seconds Skin: No rashes, No breakdown Musculoskeletal: No Tenderness to Palpation of Joints or Extremities Neurological: Cranial nerves II-XII grossly intact, - - Chronic generalized weakness and dysarthria. Psych/Mental Status: Normal Affect, Appropriate Vital Signs Temp Pulse Resp BP Pulse Ox 98.2 F 75 18 111/68 93 02/22/18 11:30 02/22/18 11:30 02/22/18 11:30 02/22/18 11:30 02/22/18 11:30 Oxygen Flow Rate (L/min) 2 Oxygen Delivery Method Room Air Weight: 233 lb 0.458 oz Body Mass Index (BMI) 30.7 Intake and Output for Last 24 Hours 02/20/18 02/21/18 02/22/18 23:59 23:59 23:59 Intake Total 757 / 757 1814 / 1814 Output Total 950 / 950 500 / 500 Balance -193 / -193 1314 / 1314 Microbiology Past 72 Hours 02/21/18 16:20 Urine Culture - Preliminary Urine Catheter - Catheter GNR lactose support group manager Gram negative abimael 02/21/18 13:37 Blood Culture - Preliminary Blood Culture (Wb) - Venous Laboratory Tests Past 24 Hrs 02/21/18 02/21/18 02/21/18 13:37 13:37 16:20 WBC 15.3 H RBC 4.32 L Hgb 13.3 Hct 40.3 MCV 93.3 MCH 30.8 MCHC 33.0 RDW 13.4 RDW Differential 46.0 H Plt Count 212 MPV 9.2 Immature Gran % (Auto) 0.200 Neut % (Auto) 79.8 H Lymph % (Auto) 9.8 L Stewart % (Auto) 8.3 Eos % (Auto) 1.8 Baso % (Auto) 0.1 Absolute Neuts (auto) 12.2 H Absolute Lymphs (auto) 1.50 Total Counted Not Reportable Sodium 134 L Potassium 4.1 Chloride 100 Carbon Dioxide 26.0 Anion Gap 8 BUN 22 H Creatinine 1.30 Estim Creat Clear Calc 62.32 Est GFR (MDRD) Af Amer 71 Est GFR (MDRD) Non-Af 58 L BUN/Creatinine Ratio 16.9 Glucose 111 H Lactic Acid Calcium 8.9 Total Bilirubin 0.80 Direct Bilirubin 0.29 AST 12 L ALT 17 Alkaline Phosphatase 86 Total Protein 8.2 Albumin 3.5 Globulin 4.7 H Lipase 88 Urine Color Yellow Urine Clarity Turbid Urine pH 7.0 Ur Specific [place] 1.015 Urine Protein 100 H Urine Glucose (UA) Normal Urine Ketones Negative Urine Occult Blood 150 H Urine Nitrite Negative Urine Bilirubin Negative Urine Urobilinogen Normal Ur Leukocyte Esterase 500 H Urine RBC 0 SEEN Urine WBC >100 SEEN Ur Squamous Epith Cells 0 SEEN Urine Bacteria 0 SEEN Urine Mucus 0 SEEN 02/21/18 16:25 WBC RBC Hgb Hct MCV MCH MCHC RDW RDW Differential Plt Count MPV Immature Gran % (Auto) Neut % (Auto) Lymph % (Auto) Stewart % (Auto) Eos % (Auto) Baso % (Auto) Absolute Neuts (auto) Absolute Lymphs (auto) Total Counted Sodium Potassium Chloride Carbon Dioxide Anion Gap BUN Creatinine Estim Creat Clear Calc Est GFR (MDRD) Af Amer Est GFR (MDRD) Non-Af BUN/Creatinine Ratio Glucose Lactic Acid 1.2 Calcium Total Bilirubin Direct Bilirubin AST ALT Alkaline Phosphatase Total Protein Albumin Globulin Lipase Urine Color Urine Clarity Urine pH Ur Specific [place] Urine Protein Urine Glucose (UA) Urine Ketones Urine Occult Blood Urine Nitrite Urine Bilirubin Urine Urobilinogen Ur Leukocyte Esterase Urine RBC Urine WBC Ur Squamous Epith Cells Urine Bacteria Urine Mucus Medical Necessity - Tobacco Use Smoking Status: Former smoker Tobacco Use: Non-smoker Assessment/Plan All Active Problems (Last Updated 02/21/18 @ 17:03 by DAVID Piedra Septic shock (Acute) UTI (urinary tract infection) (Acute) ELO (acute kidney injury) (Acute) Sepsis (Acute) 1. Sepsis, present on admission secondary to catheter associated UTI-UA positive. Urine culture pending. Previous cultures with Providencia rettgeri, Proteus mirabilis, Kocuria kristinae. Catheter changed in ER by urology. CT of abdomen showed distended urinary bladder, prostate enlargement with indentation of the bladder base. Continue IV Rocephin. Follow cultures. Continue IV fluids. 2. Urinary retention due to stricture in the mid urethra, chronic BPH-status post dilation of stricture. Associated hematuria. Stable. Alex intact. Continue Flomax. 3. Dysphagia- ST eval. patient underwent swallow study which showed transient penetration with ingestion of thin liquids. Continue diet per speech therapy recommendations. Soft diet. 4. ALS- follows with Dr. Gerardo. Continue Riluzole. PT/OT. Resides at [facility]. 5. Hypertension-stable, continue metoprolol. 6. Hyperlipidemia-continue statin. 7. GERD-continue PPI. DVT prophylaxis-Lovenox subcu. This patient was seen by JENNIFER Gutiérrez under the supervision of Dr. Patrick. <Lino Patrick E - Last Filed: 02/22/18 14:36> - Physical Exam Vital Signs Temp Pulse Resp BP Pulse Ox 98.2 F 75 18 111/68 93 02/22/18 11:30 02/22/18 11:30 02/22/18 11:30 02/22/18 11:30 02/22/18 11:30 Oxygen Flow Rate (L/min) 2 Oxygen Delivery Method Room Air Weight: 233 lb 0.458 oz Body Mass Index (BMI) 30.7 Intake and Output for Last 24 Hours 02/20/18 02/21/18 02/22/18 23:59 23:59 23:59 Intake Total 757 / 757 1814 / 1814 Output Total 950 / 950 500 / 500 Balance -193 / -193 1314 / 1314 Microbiology Past 72 Hours 02/21/18 16:20 Urine Culture - Preliminary Urine Catheter - Catheter GNR lactose support group manager Gram negative abimael 02/21/18 13:37 Blood Culture - Preliminary Blood Culture (Wb) - Venous Laboratory Tests Past 24 Hrs 02/21/18 02/21/18 16:20 16:25 Lactic Acid 1.2 Urine Color Yellow Urine Clarity Turbid Urine pH 7.0 Ur Specific [place] 1.015 Urine Protein 100 H Urine Glucose (UA) Normal Urine Ketones Negative Urine Occult Blood 150 H Urine Nitrite Negative Urine Bilirubin Negative Urine Urobilinogen Normal Ur Leukocyte Esterase 500 H Urine RBC 0 SEEN Urine WBC >100 SEEN Ur Squamous Epith Cells 0 SEEN Urine Bacteria 0 SEEN Urine Mucus 0 SEEN Assessment/Plan Hospitalist note: I am seeing this patient in conjunction with Татьяна Gibson. I independently seen and examined the patient. Progress note above, laboratory data and imaging studies reviewed and I concur with the above treatment plan. Patient seen and examined. He denied abdominal pain, nausea vomiting. No fever chills. He complains of insomnia. His vital signs are stable. - Physical Exam General: Alert, Oriented x3, Cooperative, No apparent distress. HEENT: Atraumatic, PERRLA, EOMI. Neck: Supple, No JVD, Negative Carotid Bruits, Trachea Midline, Thyroid Normal. Lungs: Clear to auscultation, Normal air movement, No rhonchi, No wheeze, No rales. Cardiovascular: Regular rate, Regular Rhythm, Normal S1, Normal S2, PMI Normal. Abdomen: Bowel Sounds Present, Soft, Non Tender, Non-Distended, No Hepato- splenomegaly. Extremities: No clubbing, No cyanosis, No edema Skin: No rashes, No breakdown Neurological: Cranial nerves are intact, moving all limbs. Vital Signs are stable. Assessment and plan: #1 acute complicated cystitis/probable pyelonephritis/sepsis: He is on IV Rocephin. He has a Alex catheter put in the ER, urine has some blood in it. CT scan abdomen and pelvis revealed distended urinary bladder with thick bladder wall, prostatic enlargement as well as mild degree of right hydronephrosis and right hydroureter without evidence of obstructing stone. Urine culture revealed gram-negative rods, final is pending. Plan to change Rocephin to 2 g every 24 hours, continue same treatment, repeat CBC and BMP tomorrow morning. #2 urinary retention: Secondary to stricture, history of BPH status post dilatation for stricture. Alex catheter in place. He is on Flomax. #3 dysphagia: Evaluated by speech therapy, recommended swallowing study which was done today. #4 other chronic medical problems: Continue current medications as above. This note was generated with [employer] software. It may contain incorrect words, spelling, and punctuation that were not noted in checking the note before signing. Code Visit Inpatient E&M: 19754 Subs Hosp L2
[2018-02-22] MEDS: 0.9% Normal Saline 1,000 ML 100 ML IV ×2 (14:22→23:58)
[2018-02-22] MEDS: Tamsulosin HCl 0.4 MG Capsule 0.8 MG PO (16:35)
[2018-02-22] MEDS: Atorvastatin Calcium 80 MG Tablet PO (22:21)
[2018-02-23] VITALS (12 sets, daily range): BP systolic 119–132; BP diastolic 66–73; PULSE 63–92; RESP 18–20; TEMP 36.9–37.3; O2SAT 93–96
[2018-02-23 06:09] LABS: Hematocrit 32.6 % (40-54); Hemoglobin 10.5 g/dl (13.0-16.5); Mean Corp Hgb Conc 32.2 g/gl (32-36); Mean Corpuscular Hgb 30.4 pg (27.0-32.0); Mean Corpuscular Volume 94.5 fL (80-94); Mean Platelet Vol. 9.4 fl (6.2-12.0); Platelet Count 196 K/mm3 (150-450); RBC Distribution Width CV 13.5 % (11.6-14.6); RBC Distribution Width SD 46.7 fl (35.1-43.9); Red Blood Count 3.45 M/mm3 (4.6-6.2); White Blood Count 8.3 K/mm3 (4.4-11.0)
[2018-02-23 06:10] LABS: Scan Indicated on CBC? Y/N NO
[2018-02-23 06:12] LABS: Anion Gap 9 (5-15); BUN 17 mg/dL (7-18); BUN/Creat Ratio 16.5 RATIO (10-20); Calcium,Total 8.2 mg/dL (8.5-10.1); Chloride 106 mmol/L (98-107); Creatinine, Serum 1.03 mg/dL (0.70-1.30); EST Glomerular Filtration Rate 76 mL/min (>60); Est Glom Filt Rate - Afr Amer 92 mL/min (>60); Estimated Creatinine Clearance 78.65 ml/min; Glucose 105 mg/dL (74-106); Potassium 3.6 mmol/L (3.5-5.1); Sodium Level 141 mmol/L (136-145)
[2018-02-23] MEDS: Cyanocobalamin 500 MCG Tablet 1000 MCG PO (09:14)
[2018-02-23] MEDS: 0.9% Normal Saline 1,000 ML 100 ML IV ×2 (09:14→18:58)
[2018-02-23] MEDS: Pantoprazole Sodium 20 MG Tablet PO (09:14)
[2018-02-23] MEDS: Enoxaparin 40 MG/0.4 ML Syringe SC (09:14)
[2018-02-23] MEDS: Metoprolol Tartrate 25 MG Tablet 12.5 MG PO ×2 (09:15→21:32)
[2018-02-23] MEDS: Nystatin Powder 15gm Bottle 1 APPLIC TOPICAL ×2 (09:15→21:40)
[2018-02-23] MEDS: Aspirin E.C. 81 MG Tablet PO (09:15)
--- NOTE | 2018-02-23 11:15 | PCM.PROGNOTE ---
<Twin Munoz - Last Filed: 02/23/18 11:15> Patient Problems: Active and Suspected Problems (Last Updated 02/21/18 @ 17:03 by Anuj Moyer DO) Sepsis (Acute) Subjective: Complaints of lower abdominal pain and severe constipation. States miralax is ineffective. No pain with catheter. Has chronic catheter as he has ALS. Lives at [facility]. No fever or chills. No SOB or cough. - Physical Exam General: Alert, Oriented x3, Cooperative HEENT: Atraumatic, PERRLA, EOMI, Normocephalic Neck: Supple, No JVD, Negative Carotid Bruits Lungs: Clear to auscultation, Normal air movement Cardiovascular: Regular rate, No murmurs Abdomen: Bowel Sounds Present, Soft, Tender - mild BL lower quadrant tenderness Extremities: No edema, Capillary Refill Less than 3 Seconds Skin: No rashes, No breakdown Musculoskeletal: No Tenderness to Palpation of Joints or Extremities Neurological: Cranial nerves II-XII grossly intact Psych/Mental Status: Normal Affect, Appropriate Vital Signs Temp Pulse Resp BP Pulse Ox 98.6 F 63 18 119/68 94 02/23/18 09:12 02/23/18 10:49 02/23/18 09:12 02/23/18 09:15 02/23/18 09:12 Oxygen Flow Rate (L/min) 2 Oxygen Delivery Method Room Air Weight: 233 lb 0.458 oz Body Mass Index (BMI) 30.7 Intake and Output for Last 24 Hours 02/21/18 02/22/18 02/23/18 23:59 23:59 23:59 Intake Total 757 / 757 2252 / 2252 1641 / 1641 Output Total 950 / 950 650 / 650 875 / 875 Balance -193 / -193 1602 / 1602 766 / 766 Microbiology Past 72 Hours 02/21/18 16:20 Urine Culture - Preliminary Urine Catheter - Catheter GNR lactose supervisor cemetery workers Gram negative abimael 02/21/18 13:37 Blood Culture - Preliminary Blood Culture (Wb) - Venous GPC Poss Enterococcus sp Laboratory Tests Past 24 Hrs 02/23/18 02/23/18 05:25 05:25 WBC 8.3 RBC 3.45 L Hgb 10.5 L Hct 32.6 L MCV 94.5 H MCH 30.4 MCHC 32.2 RDW 13.5 RDW Differential 46.7 H Plt Count 196 MPV 9.4 Sodium 141 Potassium 3.6 Chloride 106 Carbon Dioxide 26.0 Anion Gap 9 BUN 17 Creatinine 1.03 Estim Creat Clear Calc 78.65 Est GFR (MDRD) Af Amer 92 Est GFR (MDRD) Non-Af 76 BUN/Creatinine Ratio 16.5 Glucose 105 Calcium 8.2 L Medical Necessity - Tobacco Use Smoking Status: Former smoker Tobacco Use: Non-smoker Assessment/Plan All Active Problems (Last Updated 02/21/18 @ 17:03 by Anuj Moyer DO) Septic shock (Acute) UTI (urinary tract infection) (Acute) ELO (acute kidney injury) (Acute) Sepsis (Acute) 1. Acute sepsis / bacteremia 2/2 UTI, 2/2 chronic indwelling catheter - Blood culture with ?enterococcus, UrCx with GNR/lactose supervisor cemetery workers, repeat blood cx x 2 today. sensitivity pending. Continue rocephin. WBC improved. Afebrile. Cath changed at admission per ashley (stricture) 2.Urinary retention- as above. 2/2 ALS 3. Dysphagia - ST. soft diet. 4. ALS with associated debility - pt of Dr. Gerardo. PTOT 5. HTN - stable 6. HLD - statin 7. GERD - ppi. DVT ppx: lovenox DC planning: return to [facility] when appropriate This patient was seen by Twin Munoz PA-C under the supervision of Dr. Patrick. <Lino Patrick - Last Filed: 02/23/18 12:05> - Physical Exam Vital Signs Temp Pulse Resp BP Pulse Ox 98.6 F 63 18 119/68 94 02/23/18 09:12 02/23/18 10:49 02/23/18 09:12 02/23/18 09:15 02/23/18 09:12 Oxygen Flow Rate (L/min) 2 Oxygen Delivery Method Room Air Weight: 233 lb 0.458 oz Body Mass Index (BMI) 30.7 Intake and Output for Last 24 Hours 02/21/18 02/22/18 02/23/18 23:59 23:59 23:59 Intake Total 757 / 757 2252 / 2252 1641 / 1641 Output Total 950 / 950 650 / 650 875 / 875 Balance -193 / -193 1602 / 1602 766 / 766 Microbiology Past 72 Hours 02/21/18 16:20 Urine Culture - Preliminary Urine Catheter - Catheter GNR lactose supervisor cemetery workers Gram negative abimael 02/21/18 13:37 Blood Culture - Preliminary Blood Culture (Wb) - Venous GPC Poss Enterococcus sp Laboratory Tests Past 24 Hrs 02/23/18 02/23/18 05:25 05:25 WBC 8.3 RBC 3.45 L Hgb 10.5 L Hct 32.6 L MCV 94.5 H MCH 30.4 MCHC 32.2 RDW 13.5 RDW Differential 46.7 H Plt Count 196 MPV 9.4 Sodium 141 Potassium 3.6 Chloride 106 Carbon Dioxide 26.0 Anion Gap 9 BUN 17 Creatinine 1.03 Estim Creat Clear Calc 78.65 Est GFR (MDRD) Af Amer 92 Est GFR (MDRD) Non-Af 76 BUN/Creatinine Ratio 16.5 Glucose 105 Calcium 8.2 L Assessment/Plan Hospitalist note: I am seeing this patient in conjunction with Twin Munoz. I independently seen and examined the patient. Progress note above, laboratory data and imaging studies reviewed and I concur with the above treatment plan. Patient denies any complaints today. His vital signs are stable, afebrile. - Physical Exam General: Alert, Oriented x3, Cooperative, No apparent distress. HEENT: Atraumatic, PERRLA, EOMI. Neck: Supple, No JVD, Negative Carotid Bruits, Trachea Midline, Thyroid Normal. Lungs: Clear to auscultation, Normal air movement, No rhonchi, No wheeze, No rales. Cardiovascular: Regular rate, Regular Rhythm, Normal S1, Normal S2, PMI Normal. Abdomen: Bowel Sounds Present, Soft, Non Tender, Non-Distended, No Hepato-splenomegaly. Extremities: No clubbing, No cyanosis, No edema Skin: No rashes, No breakdown Neurological: Cranial nerves are intact, moving all limbs. Vital Signs are stable. Assessment and plan: #1 acute complicated cystitis/probable pyelonephritis/sepsis: He is on IV Rocephin. He has chronic indwelling Alex catheter. He has been afebrile, leukocytosis resolved. Urine culture revealed gram-negative rods, final is pending. Blood culture revealed gram-positive cocci, final is pending. CT scan abdomen and pelvis revealed distended urinary bladder with thick bladder wall, prostatic enlargement as well as mild degree of right hydronephrosis and right hydroureter without evidence of obstructing stone. Plan: Continue same treatment. #2 Gram-positive bacteremia: Probable source is the cystitis and pyelonephritis. Urine cultures revealing different organism which has come to the rods. Patient is on IV Rocephin as above, afebrile, leukocytosis resolved. Plan to repeat blood culture today. #3 urinary retention: Secondary to stricture, history of BPH status post dilatation for stricture. Alex catheter in place. He is on Flomax. #3 dysphagia: Evaluated by speech therapy, recommended swallowing study which was done today. #4 other chronic medical problems: Continue current medications as above. This note was generated with [employer] dictation software. It may contain incorrect words, spelling, and punctuation that were not noted in checking the note before signing. Code Visit Inpatient E&M: 53496 Subs Hosp L2
--- NOTE | 2018-02-23 11:20 | PN_ITS ---
<Twin Munoz - Last Filed: 02/23/18 11:15> Patient Problems: Active and Suspected Problems (Last Updated 02/21/18 @ 17:03 by Anuj Moyer DO) Sepsis (Acute) Subjective: Complaints of lower abdominal pain and severe constipation. States miralax is ineffective. No pain with catheter. Has chronic catheter as he has ALS. Lives at [facility]. No fever or chills. No SOB or cough. - Physical Exam General: Alert, Oriented x3, Cooperative HEENT: Atraumatic, PERRLA, EOMI, Normocephalic Neck: Supple, No JVD, Negative Carotid Bruits Lungs: Clear to auscultation, Normal air movement Cardiovascular: Regular rate, No murmurs Abdomen: Bowel Sounds Present, Soft, Tender - mild BL lower quadrant tenderness Extremities: No edema, Capillary Refill Less than 3 Seconds Skin: No rashes, No breakdown Musculoskeletal: No Tenderness to Palpation of Joints or Extremities Neurological: Cranial nerves II-XII grossly intact Psych/Mental Status: Normal Affect, Appropriate Vital Signs Temp Pulse Resp BP Pulse Ox 98.6 F 63 18 119/68 94 02/23/18 09:12 02/23/18 10:49 02/23/18 09:12 02/23/18 09:15 02/23/18 09:12 Oxygen Flow Rate (L/min) 2 Oxygen Delivery Method Room Air Weight: 233 lb 0.458 oz Body Mass Index (BMI) 30.7 Intake and Output for Last 24 Hours 02/21/18 02/22/18 02/23/18 23:59 23:59 23:59 Intake Total 757 / 757 2252 / 2252 1641 / 1641 Output Total 950 / 950 650 / 650 875 / 875 Balance -193 / -193 1602 / 1602 766 / 766 Microbiology Past 72 Hours 02/21/18 16:20 Urine Culture - Preliminary Urine Catheter - Catheter GNR lactose gold leaf printer Gram negative abimael 02/21/18 13:37 Blood Culture - Preliminary Blood Culture (Wb) - Venous GPC Poss Enterococcus sp Laboratory Tests Past 24 Hrs 02/23/18 02/23/18 05:25 05:25 WBC 8.3 RBC 3.45 L Hgb 10.5 L Hct 32.6 L MCV 94.5 H MCH 30.4 MCHC 32.2 RDW 13.5 RDW Differential 46.7 H Plt Count 196 MPV 9.4 Sodium 141 Potassium 3.6 Chloride 106 Carbon Dioxide 26.0 Anion Gap 9 BUN 17 Creatinine 1.03 Estim Creat Clear Calc 78.65 Est GFR (MDRD) Af Amer 92 Est GFR (MDRD) Non-Af 76 BUN/Creatinine Ratio 16.5 Glucose 105 Calcium 8.2 L Medical Necessity - Tobacco Use Smoking Status: Former smoker Tobacco Use: Non-smoker Assessment/Plan All Active Problems (Last Updated 02/21/18 @ 17:03 by Anuj Moyer DO) Septic shock (Acute) UTI (urinary tract infection) (Acute) ELO (acute kidney injury) (Acute) Sepsis (Acute) 1. Acute sepsis / bacteremia 2/2 UTI, 2/2 chronic indwelling catheter - Blood culture with ?enterococcus, UrCx with GNR/lactose gold leaf printer, repeat blood cx x 2 today. sensitivity pending. Continue rocephin. WBC improved. Afebrile. Cath changed at admission per ashley (stricture) 2.Urinary retention- as above. 2/2 ALS 3. Dysphagia - ST. soft diet. 4. ALS with associated debility - pt of Dr. Gerardo. PTOT 5. HTN - stable 6. HLD - statin 7. GERD - ppi. DVT ppx: lovenox DC planning: return to [facility] when appropriate This patient was seen by Twin Munoz PA-C under the supervision of Dr. Patrick. <Lino Patrick - Last Filed: 02/23/18 12:05> - Physical Exam Vital Signs Temp Pulse Resp BP Pulse Ox 98.6 F 63 18 119/68 94 02/23/18 09:12 02/23/18 10:49 02/23/18 09:12 02/23/18 09:15 02/23/18 09:12 Oxygen Flow Rate (L/min) 2 Oxygen Delivery Method Room Air Weight: 233 lb 0.458 oz Body Mass Index (BMI) 30.7 Intake and Output for Last 24 Hours 02/21/18 02/22/18 02/23/18 23:59 23:59 23:59 Intake Total 757 / 757 2252 / 2252 1641 / 1641 Output Total 950 / 950 650 / 650 875 / 875 Balance -193 / -193 1602 / 1602 766 / 766 Microbiology Past 72 Hours 02/21/18 16:20 Urine Culture - Preliminary Urine Catheter - Catheter GNR lactose gold leaf printer Gram negative abimael 02/21/18 13:37 Blood Culture - Preliminary Blood Culture (Wb) - Venous GPC Poss Enterococcus sp Laboratory Tests Past 24 Hrs 02/23/18 02/23/18 05:25 05:25 WBC 8.3 RBC 3.45 L Hgb 10.5 L Hct 32.6 L MCV 94.5 H MCH 30.4 MCHC 32.2 RDW 13.5 RDW Differential 46.7 H Plt Count 196 MPV 9.4 Sodium 141 Potassium 3.6 Chloride 106 Carbon Dioxide 26.0 Anion Gap 9 BUN 17 Creatinine 1.03 Estim Creat Clear Calc 78.65 Est GFR (MDRD) Af Amer 92 Est GFR (MDRD) Non-Af 76 BUN/Creatinine Ratio 16.5 Glucose 105 Calcium 8.2 L Assessment/Plan Hospitalist note: I am seeing this patient in conjunction with Twin Munoz. I independently seen and examined the patient. Progress note above, laboratory data and imaging studies reviewed and I concur with the above treatment plan. Patient denies any complaints today. His vital signs are stable, afebrile. - Physical Exam General: Alert, Oriented x3, Cooperative, No apparent distress. HEENT: Atraumatic, PERRLA, EOMI. Neck: Supple, No JVD, Negative Carotid Bruits, Trachea Midline, Thyroid Normal. Lungs: Clear to auscultation, Normal air movement, No rhonchi, No wheeze, No rales. Cardiovascular: Regular rate, Regular Rhythm, Normal S1, Normal S2, PMI Normal. Abdomen: Bowel Sounds Present, Soft, Non Tender, Non-Distended, No Hepato- splenomegaly. Extremities: No clubbing, No cyanosis, No edema Skin: No rashes, No breakdown Neurological: Cranial nerves are intact, moving all limbs. Vital Signs are stable. Assessment and plan: #1 acute complicated cystitis/probable pyelonephritis/sepsis: He is on IV Rocephin. He has chronic indwelling Alex catheter. He has been afebrile, leukocytosis resolved. Urine culture revealed gram-negative rods, final is pending. Blood culture revealed gram-positive cocci, final is pending. CT scan abdomen and pelvis revealed distended urinary bladder with thick bladder wall, prostatic enlargement as well as mild degree of right hydronephrosis and right hydroureter without evidence of obstructing stone. Plan: Continue same treatment. #2 Gram-positive bacteremia: Probable source is the cystitis and pyelonephritis. Urine cultures revealing different organism which has come to the rods. Patient is on IV Rocephin as above, afebrile, leukocytosis resolved. Plan to repeat blood culture today. #3 urinary retention: Secondary to stricture, history of BPH status post dilatation for stricture. Alex catheter in place. He is on Flomax. #3 dysphagia: Evaluated by speech therapy, recommended swallowing study which was done today. #4 other chronic medical problems: Continue current medications as above. This note was generated with [employer] dictation software. It may contain incorrect words, spelling, and punctuation that were not noted in checking the note before signing. Code Visit Inpatient E&M: 50307 Subs Hosp L2
[2018-02-23] MEDS: Magnesium Hydroxide 30 ML UDC PO ×2 (12:46→21:32)
[2018-02-23] MEDS: guaiFENesin 10 ML UDC (200MG/10ML) PO ×2 (14:35→21:32)
[2018-02-23] MEDS: Tamsulosin HCl 0.4 MG Capsule 0.8 MG PO (16:32)
[2018-02-23] MEDS: Atorvastatin Calcium 80 MG Tablet PO (21:32)
[2018-02-23] MEDS: RILUZOLE 50 MG TABLET PO (21:35)
[2018-02-24] VITALS (12 sets, daily range): BP systolic 127–156; BP diastolic 77–91; PULSE 56–83; RESP 18–20; TEMP 36.8–37.4; O2SAT 93–96
[2018-02-24] MEDS: 0.9% Normal Saline 1,000 ML 100 ML IV ×2 (04:32→17:14)
[2018-02-24 06:40] LABS: Hematocrit 31.9 % (40-54); Hemoglobin 10.4 g/dl (13.0-16.5)
[2018-02-24] MEDS: Metoprolol Tartrate 25 MG Tablet 12.5 MG PO ×2 (08:57→21:57)
[2018-02-24] MEDS: Magnesium Hydroxide 30 ML UDC PO ×2 (08:58→21:56)
[2018-02-24] MEDS: Enoxaparin 40 MG/0.4 ML Syringe SC (08:58)
[2018-02-24] MEDS: Nystatin Powder 15gm Bottle 1 APPLIC TOPICAL ×2 (08:59→21:57)
[2018-02-24] MEDS: Aspirin E.C. 81 MG Tablet PO (08:59)
[2018-02-24] MEDS: Cyanocobalamin 500 MCG Tablet 1000 MCG PO (09:00)
[2018-02-24] MEDS: RILUZOLE 50 MG TABLET PO (09:00)
[2018-02-24] MEDS: Pantoprazole Sodium 20 MG Tablet PO (09:05)
--- NOTE | 2018-02-24 10:27 | ECHOCS_ITS ---
Reason For Study: DYSPNEA/SOB Procedure This was a 2D Doppler, Color Flow transthoracic echocardiogram. The study was technically difficult. PT unable to assist with exam. Contrast injection was performed. Exam performed portable in patient room. Left Ventricle Based upon the 2D echocardiographic and contrast enhanced images obtained there appears to be grossly normal left ventricular size, wall motion, and systolic function. The estimated ejection fraction is 55 %. No evidence for diastolic dysfunction. Right Ventricle Normal RV size. Normal systolic function. Atria Normal left atrium. Normal right atrium. No doppler evidence for ASD. Mitral Valve There is no mitral annular calcification. Normal mitral valve. Tricuspid Valve Normal tricuspid valve. Trivial tricuspid valve insufficiency. Right ventricular systolic pressure estimated to be 26 mmHg. Aortic Valve The aortic valve is not well visualized. Pulmonic Valve The pulmonic valve is not well visualized. Great Vessels The aortic root is not well visualized. Pericardium/Pleural No pericardial effusion. MMode/2D Measurements & Calculations LVIDd: 4.6 cm IVSd: 0.97 cm LAV(MOD-bp): 39.8 ml LVIDs: 3.0 cm LVPWd: 0.91 cm LAV(MOD-bp) Indexed: 17.3 ml/m2 RVDd: 3.7 cm FS: 33.6 % LAV(MOD-sp2): 43.4 ml LAV(MOD-sp4): 32.3 ml LA A4 area: 12.8 cm2 RA A4 area: 9.1 cm2 Doppler Measurements & Calculations MV E max elvis: 96.7 cm/sec Lat Peak E' Elvis: 11.3 cm/sec Med Peak E' Elvis: 8.2 cm/sec MV A max elvis: 72.9 cm/sec E/E' lat: 8.6 E/E' med: 11.8 MV E/A: 1.3 Ao V2 max: 131.9 cm/sec LV V1 max: 105.1 cm/sec TR max elvis: 238.7 cm/sec Ao max P.0 mmHg LV V1 max P.4 mmHg TR max P.8 mmHg Interpretation Summary The study was technically difficult. Contrast injection was performed. Based upon the 2D echocardiographic and contrast enhanced images obtained there appears to be grossly normal left ventricular size, wall motion, and systolic function. The estimated ejection fraction is 55 %. Trivial tricuspid valve insufficiency. Right ventricular systolic pressure estimated to be 26 mmHg. No evidence for diastolic dysfunction. Ordering Physician: Jason Patterson Referring Physician: Nicho Sanderson Performed By: Jeannie Calvert RDCS, RVT
--- NOTE | 2018-02-24 10:53 | CASEMGMT ---
DUY faxed updates to [facility]. DUY also called Linnette and let her know patient may be here through the weekend and he may need IV antibiotics. DUY told her SW will let her know once DUY talks with Infectious Disease Plan: D/c back to [facility] under intermediate level of care. Staff to arrange transport. Shani ALONZO MSW
[2018-02-24] MEDS: Acetaminophen 325 MG Tablet 650 MG PO ×2 (10:59→21:58)
--- NOTE | 2018-02-24 11:22 | PCM.HP.ID ---
Problem List (1) Sepsis Status: Acute Reason for Consult: mrsa bcx Consulted by: Dr. Patrick History of Present Illness: The patient is a 67 year old M with ALS who presented 02/21 with 2-3 days of progressive abd pain, difficulty urinating, and not feeling well. Came to ED, started on ceftriaxone, seen by urology for urethral stricture, and love was able to be placed. Bcx identified as MRSA, so vanc added this AM, but overall feeling much better. No recent cellulitis. No prior h/o MRSA or skin abscess/boils. No new joint pain. Full ROS performed and neg except as noted above. - Medical History Past Medical History (Chronic Problems): Chronic Problems (Last Updated 02/21/18 @ 17:03 by Anju Moyer DO) Benign essential hypertension (Chronic) History of hyperlipidemia (Chronic) Schizoaffective disorder (Chronic) Tobacco user (Chronic) GERD (gastroesophageal reflux disease) (Chronic) Speech abnormality (Chronic) Allergies/Adverse Reactions: Allergies No Known Allergies Allergy (Verified 02/21/18 12:58) Home Medications: Ambulatory Orders Medication Instructions Recorded Cyanocobalamin (Vitamin B-12) 1,000 mcg PO DAILY 12/08/16 [B-12] Ergocalciferol [Vitamin D] 50,000 unit PO TH 12/08/16 Meloxicam [Mobic] 7.5 mg PO DAILY 12/08/16 Aspirin E.C. [Ecotrin] 81 mg PO DAILY@0800 tablet 12/10/16 Metoprolol Tartrate [Lopressor 12.5 mg PO BID tablet 12/10/16 (beta gayatri)] Atorvastatin Calcium [Lipitor] 80 mg PO QHS 12/11/16 Loratadine 10 mg PO BREAKFAST 08/21/17 Omeprazole [Prilosec] 20 mg PO DAILY 08/21/17 Tamsulosin HCl [Flomax] 0.8 mg PO DAILY 08/21/17 Acetaminophen 650 mg PO Q4H PRN PRN 02/21/18 Acetaminophen [Tylenol] 650 mg RECTAL Q4H PRN PRN 02/21/18 Amitriptyline HCl 10 mg PO DAILY 02/21/18 Amitriptyline HCl 25 mg PO QHS 02/21/18 Bisacodyl 10 mg RC DAILY PRN PRN 02/21/18 Guaifenesin [Robitussin] 10 ml PO Q4H PRN PRN 02/21/18 Lactobacillus Rhamnosus GG 1 each PO DAILY 02/21/18 [Culturelle] Mag Hydrox/Aluminum Hyd/Simeth 30 ml PO Q4H PRN PRN 02/21/18 [Antacid Liquid] Magnesium Hydroxide [Milk Of 30 ml PO DAILY PRN PRN 02/21/18 Magnesia] Melatonin 3 mg PO QHS 02/21/18 Na Phos,M-B/Na Phos,Di-Ba [Fleet 1 bottle RECTAL PRN PRN 02/21/18 Enema] Oxycodone [Oxyir] 5 mg PO TID PRN PRN 02/21/18 Polyethylene Glycol 3350 [Miralax] 17 gm PO DAILY 02/21/18 Riluzole 50 mg PO BID 02/21/18 Selenium Sulfide/Aloe Vera [Selsun 1 applic TP TID 02/21/18 Blue Moist 1% Shampoo] - Social History SMOKING STATUS:: Former smoker Vital Signs Temp Pulse Resp BP Pulse Ox 98.2 F 77 20 H 127/87 H 93 02/24/18 08:01 02/24/18 08:57 02/24/18 08:01 02/24/18 08:57 02/24/18 08:01 Oxygen Flow Rate (L/min) 2 Oxygen Delivery Method Room Air Weight: 105.7 kg Body Mass Index (BMI) 30.7 Microbiology Past 72 Hours 02/21/18 16:20 Urine Culture - Final Urine Catheter - Catheter Escherichia coli Proteus mirabilis 02/21/18 13:37 Blood Culture - Preliminary Blood Culture (Wb) - Venous Meth. resistant Staph. aureus Laboratory Tests Past 24 Hrs 02/24/18 06:25 Hgb 10.4 L Hct 31.9 L - Other Studies Radiology: [] reviewed Other Studies: [] Route of nutrition/ use of supplements: [] Nutritional Intake: [] IV Site: [] Love Catheter: [] - Physical Exam General: Alert, Oriented x3, Cooperative HEENT: Atraumatic, PERRLA, EOMI Neck: Supple, No Nodes Lungs: Clear to auscultation, Normal air movement Cardiovascular: Regular rate, Regular Rhythm, No murmurs Abdomen: Soft, Non Tender, Non-Distended Extremities: Edema - mild BLE Skin: Excoriated - on arms and legs, no sign of cellulitis or drainage, - - no janeway/osler/splinter hemorrhages on hands or feet IV Site: Peripheral, without redness Musculoskeletal: No Tenderness to Palpation of Joints or Extremities Neurological: - - some muscle weakness with ALS - Assessment/Plan Antibiotics: [] Assessment/Plan: [] Active and Suspected Problems (Last Updated 02/21/18 @ 17:03 by Anuj Moyer DO) Sepsis (Acute) Due to ecoli and proteus pyelonephritis - improved s/p urethral dilation by Dr. Restrepo. Continue ceftriaxone. Plan on discharge will be for po keflex 500mg tid for total 10 days, stop date 03/06/18. No fever, wbc now normal. MRSA bacteremia - check echo, repeat bcx pending, does not appear clinically ill due to this (+) bcx given that vanc was not started until this AM. If echo and repeat bcx are ok, plan on d/c home on po linezolid 600mg bid, stop date 03/10/18. Will follow, thank you. D/w primary team.
--- NOTE | 2018-02-24 12:55 | CASEMGMT ---
DUY faxed ID 's note to [facility] and made not of possible recommendations for antibiotics. Shani ALONZO [employer]CT [employer]KER
--- NOTE | 2018-02-24 13:29 | PCM.PROGNOTE ---
<Twin Munoz - Last Filed: 02/24/18 13:29> Patient Problems: Active and Suspected Problems (Last Updated 02/21/18 @ 17:03 by Anuj Moyer DO) Sepsis (Acute) Subjective: No fevers or chills. No cough/SOB. No love discomfort, no abdominal pain. No nausea/vomiting. Pt resting comfortably in bed NAD. - Physical Exam General: Alert, Oriented x3, Cooperative HEENT: Atraumatic, PERRLA, EOMI, Normocephalic Neck: Supple, No JVD, Negative Carotid Bruits Lungs: Diminished Cardiovascular: Regular rate, No murmurs Abdomen: Bowel Sounds Present, Soft, Non Tender Extremities: No edema, Capillary Refill Less than 3 Seconds Skin: No rashes, No breakdown, - - scabs on BL UE. Musculoskeletal: No Tenderness to Palpation of Joints or Extremities Neurological: Cranial nerves II-XII grossly intact Psych/Mental Status: Normal Affect, Appropriate, Alert and oriented to time, place, person, mood and affect Vital Signs Temp Pulse Resp BP Pulse Ox 98.2 F 56 L 20 H 127/87 H 93 02/24/18 08:01 02/24/18 12:46 02/24/18 08:01 02/24/18 08:57 02/24/18 08:01 Oxygen Flow Rate (L/min) 2 Oxygen Delivery Method Room Air Weight: 233 lb 0.458 oz Body Mass Index (BMI) 30.7 Intake and Output for Last 24 Hours 02/22/18 02/23/18 02/24/18 23:59 23:59 23:59 Intake Total 2252 / 2252 3972 / 3972 1045 / 1045 Output Total 650 / 650 2125 / 2125 1025 / 1025 Balance 1602 / 1602 1847 / 1847 Microbiology Past 72 Hours 02/21/18 16:20 Urine Culture - Final Urine Catheter - Catheter Escherichia coli Proteus mirabilis 02/21/18 13:37 Blood Culture - Preliminary Blood Culture (Wb) - Venous Meth. resistant Staph. aureus Laboratory Tests Past 24 Hrs 02/24/18 06:25 Hgb 10.4 L Hct 31.9 L Medical Necessity - Tobacco Use Smoking Status: Former smoker Tobacco Use: Non-smoker Assessment/Plan All Active Problems (Last Updated 02/21/18 @ 17:03 by Anuj Moyer DO) Septic shock (Acute) UTI (urinary tract infection) (Acute) ELO (acute kidney injury) (Acute) Sepsis (Acute) 1. Acute sepsis / bacteremia 2/2 UTI, 2/2 chronic indwelling catheter - Blood culture with MRSA. Repeats drawn. Vanc added, ID consulted. 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 Cath changed at admission per ashley (stricture). discussed with ID - if blood cx negative can likely DC back to SNF with 10 more days ancef and 2 weeks total linezolid. 2.Urinary retention- as above. 2/2 stricture / ALS 3. Dysphagia - ST. soft diet. 4. ALS with associated debility - pt of Dr. Gerardo. PTOT 5. HTN - stable 6. HLD - statin 7. GERD - ppi. 8. Normocytic anemia - stable. DVT ppx: lovenox DC planning: return to [facility] when appropriate This patient was seen by Twin Munoz PA-C under the supervision of Dr. Patrick. <Lino Patrick E - Last Filed: 02/24/18 14:12> - Physical Exam Vital Signs Temp Pulse Resp BP Pulse Ox 98.2 F 56 L 20 H 127/87 H 93 02/24/18 08:01 02/24/18 12:46 02/24/18 08:01 02/24/18 08:57 02/24/18 08:01 Oxygen Flow Rate (L/min) 2 Oxygen Delivery Method Room Air Weight: 233 lb 0.458 oz Body Mass Index (BMI) 30.7 Intake and Output for Last 24 Hours 02/22/18 02/23/18 02/24/18 23:59 23:59 23:59 Intake Total 2252 / 2252 3972 / 3972 1045 / 1045 Output Total 650 / 650 2125 / 2125 1025 / 1025 Balance 1602 / 1602 1847 / 1847 Microbiology Past 72 Hours 02/21/18 16:20 Urine Culture - Final Urine Catheter - Catheter Escherichia coli Proteus mirabilis 02/21/18 13:37 Blood Culture - Preliminary Blood Culture (Wb) - Venous Meth. resistant Staph. aureus Laboratory Tests Past 24 Hrs 02/24/18 06:25 Hgb 10.4 L Hct 31.9 L Assessment/Plan Hospitalist note: I am seeing this patient in conjunction with Twin Munzo. I independently seen and examined the patient. Progress note above, laboratory data and imaging studies reviewed and I concur with the above treatment plan. Patient denies any complaints today. His vital signs are stable, afebrile. - Physical Exam General: Alert, Oriented x3, Cooperative, No apparent distress. HEENT: Atraumatic, PERRLA, EOMI. Neck: Supple, No JVD, Negative Carotid Bruits, Trachea Midline, Thyroid Normal. Lungs: Clear to auscultation, Normal air movement, No rhonchi, No wheeze, No rales. Cardiovascular: Regular rate, Regular Rhythm, Normal S1, Normal S2, PMI Normal. Abdomen: Bowel Sounds Present, Soft, Non Tender, Non-Distended, No Hepato-splenomegaly. Extremities: No clubbing, No cyanosis, No edema Skin: No rashes, No breakdown Neurological: Cranial nerves are intact, moving all limbs. Vital Signs are stable. Assessment and plan: #1 acute complicated cystitis/probable pyelonephritis/sepsis: Remained on IV Rocephin. He has chronic indwelling Love catheter. He has been afebrile, leukocytosis resolved. Urine culture revealed E. coli and Proteus mirabilis, both are sensitive to Rocephin. Blood culture MRSA, started on vancomycin. CT scan abdomen and pelvis revealed distended urinary bladder with thick bladder wall, prostatic enlargement as well as mild degree of right hydronephrosis and right hydroureter without evidence of obstructing stone. Plan: Continue same treatment. #2 MRSA bacteremia: Started on IV vancomycin this morning. Repeat cultures are sent today. Infectious disease consulted, recommended 2D echocardiogram. Plan to continue same treatment. #3 urinary retention: Secondary to stricture, history of BPH status post dilatation for stricture. Love catheter in place. He is on Flomax. #3 dysphagia: Evaluated by speech therapy, recommended regular diet with supervision. #4 other chronic medical problems: Continue current medications as above. This note was generated with [employer] software. It may contain incorrect words, spelling, and punctuation that were not noted in checking the note before signing. Code Visit Inpatient E&M: 36339 Subs Hosp L2
--- NOTE | 2018-02-24 13:35 | PN_ITS ---
<Twin Munoz - Last Filed: 02/24/18 13:29> Patient Problems: Active and Suspected Problems (Last Updated 02/21/18 @ 17:03 by Anuj Moyer DO) Sepsis (Acute) Subjective: No fevers or chills. No cough/SOB. No love discomfort, no abdominal pain. No nausea/vomiting. Pt resting comfortably in bed NAD. - Physical Exam General: Alert, Oriented x3, Cooperative HEENT: Atraumatic, PERRLA, EOMI, Normocephalic Neck: Supple, No JVD, Negative Carotid Bruits Lungs: Diminished Cardiovascular: Regular rate, No murmurs Abdomen: Bowel Sounds Present, Soft, Non Tender Extremities: No edema, Capillary Refill Less than 3 Seconds Skin: No rashes, No breakdown, - - scabs on BL UE. Musculoskeletal: No Tenderness to Palpation of Joints or Extremities Neurological: Cranial nerves II-XII grossly intact Psych/Mental Status: Normal Affect, Appropriate, Alert and oriented to time, place, person, mood and affect Vital Signs Temp Pulse Resp BP Pulse Ox 98.2 F 56 L 20 H 127/87 H 93 02/24/18 08:01 02/24/18 12:46 02/24/18 08:01 02/24/18 08:57 02/24/18 08:01 Oxygen Flow Rate (L/min) 2 Oxygen Delivery Method Room Air Weight: 233 lb 0.458 oz Body Mass Index (BMI) 30.7 Intake and Output for Last 24 Hours 02/22/18 02/23/18 02/24/18 23:59 23:59 23:59 Intake Total 2252 / 2252 3972 / 3972 1045 / 1045 Output Total 650 / 650 2125 / 2125 1025 / 1025 Balance 1602 / 1602 1847 / 1847 Microbiology Past 72 Hours 02/21/18 16:20 Urine Culture - Final Urine Catheter - Catheter Escherichia coli Proteus mirabilis 02/21/18 13:37 Blood Culture - Preliminary Blood Culture (Wb) - Venous Meth. resistant Staph. aureus Laboratory Tests Past 24 Hrs 02/24/18 06:25 Hgb 10.4 L Hct 31.9 L Medical Necessity - Tobacco Use Smoking Status: Former smoker Tobacco Use: Non-smoker Assessment/Plan All Active Problems (Last Updated 02/21/18 @ 17:03 by Anuj Moyer DO) Septic shock (Acute) UTI (urinary tract infection) (Acute) ELO (acute kidney injury) (Acute) Sepsis (Acute) 1. Acute sepsis / bacteremia 2/2 UTI, 2/2 chronic indwelling catheter - Blood culture with MRSA. Repeats drawn. Vanc added, ID consulted. 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 Cath changed at admission per ashley (stricture). discussed with ID - if blood cx negative can likely DC back to SNF with 10 more days ancef and 2 weeks total linezolid. 2.Urinary retention- as above. 2/2 stricture / ALS 3. Dysphagia - ST. soft diet. 4. ALS with associated debility - pt of Dr. Gerardo. PTOT 5. HTN - stable 6. HLD - statin 7. GERD - ppi. 8. Normocytic anemia - stable. DVT ppx: lovenox DC planning: return to [facility] when appropriate This patient was seen by Twin Munoz PA-C under the supervision of Dr. Patrick. <Lino Patrick E - Last Filed: 02/24/18 14:12> - Physical Exam Vital Signs Temp Pulse Resp BP Pulse Ox 98.2 F 56 L 20 H 127/87 H 93 02/24/18 08:01 02/24/18 12:46 02/24/18 08:01 02/24/18 08:57 02/24/18 08:01 Oxygen Flow Rate (L/min) 2 Oxygen Delivery Method Room Air Weight: 233 lb 0.458 oz Body Mass Index (BMI) 30.7 Intake and Output for Last 24 Hours 02/22/18 02/23/18 02/24/18 23:59 23:59 23:59 Intake Total 2252 / 2252 3972 / 3972 1045 / 1045 Output Total 650 / 650 2125 / 2125 1025 / 1025 Balance 1602 / 1602 1847 / 1847 Microbiology Past 72 Hours 02/21/18 16:20 Urine Culture - Final Urine Catheter - Catheter Escherichia coli Proteus mirabilis 02/21/18 13:37 Blood Culture - Preliminary Blood Culture (Wb) - Venous Meth. resistant Staph. aureus Laboratory Tests Past 24 Hrs 02/24/18 06:25 Hgb 10.4 L Hct 31.9 L Assessment/Plan Hospitalist note: I am seeing this patient in conjunction with Twin Munoz. I independently seen and examined the patient. Progress note above, laboratory data and imaging studies reviewed and I concur with the above treatment plan. Patient denies any complaints today. His vital signs are stable, afebrile. - Physical Exam General: Alert, Oriented x3, Cooperative, No apparent distress. HEENT: Atraumatic, PERRLA, EOMI. Neck: Supple, No JVD, Negative Carotid Bruits, Trachea Midline, Thyroid Normal. Lungs: Clear to auscultation, Normal air movement, No rhonchi, No wheeze, No rales. Cardiovascular: Regular rate, Regular Rhythm, Normal S1, Normal S2, PMI Normal. Abdomen: Bowel Sounds Present, Soft, Non Tender, Non-Distended, No Hepato- splenomegaly. Extremities: No clubbing, No cyanosis, No edema Skin: No rashes, No breakdown Neurological: Cranial nerves are intact, moving all limbs. Vital Signs are stable. Assessment and plan: #1 acute complicated cystitis/probable pyelonephritis/sepsis: Remained on IV Rocephin. He has chronic indwelling Love catheter. He has been afebrile, leukocytosis resolved. Urine culture revealed E. coli and Proteus mirabilis, both are sensitive to Rocephin. Blood culture MRSA, started on vancomycin. CT scan abdomen and pelvis revealed distended urinary bladder with thick bladder wall, prostatic enlargement as well as mild degree of right hydronephrosis and right hydroureter without evidence of obstructing stone. Plan: Continue same treatment. #2 MRSA bacteremia: Started on IV vancomycin this morning. Repeat cultures are sent today. Infectious disease consulted, recommended 2D echocardiogram. Plan to continue same treatment. #3 urinary retention: Secondary to stricture, history of BPH status post dilatation for stricture. Love catheter in place. He is on Flomax. #3 dysphagia: Evaluated by speech therapy, recommended regular diet with supervision. #4 other chronic medical problems: Continue current medications as above. This note was generated with [employer] software. It may contain incorrect words, spelling, and punctuation that were not noted in checking the note before signing. Code Visit Inpatient E&M: 67236 Subs Hosp L2
[2018-02-24] MEDS: Tamsulosin HCl 0.4 MG Capsule 0.8 MG PO (17:14)
--- NOTE | 2018-02-24 17:14 | PCM.RX.CS ---
Consult Pharmacy has been consulted to manage selected antiobiotic: Vancomycin Type of Consult: New start Suspected Infection: Sepsis Prior Doses of Antibiotics Received/Current Regimen: Vancomycin 2000mg IV x1 loading dose given 02/24/18 at 1052 Labs: Sodium 141 mmol/L (136-145) 02/23/18 05:25 Potassium 3.6 mmol/L (3.5-5.1) 02/23/18 05:25 Chloride 106 mmol/L (98-107) 02/23/18 05:25 Carbon Dioxide 26.0 mmol/L (21.0-32.0) 02/23/18 05:25 Anion Gap 9 (5-15) 02/23/18 05:25 BUN 17 mg/dL (7-18) 02/23/18 05:25 Creatinine 1.03 mg/dL (0.70-1.30) 02/23/18 05:25 Est GFR (MDRD) Af Amer 92 mL/min (>60) 02/23/18 05:25 Est GFR (MDRD) Non-Af 76 mL/min (>60) 02/23/18 05:25 BUN/Creatinine Ratio 16.5 RATIO (10-20) 02/23/18 05:25 Glucose 105 mg/dL (74-106) 02/23/18 05:25 Microbiology: Microbiology 02/21/18 16:20 Urine Catheter - Catheter Urine Culture - Final Escherichia coli Proteus mirabilis 02/21/18 13:37 Blood Culture (Wb) - Venous Blood Culture - Preliminary Meth. resistant Staph. aureus Weight used for dosin kg Estimated Creatinine Clearance: 78ml/min Goal Trough: 15-20 mcg/mL Pharmacy Plan for Drug Dosing: Recommend Vancomycin 1750mg IV q12h starting 12/25/18 at 2230. Trough will be drawn before the 4th dose on 02/25/18 at 2200 Pharmacy Service will continue to monitor and adjust dosing as required. Follow-Up Labs: Trough Vancomycin Labs to be done on [date and time ordered]: trough level 02/25/18 at 2200
[2018-02-24] MEDS: Atorvastatin Calcium 80 MG Tablet PO (21:56)
[2018-02-25] VITALS (12 sets, daily range): BP systolic 117–167; BP diastolic 80–98; PULSE 56–88; RESP 16–23; TEMP 36.1–37; O2SAT 93–97
[2018-02-25] MEDS: 0.9% Normal Saline 1,000 ML 100 ML IV (06:27)
[2018-02-25 07:16] LABS: Absolute Lymphocyte Count 1.33 X10^3/ul (0.83-4.51); Absolute Neutrophil Count 3.6 X10^3/uL (2.0-7.7); Basophil# 0.04 X10^3/uL; Basophil% 0.6 % (0-1); Eosinophil# 0.68 X10^3/uL; Eosinophils% 10.8 % (0-5); Hematocrit 33.4 % (40-54); Hemoglobin 10.9 g/dl (13.0-16.5); Lymphocyte # 1.33 X10^3/ul (4.0); Lymphocyte % 21.1 % (19-41); Mean Corp Hgb Conc 32.6 g/gl (32-36); Mean Corpuscular Hgb 30.4 pg (27.0-32.0); Mean Platelet Vol. 8.9 fl (6.2-12.0); Monocyte# 0.66 X10^3/uL; Monocyte% 10.5 % (0-10); Neutrophil # 3.58 X10^3/uL (2.7-7.7); Platelet Count 234 K/mm3 (150-450); RBC Distribution Width CV 13.1 % (11.6-14.6); RBC Distribution Width SD 44.4 fl (35.1-43.9); Red Blood Count 3.59 M/mm3 (4.6-6.2); White Blood Count 6.3 K/mm3 (4.4-11.0)
[2018-02-25 07:19] LABS: POSITIVE COUNT NO; POSITIVE DIFFERENTIAL NO; POSITIVE MORPHOLOGY NO
[2018-02-25 07:22] LABS: Anion Gap 7 (5-15); BUN 9 mg/dL (7-18); BUN/Creat Ratio 10.3 RATIO (10-20); Calcium,Total 8.5 mg/dL (8.5-10.1); Chloride 106 mmol/L (98-107); Creatinine, Serum 0.88 mg/dL (0.70-1.30); EST Glomerular Filtration Rate 92 mL/min (>60); Est Glom Filt Rate - Afr Amer 112 mL/min (>60); Estimated Creatinine Clearance 92.06 ml/min; Glucose 103 mg/dL (74-106); Potassium 3.6 mmol/L (3.5-5.1); Sodium Level 141 mmol/L (136-145)
--- NOTE | 2018-02-25 08:33 | PCM.PROGNOTE ---
Patient Problems: Active and Suspected Problems (Last Updated 02/21/18 @ 17:03 by Anuj Moyer DO) Sepsis (Acute) Subjective: Chief complaint: Follow-up after admission for acute complicated cystitis/pyelonephritis with sepsis as well as MRSA bacteremia. Patient seen and examined. No acute events overnight. He remained stable, no complaints. His vital signs are stable, afebrile. - Physical Exam General: Alert, Cooperative, No apparent distress HEENT: Atraumatic, PERRLA, EOMI, Normocephalic Oral: Moist Mucosa, No Gingival or Mucosal Lesions/ Ulcerations Neck: Supple, No JVD, Negative Carotid Bruits, Trachea Midline, Thyroid Normal Size and Texture Lungs: Clear to auscultation, No rhonchi, No wheeze, No rales, Diminished Cardiovascular: Regular rate, Regular Rhythm, Normal S1, Normal S2, No murmurs Abdomen: Bowel Sounds Present, Soft, Non Tender, Non-Distended, No Hepato-splenomegaly Extremities: No clubbing, No cyanosis, No edema Skin: No rashes, No breakdown Lymphatic: No Cervical, Supraclavicular, or Inguinal Adenopathy Neurological: Cranial nerves II-XII grossly intact, Neuro grossly intact Psych/Mental Status: Flat Affect Vital Signs Temp Pulse Resp BP Pulse Ox 97 F L 56 L 18 167/98 H 94 02/25/18 05:08 02/25/18 07:33 02/25/18 05:08 02/25/18 05:08 02/25/18 05:08 Oxygen Flow Rate (L/min) 2 Oxygen Delivery Method Room Air Weight: 233 lb 0.458 oz Body Mass Index (BMI) 30.7 Intake and Output for Last 24 Hours 02/23/18 02/24/18 02/25/18 23:59 23:59 23:59 Intake Total 3972 / 3972 3663 / 3663 1182 / 1182 Output Total 2125 / 2125 2875 / 2875 2200 / 2200 Balance 1847 / 1847 788 / 788 -1018 / -1018 Microbiology Past 72 Hours 02/21/18 16:20 Urine Culture - Final Urine Catheter - Catheter Escherichia coli Proteus mirabilis 02/21/18 13:37 Blood Culture - Preliminary Blood Culture (Wb) - Venous Meth. resistant Staph. aureus Laboratory Tests Past 24 Hrs 02/25/18 02/25/18 06:50 06:50 WBC 6.3 RBC 3.59 L Hgb 10.9 L Hct 33.4 L MCV 93.0 MCH 30.4 MCHC 32.6 RDW 13.1 RDW Differential 44.4 H Plt Count 234 MPV 8.9 Immature Gran % (Auto) 0.000 Neut % (Auto) 57.0 Lymph % (Auto) 21.1 [place] % (Auto) 10.5 H Eos % (Auto) 10.8 H Baso % (Auto) 0.6 Absolute Neuts (auto) 3.6 Absolute Lymphs (auto) 1.33 Total Counted Not Reportable Sodium 141 Potassium 3.6 Chloride 106 Carbon Dioxide 28.0 Anion Gap 7 BUN 9 Creatinine 0.88 Estim Creat Clear Calc 92.06 Est GFR (MDRD) Af Amer 112 Est GFR (MDRD) Non-Af 92 BUN/Creatinine Ratio 10.3 Glucose 103 Calcium 8.5 Medical Necessity - Tobacco Use Smoking Status: Former smoker Tobacco Use: Non-smoker Assessment/Plan All Active Problems (Last Updated 02/21/18 @ 17:03 by Anuj Moyer DO) Septic shock (Acute) UTI (urinary tract infection) (Acute) ELO (acute kidney injury) (Acute) Sepsis (Acute) This is a 67 years old male patient presented to the ED because of vague abdominal pain, found to have acute complicated cystitis with pyelonephritis and sepsis and also found to have MRSA bacteremia. #1 E. coli/Proteus mirabilis acute complicated cystitis/probable pyelonephritis/sepsis: Remained on IV Rocephin. He has chronic indwelling Alex catheter. He has been afebrile, leukocytosis resolved. Urine culture revealed E. coli and Proteus mirabilis, both are sensitive to Rocephin. Blood culture MRSA, started on vancomycin. CT scan abdomen and pelvis revealed distended urinary bladder with thick bladder wall, prostatic enlargement as well as mild degree of right hydronephrosis and right hydroureter without evidence of obstructing stone. Appreciate infectious disease input and recommendations. Plan to continue same treatment. #2 MRSA bacteremia: He is on IV vancomycin. Blood culture revealed MRSA. Repeat blood culture that was done yesterday are pending.. Infectious disease consulted, recommended 2D echocardiogram. 2D echocardiogram done, awaiting the report. Plan to continue same treatment as above. #3 urinary retention: Secondary to stricture, history of BPH status post dilatation for stricture. Alex catheter in place. He is on Flomax. #3 dysphagia: Evaluated by speech therapy, recommended regular diet with supervision. #4 Chronic urinary retention: Has chronic indwelling Alex catheter, continue Flomax. #5 amyotrophic lateral sclerosis: With associated debility. Patient has been following up with neurology, Dr. Gerardo. Plan for PT OT evaluation and treatment. #6 hypertension: Blood pressure stable, continue metoprolol. #7 chronic anemia: With stable hemoglobin, no indication for transfusion. #8 GERD: Continue Protonix. #9 hyperlipidemia: Continue statins. #10 DVT prophylaxis: Subcu Lovenox. This note was generated with [employer] dictation software. It may contain incorrect words, spelling, and punctuation that were not noted in checking the note before signing. Code Visit Inpatient E&M: 16645 Subs Hosp L2
[2018-02-25] MEDS: Magnesium Hydroxide 30 ML UDC PO (10:57)
[2018-02-25] MEDS: Pantoprazole Sodium 20 MG Tablet PO (10:58)
[2018-02-25] MEDS: Cyanocobalamin 500 MCG Tablet 1000 MCG PO (10:58)
[2018-02-25] MEDS: Aspirin E.C. 81 MG Tablet PO (10:59)
[2018-02-25] MEDS: Nystatin Powder 15gm Bottle 1 APPLIC TOPICAL ×2 (10:59→21:23)
[2018-02-25] MEDS: Enoxaparin 40 MG/0.4 ML Syringe SC (10:59)
[2018-02-25] MEDS: Metoprolol Tartrate 25 MG Tablet 12.5 MG PO ×2 (10:59→21:22)
[2018-02-25] MEDS: Tamsulosin HCl 0.4 MG Capsule 0.8 MG PO (16:28)
[2018-02-25] MEDS: guaiFENesin 10 ML UDC (200MG/10ML) PO (21:22)
[2018-02-25] MEDS: Atorvastatin Calcium 80 MG Tablet PO (21:22)
[2018-02-25 22:46] LABS: Vancomycin, Trough Level 17.9 ug/mL (5.0-15.0)
--- NOTE | 2018-02-25 23:51 | PCM.RX.CS ---
Consult Pharmacy has been consulted to manage selected antiobiotic: Vancomycin Type of Consult: Follow-up Suspected Infection: Sepsis Prior Doses of Antibiotics Received/Current Regimen: Medications Vancomycin HCl 1,500 mg/ (Sodium Chloride) 530 mls @ 250 mls/hr IV Q12H [facility] Last Admin: 02/25/18 23:02 Dose: 250 mls/hr Labs: Sodium 141 mmol/L (136-145) 02/25/18 06:50 Potassium 3.6 mmol/L (3.5-5.1) 02/25/18 06:50 Chloride 106 mmol/L (98-107) 02/25/18 06:50 Carbon Dioxide 28.0 mmol/L (21.0-32.0) 02/25/18 06:50 Anion Gap 7 (5-15) 02/25/18 06:50 BUN 9 mg/dL (7-18) 02/25/18 06:50 Creatinine 0.88 mg/dL (0.70-1.30) 02/25/18 06:50 Est GFR (MDRD) Af Amer 112 mL/min (>60) 02/25/18 06:50 Est GFR (MDRD) Non-Af 92 mL/min (>60) 02/25/18 06:50 BUN/Creatinine Ratio 10.3 RATIO (10-20) 02/25/18 06:50 Glucose 103 mg/dL (74-106) 02/25/18 06:50 Vancomycin Trough 17.9 ug/mL (5.0-15.0) H 02/25/18 21:50 Microbiology: Microbiology 02/21/18 16:20 Urine Catheter - Catheter Urine Culture - Final Escherichia coli Proteus mirabilis 02/21/18 13:37 Blood Culture (Wb) - Venous Blood Culture - Preliminary Meth. resistant Staph. aureus Weight used for dosin kg Estimated Creatinine Clearance: 92 Goal Trough: 15-20 mcg/mL Pharmacy Plan for Drug Dosing: Trough level of 17.9 received, within the target range of 15-20. Will continue same dose 1500mg q12h and re-draw trough in 4 days. Pharmacy Service will continue to monitor and adjust dosing as required. Follow-Up Labs: Trough Vancomycin Labs to be done on [date and time ordered]: 03/01/18 @1000
[2018-02-26] VITALS (13 sets, daily range): BP systolic 128–157; BP diastolic 74–94; PULSE 54–95; RESP 20–22; TEMP 36.4–37.2; O2SAT 93–97
--- NOTE | 2018-02-26 08:58 | PCM.PROGNOTE ---
Patient Problems: Active and Suspected Problems (Last Updated 02/21/18 @ 17:03 by Anuj Moyer DO) Sepsis (Acute) Subjective: Chief complaint: Follow-up after admission for acute complicated cystitis/pyelonephritis with sepsis as well as MRSA bacteremia. Patient seen and examined. No acute events overnight. He remained asymptomatic, no complaints. His vitals are stable. - Physical Exam General: Alert, Cooperative, No apparent distress HEENT: Atraumatic, PERRLA, EOMI, Normocephalic Oral: Moist Mucosa, No Gingival or Mucosal Lesions/ Ulcerations Neck: Supple, No JVD, Negative Carotid Bruits, Trachea Midline, Thyroid Normal Size and Texture Lungs: Clear to auscultation, No rhonchi, No wheeze, No rales, Diminished Cardiovascular: Regular rate, Regular Rhythm, Normal S1, Normal S2, PMI Normal Abdomen: Bowel Sounds Present, Soft, Non Tender, Non-Distended, No Hepato-splenomegaly Extremities: No clubbing, No cyanosis, No edema Skin: No rashes, No breakdown Lymphatic: No Cervical, Supraclavicular, or Inguinal Adenopathy Neurological: Cranial nerves II-XII grossly intact, Neuro grossly intact Psych/Mental Status: Normal Affect, Appropriate Vital Signs Temp Pulse Resp BP Pulse Ox 98.5 F 64 22 H 128/74 H 94 02/26/18 02:44 02/26/18 03:03 02/26/18 02:44 02/26/18 02:44 02/26/18 02:44 Oxygen Flow Rate (L/min) 2 Oxygen Delivery Method Room Air Weight: 233 lb 0.458 oz Body Mass Index (BMI) 30.7 Intake and Output for Last 24 Hours 02/24/18 02/25/18 02/26/18 23:59 23:59 23:59 Intake Total 3663 / 3663 1936 / 1936 480 / 480 Output Total 2875 / 2875 5300 / 5300 1470 / 1470 Balance 788 / 788 -3364 / -3364 -990 / -990 Microbiology Past 72 Hours 02/21/18 16:20 Urine Culture - Final Urine Catheter - Catheter Escherichia coli Proteus mirabilis 02/21/18 13:37 Blood Culture - Preliminary Blood Culture (Wb) - Venous Meth. resistant Staph. aureus Laboratory Tests Past 24 Hrs 02/25/18 21:50 Vancomycin Trough 17.9 H Medical Necessity - Tobacco Use Smoking Status: Former smoker Tobacco Use: Non-smoker Assessment/Plan All Active Problems (Last Updated 02/21/18 @ 17:03 by Anuj Moyer DO) Septic shock (Acute) UTI (urinary tract infection) (Acute) ELO (acute kidney injury) (Acute) Sepsis (Acute) This is a 67 years old male patient presented to the ED because of vague abdominal pain, found to have acute complicated cystitis with pyelonephritis and sepsis and also found to have MRSA bacteremia. #1 E. coli/Proteus mirabilis acute complicated cystitis/probable pyelonephritis/sepsis: He is on day 4 of IV Rocephin. He has chronic indwelling Alex catheter. He has been afebrile, leukocytosis resolved. Urine culture revealed E. coli and Proteus mirabilis, both are sensitive to Rocephin. Blood culture MRSA, started on vancomycin. CT scan abdomen and pelvis revealed distended urinary bladder with thick bladder wall, prostatic enlargement as well as mild degree of right hydronephrosis and right hydroureter without evidence of obstructing stone. Infectious disease on the case. Plan: Awaiting repeat blood culture, awaiting 2D echocardiogram report, possible discharge tomorrow. #2 MRSA bacteremia: He is on IV vancomycin. Blood culture revealed MRSA. Repeat blood culture is pending. Infectious disease consulted, recommended 2D echocardiogram. 2D echocardiogram done, awaiting the report. Plan to continue same treatment as above. #3 urinary retention: Secondary to stricture, history of BPH status post dilatation for stricture. Alex catheter in place. He is on Flomax. #3 dysphagia: Evaluated by speech therapy, recommended regular diet with supervision. #4 Chronic urinary retention: Has chronic indwelling Alex catheter, continue Flomax. #5 amyotrophic lateral sclerosis: With associated debility. Patient has been following up with neurology, Dr. Gerardo. Plan for PT OT evaluation and treatment. #6 hypertension: Blood pressure stable, continue metoprolol. #7 chronic anemia: With stable hemoglobin, no indication for transfusion. #8 GERD: Continue Protonix. #9 hyperlipidemia: Continue statins. #10 DVT prophylaxis: Subcu Lovenox. This note was generated with Sensdataation software. It may contain incorrect words, spelling, and punctuation that were not noted in checking the note before signing. Code Visit Inpatient E&M: 46577 Subs Hosp L2
--- NOTE | 2018-02-26 09:02 | PN_ITS ---
Patient Problems: Active and Suspected Problems (Last Updated 02/21/18 @ 17:03 by Anuj Moyer DO) Sepsis (Acute) Subjective: Chief complaint: Follow-up after admission for acute complicated cystitis/pyelonephritis with sepsis as well as MRSA bacteremia. Patient seen and examined. No acute events overnight. He remained asympt omatic, no complaints. His vitals are stable. - Physical Exam General: Alert, Cooperative, No apparent distress HEENT: Atraumatic, PERRLA, EOMI, Normocephalic Oral: Moist Mucosa, No Gingival or Mucosal Lesions/ Ulcerations Neck: Supple, No JVD, Negative Carotid Bruits, Trachea Midline, Thyroid Normal Size and Texture Lungs: Clear to auscultation, No rhonchi, No wheeze, No rales, Diminished Cardiovascular: Regular rate, Regular Rhythm, Normal S1, Normal S2, PMI Normal Abdomen: Bowel Sounds Present, Soft, Non Tender, Non-Distended, No Hepato- splenomegaly Extremities: No clubbing, No cyanosis, No edema Skin: No rashes, No breakdown Lymphatic: No Cervical, Supraclavicular, or Inguinal Adenopathy Neurological: Cranial nerves II-XII grossly intact, Neuro grossly intact Psych/Mental Status: Normal Affect, Appropriate Vital Signs Temp Pulse Resp BP Pulse Ox 98.5 F 64 22 H 128/74 H 94 02/26/18 02:44 02/26/18 03:03 02/26/18 02:44 02/26/18 02:44 02/26/18 02:44 Oxygen Flow Rate (L/min) 2 Oxygen Delivery Method Room Air Weight: 233 lb 0.458 oz Body Mass Index (BMI) 30.7 Intake and Output for Last 24 Hours 02/24/18 02/25/18 02/26/18 23:59 23:59 23:59 Intake Total 3663 / 3663 1936 / 1936 480 / 480 Output Total 2875 / 2875 5300 / 5300 1470 / 1470 Balance 788 / 788 -3364 / -3364 -990 / -990 Microbiology Past 72 Hours 02/21/18 16:20 Urine Culture - Final Urine Catheter - Catheter Escherichia coli Proteus mirabilis 02/21/18 13:37 Blood Culture - Preliminary Blood Culture (Wb) - Venous Meth. resistant Staph. aureus Laboratory Tests Past 24 Hrs 02/25/18 21:50 Vancomycin Trough 17.9 H Medical Necessity - Tobacco Use Smoking Status: Former smoker Tobacco Use: Non-smoker Assessment/Plan All Active Problems (Last Updated 02/21/18 @ 17:03 by Anuj Moyer DO) Septic shock (Acute) UTI (urinary tract infection) (Acute) ELO (acute kidney injury) (Acute) Sepsis (Acute) This is a 67 years old male patient presented to the ED because of vague abdominal pain, found to have acute complicated cystitis with pyelonephritis and sepsis and also found to have MRSA bacteremia. #1 E. coli/Proteus mirabilis acute complicated cystitis/probable pyelonephritis/sepsis: He is on day 4 of IV Rocephin. He has chronic indwelling Alex catheter. He has been afebrile, leukocytosis resolved. Urine culture revealed E. coli and Proteus mirabilis, both are sensitive to Rocephin. Blood culture MRSA, started on vancomycin. CT scan abdomen and pelvis revealed distended urinary bladder with thick bladder wall, prostatic enlargement as well as mild degree of right hydronephrosis and right hydroureter without evidence of obstructing stone. Infectious disease on the case. Plan: Awaiting repeat blood culture, awaiting 2D echocardiogram report, possible discharge tomorrow. #2 MRSA bacteremia: He is on IV vancomycin. Blood culture revealed MRSA. Repeat blood culture is pending. Infectious disease consulted, recommended 2D echocardiogram. 2D echocardiogram done, awaiting the report. Plan to continue same treatment as above. #3 urinary retention: Secondary to stricture, history of BPH status post dilatation for stricture. Alex catheter in place. He is on Flomax. #3 dysphagia: Evaluated by speech therapy, recommended regular diet with supervision. #4 Chronic urinary retention: Has chronic indwelling Alex catheter, continue Flomax. #5 amyotrophic lateral sclerosis: With associated debility. Patient has been following up with neurology, Dr. Gerardo. Plan for PT OT evaluation and treatment. #6 hypertension: Blood pressure stable, continue metoprolol. #7 chronic anemia: With stable hemoglobin, no indication for transfusion. #8 GERD: Continue Protonix. #9 hyperlipidemia: Continue statins. #10 DVT prophylaxis: Subcu Lovenox. This note was generated with [employer]Gateation software. It may contain incorrect words, spelling, and punctuation that were not noted in checking the note before signing. Code Visit Inpatient E&M: 10073 Subs Hosp L2
[2018-02-26] MEDS: Metoprolol Tartrate 25 MG Tablet 12.5 MG PO ×2 (09:38→22:42)
[2018-02-26] MEDS: Pantoprazole Sodium 20 MG Tablet PO (09:38)
[2018-02-26] MEDS: Cyanocobalamin 500 MCG Tablet 1000 MCG PO (09:38)
[2018-02-26] MEDS: Aspirin E.C. 81 MG Tablet PO (09:38)
[2018-02-26] MEDS: Acetaminophen 325 MG Tablet 650 MG PO ×2 (09:39→17:53)
[2018-02-26] MEDS: Enoxaparin 40 MG/0.4 ML Syringe SC (09:39)
[2018-02-26] MEDS: guaiFENesin 10 ML UDC (200MG/10ML) PO ×2 (09:39→17:53)
[2018-02-26] MEDS: Nystatin Powder 15gm Bottle 1 APPLIC TOPICAL ×2 (09:55→22:47)
[2018-02-26] MEDS: 0.9% Saline Lock 10 ML Syringe IV (09:56)
[2018-02-26] MEDS: Tamsulosin HCl 0.4 MG Capsule 0.8 MG PO (17:51)
[2018-02-26] MEDS: Atorvastatin Calcium 80 MG Tablet PO (22:42)
[2018-02-27] VITALS (7 sets, daily range): BP systolic 121–141; BP diastolic 78–89; PULSE 66–80; RESP 18–20; TEMP 36.2–36.7; O2SAT 92–94
[2018-02-27] MEDS: Aspirin E.C. 81 MG Tablet PO (09:17)
[2018-02-27] MEDS: Cyanocobalamin 500 MCG Tablet 1000 MCG PO (09:17)
[2018-02-27] MEDS: Pantoprazole Sodium 20 MG Tablet PO (09:17)
[2018-02-27] MEDS: Metoprolol Tartrate 25 MG Tablet 12.5 MG PO (09:18)
[2018-02-27] MEDS: Enoxaparin 40 MG/0.4 ML Syringe SC (09:19)
[2018-02-27] MEDS: Nystatin Powder 15gm Bottle 1 APPLIC TOPICAL (09:20)
--- NOTE | 2018-02-27 11:59 | PCM.TXEXTCAR ---
- Diet 02/22/18 08:31 Diet: Regular Diet Food consistency:: Soft Liquid Consistency:: Regular/Thin Dietary Modifications:: Soft Diet Is pt able to select menu?: Yes Diet Comments: Supervision; seated upright at 90 degrees - Routine Orders/Code Status Suppository Type: Dulcolax 10mg Suppository Frequency: Daily PRN Routine Lab Work: CBC - 5 days Code Status: Full Code - Wound(s) bue Wound Type: scattered scabs bilat legs Wound Type: scabs r buttock fold Wound Type: Skin Tear Right Great Toe Wound Type: Blood blister. Left Toes Wound Type: Abrasion - Therapies Physical Therapy: Eval and Treat Occupational Therapy: Eval and Treat Speech Therapy: Eval and Treat - Problem/Diagnosis (1) Sepsis Status: Acute Current Visit: Yes (2) UTI (urinary tract infection) Status: Acute Current Visit: No (3) Bacteremia Status: Acute Current Visit: Yes (4) ALS (amyotrophic lateral sclerosis) Status: Chronic Current Visit: Yes (5) Dysphagia Status: Chronic Current Visit: Yes (6) Urinary retention Status: Chronic Current Visit: Yes (7) Chronic anemia Status: Chronic Current Visit: Yes (8) Benign essential hypertension Status: Chronic Current Visit: No (9) History of hyperlipidemia Status: Chronic Current Visit: No (10) GERD (gastroesophageal reflux disease) Status: Chronic Current Visit: No (11) Speech abnormality Status: Chronic Current Visit: No - Allergies/Procedures Done in Hospital Allergies/Adverse Reactions: Allergies No Known Allergies Allergy (Verified 02/21/18 12:58) Procedures: 2-D Echocardiogram - Type of Care/Length of Stay Estimated LOS: More Than 30 Days Type of Care Needed: Intermediate Rehab Potential: Poor Prognosis: Poor - Additional Orders/Day of Discharge Day of Discharge: 02/27/18 - Follow Up Care Primary Care Physician: Nicho Sanderson MD [Primary Care Provider] - Please follow up with your Primary Care Physician in: 1-2 weeks Please Follow Up With: Livan Restrepo MD - Urinary retention/stricture When: 1-2 weeks
[2018-02-27] MEDS: guaiFENesin 10 ML UDC (200MG/10ML) PO (12:30)
--- NOTE | 2018-02-27 12:52 | CASEMGMT ---
Patient is ready for discharge back to [facility]. [facility]Y faxed orders. Called [facility] and arranged for patient to get picked up at 2:30 via wc van. DUY notified RN, secretary board of commissioners, and left message for Balbina at [facility]. Plan: d/c back to [facility] under intermediate level of care. [facility] will transport via wc van. Shani FOSTER
--- NOTE | 2018-02-27 13:09 | PCM.PN.ID ---
Patient Problems: Active and Suspected Problems (Last Updated 02/21/18 @ 17:03 by Anuj Moyer DO) Sepsis (Acute) Bacteremia (Acute) Subjective: Feeling well, no fever, no n/v/d. - Physical Exam General: Alert Lungs: Clear to auscultation, Normal air movement Cardiovascular: Regular rate, Regular Rhythm Abdomen: Soft, Non Tender, Non-Distended Skin: No rashes Vital Signs Temp Pulse Resp BP Pulse Ox 97.8 F 74 18 141/89 H 94 02/27/18 12:40 02/27/18 12:40 02/27/18 12:40 02/27/18 12:40 02/27/18 12:40 Oxygen Flow Rate (L/min) 2 Oxygen Delivery Method Room Air Weight: 105.7 kg Body Mass Index (BMI) 30.7 Intake and Output for Last 24 Hours 02/25/18 02/26/18 02/27/18 23:59 23:59 23:59 Intake Total 1935 / [id number] Output Total 5300 / 5300 4170 / 4170 1250 / 1250 Balance -3364 / -3364 -2104 / -2104 764 / 764 Microbiology Past 72 Hours 02/21/18 13:37 Blood Culture - Final Blood Culture (Wb) - Venous Meth. resistant Staph. aureus 02/24/18 09:10 Blood Culture - Preliminary Blood Culture (Wb) - Right Hand No growth in 48 hours. 02/24/18 09:05 Blood Culture - Preliminary Blood Culture (Wb) - Anticubital Left No growth in 48 hours. 02/21/18 16:20 Urine Culture - Final Urine Catheter - Catheter Escherichia coli Proteus mirabilis Medical Necessity - Tobacco Use Smoking Status: Former smoker Tobacco Use: Non-smoker Route of nutrition/ use of supplements: [] Nutritional Intake: [] IV Site: [] Alex Catheter: [] - Assessment/Plan Antibiotics: [] Assessment/Plan: [] Active and Suspected Problems (Last Updated 02/21/18 @ 17:03 by Anuj Moyer DO) Sepsis (Acute) Due to ecoli and proteus pyelonephritis - improved s/p urethral dilation by Dr. Restrepo. On ceftriaxone. Plan on discharge will be for po keflex 500mg tid for total 10 days, stop date 03/06/18. No fever, wbc now normal. MRSA bacteremia - Echo with no veg, repeat bcx were neg. Plan on d/c on po linezolid 600mg bid, stop date 03/10/18. Will follow. D/w primary team.
--- NOTE | 2018-02-27 13:41 | NURSING ---
REPORT CALLED TO [facility] AND REPORT GIVEN TO FLORI MALLORY
--- NOTE | 2018-02-27 14:28 | DS.PCM_ITS ---
Discharge Date and Diagnosis - Problem List Patient Problems: Active and Suspected Problems (Last Updated 02/21/18 @ 17:03 by Anuj Moyer DO) Sepsis (Acute) Bacteremia (Acute) Date of Admission: 02/21/18 Date of Discharge: 02/27/18 - Primary Discharge Diagnosis Active and Suspected Problems (Last Updated 02/21/18 @ 17:03 by Anuj Moyer DO) Sepsis (Acute) 2/2 MRSA and catheter associated UTI (E coli and P mirabilis) Bacteremia (Acute) MRSA unclear source ALS Urinary retention Urinary stricture HTN HLD Normocytic anemia Debility - Secondary Discharge Diagnosis Chronic Problems (Last Updated 02/21/18 @ 17:03 by Anuj Moyer DO) Benign essential hypertension (Chronic) History of hyperlipidemia (Chronic) Schizoaffective disorder (Chronic) Tobacco user (Chronic) GERD (gastroesophageal reflux disease) (Chronic) Speech abnormality (Chronic) ALS (amyotrophic lateral sclerosis) (Chronic) Dysphagia (Chronic) Urinary retention (Chronic) Chronic anemia (Chronic) Hospital Course and Treatment Imaging Results: CT/Abdomen/Pelvis W IV Cont ONLY IMPRESSION: Distended urinary bladder. Prostatic enlargement with indentation at the bladder base. Barium Swallow: INTERPRETATION OF RESULTS: Patient presents with mild to moderate oral dysphagia (R13.11) secondary to the diagnosis of amyotrophic lateral sclerosis. Oral preparatory phase marked by prolonged albeit sufficient mastication effort; anterior bolus loss of thin liquids with chin tuck on one occasion. Oral transportation phase marked by generalized slowing of motion with slight disorganized movements during ingestion of thin liquids with chin tuck posture (no effect on airway protection); scattered debris more prominent with regular textures (cleared with liquid wash); premature posterior bolus loss during trials of thin liquids directly associated with penetration events during ingestion of thin liquids (ameliorated with chin tuck posture). Pharyngeal phase overall unremarkable, with penetration during trials of thin liquids associated with premature posterior bolus loss. No aspiration appreciated throughout trials, unable to definitively rule out silent aspiration. RECOMMENDATIONS: Given the etiology of cause, would consider annual assessments of the oropharyngeal swallow function under fluoroscopy, as the swallow function is highly anticipated to continually degrade to eventually include rather significant deterioration of the pharyngeal phase functioning. Patient requires intensive skilled speech-language intervention targeting continued diet texture management; training / implementation of recommended compensatory strategies; and Patient / caregiver education regarding dysphagia associated with amyotrophic lateral sclerosis. Video swallow: RAD/Swallowing Function w/Video IMPRESSION: Transient penetration with ingestion of thin liquids. This does not improve with the chin tuck maneuver. Echo: TTE Interpretation Summary The study was technically difficult. Contrast injection was performed. Based upon the 2D echocardiographic and contrast enhanced images obtained there appears to be grossly normal left ventricular size, wall motion, and systolic function. The estimated ejection fraction is 55 %. Trivial tricuspid valve insufficiency. Right ventricular systolic pressure estimated to be 26 mmHg. No evidence for diastolic dysfunction. Consults: ID - [facility] - [facility] Operations: None Procedures: 2-D Echocardiogram Summary of Care Provided: Hospital course: The patient is a 67 year old M with a history of ALS, urinary retention with chronic indwelling Alex catheter, hypertension, dysphagia, hyperlipidemia, who presented to the emergency room with abdominal pain. His indwelling catheter wa s removed as CT showed bladder distention, it was replaced by the urologist Dr. harmon as he had a stricture that was unable to be catheterized by nursing. There is lenny pus and debris when the catheter was replaced and he had a positive urinalysis. He appeared to have sepsis with an elevated white count, tachycardia, tachypnea and urinary tract infection. He was admitted to the PCU and placed on Rocephin. Urine culture showed E. coli and Proteus mirabilis. Blood cultures were obtained, one demonstrated MRSA. Infectious disease was consulted. Vancomycin was added as an additional agent to ceftriaxone. Repeat blood cultures were obtained and became negative at 48 hours. Infectious disease recommended treatment with 10 more days of Keflex and 2 weeks of Zyvox. [facility]. He will need follow-up with his PCP, and with urology as an outpatient. This patient was seen by Twin Munoz PA-C under the supervision of Doctor Ida stephenson. [] Patient Problems: Active and Suspected Problems (Last Updated 02/21/18 @ 17:03 by Anuj Moyer DO) Sepsis (Acute) Bacteremia (Acute) - Physical Exam General: Alert, Oriented x3, Cooperative HEENT: Atraumatic, PERRLA, EOMI, Normocephalic Neck: Supple, No JVD, Negative Carotid Bruits Lungs: Clear to auscultation, Normal air movement Cardiovascular: Regular rate, No murmurs Abdomen: Bowel Sounds Present, Soft, Non Tender Extremities: No edema, Capillary Refill Less than 3 Seconds Skin: No rashes, No breakdown Musculoskeletal: No Tenderness to Palpation of Joints or Extremities Neurological: Cranial nerves II-XII grossly intact Psych/Mental Status: Normal Affect, Appropriate, Alert and oriented to time, place, person, mood and affect Vital Signs Temp Pulse Resp BP Pulse Ox 97.8 F 74 18 141/89 H 94 02/27/18 12:40 02/27/18 12:40 02/27/18 12:40 02/27/18 12:40 02/27/18 12:40 Oxygen Flow Rate (L/min) 2 Oxygen Delivery Method Room Air Weight: 233 lb 0.458 oz Body Mass Index (BMI) 30.7 Intake and Output for Last 24 Hours 02/25/18 02/26/18 02/27/18 23:59 23:59 23:59 Intake Total 1935 / 1935 2065 / 2065 Output Total 5300 / 5300 4170 / 4170 1250 / 1250 Balance -3364 / -3364 -2104 / -2104 764 / 764 Microbiology Past 72 Hours 02/21/18 13:37 Blood Culture - Final Blood Culture (Wb) - Venous Meth. resistant Staph. aureus 02/24/18 09:10 Blood Culture - Preliminary Blood Culture (Wb) - Right Hand No growth in 48 hours. 02/24/18 09:05 Blood Culture - Preliminary Blood Culture (Wb) - Anticubital Left No growth in 48 hours. Discharge Diet: Low fat/ Low Cholesterol, 2000 mg Sodium Diet, - - Soft textures and thin liquids. Discharge Activity: Return to Normal Activity Home Medications: Medications to take at Discharge Cyanocobalamin (Vitamin B-12) [B-12] 1,000 mcg PO DAILY 12/08/16 Ergocalciferol [Vitamin D] 50,000 unit PO TH 12/08/16 Meloxicam [Mobic] 7.5 mg PO DAILY 12/08/16 Aspirin E.C. [Ecotrin] 81 mg PO DAILY@0800 tablet 12/10/16 Metoprolol Tartrate [Lopressor (beta gayatri)] 12.5 mg PO BID tablet 12/10/16 Atorvastatin Calcium [Lipitor] 80 mg PO QHS 12/11/16 Loratadine 10 mg PO BREAKFAST 08/21/17 Omeprazole [Prilosec] 20 mg PO DAILY 08/21/17 Tamsulosin HCl [Flomax] 0.8 mg PO DAILY 08/21/17 Acetaminophen 650 mg PO Q4H PRN PRN 02/21/18 Amitriptyline HCl 10 mg PO DAILY 02/21/18 Amitriptyline HCl 25 mg PO QHS 02/21/18 Guaifenesin [Robitussin] 10 ml PO Q4H PRN PRN 02/21/18 Lactobacillus Rhamnosus GG [Culturelle] 1 each PO DAILY 02/21/18 Mag Hydrox/Aluminum Hyd/Simeth [Antacid Liquid] 30 ml PO Q4H PRN PRN 02/21/18 Melatonin 3 mg PO QHS 02/21/18 Na Phos,M-B/Na Phos,Di-Ba [Fleet Enema] 1 bottle RECTAL PRN PRN 02/21/18 Polyethylene Glycol 3350 [Miralax] 17 gm PO DAILY 02/21/18 Riluzole 50 mg PO BID 02/21/18 Selenium Sulfide/Aloe Vera [Selsun Blue Moist 1% Shampoo] 1 applic TP TID 02/21/18 Bisacodyl [Dulcolax] 10 mg RECTAL DAILY suppos. 02/27/18 Cephalexin [Keflex] 500 mg PO TID #21 cap 02/27/18 Linezolid 600 mg PO BID #20 tab 02/27/18 Magnesium Hydroxide [Milk Of Magnesia] 30 ml PO BID udc 02/27/18 Nystatin Powder [Mycostatin Powder] 1 applic TOPICAL BID bottle 02/27/18 Following Prescrptions Were Given to Patient: Cephalexin [Keflex] 500 mg PO TID #21 cap Linezolid 600 mg PO BID #20 tab Primary Care Physician: Nicho Sanderson MD [Primary Care Provider] - Please follow up with your Primary Care Physician in: 1-2 weeks Please Follow Up With: Livan Restrepo MD - Urinary retention/stricture When: 1-2 weeks [facility]position[facility] facility Minutes spent on discharge:: 35 Patient Condition:: Stable Medical Necessity - Tobacco Use Smoking Status: Former smoker Tobacco Use: Non-smoker Meaningful Use Info Meaningful Use Diagnoses (Choose all that apply): None applicable
== END 2018-02-27 14:50 | disposition intermediate care facility (04) | DRG 466 ==
LOC: ED 16:27 → MS3 16:56 → PCU 17:19
PROVIDERS: Internal Medicine Infectious Disease; Nurse Practitioner Family; Physician Assistant; Emergency Provider Emergency Medicine; Family Provider Family Medicine; PCP Family Medicine; Visit Provider Internal Medicine
DX: T83.511A Infection and inflammatory reaction due to indwelling urethral catheter, initial encounter (principal); A41.02 Sepsis due to Methicillin resistant Staphylococcus aureus; N12 Tubulo-interstitial nephritis, not specified as acute or chronic; G12.21 Amyotrophic lateral sclerosis; N30.00 Acute cystitis without hematuria; B96.20 Unspecified Escherichia coli [E. coli] as the cause of diseases classified elsewhere; B96.4 Proteus (mirabilis) (morganii) as the cause of diseases classified elsewhere; N40.1 Benign prostatic hyperplasia with lower urinary tract symptoms; D64.9 Anemia, unspecified; I10 Essential (primary) hypertension; N35.919 Unspecified urethral stricture, male, unspecified site; R33.8 Other retention of urine; F25.9 Schizoaffective disorder, unspecified; K21.9 Gastro-esophageal reflux disease without esophagitis; E78.5 Hyperlipidemia, unspecified; R13.10 Dysphagia, unspecified; R53.81 Other malaise; R47.1 Dysarthria and anarthria; Z87.891 Personal history of nicotine dependence; Z79.899 Other long term (current) drug therapy
CPT/HCPCS: 36415; 51702; 74177; 74230; 80048; 80076; 80202; 81001; 83605; 83690; 85014; 85018; 85025; 85027; 87040; 87077; 87086; 87088; 87186; 92526; 92611; 93005; 93306; 97110; 97162; 97166; 97530; 97535; 97802; 99285; J7030; J7040; Q9957; Q9967; A4216; C8929; J0696; J2405

== ENCOUNTER 2018-04-12 06:24 | Day surgery (SDC) | payer MEDICAID, SELFPAY ==
[2018-03-31 09:11] VITALS: BMI 31.6
--- NOTE | 2018-04-11 11:57 | HP.PCM_ITS ---
History and Physical Date of Admission: 04/12/18 I have a neurogenic bladder. HPI: GERA DONG is a 67 year-old male established patient who is here for a neurogenic bladder. The event occurred 1 year ago. His neurogenic bladder was caused by LG dz. Patient denies MVA, GSW, CVA, Operative Procedure, and Multiple Sclerosis. He does have to strain or bear down to start his urinary stream. He does have an abnormal sensation when needing to urinate. He is having problems with urinary control or incontinence. His neurogenic bladder has been treated with chronic love. plan for SP tube at [facility]. 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 Tobacco Use Assessment Completed: Used Tobacco in last 30 days? Smoking cessation counseling was provided. Does not use smokeless tobacco. Has never drank. Does not use drugs. Does not drink caffeine. Has not had a blood transfusion. REVIEW OF SYSTEMS: Constitutional: Patient denies fever, chills, weight loss, and weight gain. Eyes: Patient denies blurry vision, cataracts, and glaucoma. Ears, Nose, Mouth, Throat: Patient denies hearing loss, sinus infections, and sleep apnea. Cardiovascular: Patient denies chest pains, swollen ankles, irregular heartbeat, and pacemaker/defib. Respiratory: Patient denies shortness of breath, wheezing, oxygen, and cpap machine. Gastrointestinal: Patient denies abdominal pain, diarrhea, constipation, nausea, and vomiting. Genitourinary: Patient reports frequent urination, urinary retention, and le akage of urine. Patient denies get up at night to void, painful urination, blood in the urine, frequent uti's, history of stones, difficulty starting stream, weak stream/scanty, and bedwetting. Musculoskeletal: Patient denies sore muscles, back pain, and gout. Integumentary/Skin: Patient denies rash, skin cancer, and chronic itching. Neurological: Patient reports falling/unsteady and paralysis. Hematologic/Lymphatic: Patient denies abnormal bleeding, blood transfusion, swollen lymph nodes, deep venous thrombosis, and pulmonary embolism. VITAL SIGNS: 03/30/2018 01:34 PM Weight 217 lb / 98.43 kg Height 70 in / 177.8 cm BP 122/70 mmHg BMI 31.1 kg/m? PHYSICAL EXAMINATION: Anus and Perineum: No hemorrhoids. No anal stenosis. No rectal fissure, no anal fissure. No edema, no dimple, no perineal tenderness, no anal tenderness. Scrotum: No lesions. No edema. No cysts. No warts. Epididymides: Right: no spermatocele, no masses, no cysts, no tenderness, no induration, no enlargement. Left: no spermatocele, no masses, no cysts, no tenderness, no induration, no enlargement. Testes: No tenderness, no swelling, no enlargement left testes. No tenderness, no swelling, no enlargement right testes. Normal location left testes. Normal location right testes. No mass, no cyst, no varicocele, no hydrocele left testes. No mass, no cyst, no varicocele, no hydrocele right testes. Urethral Meatus: Normal size. No lesion, no wart, no discharge, no polyp. Normal location. Penis: Penile love catheter present. Circumcised, no foreskin warts, no cracks. No dorsal peyronie's plaques, no left corporal peyronie's plaques, no right corporal peyronie's plaques, no scarring, no shaft warts. No balanitis, no meatal stenosis. Prostate: 40 gram or 2+ size. Left lobe normal consistency, right lobe normal consistency. Symmetrical lobes. No prostate nodule. Left lobe no tenderness, right lobe no tenderness. Seminal Vesicles: Nonpalpable. Sphincter Tone: Normal sphincter. No rectal tenderness. No rectal mass. Notes: slow speaking from LG dz MULTI-SYSTEM PHYSICAL EXAMINATION: Constitutional: Well-nourished. No physical deformities. Normally developed. Good grooming. Neck: Neck symmetrical, not swollen. Normal tracheal position. Respiratory: No labored breathing, no use of accessory muscles. Cardiovascular: Normal temperature, normal extremity pulses, no swelling, no varicosities. Lymphatic: No enlargement of neck, axillae, groin. Skin: No paleness, no jaundice, no cyanosis. No lesion, no ulcer, no rash. Neurologic / Psychiatric: Oriented to time, oriented to place, oriented to person. No depression, no anxiety, no agitation. Gastrointestinal: No mass, no tenderness, no rigidity, non obese abdomen. Eyes: Normal conjunctivae. Normal eyelids. Ears, Nose, Mouth, and Throat: Left ear no scars, no lesions, no masses. Right ear no scars, no lesions, no masses. Nose no scars, no lesions, no masses. Normal hearing. Normal lips. Musculoskeletal: Flaccid left lower extremity. Flaccid right lower extremity. Normal gait and station of head and neck. 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 The possible need for postoperative treatments including further surgical procedures was discussed with the patient. The general risks of the operative procedure and the perioperative period were discussed with the patient at length and in detail including swelling, pain, jose sea, vomiting, fever, chills, infection, wound infection, sepsis, renal failure, internal or external bleeding, intraoperative bowel, organ or vascular injuries, postoperative formation of scar tissue, the need for blood transfusions, deep venous thrombosis or blood clots, pulmonary embolus, pneumonia, respiratory failure, heart attack, stroke, and others. All of the patient's questions were answered and he voiced an understanding of these risks, benefits and possible complications. The patient gave fully informed consent to proceed with the procedure. Notes: plan for placement of SP tube at [facility].
[2018-04-12 07:37] VITALS: BP 140/73; PULSE 87; RESP 16; TEMP 37.2; O2SAT 94; BMI 28.3
[2018-04-12] MEDS: Cefazolin 2 GM in 0.9% Normal Saline 100 ML IV (08:14)
--- NOTE | 2018-04-12 08:39 | DCINST_ITS ---
Discharge Diet: Light diet - advance as tolerated Discharge Activity: Return to Normal Activity Allergies/Adverse Reactions: Allergies No Known Allergies Allergy (Verified 04/12/18 07:22) Medications to take at Discharge Cyanocobalamin (Vitamin B-12) [B-12] 1,000 mcg PO DAILY 12/08/16 Ergocalciferol [Vitamin D] 50,000 unit PO TH 12/08/16 Meloxicam [Mobic] 7.5 mg PO DAILY 12/08/16 Metoprolol Tartrate [Lopressor (beta gayatri)] 12.5 mg PO BID tablet 12/10/16 Atorvastatin Calcium [Lipitor] 80 mg PO QHS 12/11/16 Loratadine 10 mg PO BREAKFAST 08/21/17 Omeprazole [Prilosec] 20 mg PO DAILY 08/21/17 Tamsulosin HCl [Flomax] 0.8 mg PO DAILY 08/21/17 Acetaminophen 650 mg PO Q4H PRN PRN 02/21/18 Amitriptyline HCl 10 mg PO DAILY 02/21/18 Amitriptyline HCl 25 mg PO QHS 02/21/18 Guaifenesin [Robitussin] 10 ml PO Q4H PRN PRN 02/21/18 Lactobacillus Rhamnosus GG [Culturelle] 1 each PO DAILY 02/21/18 Mag Hydrox/Aluminum Hyd/Simeth [Antacid Liquid] 30 ml PO Q4H PRN PRN 02/21/18 Melatonin 3 mg PO QHS 02/21/18 Na Phos,M-B/Na Phos,Di-Ba [Fleet Enema] 1 bottle RECTAL PRN PRN 02/21/18 Polyethylene Glycol 3350 [Miralax] 17 gm PO DAILY 02/21/18 Riluzole 50 mg PO BID 02/21/18 Selenium Sulfide/Aloe Vera [Selsun Blue Moist 1% Shampoo] 1 applic TP TID 02/21/18 Bisacodyl [Dulcolax] 10 mg RECTAL DAILY suppos. 02/27/18 Cephalexin [Keflex] 500 mg PO TID #21 cap 02/27/18 Linezolid 600 mg PO BID #20 tab 02/27/18 Magnesium Hydroxide [Milk Of Magnesia] 30 ml PO BID udc 02/27/18 Nystatin Powder [Mycostatin Powder] 1 applic TOPICAL BID bottle 02/27/18 Primary Care Physician: Nicho Sanderson MD [Primary Care Provider] - Test Results: Test results from this visit will be discussed in further detail at your follow- up appointment, if applicable. Please Follow Up With: Livan Restrepo MD When: please call to make an appointment.
--- NOTE | 2018-04-12 08:39 | PCM.OPRPT ---
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 As an option to drain his bladder. 67-year-old male taken back to the operating room at the smooth induction of MAC local he was placed supine on the table the current catheter was removed the penis and testicles were prepped and draped in usual fashion as well as the lower abdomen for a planned suprapubic catheter went into the bladder with the cystoscope the entire length of the urethra had some multiple scar tissue along the urethra he had a fairly large false passage in the posterior part of the prostate from prior traumatization from the long term. I then flexed up through the prostate into the bladder once again to the bladder had a significant amount of pyuria in the bladder with significant amount of pus in urine this is manually manually drained out culture was sent off because of the significant amount of pyuria decided not to place a suprapubic catheter I lavaged out all the pus and pyuria of the bladder placed a new wire through the scope and then placed a [place] tip catheter over the wire into the bladder with 15 cc in the balloon and then flushed the bladder some more until is clear and then the patient anesthetic was reversed taken back to PACU good condition for now just continue Love catheter management this can be changed by nursing staff every 6 weeks at the long term. Type of Anesthesia:: General Drains: love 18 fr - Admit VTE Documentation VTE Present on Admission: No VTE Mechan Device Prophylaxis: SCD's
--- NOTE | 2018-04-12 08:42 | OP.PCM_ITS ---
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 As an option to drain his bladder. 67-year-old male taken back to the operating room at the smooth induction of MAC local he was placed supine on the table the current catheter was removed the penis and testicles were prepped and draped in usual fashion as well as the lower abdomen for a planned suprapubic catheter went into the bladder with the cystoscope the entire length of the urethra had some multiple scar tissue along the urethra he had a fairly large false passage in the posterior part of the prostate from prior traumatization from the assisted. I then flexed up through the prostate into the bladder once again to the bladder had a significant amount of pyuria in the bladder with significant amount of pus in urine this is manually manually drained out culture was sent off because of the significant amount of pyuria decided not to place a suprapubic catheter I lavaged out all the pus and pyuria of the bladder placed a new wire through the scope and then placed a [place] tip catheter over the wire into the bladder with 15 cc in the balloon and then flushed the bladder some more until is clear and then the patient anesthetic was reversed taken back to PACU good condition for now just continue Love catheter management this can be changed by nursing staff every 6 weeks at the assisted. Type of Anesthesia:: General Drains: love 18 fr - Admit VTE Documentation VTE Present on Admission: No VTE Mechan Device Prophylaxis: SCD's
[2018-04-12 08:50] VITALS: BP 102/78; BP 140/73; PULSE 88; RESP 16; TEMP 36.1; O2SAT 93
[2018-04-12 08:55] VITALS: BP 112/78; BP 140/73; PULSE 90; RESP 16; O2SAT 93
[2018-04-12 09:00] VITALS: BP 108/80; BP 140/73; PULSE 85; RESP 16; O2SAT 93
[2018-04-12 09:05] VITALS: BP 120/84; BP 140/73; PULSE 85; RESP 16; TEMP 36.3; O2SAT 94
[2018-04-12 09:39] VITALS: BP 140/73
--- NOTE | 2018-04-12 09:57 | SUR.PHASEII ---
REPORT WAS CALLED TO [facility] NURSE, FOR RETURN TO [facility].
== END 2018-04-12 10:12 | disposition intermediate care facility (04) ==
LOC: SDC 06:25 → AC 06:27
PROVIDERS: Family Provider Family Medicine; PCP Family Medicine; Referring Provider Urology; Visit Provider Urology
PROC: 0T9B40Z Drainage of Bladder with Drainage Device, Percutaneous Endoscopic Approach (ICD-10-PCS; CPT 52005; principal; 2018-04-12 08:20)
DX: N31.2 Flaccid neuropathic bladder, not elsewhere classified (principal); N39.498 Other specified urinary incontinence; N35.011 Post-traumatic bulbous urethral stricture; N30.90 Cystitis, unspecified without hematuria; N40.1 Benign prostatic hyperplasia with lower urinary tract symptoms; I15.8 Other secondary hypertension; E78.5 Hyperlipidemia, unspecified; F25.9 Schizoaffective disorder, unspecified; K21.9 Gastro-esophageal reflux disease without esophagitis; G12.21 Amyotrophic lateral sclerosis; Z79.899 Other long term (current) drug therapy; Z87.891 Personal history of nicotine dependence
CPT/HCPCS: 00910; 51703; 87077; 87086; 87088; 87186; J7120; C1769; J2405

== ENCOUNTER 2018-05-24 07:24 | Day surgery (SDC) | payer MEDICAID, SELFPAY ==
[2018-05-24] VITALS (8 sets, daily range): BP systolic 86–122; BP diastolic 63–75; PULSE 58–76; RESP 16; TEMP 36.3–37.3; O2SAT 93–97; BMI 31.8
[2018-05-24] MEDS: Cefazolin 2 GM in 0.9% Normal Saline 100 ML IV (11:35)
--- NOTE | 2018-05-24 12:01 | DCINST_ITS ---
Discharge Diet: Light diet - advance as tolerated Discharge Activity: Return to Normal Activity Call your doctor if your incision/area has: Continuous Slow Oozing, Sudden Increased Bleeding, Increased Pain/ Swelling, Increased Redness, Foul Smelling Discharge, Swelling at the incision site Suture Line Care: Avoid Pulling/Pushing, Avoid Pinching/Bending Instructions: Discharge Instructions: Caring for Your Suprapubic Catheter Allergies/Adverse Reactions: Allergies No Known Allergies Allergy (Verified 05/24/18 07:55) Medications to take at Discharge Cyanocobalamin (Vitamin B-12) [B-12] 1,000 mcg PO DAILY 12/08/16 Meloxicam [Mobic] 7.5 mg PO DAILY 12/08/16 Metoprolol Tartrate [Lopressor (beta gayatri)] 12.5 mg PO BID tablet 12/10/16 Atorvastatin Calcium [Lipitor] 80 mg PO QHS 12/11/16 Loratadine 10 mg PO BREAKFAST 08/21/17 Omeprazole [Prilosec] 20 mg PO DAILY 08/21/17 Tamsulosin HCl [Flomax] 0.8 mg PO DAILY 08/21/17 Acetaminophen 650 mg PO Q4H PRN PRN 02/21/18 Amitriptyline HCl 10 mg PO DAILY 02/21/18 Amitriptyline HCl 25 mg PO QHS 02/21/18 Guaifenesin [Robitussin] 10 ml PO Q4H PRN PRN 02/21/18 Lactobacillus Rhamnosus GG [Culturelle] 1 each PO DAILY 02/21/18 Mag Hydrox/Aluminum Hyd/Simeth [Antacid Liquid] 30 ml PO Q4H PRN PRN 02/21/18 Melatonin 3 mg PO QHS 02/21/18 Na Phos,M-B/Na Phos,Di-Ba [Fleet Enema] 1 bottle RECTAL PRN PRN 02/21/18 Polyethylene Glycol 3350 [Miralax] 17 gm PO DAILY 02/21/18 Riluzole 50 mg PO BID 02/21/18 Selenium Sulfide/Aloe Vera [Selsun Blue Moist 1% Shampoo] 1 applic TP UD 02/21/18 Nystatin Powder [Mycostatin Powder] 1 applic TOPICAL BID bottle 02/27/18 Bisacodyl [Dulcolax] 10 mg RECTAL PRN PRN 05/23/18 Cholecalciferol (Vitamin D3) [Vitamin D3] 2,000 unit PO DAILY 05/23/18 Lidocaine [Lidoderm Patch] 1 patch TOPICAL DAILY 05/23/18 Magnesium Hydroxide [Milk Of Magnesia] 30 ml PO DAILY PRN 05/23/18 Oxycodone HCl 5 mg PO Q12H PRN PRN 05/23/18 Amoxicillin 500 mg PO TID #15 tablet 05/24/18 The following prescriptions were given: Amoxicillin 500 mg PO TID #15 tablet Primary Care Physician: Nicho Sanderson MD [Primary Care Provider] - Test Results: Test results from this visit will be discussed in further detail at your follow- up appointment, if applicable. Please Follow Up With: Livan Restrepo MD When: please call to make an appointment.
--- NOTE | 2018-05-24 12:03 | OP.PCM_ITS ---
Report of Operation Date of Procedure: 05/24/18 Pre-Operative Diagnosis: Neurogenic bladder and an atrophic lateral sclerosis Post-Operative Diagnosis: Same Surgery/Procedure Performed:: Cystoscopy and placement of suprapubic catheter Description of Surgical Findings:: 68-year-old male who has an atrophic lateral sclerosis has a chronic Alex catheter is been developing a urethral tear because of the chronic catheter and port catheter care so at this point we will change him to a suprapubic catheter to avoid any more damage to the urethra this also help keep his bladder drained he is also has a history of strictures in the urethra and difficult Alex catheter changes in the past. 60-year-old male taken back to the operating room after smooth induction of MAC local he was placed supine on the table the lower abdomen penis testicles are prepped and draped in usual sterile fashion, the existing catheter was removed, I then did a cystoscopy the entire length the urethra was okay at some mild scar tissue along the crease of the ureter some inflammation past the prostate into the bladder identified the dome of the bladder I then made a small incision suprapubically injected lidocaine along the suprapubic tract and then after incision the skin I used the suprapubic embedded firmware engineer sheath this was taken down into the bladder bladder was distended nicely could see the tip of the stylette and then once a catheter sheath then I pulled out the middle stylette with a 16 [place] catheter through the sheath inflated the balloon with 10 cc pulled back in the sheath and then the catheter was left in place with gravity drainage. The suprapubic catheter was then secured to the skin with a stitch dressings were placed and anesthesia was reversed to take back to PACU good condition we flushed the catheter is draining well. Type of Anesthesia:: Local MAC Drains: stent - Admit VTE Documentation VTE Present on Admission: No VTE Mechan Device Prophylaxis: SCD's
== END 2018-05-24 13:33 | disposition home or self-care (01) ==
LOC: SDC 07:27 → AC 07:28
PROVIDERS: Family Provider Family Medicine; PCP Family Medicine; Referring Provider Urology; Visit Provider Urology
PROC: 0T9B40Z Drainage of Bladder with Drainage Device, Percutaneous Endoscopic Approach (ICD-10-PCS; CPT 52005; principal; 2018-05-24 09:45)
DX: N31.2 Flaccid neuropathic bladder, not elsewhere classified (principal); N35.011 Post-traumatic bulbous urethral stricture; G12.21 Amyotrophic lateral sclerosis; N40.1 Benign prostatic hyperplasia with lower urinary tract symptoms; R35.0 Frequency of micturition; R33.8 Other retention of urine; F25.9 Schizoaffective disorder, unspecified; K21.9 Gastro-esophageal reflux disease without esophagitis; I15.8 Other secondary hypertension; Z79.899 Other long term (current) drug therapy; Z87.891 Personal history of nicotine dependence
CPT/HCPCS: 00800; 51102; J7120; J2405

== ENCOUNTER 2018-08-03 16:30 | Emergency (ER) | payer MEDICAID, SELFPAY ==
[2018-05-24 07:57] VITALS: BMI 31.8
[2018-08-03 16:31] VITALS: BP 155/106; PULSE 104; RESP 18; TEMP 37.3; O2SAT 91; BMI 28.3
--- NOTE | 2018-08-03 16:50 | EKG12_ITS ---
Test Reason : CP Blood Pressure : / mmHG Vent. Rate : 100 BPM Atrial Rate : 100 BPM P-R Int : 144 ms QRS Dur : 092 ms QT Int : 350 ms P-R-T Axes : 051 034 046 degrees QTc Int : 451 ms Normal sinus rhythm Possible Inferior infarct (cited on or before 21-FEB-2018) Anterolateral infarct (cited on or before 21-FEB-2018) Abnormal ECG Confirmed by PIPPA NORTH, DC ([id number]), editor book KIKO ANDINO ([id number]) on 08/07/2018 11:49:39 AM Referred By: PONCE Confirmed By:DANIEL DAS MD
--- NOTE | 2018-08-03 17:00 | RAD_ITS ---
STUDY: X-RAY CHEST REASON FOR EXAM: Male, 68 years old. Chest pain TECHNIQUE: Frontal view of the chest COMPARISON: 08/21/2017 FINDINGS: The lungs are clear. There are no pleural effusions. There is no pneumothorax. The heart is normal in size. The visualized osseous structures are within normal limits. RAD/Chest 1 View (Portable) IMPRESSION: No acute thoracic pathology. Electronically Signed: Hemant Villafuerte, at 17:16 EDT Tel , Service support ,
[2018-08-03] MEDS: 0.9% Normal Saline 1,000 ML 1000 ML IV (17:06)
[2018-08-03] MEDS: oxyCODONE 5 MG Tablet 10 MG PO (17:06)
[2018-08-03 17:30] LABS: D-Dimer Quantitative (DVT/PE) 1.59 FEU/ug/m (0.27-0.49)
--- NOTE | 2018-08-03 17:32 | ED.RN ---
DR PALENCIA NOTIFIED D-DIMER=1.59. NNO VERBALIZED.
[2018-08-03 17:33] LABS: Absolute Lymphocyte Count 1.88 X10^3/ul (0.83-4.51); Absolute Neutrophil Count 9.1 X10^3/uL (2.0-7.7); Basophil# 0.03 X10^3/uL; Basophil% 0.2 % (0-1); Eosinophil# 0.35 X10^3/uL; Eosinophils% 2.8 % (0-5); Hematocrit 39.3 % (40-54); Hemoglobin 13.2 g/dl (13.0-16.5); Lymphocyte # 1.88 X10^3/ul (4.0); Lymphocyte % 14.9 % (19-41); Mean Corp Hgb Conc 33.6 g/gl (32-36); Mean Corpuscular Hgb 30.1 pg (27.0-32.0); Mean Corpuscular Volume 89.5 fL (80-94); Mean Platelet Vol. 9.4 fl (6.2-12.0); Monocyte% 9.5 % (0-10); Neutrophil # 9.12 X10^3/uL (2.7-7.7); Neutrophil % 72.3 % (47-70); Platelet Count 261 K/mm3 (150-450); RBC Distribution Width CV 13.6 % (11.6-14.6); RBC Distribution Width SD 44.9 fl (35.1-43.9); Red Blood Count 4.39 M/mm3 (4.6-6.2); White Blood Count 12.6 K/mm3 (4.4-11.0)
[2018-08-03 17:34] LABS: POSITIVE COUNT NO; POSITIVE DIFFERENTIAL NO; POSITIVE MORPHOLOGY NO
--- NOTE | 2018-08-03 17:36 | ED.VISSUMM ---
- ER Visit Summary Date of Service: 08/03/18 Chief Complaint: Chest pain History of Present Illness: The patient is a [address] Nicho Downs in [place] Restrepo. He reports he has left-sided chest pain that began today. Is intermittent pain last approximate out of time. He describes as tightness. 7 to 10 hours and is pain-free currently. Is worsened by deep breaths or bearing down. Is relieved by having a bowel movement. He reports he has been nauseated, but has not had any vomiting. He has been diaphoretic at times. He denies any shortness of breath. He does report that he has a little bit of abdominal pain. He denies any diarrhea. Physical Examination: Vitals: Stable. Afebrile. General: Well-nourished and well-developed. Head: Normocephalic atraumatic. Neck: Supple, no lymphadenopathy. No JVD. Nontender. Cardiovascular: Regular rate and rhythm. No murmurs. Respiratory: No respiratory distress. Clear to auscultation bilaterally. Abdominal: Soft, nontender, nondistended, normal bowel sounds. No guarding, rebound, or peritoneal signs. Back: Nontender. Extremities: Nontender, no edema. Skin: Normal color, no rash. Neurologic: Alert and oriented ?3. Psych: Normal affect. Test Results: EKG is sinus at [address] changes. Troponin is negative. D-dimer is 1.59. Chem-7 shows a BUN of 21. CBC shows a white count 12.6 with 72 segmented neutrophils and 15 lymphocytes. Hematocrit is 39.3. Chest x-ray shows no acute disease. CTA of the chest shows small sub-segmental PE in the left lower lobe. Emergency Department Course and Treatment: Patient received aspirin in the senior care prior to arrival. This was not repeated. He was given a dose of oxycodone and Eliquis p.o. Treatment Plan: Patient's PE severity index is 78 making him class II. He was discussed with Dr. Nick Romano. He will be started on Eliquis and instructed to follow-up with Dr. Downs in 3 to 5 days for another exam. Return to the emergency department for any worsening symptoms. Disposition: To home in improved and stable condition. Impression: 1. Pulmonary embolism left lower lobe. This note was generated with [employer] software. It may contain incorrect words, spelling, and punctuation that were not noted in review of the chart prior to signing ED Disposition - Plan for ED Patient: Instructions: Pulmonary Embolism Prescriptions: Apixaban [Eliquis] 5 mg PO BID #74 tab Prescription Printed Referrals: Nicho Sanderson MD [Primary Care Provider] - 3-5 Days
[2018-08-03 17:39] LABS: Anion Gap 6 (5-15); BUN 21 mg/dL (7-18); BUN/Creat Ratio 19.1 RATIO (10-20); Calcium,Total 9.3 mg/dL (8.5-10.1); Chloride 100 mmol/L (98-107); EST Glomerular Filtration Rate 71 mL/min (>60); Est Glom Filt Rate - Afr Amer 86 mL/min (>60); Estimated Creatinine Clearance 74.73 ml/min; Glucose 106 mg/dL (74-106); Sodium Level 138 mmol/L (136-145)
[2018-08-03 17:44] VITALS: BP 154/85; PULSE 86; RESP 18; O2SAT 96
--- NOTE | 2018-08-03 17:58 | CT_ITS ---
STUDY: CTA CHEST REASON FOR EXAM: Male, 68 years old. Chest pain RADIATION DOSAGE (If Supplied By Facility): CTDIvol = ( 9.97 ) mGy, DLP = ( 564.14 ) mGycm TECHNIQUE: The examination was performed with the intravenous administration of 100ML IV Isovue 370. Post-processing of the angiographic images was performed, with multiplanar reformation and 3D reconstruction. Individualized dose optimization techniques were used for this CT. COMPARISON: None. FINDINGS: The study is limited by patient motion and by streak artifact due to the patient's arms being at his sides. There are no pulmonary or pleural effusions. There is no pneumothorax. There is a small subsegmental pulmonary embolus in the left lower lobe (image 134 series 2 and image 141 series 601). There are no additional pulmonary emboli. There is no evidence of thoracic aortic aneurysm or dissection. The heart and pericardium are within normal limits. There are coronary artery calcifications noted. There is no thoracic lymphadenopathy. Images through the upper abdomen demonstrate no significant abnormality. There are no destructive osseous lesions. CT/CTA Chest W/WO Contrast IMPRESSION: Small subsegmental pulmonary embolus in the left lower lobe. No additional pulmonary emboli. No evidence of thoracic aortic aneurysm or dissection. Clear lungs. Coronary artery disease. N.B. : The above information has been verbally conveyed by Hemant Villafuerte to Jensen Ryan MD, on 08/03/2018 18:48:44 (ET). Electronically Signed: Hemant Villafuerte, at 18:46 EDT Tel , Service support ,
[2018-08-03 18:03] VITALS: BP 168/98; PULSE 89; RESP 18; O2SAT 96
[2018-08-03 19:11] VITALS: BP 150/97; PULSE 101; RESP 20; O2SAT 95
[2018-08-03 20:09] VITALS: BP 147/103; PULSE 84; RESP 18; O2SAT 97
[2018-08-03] MEDS: APIXABAN 5 MG TABLET 10 MG PO (20:22)
[2018-08-03 20:23] VITALS: BP 126/78; PULSE 84; RESP 18; O2SAT 96
--- NOTE | 2018-08-03 21:17 | ED.RN ---
REPORT CALLED BACK TO [facility] AT [facility].
== END 2018-08-03 21:16 | disposition home or self-care (01) ==
PROVIDERS: Emergency Provider Emergency Medicine; Family Provider Family Medicine; PCP Family Medicine
DX: I26.99 Other pulmonary embolism without acute cor pulmonale (principal); K21.9 Gastro-esophageal reflux disease without esophagitis; I10 Essential (primary) hypertension; E78.00 Pure hypercholesterolemia, unspecified; F25.9 Schizoaffective disorder, unspecified; G12.21 Amyotrophic lateral sclerosis; Z79.82 Long term (current) use of aspirin; Z79.899 Other long term (current) drug therapy
CPT/HCPCS: 71045; 71275; 80048; 84484; 85025; 85379; 93005; 96360; 99285; J7030; Q9967; A4216

== ENCOUNTER 2018-10-01 20:03 | Emergency (ER) | payer MEDICAID, SELFPAY ==
[2018-10-01 20:03] VITALS: BP 127/99; PULSE 137; RESP 20; TEMP 37.4; O2SAT 93; BMI 28.6
--- NOTE | 2018-10-01 20:09 | EKG12_ITS ---
Test Reason : CP Blood Pressure : / mmHG Vent. Rate : 129 BPM Atrial Rate : 129 BPM P-R Int : 150 ms QRS Dur : 086 ms QT Int : 312 ms P-R-T Axes : 052 032 050 degrees QTc Int : 457 ms Sinus tachycardia Lateral infarct (cited on or before 21-FEB-2018), age undetermined Inferior infarct (cited on or before 21-FEB-2018), age undetermined Abnormal ECG Confirmed by DESMOND NORTH, TRACIE ([id number]), metropolitan editor BHAVANA ANDREW ([id number]) on 10/03/2018 1:32:51 PM Referred By: ADELA Confirmed By:TRACIE LOGAN MD
--- NOTE | 2018-10-01 20:14 | RAD_ITS ---
STUDY: X-RAY CHEST REASON FOR EXAM: Male, 68 years old. Chest pain. TECHNIQUE: Portable chest. COMPARISON: 08/03/2018. FINDINGS: The lungs are clear and expanded. There is no demonstrated pleural abnormality. Normal size heart. Normal mediastinum and yvonne. Normal visualized pulmonary arteries. Normal visualized aortic arch and descending thoracic aorta. Normal visualized thoracic spine. Normal visualized ribs, clavicles, and shoulders. There is no demonstrated abnormality of the visualized soft tissue structures of the upper abdomen. RAD/Chest 1 View (Portable) IMPRESSION: Normal x-ray examination of the chest. Electronically Signed: Sherri Barker MD at 21:35 EDT Tel , Service support ,
[2018-10-01 20:31] LABS: Absolute Lymphocyte Count 1.05 X10^3/uL (0.83-4.51); Absolute Neutrophil Count 8.7 X10^3/uL (2.0-7.7); Basophil# 0.07 X10^3/uL; Basophil% 0.6 % (0-1); Eosinophils% 2.7 % (0-5); Hematocrit 40.1 % (40-54); Hemoglobin 13.7 g/dL (13.0-16.5); Lymphocyte # 1.05 X10^3/ul (4.0); Lymphocyte % 9.5 % (19-41); Mean Corp Hgb Conc 34.2 g/dL (32-36); Mean Corpuscular Hgb 31.1 pg (27.0-32.0); Mean Corpuscular Volume 90.9 fL (80-94); Mean Platelet Vol. 9.6 fl (6.2-12.0); Monocyte# 0.85 X10^3/uL; Monocyte% 7.7 % (0-10); NRBC Flagged by Analyzer 0 % (0-5); Neutrophil # 8.69 X10^3/uL (2.7-7.7); Neutrophil % 79.1 % (47-70); Platelet Count 209 K/mm3 (150-450); RBC Distribution Width CV 13.7 % (11.6-14.6); RBC Distribution Width SD 46.2 fl (35.1-43.9); Red Blood Count 4.41 M/mm3 (4.6-6.2)
[2018-10-01 20:35] LABS: International Normalized Ratio 1.3; Prothrombin Time (Protime)PT. 15.9 SECONDS (11.7-14.9)
[2018-10-01 20:44] LABS: Anion Gap 6 (5-15); BUN 15 mg/dL (7-18); BUN/Creat Ratio 14.6 RATIO (10-20); Calcium,Total 9.2 mg/dL (8.5-10.1); Chloride 105 mmol/L (98-107); Creatinine, Serum 1.03 mg/dL (0.70-1.30); EST Glomerular Filtration Rate 76 mL/min (>60); Est Glom Filt Rate - Afr Amer 92 mL/min (>60); Estimated Creatinine Clearance 77.57 ml/min; Glucose 122 mg/dL (74-106); Potassium 3.9 mmol/L (3.5-5.1); Sodium Level 139 mmol/L (136-145)
--- NOTE | 2018-10-01 21:09 | CT_ITS ---
STUDY: CTA CHEST REASON FOR EXAM: Male, 68 years old. Chest pain, PE. RADIATION DOSAGE (If Supplied By Facility): CTDIvol = ( 13.85 ) mGy, DLP = ( 526.30 ) mGycm TECHNIQUE: The examination was performed with the intravenous administration of 100ML IV Isovue 370. Post-processing of the angiographic images was performed, with multiplanar reformation and 3D reconstruction. Individualized dose optimization techniques were used for this CT. COMPARISON: None. FINDINGS: The heart and pericardium are normal. The aorta measures 4 cm in the ascending segment, 3.7 cm at the arch, 3.3 cm in the descending segment. 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 There is mild stenosis immediately distal to the ectatic origin. Carotid and right brachiocephalic origins are intact. There is no mediastinal mass or adenopathy. There is no hilar or axillary adenopathy. There is no evidence of pulmonary embolus. Pulmonary arteries are unremarkable. There is no pleural effusion. There is no pulmonary consolidation. No pulmonary mass or nodule. No interstitial or cystic disease. 1.6 cm low-attenuation lesion arises from the left kidney, partially imaged. This is not characterized on the current study. The abdominal aorta measures 3.3 cm proximally. There is no osseous abnormality. CT/CTA Chest W/WO Contrast IMPRESSION: 1. No pulmonary embolus. 2. A 4 cm thoracic aortic aneurysm and 3.3 cm proximal AAA. 3. 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 Ectatic origin with mild subsequent stenosis. 4. Left renal hypodensity, partially imaged and not characterized. Electronically Signed: Sherri Barker MD at 23:04 EDT Tel , Service support ,
[2018-10-01] MEDS: diazePAM 5 MG Tablet PO (21:17)
[2018-10-01] MEDS: 0.9% Normal Saline 1,000 ML 999 ML IV (21:17)
[2018-10-01 21:48] VITALS: PULSE 127; O2SAT 94
--- NOTE | 2018-10-01 23:34 | ED.VISSUMM ---
- ER Visit Summary Date of Service: 10/01/18 Chief Complaint: Chest discomfort History of Present Illness: The patient is a 68 M history of ALS and prior PE. Patient's currently on Eliquis. He states it is new today he has had some chest discomfort he calls a dull and aching across the anterior chest. Denies any hemoptysis. He denies any pleuritic nature of the pain. He denies any shortness of breath. He states he had a negative nuclear stress test within the last 2 years. He does not believe he is ever had a heart catheterization. Physical Examination: Older male no acute distress. Vital signs are stable he is afebrile. He is tachycardic. H EENT exam poor dentition. Otherwise unremarkable. Neck nontender. No JVD. Lungs clear to auscultation bilaterally. Heart tachycardic no murmur. Chest wall nontender. Abdomen soft and nontender. Normal bowel sounds no peritoneal signs. Extremities he has trace edema both lower extremity. Calves are nontender. Neurologically he has ALS. He is very slow deliberate speech. And is generally weak. But can move his extremities. Test Results: Older male with atypical chest pain. CBC shows white count 11. Hemoglobin 13. Chemistries are normal with a normal creatinine and gap. Troponin is normal. EKG is a sinus tach at 129 with no acute signs of IA or ischemia. Due to his tachycardia and chest discomfort with prior history of PE I did obtain a CTA of his chest which showed no PE. A thoracic aneurysm at 4 cm. But no acute dissection or thoracic rupture. Emergency Department Course and Treatment: Repeat exam patient is doing well at 2330. He is currently not having any pain. He denied discussed admission for further evaluation versus discharge. He did not want to be admitted. He said he had a prior cardiac work-up less than 2 years ago which she states was negative. I did see where he had a nuclear stress test in 2017. Treatment Plan: Follow-up with his primary care physician Dr. Nick Romano. Disposition: Discharge Impression: Chest pain uncertain etiology History of PE on Eliquis Thoracic aneurysm History of ALS This note was generated with [employer] dictation software. It may contain incorrect words, spelling, and punctuation that were not noted in review of the chart prior to signing ED Disposition - Plan for ED Patient: Referrals: Nicho Sanderson MD [Primary Care Provider] -
--- NOTE | 2018-10-01 23:38 | ED.DEP ---
ED Disposition - Plan for ED Patient: Disposition: Home or Assisted Living Instructions: CHEST PAIN, Uncertain Cause Referrals: Nicho Sanderson MD [Primary Care Provider] - As soon as possible Additional Instructions: His work-up showed no signs of a blood clot or heart attack. His labs are unremarkable. Follow-up with medical fee clerk of your facility or his primary care physician. Return if worse.
[2018-10-01 23:59] VITALS: BP 100/76; PULSE 99
[2018-10-02 00:32] VITALS: BP 116/81; PULSE 99
== END 2018-10-02 00:32 | disposition skilled nursing facility (03) ==
PROVIDERS: Emergency Provider Emergency Medicine; Family Provider Family Medicine; PCP Family Medicine
DX: R07.89 Other chest pain (principal); I71.2 Thoracic aortic aneurysm, without rupture; I71.4 Abdominal aortic aneurysm, without rupture; G12.21 Amyotrophic lateral sclerosis; Z86.711 Personal history of pulmonary embolism; Z79.01 Long term (current) use of anticoagulants; Z79.82 Long term (current) use of aspirin; Z79.899 Other long term (current) drug therapy
CPT/HCPCS: 71045; 71275; 80048; 84484; 85025; 85610; 93005; 96360; 96361; 99285; J7030; Q9967; A4216

== ENCOUNTER 2019-09-26 18:59 | Inpatient (IN) | payer MEDICAID, SELFPAY ==
[2018-10-31 14:54] VITALS: BMI 28.6
[2019-09-26 19:00] VITALS: BP 148/108; PULSE 106; RESP 20; TEMP 37.1; O2SAT 96; BMI 30.9
--- NOTE | 2019-09-26 19:30 | EKG12_ITS ---
Test Reason : CP Blood Pressure : / mmHG Vent. Rate : 103 BPM Atrial Rate : 103 BPM P-R Int : 164 ms QRS Dur : 100 ms QT Int : 364 ms P-R-T Axes : 055 016 080 degrees QTc Int : 476 ms Sinus tachycardia Possible Inferior infarct (cited on or before 21-FEB-2018) Anterolateral infarct (cited on or before 21-FEB-2018) Abnormal ECG Confirmed by HOLLIE KAT ([id number]), story editor KIKO ANDINO ([id number]) on 10/01/2019 2:16:09 PM Referred By: Judi Beranl Confirmed By:HOLLIE KAT
--- NOTE | 2019-09-26 19:40 | ED.DCSUM_ITS ---
History of Present Illness Chief Complaint: Chest Pain Informant: Patient Narrative: Patient is a 69-year-old male with a history of ALS and hyperlipidemia who presents to the emergency department for substernal chest pain. He describes as a burning sensation. He believes that this is his acid reflux. He states that burping does relieve the symptoms. He has had this many times before in the past. Last time was on Tuesday that he treats at home with Maalox. Today the Maalox was not helping. He denies any history of heart attacks, strokes or DVT/PE. No shortness of breath associated with this. No cough, cold, congestion. No fevers or chills. No radiation of the pain into his back. He does have some symptoms into his arms bilaterally which is typical for his reflux. He denies any abdominal pain or nausea/vomiting. No change in bowel habits. He does have a chronic indwelling Alex catheter. He does have discoloration of his toes bilaterally as they are purple. He states he is going to follow-up with a vascular surgeon for this on the of this month. He is on Eliquis as well as a baby aspirin daily. Upon reviewing his medical records he does have a documented history of thoracic aortic aneurysm. Past Medical History - Allergies and Home Meds Allergies/Adverse Reactions: Allergies No Known Allergies Allergy (Verified 09/26/19 19:21) Primary Care Physician: Nicho Sanderson MD [Primary Care Provider] - Surgical History: no surgical history Smoking Status: Former smoker Alcohol: None Drugs: None - Family History Sibling Family History: Family History (Last Updated 10/31/18 @ 14:21 by Roula Parrish) Father No problems noted. Family History: Reports: Heart Disease Maternal Family History: Family History (Last Updated 10/31/18 @ 14:21 by Roula Parrish) Father No problems noted. Family History: Reports: Heart Disease Review of Systems All systems negative except as indicated General: Denies: Chills, Fever, Sweats Eyes: Denies: Visual changes - bilaterally, Diplopia ENT: Denies: Rhinorrhea, Sore throat Cardiovascular: Reports: Chest pain. Denies: Palpitations Respiratory: Denies: Dyspnea, Cough, Dyspnea on exertion Gastrointestinal: Denies: Abdominal pain, Nausea, Vomiting, Diarrhea, Melena Genitourinary: Denies: Dysuria, Hematuria, Frequency Musculoskeletal: Denies: Back pain, Extremity Pain Skin: Denies: Rash, Wounds Neurological: Reports: Weakness. Denies: Headache, Numbness Physical Exam Vital Signs/Narrative: Vital Signs Temp Pulse Resp BP Pulse Ox 09/26/19 19:00 98.7 F 106 H 20 H 148/108 H 96 Inital Vital Signs reviewed: Yes General: No Acute Distress, - - Has generalized weakness and difficulty speaking with the ALS history. Currently at baseline. Head: Normocephalic, Atraumatic Eyes: Perrl, EOMI ENT: Moist mucous membranes Neck: Supple Cardiovascular: Regular rate, Regular rhythm, No murmurs Respiratory: No distress, CTA bilaterally, Chest nontender Abdomen: Soft, Nontender, Nondistended Back: Nontender Extremities: Edema - 1+ bilateral pitting edema. Negative for: Calf Tenderness Skin: - - Toes have a purplish discoloration bilaterally. He states that this is chronic for him. Neurological: Alert, Oriented x3 Psychological: Normal affect, Normal Mood Diagnostic/Tx/Re-eval - EKG Initial EKG Interpretation: - - Rate of 103 bpm in sinus tachycardia. Normal intervals. Normal axis. He does have some flattening T waves and mild ST depressions in the anterior leads. No reciprocal changes. No ST elevations. Prior EKG for comparison was performed on October 01, 2018. There were some ST depressions in the anterior leads but the T waves were not flattened at that time. - Medical Decision Making Patient presents emerge department for chest pain. This has been going on for the past week but recently flared up an hour and a half prior to arrival in the ED. He had some elevated blood pressure readings at the detention. He was sent in for evaluation. Upon arrival he states his pain has currently resolved. It is substernal and I do believe that this is his GERD. He does have history of thoracic aortic aneurysm. Is bedbound but on Eliquis. Will check basic lab work. Basic lab work obtained. He does have a very mild elevation in his troponin. Given the fact has been having this chest pain intermittently will bring into the hospital for further evaluation and management. He is given a dose of aspirin. He has been relatively asymptomatic throughout ED stay. Given the thoracic aneurysm we did do a CT scan of the chest. This did show a stable thoracic aortic aneurysm. Patient understands and is agreeable with this plan. Will bring to the hospital this time. ED Disposition - Plan for ED Patient: Disposition: Acute Care Hospital [facility] Diagnosis: Chest pain, Elevated troponin Referrals: Nicho Sanderson MD [Primary Care Provider] -
--- NOTE | 2019-09-26 19:43 | RAD_ITS ---
STUDY: X-RAY CHEST REASON FOR EXAM: Male, 69 years old. CHEST PAIN. HX OF ACID REFLUX TECHNIQUE: 1 view COMPARISON: Prior chest radiograph 10/01/2018 FINDINGS: The lungs are clear and expanded. There is no demonstrated pleural abnormality. Normal size heart. Normal mediastinum and yvonne. Normal visualized pulmonary arteries. There is atherosclerotic calcification of the aortic arch with tortuosity. Normal visualized thoracic spine. Normal visualized ribs, clavicles, and shoulders. There is no demonstrated abnormality of the visualized soft tissue structures of the upper abdomen. RAD/Chest 1 View (Portable) IMPRESSION: No acute cardiopulmonary findings or changes. Negative for new consolidation, focal atelectasis, cardiomegaly or pleural effusion. Atherosclerotic changes of the aorta. Electronically Signed: Fabiana Delgadillo MD at 19:54 EDT , Service support ,
--- NOTE | 2019-09-26 19:44 | CT_ITS ---
STUDY: CTA CHEST REASON FOR EXAM: Male, 69 years old. BURNING CP STARTED 1 HR SHOT LIGHTER. GETS BETTER WHEN HE BURPS. H/O TAA, AAA. H/O ACID REFLUX. RADIATION DOSAGE (If Supplied By Facility): CTDIvol = ( 15.035 ) mGy, DLP = ( 691.13 ) mGycm TECHNIQUE: The examination was performed with the intravenous administration of IV 100mL Isovue-370. Post-processing of the angiographic images was performed, with multiplanar reformation and 3D reconstruction. Individualized dose optimization techniques were used for this CT. COMPARISON: Chest radiograph of 09/26/2019. Prior chest CT exam of 10/01/2018 FINDINGS: Normal enhancement of the main pulmonary artery and right and left pulmonary arteries. Normal enhancement of the bilateral peripheral pulmonary arteries. There is no demonstrated pulmonary embolism. Ectatic thoracic aorta. Ascending diameter 3.9 cm. Mid arch 3.5 cm. Proximal descending aorta 3.6 cm. Aorta at the diaphragm 3.3 cm. These measurements similar to the prior exam. Negative for acute dissection. Ectatic proximal segment of the left subclavian artery with a mild stenosis following the static segment not substantially changed from the prior exam. Normal cardiac size without pericardial effusion. Coronary calcifications. Normal mediastinum. Normal hilar regions. Normal visualized trachea and bronchi. The lungs are well expanded. Negative for consolidation, infiltrates or atelectasis. Normal pleura. There are no pleural effusions. Normal chest wall structures. Mild degenerative changes of the thoracic spine. Negative for hiatal hernia. No acute findings in the uppermost abdomen. Stable cyst upper pole left kidney. CT/CTA Chest W/WO Contrast IMPRESSION: Negative for pulmonary embolus. Atheromatous plaque and elongation of the thoracic aorta with generalized ectasia. Ascending aortic diameter is 3.9 cm, mid arch diameter 3.5 cm and proximal descending aorta 3.6 cm. Aorta at the diaphragm 3.3 cm. These measurements stable from prior exam. Negative for dissection. 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 Normal cardiac size. Moderate left coronary calcifications. No acute pulmonary findings. Negative for consolidation, focal atelectasis or pleural effusion. Negative for hiatal hernia or any discernible abnormality of the esophagus. Negative for acute findings in the upper abdomen. Stable cyst upper pole left kidney from prior exam of 02/21/2018. No further imaging recommendations. Electronically Signed: Fabiana Delgadillo MD at 21:33 EDT , Service support ,
[2019-09-26 19:47] LABS: Absolute Lymphocyte Count 1.85 X10^3/uL (0.83-4.51); Absolute Neutrophil Count 5.4 X10^3/uL (2.0-7.7); Basophil# 0.06 X10^3/uL; Basophil% 0.7 % (0-1); Eosinophil# 0.69 X10^3/uL; Eosinophils% 7.9 % (0-5); Hemoglobin 12.6 g/dL (13.0-16.5); Lymphocyte # 1.85 X10^3/ul (4.0); Lymphocyte % 21.1 % (19-41); Mean Corp Hgb Conc 32.3 g/dL (32-36); Mean Corpuscular Hgb 29.9 pg (27.0-32.0); Mean Corpuscular Volume 92.6 fL (80-94); Monocyte# 0.74 X10^3/uL; Monocyte% 8.4 % (0-10); NRBC Flagged by Analyzer 0 % (0-5); Neutrophil # 5.39 X10^3/uL (2.7-7.7); Neutrophil % 61.4 % (47-70); Platelet Count 251 K/mm3 (150-450); RBC Distribution Width CV 12.6 % (11.6-14.6); RBC Distribution Width SD 42.6 fl (35.1-43.9); Red Blood Count 4.21 M/mm3 (4.6-6.2); White Blood Count 8.8 K/mm3 (4.4-11.0)
[2019-09-26 20:01] LABS: Anion Gap 4 (5-15); BUN 27 mg/dL (7-18); BUN/Creat Ratio 23.1 RATIO (10-20); Calcium,Total 8.9 mg/dL (8.5-10.1); Chloride 102 mmol/L (98-107); Creatinine, Serum 1.17 mg/dL (0.70-1.30); EST Glomerular Filtration Rate 66 mL/min (>60); Est Glom Filt Rate - Afr Amer 79 mL/min (>60); Estimated Creatinine Clearance 69.28 ml/min; Glucose 143 mg/dL (74-106); Magnesium 2.6 mg/dL (1.6-2.6); Potassium 4.3 mmol/L (3.5-5.1); Sodium Level 137 mmol/L (136-145)
[2019-09-26] MEDS: Mag Hydrox/Al Hydrox/Simeth 30 ML UDC PO (20:10)
--- NOTE | 2019-09-26 20:51 | ED.RN ---
Patient requesting his suprapubic catheter be changed. This nurse attempted to flush without success. Dr Lacey notified.
--- NOTE | 2019-09-26 21:51 | HP.PCM_ITS ---
Problem List (1) Chest pain Status: Acute Qualifiers: Chest pain type: unspecified Qualified Code(s): R07.9 - Chest pain, unspecified (2) Abdominal aortic aneurysm (AAA) Status: Chronic Qualifiers: Presence of rupture: without rupture Qualified Code(s): I71.4 - Abdominal aortic aneurysm, without rupture (3) Benign essential hypertension Status: Chronic (4) History of hyperlipidemia Status: Chronic (5) Schizoaffective disorder Status: Chronic Qualifiers: Schizoaffective disorder type: unspecified Qualified Code(s): F25.9 - Schizoaffective disorder, unspecified (6) Tobacco user Status: Chronic (7) Urinary retention Status: Chronic (8) Chronic anemia Status: Chronic History of Present Illness Date of Admission: 09/26/19 Chief Complaint: Chest pain The patient is a 69 y/o M from [facility] w/ PMHx: Obesity, Chronic anemia, Chronic dysphagia, Tobacco use history, HTN, HLD, GERD, Known thoracic aortic aneurysm, Schizoaffective disorder, Amyotrophic Lateral Sclerosis who presents to the [facility] ED on 09/26/19 with history of ongoing chest pain over the last week, midsternal, described as a burning sensation rated 2-3 out of 10 in severity when occurring, usually occurring at night following his meals he notes and lasting approximately 3 hours, worse when he attempts to lay flat with no radiation, nausea, emesis or dyspnea. He does have dyspepsia commonly and normally takes Maalox at the facility however this was not working for him therefore staff was concerned prompting eventual ED presentation. In the ED currently patient denies any significant chest discomfort at this time. Work-up in the ED included T 98.7, heart rate 106, BP 148/108, respiratory rate 20, 96% on room air, CBC with WBC 8.8, hemoglobin 12.6, platelet 251 with no left shift with noted increased eosinophils, BMP with BUN/creatinine 27/1.17, glucose 143, magnesium 2.6, troponin 0 0.051, chest x-ray with no acute cardiopulmonary findings with atherosclerotic changes of the aorta, follow-up CTPA with no evidence of pulmonary embolism with a stable appearing atheromatous plaque and elongation of the thoracic aorta with generalized ectasia with an ascending aortic diameter of 3.9 cm, mid arch diameter 3.5 cm and proximal descending aorta 3.6 cm with the aorta at the diaphragm noted to be 3.3 cm with no evidence of dissection, generalized ectasia of the proximal segment of the left subclavian artery followed by a short segment of moderate stenosis unchanged from prior, EKG was sinus tachycardia with nonspecific changes with no acute evidence of ischemia. In ED patient ministered GI cocktail, aspirin therapy 325 mg p.o. x1. Past Medical History Past Medical History (Chronic Problems): Chronic Problems (Last Updated 10/31/18 @ 14:21 by Roula Parrish) Abdominal aortic aneurysm (AAA) (Chronic) Benign essential hypertension (Chronic) History of hyperlipidemia (Chronic) Schizoaffective disorder (Chronic) Tobacco user (Chronic) GERD (gastroesophageal reflux disease) (Chronic) Speech abnormality (Chronic) Dysphagia (Chronic) Urinary retention (Chronic) Chronic anemia (Chronic) Medical History: Medical History (Last Updated 10/31/18 @ 14:21 by Roula Parrish) Abdominal aortic aneurysm (AAA) (Acute) I71.4 Thoracic aortic aneurysm (Acute) I71.2 Benign essential hypertension (Chronic) I10 History of hyperlipidemia (Chronic) Z86.39 Tobacco user (Chronic) Z72.0 GERD (gastroesophageal reflux disease) (Chronic) K21.9 Speech abnormality (Chronic) Septic shock (Acute) A41.9, R65.21 ELO (acute kidney injury) (Acute) N17.9 Dysphagia (Chronic) R13.10 Urinary retention (Chronic) R33.9 Chronic anemia (Chronic) D64.9 ALS (amyotrophic lateral sclerosis) G12.21 Family history unknown Z78.9 Schizoaffective disorder F25.9 Allergies No Known Allergies Allergy (Verified 09/26/19 19:21) Home Medications: Ambulatory Orders Medication Instructions Recorded Meloxicam [Mobic] 15 mg PO DAILY 12/08/16 Atorvastatin Calcium [Lipitor] 80 mg PO QHS 12/11/16 Omeprazole [Prilosec] 20 mg PO TID 08/21/17 Tamsulosin HCl [Flomax] 0.8 mg PO DAILY 08/21/17 Acetaminophen 650 mg PO Q4H PRN PRN 02/21/18 Amitriptyline HCl 10 mg PO DAILY 02/21/18 Melatonin 3 mg PO QHS 02/21/18 Polyethylene Glycol 3350 [Miralax] 17 gm PO DAILY 02/21/18 Riluzole 50 mg PO BID 02/21/18 Selenium Sulfide/Aloe Vera [Selsun 1 applic TP SUTUTH 02/21/18 Blue Moist 1% Shampoo] Cholecalciferol (Vitamin D3) 2,000 unit PO DAILY 05/23/18 [Vitamin D3] Magnesium Hydroxide [Milk Of 30 ml PO DAILY PRN 05/23/18 Magnesia] Oxycodone HCl 5 mg PO DAILY 05/23/18 Apixaban [Eliquis] 5 mg PO BID #74 tab 08/03/18 Aspirin E.C. [Ecotrin] 81 mg PO DAILY 08/03/18 Cyanocobalamin (Vitamin B-12) 1,000 mcg PO DAILY 08/03/18 [B-12] Metoprolol Tartrate [Lopressor 12.5 mg PO BID 08/03/18 (beta gayatri)] bisacodyl 10 mg rectal suppository 10 mg RC DAILY PRN 10/31/18 buspirone 10 mg tablet 10 mg PO BID 10/31/18 Surgical History: Surgical History (Last Updated 10/31/18 @ 14:21 by Roula Parrish) Surgical history unknown Z78.9 Surgical History: - - Ureteral stricture interventions, eventual bladder resection, suprapubic catheter, tonsillectomy. Psychiatric History: No pertinent psych hx Lives: Long Term Smoking Status: Former smoker - Patient quit cigarette tobacco usage 3 years prior to current presentation with prior to this 2 pack/day since 1955. Alcohol: None Drugs: None - *Family History Sibling Family History: Family History (Last Updated 10/31/18 @ 14:21 by Roula Parrish) Father No problems noted. History Items: Diabetes, Heart Disease Maternal Family History: Family History (Last Updated 10/31/18 @ 14:21 by Roula Parrish) Father No problems noted. History Items: Diabetes, Heart Disease Review of Systems Constitutional: Reports: Weakness, Fatigue. Denies: Anorexia, Chills, Fever, Malaise, Weight Change HEENT: Denies: Head Aches, Sinus Congestion, Sinus Drainage Cardiovascular: Reports: Chest Pain. Denies: Chest Pressure, Chest Tightness, Light Headedness, Orthopnea, Palpitations, Syncope Respiratory: Denies: Cough, Shortness of Breath, Shortness of breath at rest, Shortness of breath upon exertion, Sputum production Gastrointestinal: Reports: Dyspepsia. Denies: Abdominal Pain, Nausea, Vomiting Genitourinary: Denies: Dysuria Musculoskeletal: Reports: Back Pain, Joint Pain. Denies: Joint Tenderness Skin: Denies: Rash, Wounds Neurological: Reports: Slurred speech - Altered speech with history of ALS., Focal weakness - History of ALS.. Denies: Numbness, Tingling Psychiatric: Reports: - - Schizoaffective disorder.. Denies: Anxiety, Depression, Homicidal Ideations, Suicidal Ideations Hematologic/ Lymphatic: Reports: Anemia, Easy Bruising, Easy Bleeding VTE Information - Inpt Only VTE Present on Admission: No VTE Mechan Device Prophylaxis: SCD's VTE Pharm Prophylaxis ordered?: No Reason prophylaxis not ordered:: Treatment Not Indicated - We will continue patient's home oral anticoagulant therapy. Patient Problems: Active and Suspected Problems (Last Updated 10/31/18 @ 14:21 by Roula Parrish) Chest pain (Acute) Subjective: Patient seated upright in the ED bed, mildly fatigued appearance, denies any chest discomfort at this time, significant speech alterations secondary to underlying ALS, profound generalized weakness. Objective: Physical Examination: General: awake, alert, oriented x 3 and cooperative, seated upright in the ED bed, denies any current chest pain, chronic altered speech secondary to weakness with ALS. Skin: normal color, turgor, no icterus, cyanosis, notable bilateral lower extremity stasis changes especially bilateral feet. HEENT: AT/NC, EOMI, PERRLA, MMM, poor dentition, no carotid bruits or JVD noted. Lungs: CTA bilaterally, moderate effort, moderate decrease BL bases, no rales, ronchi or wheezing. Heart: Mildly tachycardic with regular rhythm; no gallop, rub audible. Abdomen: soft, obese, NTTP, ND, normal BS, no HSM. Extremities: no cyanosis, clubbing, see skin, notable bilateral foot changes, pedal to proximal talbert 2+ edema which patient notes is chronic. Neurological: patient awake, alert, oriented x 3; cognitive function intact; pupils equally reactive to light and accomodation; cranial nerves II-XII grossly normal, moving all 4 extremities but extremely limited given underlying ALS with significant profound severe diffuse weakness. Psychiatric: affect appears flat, no acute evidence of depressive or anxiety feelings. - Physical Exam Vitals/I&O's: Vital Signs Temp Pulse Resp BP Pulse Ox 98.7 F 106 H 20 H 148/108 H 96 09/26/19 19:00 09/26/19 19:00 09/26/19 19:00 09/26/19 19:00 09/26/19 19:00 Oxygen Delivery Method Room Air Weight: 240 lb 15.444 oz Body Mass Index (BMI) 30.9 Laboratory Results 09/26/19 19:15: WBC 8.8, RBC 4.21 L, Hgb 12.6 L, Hct 39.0 L, MCV 92.6, MCH 29.9, MCHC 32.3, RDW Std Deviation 42.6, RDW Coeff of Cezar 12.6, Plt Count 251, MPV 10.0, Immature Gran % (Auto) 0.500, Neut % (Auto) 61.4, Lymph % (Auto) 21.1, Jenkins % (Auto) 8.4, Eos % (Auto) 7.9 H, Baso % (Auto) 0.7, Absolute Neuts (auto) 5.4, Absolute Lymphs (auto) 1.85, Nucleated RBC % 0 09/26/19 19:15: Sodium 137, Potassium 4.3, Chloride 102, Carbon Dioxide 31.0, Anion Gap 4 L, BUN 27 H, Creatinine 1.17, Estim Creat Clear Calc 69.28, Est GFR (MDRD) Af Amer 79, Est GFR (MDRD) Non-Af 66, BUN/Creatinine Ratio 23.1 H, Glucose 143 H, Calcium 8.9, Magnesium 2.6, Troponin I 0.051 H Assessment/Plan All Active Problems (Last Updated 10/31/18 @ 14:21 by Roula Parrish) Chest pain (Acute) Thoracic aortic aneurysm (Acute) Septic shock (Acute) UTI (urinary tract infection) (Acute) ELO (acute kidney injury) (Acute) Sepsis (Acute) Bacteremia (Acute) The patient is a 69 y/o M from [facility] w/ PMHx: Obesity, Chronic anemia, Chronic dysphagia, Tobacco use history, HTN, HLD, GERD, Known thoracic aortic aneurysm, Schizoaffective disorder, Amyotrophic Lateral Sclerosis who presents to the [facility] ED on 09/26/19 with history of ongoing chest pain over the last week, midsternal, described as a burning sensation rated 2-3 out of 10 in severity when occurring, usually occurring at night following his meals he notes and lasting approximately 3 hours, worse when he attempts to lay flat with no radiation, nausea, emesis or dyspnea not improving. 1. Chest Pain w/ indeterminate cardiac enzyme: Suspect patient's presentation is likely reflux thus will continue dyspepsia medications and patient's Prilosec however to be cautious given underlying history and indeterminate enzyme plan further evaluation. EKG with sinus tachycardia, mild with nonspecific ST changes without acute evidence of ischemia, troponin 0 0.051, chest x-ray with no acute cardiopulmonary findings with atherosclerotic changes of the aorta, follow-up CTPA with no evidence of pulmonary embolism with a stable appearing atheromatous plaque and elongation of the thoracic aorta with generalized ectasia with an ascending aortic diameter of 3.9 cm, mid arch diameter 3.5 cm and proximal descending aorta 3.6 cm with the aorta at the diaphragm noted to be 3.3 cm with no evidence of dissection, generalized ectasia of the proximal segment of the left subclavian artery followed by a short segment of moderate st enosis unchanged from prior. Will admit to PCU, place on a monitored bed to assure no acute myocardial infarction with serial cardiac enzymes and EKGs. Given debility, if unremarkable cardiac enzymes series and repeat EKG will do a.m. nuclear cardiac stress testing. FLP in AM. ASA, NG, morphine. 2. Known thoracic aortic aneurysm: CTPA with no evidence of pulmonary embolism with a stable appearing atheromatous plaque and elongation of the thoracic aorta with generalized ectasia with an ascending aortic diameter of 3.9 cm, mid arch diameter 3.5 cm and proximal descending aorta 3.6 cm with the aorta at the diaphragm noted to be 3.3 cm with no evidence of dissection, generalized ectasia of the proximal segment of the left subclavian artery followed by a short segment of moderate stenosis unchanged from prior. Following with Dr. Davis, last visit noted 10/31/2018. Continue aspirin, Eliquis, statin therapy, hypertensive regimen. 3. Hyperglycemia: Admission glucose 143, hemoglobin A1c requested. 4. Hypertension: Continue home regimen including metoprolol with hold parameters, PRN hydralazine. 5. Hyperlipidemia: Continue home statin regimen. AM FLP. 6. Amyotrophic Lateral Sclerosis: Significant speech alterations, chronic suprapubic love catheter, denies diet alterations, will maintain on fall precautions, positional changes as needed, head of bed, continue home Riluzole regimen. Given observation mission will defer PT, OT, speech therapy evaluations but would plan to order if continued staying necessitated. 7. History of Dysphagia: Prior evaluations per ST noted. Denies having any altered diet currently. 8. Chronic normocytic anemia: Admission hemoglobin 12.6, prior 10-13, stable, trend. 9. History of tobacco use: Encourage continued tobacco cessation. 10. Obesity: Weight loss and lifestyle changes encouraged. 11. BPH with history of ureteral strictures as well as flaccid neuropathic bladder: We will continue patient home Flomax regimen, status post bladder resection with suprapubic catheter. 12. GERD: We will continue patient home Prilosec regimen. 13. DVT prophylaxis: SCDs, continue patient home Eliquis regimen (denies having history of prior DVT and does not recall why he specifically on anticoagulant therapy). 14. CODE status: Despite significant comorbidities patient does not have a healthcare power of ip technology transactions attorney nor living will. Discussed the importance of setting these up and noted that he could discuss this with case management or social work while here if interested. Discussed CODE status at length including difference between FULL code, DNR-CCA and DNR-CC status. Following discussions about the differences in these status, requested full CODE STATUS. Advanced Care Planning Face to Face Time: 16 minutes. OBSV E&M: 92867 Initial observation care L3 Procedures: 10920 Advncd Care Plan 30 Min
--- NOTE | 2019-09-26 22:07 | ED.RN ---
SPOKE WITH RN FROM [facility] AND GAVE HER PT CARE UPDATE. INFORMED HER HE WOULD BE ADMITTED TO THE HOSPITAL THIS EVENING. SHE VERBALIZES UNDERSTANDING AND STATES [facility] WILL CALL THE FLOOR HE IS ADMITTED TO IN THE MORNING FOR FURTHER UPDATES
[2019-09-26] MEDS: Aspirin 325 MG Tablet PO (22:15)
[2019-09-26 22:24] VITALS: BP 157/112; PULSE 102; RESP 20; TEMP 37.1; O2SAT 96
--- NOTE | 2019-09-26 23:13 | EKG12_ITS ---
Test Reason : CP ADMISSION Blood Pressure : / mmHG Vent. Rate : 107 BPM Atrial Rate : 107 BPM P-R Int : 158 ms QRS Dur : 098 ms QT Int : 362 ms P-R-T Axes : 049 035 064 degrees QTc Int : 483 ms Sinus tachycardia Anterolateral infarct , age undetermined Abnormal ECG When compared with ECG of 26-SEP-2019 19:09, MANUAL COMPARISON REQUIRED, DATA IS UNCONFIRMED Confirmed by HOLLIE KAT ([id number]), book or script editor KIKO ANDINO ([id number]) on 10/01/2019 2:25:11 PM Referred By: Judi Bernal Confirmed By:HOLLIE KAT
[2019-09-26 23:17] VITALS: BMI 30.2
[2019-09-26 23:23] VITALS: BP 146/102; PULSE 109; RESP 18; TEMP 36.5; O2SAT 97
[2019-09-26 23:28] VITALS: BMI 30.3
[2019-09-26 23:39] VITALS: RESP 24; O2SAT 95
[2019-09-26 23:46] VITALS: PULSE 106
[2019-09-27] VITALS (14 sets, daily range): BP systolic 106–156; BP diastolic 66–95; PULSE 72–104; RESP 14–18; TEMP 36.4–37; O2SAT 92–96
[2019-09-27] LABS: Hemoglobin A1c 5.3 % (3.8-5.6)
--- NOTE | 2019-09-27 00:24 | ECHOCS_ITS ---
Reason For Study: Arrhythmia Procedure This was a 2D Doppler, Color Flow transthoracic echocardiogram. The study was technically difficult. Patient scanned supine. Exam performed in department. Left Ventricle Normal size and thickness. The estimated ejection fraction is 55 %. Stage 1 diastolic dysfunction. There are regional wall motion abnormalities as specified. Mid-Anterior : Hypokinetic. Mid- anteroseptal : Mildly hypokinetic. Right Ventricle Normal size and thickness. Normal systolic function. Atria Normal left atrium. Normal right atrium. Mitral Valve The mitral valve is structurally normal. No prolapse or stenosis seen. Tricuspid Valve Normal tricuspid valve. Unable to estimate RV systolic pressure due to insufficient tricuspid regurgitant envelope. Aortic Valve Trisinus/trileaflet aortic valve. Mild diffuse aortic valve thickening. There is no aortic stenosis. Pulmonic Valve The pulmonic valve is not well visualized. Great Vessels Normal aortic root. Mild atherosclerosis of the aortic arch. Normal inferior vena cava. Inferior vena cava collapse with sniff. Pericardium/Pleural No pericardial effusion. Medication Diluted definity 2.5ml given slow IV push to enhance endocardial definition. MMode/2D Measurements & Calculations RVDd: 3.3 cm Ao root diam: 4.0 cm LA dimension(2D): 3.6 cm Doppler Measurements & Calculations MV E max elvis: 63.8 cm/sec Lat Peak E' Elvis: 9.5 cm/sec Med Peak E' Elvis: 4.5 cm/sec E/E' lat: 6.7 E/E' med: 14.1 Ao V2 max: 157.1 cm/sec LV V1 max: 121.1 cm/sec PA V2 max: 111.1 cm/sec Ao max P.9 mmHg LV V1 max P.9 mmHg Interpretation Summary The estimated ejection fraction is 55 %. Stage 1 diastolic dysfunction. There are regional wall motion abnormalities as specified. Mid-anteroseptal : Mildly hypokinetic Mid-Anterior : Hypokinetic Unable to estimate RV systolic pressure due to insufficient tricuspid regurgitant envelope. Compared to echo report dated 02/24/2018, LV function has mildly decreased from 65% to 55% with what appears to be new mid anteroseptal hypokinesis. The study was technically difficult. Contrast injection was performed. Ordering Physician: Judi Bernal Referring Physician: Nicho Sanderson Performed By: Kate Crisostomo RDCS
[2019-09-27] MEDS: CLARIFY ORDER 1 EACH NOTE (00:35)
[2019-09-27] MEDS: Enoxaparin 100 MG/ML Syringe SC ×3 (01:00→17:11)
[2019-09-27] MEDS: Clopidogrel Bisulfate 300 MG Tablet PO (01:00)
[2019-09-27] MEDS: Pantoprazole Sodium 20 MG Tablet PO ×3 (05:23→21:25)
[2019-09-27 05:41] LABS: Absolute Lymphocyte Count 1.67 X10^3/uL (0.83-4.51); Absolute Neutrophil Count 5.9 X10^3/uL (2.0-7.7); Basophil# 0.07 X10^3/uL; Basophil% 0.8 % (0-1); Eosinophil# 0.53 X10^3/uL; Eosinophils% 5.9 % (0-5); Hemoglobin 11.8 g/dL (13.0-16.5); Lymphocyte # 1.67 X10^3/ul (4.0); Lymphocyte % 18.7 % (19-41); Mean Corp Hgb Conc 31.9 g/dL (32-36); Mean Corpuscular Hgb 29.1 pg (27.0-32.0); Mean Corpuscular Volume 91.4 fL (80-94); Mean Platelet Vol. 9.7 fl (6.2-12.0); Monocyte% 8.9 % (0-10); NRBC Flagged by Analyzer 0 % (0-5); Neutrophil # 5.85 X10^3/uL (2.7-7.7); Neutrophil % 65.4 % (47-70); Platelet Count 265 K/mm3 (150-450); RBC Distribution Width CV 12.5 % (11.6-14.6); RBC Distribution Width SD 41.3 fl (35.1-43.9); Red Blood Count 4.05 M/mm3 (4.6-6.2)
[2019-09-27 06:21] LABS: International Normalized Ratio 1.3; Prothrombin Time (Protime)PT. 15.6 SECONDS (11.7-14.9)
[2019-09-27 06:22] LABS: Partial Thromboplast Time 36.8 Seconds (24.1-36.2)
[2019-09-27 06:26] LABS: ALB/GLOB Ratio 0.8 RATIO (0.9-2.4); AST(SGOT) 35 U/L (15-37); Alanine Aminotransfer ALT/SGPT 21 U/L (16-61); Albumin, Serum 3.1 g/dL (3.2-5.0); Alkaline Phosphatase 78 U/L (45-117); Anion Gap 5 (5-15); BUN 22 mg/dL (7-18); Calcium,Total 8.5 mg/dL (8.5-10.1); Chloride 103 mmol/L (98-107); Cholesterol 100 mg/dL (200); EST Glomerular Filtration Rate 79 mL/min (>60); Est Glom Filt Rate - Afr Amer 95 mL/min (>60); Estimated Creatinine Clearance 81.06 ml/min; Globulin 3.9 g/dL (2.2-4.2); Glucose 93 mg/dL (74-106); High Density Lipoprotein 24 mg/dL; Potassium 3.8 mmol/L (3.5-5.1); Sodium Level 137 mmol/L (136-145); Triglycerides 112 mg/dL; Very Low Density Lipoprotein 22 mg/dL (5-40)
--- NOTE | 2019-09-27 08:55 | CON.PCM_ITS ---
Problem List (1) Chest pain Status: Acute (2) Elevated troponin Status: Acute (3) Thoracic aortic aneurysm Status: Acute Qualifiers: Presence of rupture: without rupture Qualified Code(s): I71.2 - Thoracic aortic aneurysm, without rupture (4) History of hyperlipidemia Status: Chronic Reason for Consult Date of Consultation: 09/27/19 Reason for Consultation: Unstable angina, chest pain, non-STEMI, hypertension, hypercholesterolemia, thoracic aneurysm History of Present Illness: The patient is a 69 year old M, nondiabetic, with ALS diagnosed about 3 years ago, former smoker who quit about 3 years ago after a [id number] smoking history, strong positive family history of coronary disease in both his twin brother who of a myocardial infarction, as well as his mother and father who from myocardial infarction. In addition the patient has a history of schizoaffective disorder and mildly dilated ascending aortic ectasia. Patient is on chronic Eliquis therapy for history of DVT, and his ALS. The patient states that he has had a cardiac catheterization around [address] Sosa here at [facility] but I am unable to review those films. According to the patient he did not require stents or bypass surgery. Patient was in normal health up until the last few weeks or so when he is developed progressively worsening substernal chest pain relieved with burping and Maalox. When his chest pain returned and the Maalox did not resolve it, he sought medical attention at [facility] ER. In the emergency room he underwent an EKG which demonstrated normal sinus rhythm/sinus tachycardia, no acute changes. His initial troponin was 0.05, then increased to 0.6, and now increased to 5.3. He is remained chest pain-free overnight. Telemetry has been negative. Patient is unable to walk. In addition the patient has purple discoloration of his toes, which preceded his ER visit Patient had a stress test in 2017 which was negative for inducible ischemia. He also had an echocardiogram in 2019 as follows: Based upon the 2D echocardiographic and contrast enhanced images obtained there appears to be grossly normal left ventricular size, wall motion, and systolic function. The estimated ejection fraction is 55 %. Trivial tricuspid valve insufficiency. Right ventricular systolic pressure estimated to be 26 mmHg. No evidence for diastolic dysfunction.] Past Medical History Allergies/Adverse Reactions: Allergies No Known Allergies Allergy (Verified 09/26/19 19:21) Home Medications: Ambulatory Orders Medication Instructions Recorded Meloxicam [Mobic] 15 mg PO DAILY 12/08/16 Atorvastatin Calcium [Lipitor] 80 mg PO QHS 12/11/16 Omeprazole [Prilosec] 20 mg PO TID 08/21/17 Tamsulosin HCl [Flomax] 0.8 mg PO DAILY 08/21/17 Acetaminophen 650 mg PO Q4H PRN PRN 02/21/18 Amitriptyline HCl 10 mg PO DAILY 02/21/18 Melatonin 3 mg PO QHS 02/21/18 Polyethylene Glycol 3350 [Miralax] 17 gm PO DAILY 02/21/18 Riluzole 50 mg PO BID 02/21/18 Selenium Sulfide/Aloe Vera [Selsun 1 applic TP [place] 02/21/18 Blue Moist 1% Shampoo] Cholecalciferol (Vitamin D3) 2,000 unit PO DAILY 05/23/18 [Vitamin D3] Magnesium Hydroxide [Milk Of 30 ml PO DAILY PRN 05/23/18 Magnesia] Oxycodone HCl 5 mg PO DAILY 05/23/18 Apixaban [Eliquis] 5 mg PO BID #74 tab 08/03/18 Aspirin E.C. [Ecotrin] 81 mg PO DAILY 08/03/18 Cyanocobalamin (Vitamin B-12) 1,000 mcg PO DAILY 08/03/18 [B-12] Metoprolol Tartrate [Lopressor 12.5 mg PO BID 08/03/18 (beta gayatri)] bisacodyl 10 mg rectal suppository 10 mg RC DAILY PRN 10/31/18 buspirone 10 mg tablet 10 mg PO BID 10/31/18 Past Medical History (Chronic Problems): Chronic Problems (Last Updated 10/31/18 @ 14:21 by Roula Parrish) Abdominal aortic aneurysm (AAA) (Chronic) Benign essential hypertension (Chronic) History of hyperlipidemia (Chronic) Schizoaffective disorder (Chronic) Tobacco user (Chronic) GERD (gastroesophageal reflux disease) (Chronic) Speech abnormality (Chronic) Dysphagia (Chronic) Urinary retention (Chronic) Chronic anemia (Chronic) Surgical History: - - Ureteral stricture interventions, eventual bladder resection, suprapubic catheter, tonsillectomy. Psychiatric History: No pertinent psych hx - *Family History Sibling Family History: Family History (Last Updated 10/31/18 @ 14:21 by Roula Parrish) Father No problems noted. History Items: Diabetes, Heart Disease Maternal Family History: Family History (Last Updated 10/31/18 @ 14:21 by Roula Parrish) Father No problems noted. History Items: Diabetes, Heart Disease Lives: [facility] Smoking Status: Former smoker Alcohol: None Drugs: None Review of Systems - Review of Systems General: Denies: Fever, Night Sweats, Fatigue Cardiovascular: Reports: Chest Discomfort, Chest Discomfort at Rest. Denies: Shortness of Breath, Orthopnea, PND, Peripheral Edema, Palpitations, Lightheadedness, Dizziness, Near Syncope, Syncope Respiratory: Denies: Cough, Sputum Production, Hemoptysis Gastrointestinal: Denies: Hematemesis, Hematochezia, Melena Genitourinary: Denies: Dysuria, Hematuria Skin: Denies: Rash Subjectve: Patient resting comfortably, no acute distress. Speech is somewhat slow due to his schizoaffective disorder and ALS. Objective: Vital Signs Temp Pulse Resp BP Pulse Ox 98.1 F 88 18 138/70 H 93 09/27/19 05:20 09/27/19 07:06 09/27/19 05:20 09/27/19 05:20 09/27/19 05:20 Oxygen Delivery Method Room Air Weight: 235 lb 10.786 oz Body Mass Index (BMI) 30.2 Intake and Output for Last 24 Hours 09/25/19 09/26/19 09/27/19 23:59 23:59 23:59 Intake Total 100 / 100 0 / 0 Output Total 1350 / 1350 900 / 900 Balance -1250 / -1250 -900 / -900 General: Awake, Alert, Oriented x 3 HEENT: PERRL, EOMI, Sclera Non Icteric Neck: Supple, Good ROM, No Lymph Node Enlargement Lungs: Clear to auscultation Cardiovascular: Regular Rhythm, Normal S1, Normal S2, No Murmurs, No Rubs, No Gallops Vascular: No Carotid Bruits, Normal Femoral Pulses, Normal Radial Pulses, Normal Dorsalis Pedal Pulse, Normal Posterior Tibial Pulses Abdomen: Bowel Sounds Present, Soft, Non Tender, No HSM, No Organomegaly Extremities: No Cyanosis, No Clubbing, No edema Neurological: No Focal Motor or Sensory Deficit 09/26/19 19:15: WBC 8.8, RBC 4.21 L, Hgb 12.6 L, Hct 39.0 L, MCV 92.6, MCH 29.9, MCHC 32.3, Plt Count 251, MPV 10.0, Immature Gran % (Auto) 0.500, Neut % (Auto) 61.4, Lymph % (Auto) 21.1, [place] % (Auto) 8.4, Eos % (Auto) 7.9 H, Baso % (Auto) 0.7, Absolute Neuts (auto) 5.4, Nucleated RBC % 0 09/26/19 19:15: Sodium 137, Potassium 4.3, Chloride 102, Carbon Dioxide 31.0, Anion Gap 4 L, BUN 27 H, Creatinine 1.17, Est GFR (MDRD) Af Amer 79, Est GFR (MDRD) Non-Af 66, BUN/Creatinine Ratio 23.1 H, Glucose 143 H, Calcium 8.9, Magnesium 2.6, Troponin I 0.051 H 09/26/19 23:25: Hemoglobin A1c 5.3 09/26/19 23:25: Troponin I 0.614 H* 09/27/19 02:25: Troponin I 2.600 H* 09/27/19 05:16: WBC 9.0, RBC 4.05 L, Hgb 11.8 L, Hct 37.0 L, MCV 91.4, MCH 29.1, MCHC 31.9 L, Plt Count 265, MPV 9.7, Immature Gran % (Auto) 0.300, Neut % (Auto) 65.4, Lymph % (Auto) 18.7 L, [place] % (Auto) 8.9, Eos % (Auto) 5.9 H, Baso % (Auto) 0.8, Absolute Neuts (auto) 5.9, Nucleated RBC % 0 09/27/19 05:16: Sodium 137, Potassium 3.8, Chloride 103, Carbon Dioxide 29.0, Anion Gap 5, BUN 22 H, Creatinine 1.00, Est GFR (MDRD) Af Amer 95, Est GFR (MDRD) Non-Af 79, BUN/Creatinine Ratio 22.0 H, Glucose 93, Calcium 8.5, Total Bilirubin 0.30, Troponin I 5.330 H*, Triglycerides 112, Cholesterol 100, LDL Cholesterol 54, VLDL Cholesterol 22, HDL Cholesterol 24 L 09/27/19 05:16: PT 15.6 H, INR 1.3, APTT 36.8 H Rhythm: EKG: ECHO: Stress Test: Cardiac Cath: PCI: CT Surgery: Holter monitor: EPS: PPM: CXR: Chest CT Scan: Assessment/Plan 1. Chest pain: The patient presents with progressively worsening unstable angina, superimposed on progressively worsening troponins. This is superimposed on a strong positive family history of coronary disease in his twin brother who of a myocardial infarction as well as his mother and father passing away from myocardial infarction's. In addition the patient was a very heavy smoker and has evidence of a sending aortic ectasia on CT scan. He is on chronic Eliquis therapy for his ALS status and bedbound status. Patient will require diagnostic coronary angiogram. He was loaded with Plavix 300 mg x 1 we will continue at 75 mg p.o. daily. We also continue baby aspirin 81 mg p.o. daily. I recommended he undergo a catheterization tomorrow morning 09/28/2019 to allow time for his Eliquis to wear off. In addition we will switch him from Lopressor to Toprol XL 25 mg p.o. daily for ease of use with medications, and start losartan 25 mg p.o. daily for his peripheral vascular disease and presumed coronary disease. In addition I recommended he undergo a repeat 2D echo with Doppler to determine if he has any associated wall motion abnormalities since his last echocardiogram on 02/24/2018 which was as follows: Based upon the 2D echocardiographic and contrast enhanced images obtained there appears to be grossly normal left ventricular size, wall motion, and systolic function. The estimated ejection fraction is 55 %. Trivial tricuspid valve insufficiency. Right ventricular systolic pressure estimated to be 26 mmHg. No evidence for diastolic dysfunction. 2. Hyperlipidemia: A fasting lipid profile was obtained. We will start him on Lipitor 40 mg p.o. nightly for secondary prevention. 3. Thank you very much for the opportunity to participate in the cardiac care of your patient. Consultation time took place between 8 AM and 8:30 AM. Inpatient E&M: 12031 Init Hosp L2
--- NOTE | 2019-09-27 10:18 | CASEMGMT ---
Patient is from [facility]. 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 SW faxed updates to [facility]. Shani ALONZO MSW
--- NOTE | 2019-09-27 10:26 | PCM.PN.HOSP ---
Patient Problems: Active and Suspected Problems (Last Updated 10/31/18 @ 14:21 by Roula Parrish) Chest pain (Acute) Chest pain (Acute) Elevated troponin (Acute) Reason for Visit: Acute non-STEMI Subjective: Patient is a 69-year-old gentleman resident at in the standard care facility admitted with chest pain. Subsequent serial cardiac enzymes obtained this time with acute non-STEMI Objective: GENERAL: cooperative HEENT: Atraumatic; EYES; Anicteric, Normal Conjunctiva NECK; supple, normal thyroid, RESPIRATORY: Diminished to auscultation CARDIOVASCULAR: Regular S1 S2, GI: soft, normoactive bowel sounds, : No Renal angle tenderness; EXTREMITIES: No edema, no clubbing, MUSCULOSKELETAL: no muscle waisting NEURO: Awake; oriented to place and person SKIN: No Rash PSYCH; Flat affect Vitals/I&O's: Vital Signs Temp Pulse Resp BP Pulse Ox 97.5 F L 90 17 135/74 H 93 09/27/19 10:08 09/27/19 10:08 09/27/19 10:08 09/27/19 10:08 09/27/19 10:08 Oxygen Delivery Method Room Air Weight: 106.9 kg Body Mass Index (BMI) 30.2 Intake and Output for Last 24 Hours 09/25/19 09/26/19 09/27/19 23:59 23:59 23:59 Intake Total 100 / 100 0 / 0 Output Total 1350 / 1350 900 / 900 Balance -1250 / -1250 -900 / -900 Laboratory Results 09/26/19 19:15: WBC 8.8, RBC 4.21 L, Hgb 12.6 L, Hct 39.0 L, MCV 92.6, MCH 29.9, MCHC 32.3, RDW Std Deviation 42.6, RDW Coeff of Cezar 12.6, Plt Count 251, MPV 10.0, Immature Gran % (Auto) 0.500, Neut % (Auto) 61.4, Lymph % (Auto) 21.1, [place] % (Auto) 8.4, Eos % (Auto) 7.9 H, Baso % (Auto) 0.7, Absolute Neuts (auto) 5.4, Absolute Lymphs (auto) 1.85, Nucleated RBC % 0 09/26/19 19:15: Sodium 137, Potassium 4.3, Chloride 102, Carbon Dioxide 31.0, Anion Gap 4 L, BUN 27 H, Creatinine 1.17, Estim Creat Clear Calc 69.28, Est GFR (MDRD) Af Amer 79, Est GFR (MDRD) Non-Af 66, BUN/Creatinine Ratio 23.1 H, Glucose 143 H, Calcium 8.9, Magnesium 2.6, Troponin I 0.051 H 09/26/19 23:25: Hemoglobin A1c 5.3 09/26/19 23:25: Troponin I 0.614 H* 09/27/19 02:25: Troponin I 2.600 H* 09/27/19 05:16: WBC 9.0, RBC 4.05 L, Hgb 11.8 L, Hct 37.0 L, MCV 91.4, MCH 29.1, MCHC 31.9 L, RDW Std Deviation 41.3, RDW Coeff of Cezar 12.5, Plt Count 265, MPV 9.7, Immature Gran % (Auto) 0.300, Neut % (Auto) 65.4, Lymph % (Auto) 18.7 L, [place] % (Auto) 8.9, Eos % (Auto) 5.9 H, Baso % (Auto) 0.8, Absolute Neuts (auto) 5.9, Absolute Lymphs (auto) 1.67, Nucleated RBC % 0 09/27/19 05:16: Sodium 137, Potassium 3.8, Chloride 103, Carbon Dioxide 29.0, Anion Gap 5, BUN 22 H, Creatinine 1.00, Estim Creat Clear Calc 81.06, Est GFR (MDRD) Af Amer 95, Est GFR (MDRD) Non-Af 79, BUN/Creatinine Ratio 22.0 H, Glucose 93, Calcium 8.5, Total Bilirubin 0.30, AST 35, ALT 21, Alkaline Phosphatase 78, Troponin I 5.330 H*, Total Protein 7.0, Albumin 3.1 L, Globulin 3.9, Albumin/Globulin Ratio 0.8 L, Triglycerides 112, Cholesterol 100, LDL Cholesterol 54, VLDL Cholesterol 22, HDL Cholesterol 24 L 09/27/19 05:16: PT 15.6 H, INR 1.3, APTT 36.8 H Current Medications Acetaminophen (Tylenol) 650 mg PO Q6H PRN PRN PRN Reason: Pain Score 1-10/Temp > 100.7 F Al Hydroxide/Mg Hydroxide (Mylanta Ii) 30 ml PO Q6H PRN PRN PRN Reason: Gastric Burning Albuterol Sulfate (Ventolin Aerosols) 2.5 mg INHALATION Q2H PRN PRN PRN Reason: Dyspnea, wheezing Amitriptyline HCl (Elavil) 10 mg PO DAILY [facility] Aspirin (Ecotrin) 81 mg PO DAILY [facility] Atorvastatin Calcium (Lipitor) 80 mg PO QHS [facility] Buspirone HCl (Buspar) 10 mg PO BID [facility] Clopidogrel Bisulfate (Plavix) 75 mg PO DAILY [facility] Diphenhydramine HCl (Benadryl) 50 mg PO X1 ONE Stop: 09/28/19 07:01 Enoxaparin Sodium (Lovenox) 100 mg SC Q12@0600,1800 [facility] Last Admin: 09/27/19 05:23 Dose: 100 mg Documented by: Guaifenesin (Robitussin) 20 ml PO Q4H PRN PRN PRN Reason: COUGH Hydralazine HCl (Apresoline Iv) 10 mg IV Q4H PRN PRN PRN Reason: SBP > 160 Sodium Chloride () 250 mls @ 15 mls/hr IV .[id number] PRN PRN Reason: Saline Flush Sodium Chloride () 250 mls @ 15 mls/hr IV .[id number] PRN PRN Reason: Additional IVPB Infusion Sodium Chloride () 1,000 mls @ 15 mls/hr IV .Q48H [facility] Losartan Potassium (Cozaar) 25 mg PO DAILY [facility] Magnesium Hydroxide (Milk Of Magnesia) 30 ml PO DAILY PRN PRN Reason: Constipation Melatonin (Melatonin) 3 mg PO QHS [facility] Metoprolol Succinate (Toprol Xl (Beta Brady)) 25 mg PO DAILY [facility] Morphine Sulfate () 2 mg IV Q3H PRN PRN PRN Reason: Pain Score 6-10/10 Nitroglycerin (Nitrostat) 0.4 mg SUBLINGUAL Q5M PRN PRN Reason: CARDIAC/CHEST PAIN Ondansetron HCl (Zofran) 4 mg IV Q8H PRN PRN PRN Reason: NAUSEA/VOMITING Oxycodone HCl (Oxyir) 5 mg PO DAILY [facility] Oxycodone HCl (Oxyir) 5 mg PO Q4H PRN PRN PRN Reason: Pain Score 4-5/10 Pantoprazole Sodium (Protonix) 20 mg PO TID [facility] Last Admin: 09/27/19 05:23 Dose: 20 mg Documented by: Polyethylene Glycol (Miralax) 17 gm PO DAILY [facility] Prochlorperazine Edisylate (Compazine Iv) 5 mg IV Q4H PRN PRN PRN Reason: Breakthrough Nausea/Vomiting Psyllium Hydrophilic Mucilloid (Metamucil) 1 packet PO DAILY PRN PRN PRN Reason: Constipation Riluzole (Riluzole) 50 mg PO BID [facility] Senna/Docusate Sodium (Senokot-S, Ileana-Colace) 2 tablet PO BID PRN PRN PRN Reason: Constipation Sodium Chloride () 10 - 40 ml IV UD PRN PRN Reason: SALINE FLUSH Tamsulosin HCl (Flomax) 0.8 mg PO DAILY [facility] Throat Lozenges (Cepacol Sore Throat Lozenge) 1 lozenge MUCOUS MEM Q2H PRN PRN PRN Reason: SORE THROAT STROKE Vital Signs/Narrative: Vital Signs Temp Pulse Resp BP Pulse Ox 09/27/19 10:08 97.5 F L 90 17 135/74 H 93 09/27/19 07:06 88 Medical Necessity - Tobacco Use Smoking Status: Former smoker Assessment/Plan All Active Problems (Last Updated 10/31/18 @ 14:21 by Roula Parrish) Chest pain (Acute) Chest pain (Acute) Elevated troponin (Acute) Thoracic aortic aneurysm (Acute) Septic shock (Acute) UTI (urinary tract infection) (Acute) ELO (acute kidney injury) (Acute) Sepsis (Acute) Bacteremia (Acute) Patient is a 69-year-old gentleman resident at in the standard care facility admitted with chest pain. Subsequent serial cardiac enzymes obtained this time with acute non-STEMI 1. Acute non-STEMI ?Patient currently being managed per protocol seen by Dr. Lucas's recommendation is for patient to undergo left heart catheterization on 09/28/2019 with intervention if warranted 2. Amyotrophic lateral sclerosis ?Supportive care 3. Known thoracic aortic aneurysm ?Currently stable 4. Hypertension - Blood pressure controlled, home medications continued with dose adjustment as needed 5. Dyslipidemia -Patient is on statin therapy, continued at home dose 6. Anemia - Secondary to chronic disorder monitoring H&H and transfuse if patient becomes symptomatic or hemoglobin falls below 7 7. Schizoaffective disorder 8. GERD 9. BPH Patient is on Flomax 10. History of urethral strictures 11. DVT prophylaxis -patient on Lovenox Active Medications Acetaminophen (Tylenol) 650 mg PO Q6H PRN PRN PRN Reason: Pain Score 1-10/Temp > 100.7 F Al Hydroxide/Mg Hydroxide (Mylanta Ii) 30 ml PO Q6H PRN PRN PRN Reason: Gastric Burning Albuterol Sulfate (Ventolin Aerosols) 2.5 mg INHALATION Q2H PRN PRN PRN Reason: Dyspnea, wheezing Amitriptyline HCl (Elavil) 10 mg PO DAILY [facility] Aspirin (Ecotrin) 81 mg PO DAILY [facility] Atorvastatin Calcium (Lipitor) 80 mg PO QHS [facility] Buspirone HCl (Buspar) 10 mg PO BID [facility] Clopidogrel Bisulfate (Plavix) 75 mg PO DAILY [facility] Diphenhydramine HCl (Benadryl) 50 mg PO X1 ONE Stop: 09/28/19 07:01 Enoxaparin Sodium (Lovenox) 100 mg SC Q12@0600,1800 [facility] Last Admin: 09/27/19 05:23 Dose: 100 mg Documented by: Guaifenesin (Robitussin) 20 ml PO Q4H PRN PRN PRN Reason: COUGH Hydralazine HCl (Apresoline Iv) 10 mg IV Q4H PRN PRN PRN Reason: SBP > 160 Sodium Chloride () 250 mls @ 15 mls/hr IV .[id number] PRN PRN Reason: Saline Flush Sodium Chloride () 250 mls @ 15 mls/hr IV .[id number] PRN PRN Reason: Additional IVPB Infusion Sodium Chloride () 1,000 mls @ 15 mls/hr IV .Q48H [facility] Losartan Potassium (Cozaar) 25 mg PO DAILY [facility] Magnesium Hydroxide (Milk Of Magnesia) 30 ml PO DAILY PRN PRN Reason: Constipation Melatonin (Melatonin) 3 mg PO QHS [facility] Metoprolol Succinate (Toprol Xl (Beta Brady)) 25 mg PO DAILY [facility] Morphine Sulfate () 2 mg IV Q3H PRN PRN PRN Reason: Pain Score 6-10/10 Nitroglycerin (Nitrostat) 0.4 mg SUBLINGUAL Q5M PRN PRN Reason: CARDIAC/CHEST PAIN Ondansetron HCl (Zofran) 4 mg IV Q8H PRN PRN PRN Reason: NAUSEA/VOMITING Oxycodone HCl (Oxyir) 5 mg PO DAILY [facility] Oxycodone HCl (Oxyir) 5 mg PO Q4H PRN PRN PRN Reason: Pain Score 4-5/10 Pantoprazole Sodium (Protonix) 20 mg PO TID [facility] Last Admin: 09/27/19 05:23 Dose: 20 mg Documented by: Polyethylene Glycol (Miralax) 17 gm PO DAILY [facility] Prochlorperazine Edisylate (Compazine Iv) 5 mg IV Q4H PRN PRN PRN Reason: Breakthrough Nausea/Vomiting Psyllium Hydrophilic Mucilloid (Metamucil) 1 packet PO DAILY PRN PRN PRN Reason: Constipation Riluzole (Riluzole) 50 mg PO BID [facility] Senna/Docusate Sodium (Senokot-S, Ileana-Colace) 2 tablet PO BID PRN PRN PRN Reason: Constipation Sodium Chloride () 10 - 40 ml IV UD PRN PRN Reason: SALINE FLUSH Tamsulosin HCl (Flomax) 0.8 mg PO DAILY [facility] Throat Lozenges (Cepacol Sore Throat Lozenge) 1 lozenge MUCOUS MEM Q2H PRN PRN PRN Reason: SORE THROAT Inpatient E&M: 39713 [facility] Hosp L3
[2019-09-27] MEDS: Losartan Potassium 25 MG Tablet PO (10:29)
[2019-09-27] MEDS: busPIRone 5 MG Tablet 10 MG PO ×2 (10:29→21:24)
[2019-09-27] MEDS: Aspirin E.C. 81 MG Tablet PO (10:30)
[2019-09-27] MEDS: Polyethylene Glycol 3350 17 GM PACKET PO (10:30)
[2019-09-27] MEDS: Tamsulosin HCl 0.4 MG Capsule 0.8 MG PO (10:30)
[2019-09-27] MEDS: Amitriptyline 10 MG Tablet PO (10:30)
[2019-09-27] MEDS: oxyCODONE 5 MG Tablet PO (10:31)
[2019-09-27] MEDS: Metoprolol(XL)Succ 25 MG Tablet PO (10:31)
[2019-09-27] MEDS: ALPRAZolam 0.5 MG Tablet PO (13:55)
[2019-09-27] MEDS: 0.9% Saline Lock 10 ML Syringe IV (17:10)
--- NOTE | 2019-09-27 21:13 | EKG12_ITS ---
Test Reason : CHEST PAIN Blood Pressure : / mmHG Vent. Rate : 079 BPM Atrial Rate : 079 BPM P-R Int : 166 ms QRS Dur : 098 ms QT Int : 404 ms P-R-T Axes : 049 023 087 degrees QTc Int : 463 ms Normal sinus rhythm Anterior infarct , age undetermined Abnormal ECG When compared with ECG of 26-SEP-2019 23:39, MANUAL COMPARISON REQUIRED, DATA IS UNCONFIRMED Confirmed by HOLLIE KAT ([id number]), newspaper or periodical editor KIKO ANDINO ([id number]) on 10/01/2019 2:26:28 PM Referred By: Judi Bernal Confirmed By:HOLLIE KAT
[2019-09-27] MEDS: Nitroglycerin (INPATIENT USE) 0.4 MG TAB.SUBL SUBLINGUAL (21:20)
[2019-09-27] MEDS: MELATONIN 3 MG TABLET PO (21:25)
[2019-09-27] MEDS: Atorvastatin Calcium 80 MG Tablet PO (21:25)
[2019-09-28] VITALS (19 sets, daily range): BP systolic 107–161; BP diastolic 73–127; PULSE 64–108; RESP 8–22; TEMP 36.1–36.6; O2SAT 92–96
[2019-09-28] MEDS: Nitroglycerin (INPATIENT USE) 0.4 MG TAB.SUBL SUBLINGUAL ×2 (01:34→01:40)
[2019-09-28] MEDS: ALPRAZolam 0.5 MG Tablet PO (01:47)
--- NOTE | 2019-09-28 05:55 | EKG12_ITS ---
Test Reason : MORNING EKG Blood Pressure : / mmHG Vent. Rate : 066 BPM Atrial Rate : 066 BPM P-R Int : 164 ms QRS Dur : 102 ms QT Int : 426 ms P-R-T Axes : 048 025 091 degrees QTc Int : 446 ms Normal sinus rhythm Lateral infarct , age undetermined ST & T wave abnormality, consider anterior ischemia Abnormal ECG When compared with ECG of 27-SEP-2019 21:19, MANUAL COMPARISON REQUIRED, DATA IS UNCONFIRMED Confirmed by HOLLIE KAT ([id number]), photographic editor KIKO ANDINO ([id number]) on 10/01/2019 2:26:59 PM Referred By: Judi Bernal Confirmed By:HOLLIE KAT
[2019-09-28 05:56] LABS: Absolute Lymphocyte Count 1.57 X10^3/uL (0.83-4.51); Absolute Neutrophil Count 4.4 X10^3/uL (2.0-7.7); Basophil# 0.05 X10^3/uL; Basophil% 0.7 % (0-1); Eosinophil# 0.39 X10^3/uL; Eosinophils% 5.5 % (0-5); Hematocrit 37.5 % (40-54); Hemoglobin 12.1 g/dL (13.0-16.5); Lymphocyte # 1.57 X10^3/ul (4.0); Lymphocyte % 22.2 % (19-41); Mean Corp Hgb Conc 32.3 g/dL (32-36); Mean Corpuscular Hgb 29.7 pg (27.0-32.0); Mean Corpuscular Volume 92.1 fL (80-94); Mean Platelet Vol. 9.5 fl (6.2-12.0); Monocyte# 0.65 X10^3/uL; Monocyte% 9.2 % (0-10); NRBC Flagged by Analyzer 0 % (0-5); Neutrophil # 4.37 X10^3/uL (2.7-7.7); Platelet Count 248 K/mm3 (150-450); RBC Distribution Width CV 12.6 % (11.6-14.6); RBC Distribution Width SD 42.8 fl (35.1-43.9); Red Blood Count 4.07 M/mm3 (4.6-6.2); White Blood Count 7.1 K/mm3 (4.4-11.0)
[2019-09-28] MEDS: Pantoprazole Sodium 20 MG Tablet PO (05:58)
[2019-09-28] MEDS: Aspirin E.C. 81 MG Tablet PO (05:59)
[2019-09-28] MEDS: Losartan Potassium 25 MG Tablet PO (05:59)
[2019-09-28] MEDS: Metoprolol(XL)Succ 25 MG Tablet PO (06:00)
[2019-09-28] MEDS: 0.9% Saline Lock 10 ML Syringe IV (06:00)
[2019-09-28] MEDS: Clopidogrel Bisulfate 75 MG Tablet PO (06:00)
[2019-09-28 06:21] LABS: International Normalized Ratio 1.2; Prothrombin Time (Protime)PT. 14.3 SECONDS (11.7-14.9)
[2019-09-28 06:23] LABS: ALB/GLOB Ratio 0.8 RATIO (0.9-2.4); AST(SGOT) 30 U/L (15-37); Alanine Aminotransfer ALT/SGPT 22 U/L (16-61); Alkaline Phosphatase 74 U/L (45-117); Anion Gap 5 (5-15); BUN 29 mg/dL (7-18); BUN/Creat Ratio 23.8 RATIO (10-20); Calcium,Total 8.7 mg/dL (8.5-10.1); Chloride 104 mmol/L (98-107); Creatinine, Serum 1.22 mg/dL (0.70-1.30); EST Glomerular Filtration Rate 63 mL/min (>60); Est Glom Filt Rate - Afr Amer 76 mL/min (>60); Estimated Creatinine Clearance 66.44 ml/min; Globulin 3.9 g/dL (2.2-4.2); Glucose 103 mg/dL (74-106); Partial Thromboplast Time 44.6 Seconds (24.1-36.2); Potassium 4.2 mmol/L (3.5-5.1); Protein, Total 6.9 g/dL (6.4-8.2); Sodium Level 138 mmol/L (136-145)
--- NOTE | 2019-09-28 07:20 | PCM.PN.HOSP ---
Patient Problems: Active and Suspected Problems (Last Updated 10/31/18 @ 14:21 by Roula Parrish) Chest pain (Acute) Chest pain (Acute) Elevated troponin (Acute) Reason for Visit: Acute non-STEMI Subjective: Patient underwent left heart catheterization which demonstrated triple-vessel coronary artery disease involving the LAD, left circumflex as well as RCA. His LVEF by LV gram was 45%. Cardiology recommended referral for immediate PCI versus CABG at [facility] Dr. Lucas did call patient has been accepted for transfer Objective: GENERAL: cooperative HEENT: Atraumatic; EYES; Anicteric, Normal Conjunctiva NECK; supple, normal thyroid, RESPIRATORY: Diminished to auscultation CARDIOVASCULAR: Regular S1 S2, GI: soft, normoactive bowel sounds, : No Renal angle tenderness; EXTREMITIES: No edema, no clubbing, MUSCULOSKELETAL: no muscle waisting NEURO: Awake; oriented to place and person SKIN: No Rash PSYCH; Flat affect Vitals/I&O's: Vital Signs Temp Pulse Resp BP Pulse Ox 97.0 F L 64 20 H 131/73 H 92 09/28/19 05:55 09/28/19 06:44 09/28/19 05:55 09/28/19 06:00 09/28/19 05:55 Oxygen Delivery Method Room Air Weight: 106.9 kg Body Mass Index (BMI) 30.2 Intake and Output for Last 24 Hours 09/26/19 09/27/19 09/28/19 23:59 23:59 23:59 Intake Total 100 / 100 895 / 895 Output Total 1350 / 1350 2200 / 2200 300 / 300 Balance -1250 / -1250 -1305 / -1305 -300 / -300 Laboratory Results 09/28/19 05:35: WBC 7.1, RBC 4.07 L, Hgb 12.1 L, Hct 37.5 L, MCV 92.1, MCH 29.7, MCHC 32.3, RDW Std Deviation 42.8, RDW Coeff of Cezar 12.6, Plt Count 248, MPV 9.5, Immature Gran % (Auto) 0.400, Neut % (Auto) 62.0, Lymph % (Auto) 22.2, [place] % (Auto) 9.2, Eos % (Auto) 5.5 H, Baso % (Auto) 0.7, Absolute Neuts (auto) 4.4, Absolute Lymphs (auto) 1.57, Nucleated RBC % 0 09/28/19 05:35: PT 14.3, INR 1.2, APTT 44.6 H 09/28/19 05:35: Sodium 138, Potassium 4.2, Chloride 104, Carbon Dioxide 29.0, Anion Gap 5, BUN 29 H, Creatinine 1.22, Estim Creat Clear Calc 66.44, Est GFR (MDRD) Af Amer 76, Est GFR (MDRD) Non-Af 63, BUN/Creatinine Ratio 23.8 H, Glucose 103, Calcium 8.7, Total Bilirubin 0.40, AST 30, ALT 22, Alkaline Phosphatase 74, Total Protein 6.9, Albumin 3.0 L, Globulin 3.9, Albumin/Globulin Ratio 0.8 L Current Medications Acetaminophen (Tylenol) 650 mg PO Q6H PRN PRN PRN Reason: Pain Score 1-10/Temp > 100.7 F Al Hydroxide/Mg Hydroxide (Mylanta Ii) 30 ml PO Q6H PRN PRN PRN Reason: Gastric Burning Albuterol Sulfate (Ventolin Aerosols) 2.5 mg INHALATION Q2H PRN PRN PRN Reason: Dyspnea, wheezing Alprazolam (Xanax) 0.5 mg PO TID PRN PRN PRN Reason: ANXIETY Last Admin: 09/28/19 01:47 Dose: 0.5 mg Documented by: Amitriptyline HCl (Elavil) 10 mg PO DAILY [facility] Last Admin: 09/27/19 10:30 Dose: 10 mg Documented by: Aspirin (Ecotrin) 81 mg PO DAILY [facility] Last Admin: 09/28/19 05:59 Dose: 81 mg Documented by: Atorvastatin Calcium (Lipitor) 80 mg PO QHS [facility] Last Admin: 09/27/19 21:25 Dose: 80 mg Documented by: Buspirone HCl (Buspar) 10 mg PO BID [facility] Last Admin: 09/27/19 21:24 Dose: 10 mg Documented by: Clopidogrel Bisulfate (Plavix) 75 mg PO DAILY [facility] Last Admin: 09/28/19 06:00 Dose: 75 mg Documented by: Enoxaparin Sodium (Lovenox) 100 mg SC Q12@0600,1800 [facility] Last Admin: 09/28/19 01:11 Dose: Not Given Documented by: Guaifenesin (Robitussin) 20 ml PO Q4H PRN PRN PRN Reason: COUGH Hydralazine HCl (Apresoline Iv) 10 mg IV Q4H PRN PRN PRN Reason: SBP > 160 Sodium Chloride () 250 mls @ 15 mls/hr IV .[id number] PRN PRN Reason: Saline Flush Sodium Chloride () 250 mls @ 15 mls/hr IV .[id number] PRN PRN Reason: Additional IVPB Infusion Sodium Chloride () 1,000 mls @ 15 mls/hr IV .Q48H [facility] Losartan Potassium (Cozaar) 25 mg PO DAILY [facility] Last Admin: 09/28/19 05:59 Dose: 25 mg Documented by: Magnesium Hydroxide (Milk Of Magnesia) 30 ml PO DAILY PRN PRN Reason: Constipation Melatonin (Melatonin) 3 mg PO QHS [facility] Last Admin: 09/27/19 21:25 Dose: 3 mg Documented by: Metoprolol Succinate (Toprol Xl (Beta Brady)) 25 mg PO DAILY [facility] Last Admin: 09/28/19 06:00 Dose: 25 mg Documented by: Morphine Sulfate () 2 mg IV Q3H PRN PRN PRN Reason: Pain Score 6-10/10 Nitroglycerin (Nitrostat) 0.4 mg SUBLINGUAL Q5M PRN PRN Reason: CARDIAC/CHEST PAIN Last Admin: 09/28/19 01:40 Dose: 0.4 mg Documented by: Ondansetron HCl (Zofran) 4 mg IV Q8H PRN PRN PRN Reason: NAUSEA/VOMITING Oxycodone HCl (Oxyir) 5 mg PO DAILY [facility] Last Admin: 09/27/19 10:31 Dose: 5 mg Documented by: Oxycodone HCl (Oxyir) 5 mg PO Q4H PRN PRN PRN Reason: Pain Score 4-5/10 Pantoprazole Sodium (Protonix) 20 mg PO TID [facility] Last Admin: 09/28/19 05:58 Dose: 20 mg Documented by: Polyethylene Glycol (Miralax) 17 gm PO DAILY [facility] Last Admin: 09/27/19 10:30 Dose: 17 gm Documented by: Prochlorperazine Edisylate (Compazine Iv) 5 mg IV Q4H PRN PRN PRN Reason: Breakthrough Nausea/Vomiting Psyllium Hydrophilic Mucilloid (Metamucil) 1 packet PO DAILY PRN PRN PRN Reason: Constipation Riluzole (Riluzole) 50 mg PO BID [facility] Senna/Docusate Sodium (Senokot-S, Ileana-Colace) 2 tablet PO BID PRN PRN PRN Reason: Constipation Sodium Chloride () 10 - 40 ml IV UD PRN PRN Reason: SALINE FLUSH Last Admin: 09/28/19 06:00 Dose: 10 ml Documented by: Tamsulosin HCl (Flomax) 0.8 mg PO DAILY [facility] Last Admin: 09/27/19 10:30 Dose: 0.8 mg Documented by: Throat Lozenges (Cepacol Sore Throat Lozenge) 1 lozenge MUCOUS MEM Q2H PRN PRN PRN Reason: SORE THROAT STROKE Vital Signs/Narrative: Vital Signs Temp Pulse Resp BP Pulse Ox 09/28/19 06:44 64 09/28/19 06:00 68 131/73 H 09/28/19 05:55 97.0 F L 68 20 H 131/73 H 92 Medical Necessity - Tobacco Use Smoking Status: Former smoker Assessment/Plan All Active Problems (Last Updated 10/31/18 @ 14:21 by Roula Parrish) Chest pain (Acute) Chest pain (Acute) Elevated troponin (Acute) Thoracic aortic aneurysm (Acute) Septic shock (Acute) UTI (urinary tract infection) (Acute) ELO (acute kidney injury) (Acute) Sepsis (Acute) Bacteremia (Acute) Patient is a 69-year-old gentleman resident at in the standard care facility admitted with chest pain. Subsequent serial cardiac enzymes obtained this time with acute non-STEMI 1. Acute non-STEMI ?Patient currently being managed per protocol seen by Dr. Lucas's recommendation is for patient to undergo left heart catheterization on 09/28/2019 with intervention if warranted - Patient underwent left heart catheterization which demonstrated triple-vessel coronary artery disease involving the LAD, left circumflex as well as RCA. His LVEF by LV gram was 45%. Cardiology recommended referral for immediate PCI versus CABG at [facility] Dr. Lucas did call patient has been accepted for transfer 2. Amyotrophic lateral sclerosis ?Supportive care 3. Known thoracic aortic aneurysm ?Currently stable 4. Hypertension - Blood pressure controlled, home medications continued with dose adjustment as needed 5. Dyslipidemia -Patient is on statin therapy, continued at home dose 6. Anemia - Secondary to chronic disorder monitoring H&H and transfuse if patient becomes symptomatic or hemoglobin falls below 7 7. Schizoaffective disorder 8. GERD 9. BPH Patient is on Flomax 10. History of urethral strictures 11. DVT prophylaxis -patient on Lovenox Active Medications Acetaminophen (Tylenol) 650 mg PO Q6H PRN PRN PRN Reason: Pain Score 1-10/Temp > 100.7 F Al Hydroxide/Mg Hydroxide (Mylanta Ii) 30 ml PO Q6H PRN PRN PRN Reason: Gastric Burning Albuterol Sulfate (Ventolin Aerosols) 2.5 mg INHALATION Q2H PRN PRN PRN Reason: Dyspnea, wheezing Amitriptyline HCl (Elavil) 10 mg PO DAILY [facility] Aspirin (Ecotrin) 81 mg PO DAILY [facility] Atorvastatin Calcium (Lipitor) 80 mg PO QHS [facility] Buspirone HCl (Buspar) 10 mg PO BID [facility] Clopidogrel Bisulfate (Plavix) 75 mg PO DAILY [facility] Diphenhydramine HCl (Benadryl) 50 mg PO X1 ONE Stop: 09/28/19 07:01 Enoxaparin Sodium (Lovenox) 100 mg SC Q12@0600,1800 [facility] Last Admin: 09/27/19 05:23 Dose: 100 mg Documented by: Guaifenesin (Robitussin) 20 ml PO Q4H PRN PRN PRN Reason: COUGH Hydralazine HCl (Apresoline Iv) 10 mg IV Q4H PRN PRN PRN Reason: SBP > 160 Sodium Chloride () 250 mls @ 15 mls/hr IV .[id number] PRN PRN Reason: Saline Flush Sodium Chloride () 250 mls @ 15 mls/hr IV .[id number] PRN PRN Reason: Additional IVPB Infusion Sodium Chloride () 1,000 mls @ 15 mls/hr IV .Q48H [facility] Losartan Potassium (Cozaar) 25 mg PO DAILY [facility] Magnesium Hydroxide (Milk Of Magnesia) 30 ml PO DAILY PRN PRN Reason: Constipation Melatonin (Melatonin) 3 mg PO QHS [facility] Metoprolol Succinate (Toprol Xl (Beta Brady)) 25 mg PO DAILY [facility] Morphine Sulfate () 2 mg IV Q3H PRN PRN PRN Reason: Pain Score 6-10/10 Nitroglycerin (Nitrostat) 0.4 mg SUBLINGUAL Q5M PRN PRN Reason: CARDIAC/CHEST PAIN Ondansetron HCl (Zofran) 4 mg IV Q8H PRN PRN PRN Reason: NAUSEA/VOMITING Oxycodone HCl (Oxyir) 5 mg PO DAILY [facility] Oxycodone HCl (Oxyir) 5 mg PO Q4H PRN PRN PRN Reason: Pain Score 4-5/10 Pantoprazole Sodium (Protonix) 20 mg PO TID [facility] Last Admin: 09/27/19 05:23 Dose: 20 mg Documented by: Polyethylene Glycol (Miralax) 17 gm PO DAILY [facility] Prochlorperazine Edisylate (Compazine Iv) 5 mg IV Q4H PRN PRN PRN Reason: Breakthrough Nausea/Vomiting Psyllium Hydrophilic Mucilloid (Metamucil) 1 packet PO DAILY PRN PRN PRN Reason: Constipation Riluzole (Riluzole) 50 mg PO BID [facility] Senna/Docusate Sodium (Senokot-S, Ileana-Colace) 2 tablet PO BID PRN PRN PRN Reason: Constipation Sodium Chloride () 10 - 40 ml IV UD PRN PRN Reason: SALINE FLUSH Tamsulosin HCl (Flomax) 0.8 mg PO DAILY [facility] Throat Lozenges (Cepacol Sore Throat Lozenge) 1 lozenge MUCOUS MEM Q2H PRN PRN PRN Reason: SORE THROAT Inpatient E&M: 17220 [facility] L3
[2019-09-28] MEDS: 0.9% Normal Saline 1,000 ML 15 ML IV (09:02)
[2019-09-28] MEDS: DiphenhydrAMINE 25 MG Capsule 50 MG PO (09:02)
--- NOTE | 2019-09-28 09:07 | NURSING ---
This RN called report to clinical genetics laboratory chief.
--- NOTE | 2019-09-28 10:00 | NURSING ---
This RN called and gave report to SHAWNEE Kang in ICU.
--- NOTE | 2019-09-28 10:23 | CL.D_ITS ---
Patient Name: GERA DONG Study Date: 09/28/2019 Performing: Usman Lucas MD Ht: 74.01 inches 188 cm : 1950 Wt: 235.89 lbs 107 kg Age: 69 Gender: male BSA: 2.33 PROCEDURE(S) PERFORMED BD40-FOO/COR/LV DC11-AO ROOT ANGIO WITH HEART CATH [id number] RENAL ANGIO WITH HEART CATH CLINICAL PROFILE AND INDICATIONS Patient presents with NSTEMI for urgent cardiac cath Indications: New Onset Angina <= 2 months, ACS <= 24 hrs, Worsening Angina, Suspected CAD Heart Failure: NYHA Class: 1, Newly Diagnosed: Yes, Heart Failure Type: Systolic Stress/Imaging Stress/Image Study Performed: No Angina Classification Anginal Classification w/in 2 Weeks: CCS IV CAD Presentations: Unstable angina. Non-STEMI. Symptom onset Date/Time: 09/27/2019 Time Not Availa ble Comorbidities/Risk Factors: Hypertension Dyslipidemia Peripheral Arterial Disease CONCLUSIONS Segmented LV systolic dysfunction- Moderate LVEF: by LV gram 45 % Depressed Left Ventricular systolic function - Moderate Elevated Left Ventricular End Diastolic Pressure Triple vessel CAD of the LAD, LCX and RCA, as well as 50% eccentric LM Mildly dilated aortic root, with moderate aorto-iliac tortuosity making IABP somewhat problematic. RECOMMENDATIONS Referred for immediate PCI vs CABG to [facility](Dr Rolle) Management as per referring Guest Associate Surgery consult for coronary revascularization 5Fr sheath sutured in place for possible PCI. D/w Dr Rolle at [facility] who has accepted pt. Will d/w Dr Rogers. DESCRIPTION OF PROCEDURE The patient arrived to the procedure lab. The risks and benefits of the procedure as well as a full d escription of our services here and current unavailability of surgical backup were fully explained to the patient and/or their significant other prior to the catheterization. The Timeout was completed, verifying the correct patient and procedure. The patient's procedural site was prepped and draped in the usual fashion. Local anesthetic was given subcutaneously to right groin region with Lidocaine 2%. Using a modified Seldinger technique, arterial access was obtained via the right femoral artery, a 4 Fr 45cm sheath was inserted Left Coronary Artery selective angiography was performed in multiple vie ws using a 4 Fr. JL5 catheter. Right Coronary Artery selective angiography was then performed in mult iple views using a 4 Fr. 3DRC catheter. Left Ventriculography was performed in BOWMAN projection using a 4 Fr. Pigtail catheter. LV to AO pullback pressures were then recorded. Ascending (root) aorta selective angiography was then performed in single view. Ascending (root) aorta selective angio graphy was then performed in single view. Abdominal aorta selective angiography was then performed in single view.The arterial sheath was exchanged to a 5fr sheath. The arterial sheath was sutured in pl ирина with heparinized normal saline under pressure CORONARY ANGIOGRAPHY DOMINANCE: Left Dominant LEFT HEART ASSESSMENT Left Ventricular Ejection Fraction: by LV Gram 45 % Anterior Hypokinesis - Moderate Depressed Left Ventricular systolic function LVEDP: 35 mmHg Elevated Left Ventricular End Diastolic Pressure LEFT MAIN: Moderate calcification, 50 % Stenosis LEFT ANTERIOR DESCENDING ARTERY: PROX LAD: Severe calcification, 85 % Stenosis MID LAD: Non-obstructive CIRCUMFLEX ARTERY: OSTIAL CIRC: 85 % Stenosis OM 1: Mid - 50 % Stenosis RIGHT CORONARY ARTERY: MID RCA: is occluded COLLATERAL FLOW: Collateral flow from Right to Right AORTIC ROOT: Dilated COMPLICATIONS No Complications PROCEDURE MEDICATIONS Versed 1 mg IV Fentanyl 25 mcg IV Oxygen: 2 L/min via nasal cannula Heparin 25,000u / 250ml D5W @ 800 u/hr IV started 09/28/2019 10:10:00 Nitro glycerin 25mg / 250ml D5W @ 5 mcg/min IV started 09/28/2019 09:52:00 SUMMARY OF HEMODYNAMIC DATA Time AIR REST ECG 09:28:05 AO 138/83 (107) SA 09:39:32 LV 177/2, 35 09:48:33 LV 181/5, 37 09:48:39 LVp 183/5, 39 09:48:44 AOp 191/103 (144) 09:48:49 Signed By Usman Lucas MD On 09/28/2019 10:22:54 Usman Lucas MD
--- NOTE | 2019-09-28 10:30 | NURSING ---
Pt arrived from technology lab teacher for increased monitoring while awaiting transfer to [facility] for CABG
--- NOTE | 2019-09-28 10:33 | DCINST_ITS ---
- Discharge Diagnoses Current Active Problems: Current Active and Chronic Problems (Last Updated 10/31/18 @ 14:21 by Roula Parrish) Chest pain (Acute) Chest pain (Acute) Elevated troponin (Acute) Allergies/Adverse Reactions: Allergies No Known Allergies Allergy (Verified 09/26/19 19:21) Medications to take at Discharge Atorvastatin Calcium [Lipitor] 80 mg PO QHS 12/11/16 Omeprazole [Prilosec] 20 mg PO TID 08/21/17 Tamsulosin HCl [Flomax] 0.8 mg PO DAILY 08/21/17 Acetaminophen 650 mg PO Q4H PRN PRN 02/21/18 Amitriptyline HCl 10 mg PO DAILY 02/21/18 Melatonin 3 mg PO QHS 02/21/18 Polyethylene Glycol 3350 [Miralax] 17 gm PO DAILY 02/21/18 Riluzole 50 mg PO BID 02/21/18 Cholecalciferol (Vitamin D3) [Vitamin D3] 2,000 unit PO DAILY 05/23/18 Magnesium Hydroxide [Milk Of Magnesia] 30 ml PO DAILY PRN 05/23/18 Oxycodone HCl 5 mg PO DAILY 05/23/18 Apixaban [Eliquis] 5 mg PO BID #74 tab 08/03/18 Aspirin E.C. [Ecotrin] 81 mg PO DAILY 08/03/18 Cyanocobalamin (Vitamin B-12) [B-12] 1,000 mcg PO DAILY 08/03/18 Metoprolol Tartrate [Lopressor (beta gayatri)] 12.5 mg PO BID 08/03/18 bisacodyl 10 mg rectal suppository 10 mg RC DAILY PRN 10/31/18 buspirone 10 mg tablet 10 mg PO BID 10/31/18 Primary Care Physician: Nicho Sanderson MD [Primary Care Provider] - Test Results: Test results from this visit will be discussed in further detail at your follow- up appointment, if applicable. Proposed Discharge Date: 09/28/19
--- NOTE | 2019-09-28 10:35 | PCM.DC.SUM ---
Discharge Date and Diagnosis - Problem List Patient Problems: Active and Suspected Problems (Last Updated 10/31/18 @ 14:21 by Roula Parrish) Chest pain (Acute) Chest pain (Acute) Elevated troponin (Acute) Date of Admission: 09/26/19 Date of Discharge: 09/28/19 - Primary Discharge Diagnosis Acute Problems: Active Problems (Last Updated 10/31/18 @ 14:21 by Roula Parrish) Chest pain (Acute) Chest pain (Acute) Elevated troponin (Acute) - Secondary Discharge Diagnosis Chronic Problems: Chronic Problems (Last Updated 10/31/18 @ 14:21 by Roula Parrish) Abdominal aortic aneurysm (AAA) (Chronic) Benign essential hypertension (Chronic) History of hyperlipidemia (Chronic) Schizoaffective disorder (Chronic) Tobacco user (Chronic) GERD (gastroesophageal reflux disease) (Chronic) Speech abnormality (Chronic) Dysphagia (Chronic) Urinary retention (Chronic) Chronic anemia (Chronic) Hospital Course and Treatment Imaging Results: Clinical Impression(s) from Imaging Studies Chest X-Ray 09/26/19 19:43 IMPRESSION: No acute cardiopulmonary findings or changes. Negative for new consolidation, focal atelectasis, cardiomegaly or pleural effusion. Atherosclerotic changes of the aorta. Electronically Signed: Fabiana Delgadillo MD at 19:54 EDT , Service support , Chest CTA 09/26/19 19:44 IMPRESSION: Negative for pulmonary embolus. Atheromatous plaque and elongation of the thoracic aorta with generalized ectasia. Ascending aortic diameter is 3.9 cm, mid arch diameter 3.5 cm and proximal descending aorta 3.6 cm. Aorta at the diaphragm 3.3 cm. These measurements stable from prior exam. Negative for dissection. 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 Normal cardiac size. Moderate left coronary calcifications. No acute pulmonary findings. Negative for consolidation, focal atelectasis or pleural effusion. Negative for hiatal hernia or any discernible abnormality of the esophagus. Negative for acute findings in the upper abdomen. Stable cyst upper pole left kidney from prior exam of 02/21/2018. No further imaging recommendations. Electronically Signed: Fabiana Delgadillo MD at 21:33 EDT , Service support , Operations: None Summary of Care Provided: Patient is a 69-year-old gentleman resident at in the standard care facility admitted with chest pain. Subsequent serial cardiac enzymes obtained this time with acute non-STEMI 1. Acute non-STEMI ?Patient currently being managed per protocol seen by Dr. Lucas's recommendation is for patient to undergo left heart catheterization on 09/28/2019 with intervention if warranted - Patient underwent left heart catheterization which demonstrated triple-vessel coronary artery disease involving the LAD, left circumflex as well as RCA. His LVEF by LV gram was 45%. Cardiology recommended referral for immediate PCI versus CABG at [facility] Dr. Lucas did call patient has been accepted for transfer 2. Amyotrophic lateral sclerosis ?Supportive care 3. Known thoracic aortic aneurysm ?Currently stable 4. Hypertension - Blood pressure controlled, home medications continued with dose adjustment as needed 5. Dyslipidemia -Patient is on statin therapy, continued at home dose 6. Anemia - Secondary to chronic disorder monitoring H&H and transfuse if patient becomes symptomatic or hemoglobin falls below 7 7. Schizoaffective disorder 8. GERD 9. BPH Patient is on Flomax 10. History of urethral strictures 11. DVT prophylaxis -patient on Lovenox Patient Problems: Active and Suspected Problems (Last Updated 10/31/18 @ 14:21 by Roula Parrish) Chest pain (Acute) Chest pain (Acute) Elevated troponin (Acute) Objective: GENERAL: cooperative HEENT: Atraumatic; EYES; Anicteric, Normal Conjunctiva NECK; supple, normal thyroid, RESPIRATORY: Diminished to auscultation CARDIOVASCULAR: Regular S1 S2, GI: soft, normoactive bowel sounds, : No Renal angle tenderness; EXTREMITIES: No edema, no clubbing, MUSCULOSKELETAL: no muscle waisting NEURO: Awake; oriented to place and person SKIN: No Rash PSYCH; Flat affect - Physical Exam Vitals/I&O's: Vital Signs Temp Pulse Resp BP Pulse Ox 97.0 F L 64 20 H 131/73 H 94 09/28/19 05:55 09/28/19 06:44 09/28/19 05:55 09/28/19 06:00 09/28/19 06:54 Oxygen Delivery Method Room Air Weight: 106.9 kg Body Mass Index (BMI) 30.2 Intake and Output for Last 24 Hours 09/26/19 09/27/19 09/28/19 23:59 23:59 23:59 Intake Total 100 / 100 895 / 895 Output Total 1350 / 1350 2200 / 2200 300 / 300 Balance -1250 / -1250 -1305 / -1305 -300 / -300 Laboratory Results 09/28/19 05:35: WBC 7.1, RBC 4.07 L, Hgb 12.1 L, Hct 37.5 L, MCV 92.1, MCH 29.7, MCHC 32.3, RDW Std Deviation 42.8, RDW Coeff of Cezar 12.6, Plt Count 248, MPV 9.5, Immature Gran % (Auto) 0.400, Neut % (Auto) 62.0, Lymph % (Auto) 22.2, [place] % (Auto) 9.2, Eos % (Auto) 5.5 H, Baso % (Auto) 0.7, Absolute Neuts (auto) 4.4, Absolute Lymphs (auto) 1.57, Nucleated RBC % 0 09/28/19 05:35: PT 14.3, INR 1.2, APTT 44.6 H 09/28/19 05:35: Sodium 138, Potassium 4.2, Chloride 104, Carbon Dioxide 29.0, Anion Gap 5, BUN 29 H, Creatinine 1.22, Estim Creat Clear Calc 66.44, Est GFR (MDRD) Af Amer 76, Est GFR (MDRD) Non-Af 63, BUN/Creatinine Ratio 23.8 H, Glucose 103, Calcium 8.7, Total Bilirubin 0.40, AST 30, ALT 22, Alkaline Phosphatase 74, Total Protein 6.9, Albumin 3.0 L, Globulin 3.9, Albumin/Globulin Ratio 0.8 L Current Medications Acetaminophen (Tylenol) 650 mg PO Q6H PRN PRN PRN Reason: Pain Score 1-10/Temp > 100.7 F Al Hydroxide/Mg Hydroxide (Mylanta Ii) 30 ml PO Q6H PRN PRN PRN Reason: Gastric Burning Albuterol Sulfate (Ventolin Aerosols) 2.5 mg INHALATION Q2H PRN PRN PRN Reason: Dyspnea, wheezing Alprazolam (Xanax) 0.5 mg PO TID PRN PRN PRN Reason: ANXIETY Last Admin: 09/28/19 01:47 Dose: 0.5 mg Documented by: Amitriptyline HCl (Elavil) 10 mg PO DAILY [facility] Last Admin: 09/27/19 10:30 Dose: 10 mg Documented by: Aspirin (Ecotrin) 81 mg PO DAILY [facility] [place] Last Admin: 09/28/19 05:59 Dose: 81 mg Documented by: Atorvastatin Calcium (Lipitor) 80 mg PO QHS [facility] [place] Last Admin: 09/27/19 21:25 Dose: 80 mg Documented by: Buspirone HCl (Buspar) 10 mg PO BID [facility] [place] Last Admin: 09/27/19 21:24 Dose: 10 mg Documented by: Clopidogrel Bisulfate (Plavix) 75 mg PO DAILY [facility] [place] Guaifenesin (Robitussin) 20 ml PO Q4H PRN PRN PRN Reason: COUGH Heparin Sodium (Beef Lung) (Heparin 500 Unit/5 Ml (100/Ml)) 500 unit IV UD PRN PRN Reason: HEPARIN FLUSH Heparin Sodium (Porcine) (Heparin Na) 0 unit IV UD PRN; Protocol PRN Reason: NOMOGRAM ADJUSTMENT Hydralazine HCl (Apresoline Iv) 10 mg IV Q4H PRN PRN PRN Reason: SBP > 160 Sodium Chloride () 250 mls @ 15 mls/hr IV .[id number] PRN PRN Reason: Saline Flush Sodium Chloride () 250 mls @ 15 mls/hr IV .[id number] PRN PRN Reason: Additional IVPB Infusion Sodium Chloride () 1,000 mls @ 15 mls/hr IV .Q48H [facility] Last Admin: 09/28/19 09:02 Dose: 15 mls/hr Documented by: Nitroglycerin/Dextrose () 250 mls @ 3 mls/hr CONT INF .[id number] [facility]; Protocol Heparin Sodium/Dextrose () 25,000 units in 250 mls @ 15 mls/hr IV .[id number] [facility]; Protocol Labetalol HCl (Trandate) 5 mg IV X1 PRN PRN Reason: SBP > 160 prior to sheath pull Stop: 09/30/19 10:00 Losartan Potassium (Cozaar) 25 mg PO DAILY [facility] [place] Last Admin: 09/28/19 05:59 Dose: 25 mg Documented by: Magnesium Hydroxide (Milk Of Magnesia) 30 ml PO DAILY PRN PRN Reason: Constipation Melatonin (Melatonin) 3 mg PO QHS [facility] [place] Last Admin: 09/27/19 21:25 Dose: 3 mg Documented by: Metoprolol Succinate (Toprol Xl (Beta Brady)) 25 mg PO DAILY [facility] [place] Last Admin: 09/28/19 06:00 Dose: 25 mg Documented by: Morphine Sulfate () 2 mg IV Q3H PRN PRN PRN Reason: Pain Score 6-10/10 Nitroglycerin (Nitrostat) 0.4 mg SUBLINGUAL Q5M PRN PRN Reason: CARDIAC/CHEST PAIN Last Admin: 09/28/19 01:40 Dose: 0.4 mg Documented by: Ondansetron HCl (Zofran) 4 mg IV Q8H PRN PRN PRN Reason: NAUSEA/VOMITING Oxycodone HCl (Oxyir) 5 mg PO DAILY [facility] [place] Last Admin: 09/27/19 10:31 Dose: 5 mg Documented by: Oxycodone HCl (Oxyir) 5 mg PO Q4H PRN PRN PRN Reason: Pain Score 4-5/10 Pantoprazole Sodium (Protonix) 20 mg PO TID [facility] [place] Last Admin: 09/28/19 05:58 Dose: 20 mg Documented by: Polyethylene Glycol (Miralax) 17 gm PO DAILY [facility] [place] Last Admin: 09/27/19 10:30 Dose: 17 gm Documented by: Prochlorperazine Edisylate (Compazine Iv) 5 mg IV Q4H PRN PRN PRN Reason: Breakthrough Nausea/Vomiting Psyllium Hydrophilic Mucilloid (Metamucil) 1 packet PO DAILY PRN PRN PRN Reason: Constipation Riluzole (Riluzole) 50 mg PO BID [facility] [place] Senna/Docusate Sodium (Senokot-S, Ileana-Colace) 2 tablet PO BID PRN PRN PRN Reason: Constipation Sodium Chloride () 10 - 40 ml IV UD PRN PRN Reason: SALINE FLUSH Last Admin: 09/28/19 06:00 Dose: 10 ml Documented by: Tamsulosin HCl (Flomax) 0.8 mg PO DAILY [facility] [place] Last Admin: 09/27/19 10:30 Dose: 0.8 mg Documented by: Throat Lozenges (Cepacol Sore Throat Lozenge) 1 lozenge MUCOUS MEM Q2H PRN PRN PRN Reason: SORE THROAT Discharge Diet: Low fat/ Low Cholesterol Discharge Activity: Return to Normal Activity Home Medications: Medications to take at Discharge Atorvastatin Calcium [Lipitor] 80 mg PO QHS 12/11/16 Omeprazole [Prilosec] 20 mg PO TID 08/21/17 Tamsulosin HCl [Flomax] 0.8 mg PO DAILY 08/21/17 Acetaminophen 650 mg PO Q4H PRN PRN 02/21/18 Amitriptyline HCl 10 mg PO DAILY 02/21/18 Melatonin 3 mg PO QHS 02/21/18 Polyethylene Glycol 3350 [Miralax] 17 gm PO DAILY 02/21/18 Riluzole 50 mg PO BID 02/21/18 Cholecalciferol (Vitamin D3) [Vitamin D3] 2,000 unit PO DAILY 05/23/18 Magnesium Hydroxide [Milk Of Magnesia] 30 ml PO DAILY PRN 05/23/18 Oxycodone HCl 5 mg PO DAILY 05/23/18 Apixaban [Eliquis] 5 mg PO BID #74 tab 08/03/18 Aspirin E.C. [Ecotrin] 81 mg PO DAILY 08/03/18 Cyanocobalamin (Vitamin B-12) [B-12] 1,000 mcg PO DAILY 08/03/18 Metoprolol Tartrate [Lopressor (beta brady)] 12.5 mg PO BID 08/03/18 bisacodyl 10 mg rectal suppository 10 mg RC DAILY PRN 10/31/18 buspirone 10 mg tablet 10 mg PO BID 10/31/18 Primary Care Physician: Nicho Sanderson MD [Primary Care Provider] - Please follow up with your Primary Care Physician in: When discharged from [facility] Disposition: Acute care Hospital - [facility] Minutes spent on discharge:: 45 Patient Condition:: Stable Medical Necessity - Tobacco Use Smoking Status: Former smoker Meaningful Use Info Meaningful Use Diagnoses (Choose all that apply): AMI - AMI/Post PCI/Angioplasty Aspirin given w/in 24hrs of arrival?: Yes ASA at discharge?: Yes Antiplatelet Therapy at Discharge:: Yes Statins at discharge?: Yes [place]/ARB at discharge?: Yes Beta Brady at discharge?: Yes Done w/ Acute AL measure.: Yes Inpatient E&M: 11578 Disch Hosp
--- NOTE | 2019-09-28 10:42 | NURSING ---
Report called to Peggy MALLORY at [facility]. Pt will go to room 206.
--- NOTE | 2019-09-28 11:00 | NURSING ---
[facility] called, unable to do critical care transport. [facility] called, awaiting confirmation of transport.
--- NOTE | 2019-09-28 11:25 | NURSING ---
[facility] confirmed transport approx ETA, 1210.
--- NOTE | 2019-09-28 11:40 | CASEMGMT ---
DUY called [facility] and let Samra in admissions know that patient is being transferred to [facility]. SW also re-faxed information as [facility] did not get the update SW faxed the other day. Plan: Transer to [facility] and then back to [facility]. Shani ALONZO MSW
== END 2019-09-28 12:55 | disposition short-term general hospital (02) | DRG 190 ==
LOC: ED 22:09 → PCU 22:25 → ICU 09-28 10:19
PROVIDERS: Admitting Provider Family Medicine; Emergency Provider Emergency Medicine; PCP Family Medicine; Referring Provider Family Medicine; Visit Provider Internal Medicine
DX: I21.4 Non-ST elevation (NSTEMI) myocardial infarction (principal); I25.110 Atherosclerotic heart disease of native coronary artery with unstable angina pectoris; I71.2 Thoracic aortic aneurysm, without rupture; G12.21 Amyotrophic lateral sclerosis; I10 Essential (primary) hypertension; E78.5 Hyperlipidemia, unspecified; R73.9 Hyperglycemia, unspecified; D63.8 Anemia in other chronic diseases classified elsewhere; K21.9 Gastro-esophageal reflux disease without esophagitis; N40.0 Benign prostatic hyperplasia without lower urinary tract symptoms; F25.9 Schizoaffective disorder, unspecified; E66.9 Obesity, unspecified; Z68.30 Body mass index [BMI] 30.0-30.9, adult; Z74.01 Bed confinement status; Z79.82 Long term (current) use of aspirin; Z79.01 Long term (current) use of anticoagulants; Z79.1 Long term (current) use of non-steroidal anti-inflammatories (NSAID); Z79.02 Long term (current) use of antithrombotics/antiplatelets; Z79.899 Other long term (current) drug therapy; Z87.891 Personal history of nicotine dependence; Z86.718 Personal history of other venous thrombosis and embolism
CPT/HCPCS: 36415; 71045; 71275; 75625; 80048; 80053; 80061; 83036; 83735; 84484; 85025; 85610; 85730; 93005; 93306; 93458; 93567; 97802; 99152; 99153; 99251; 99285; J7030; Q9957; Q9967; A4216; C1769; C1894; C8929; G0463